=== PATIENT | female | born 1955 | race Caucasian/White ===

== ENCOUNTER 2019-11-13 16:53 | Outpatient (CLI) | payer BC, SELFPAY ==
[2019-11-13 17:24] LABS: Basophils Absolute Auto 0.1 K/mm3 (0.0-0.1); Basophils Percent Auto 0.6 % (0.2-1.2); Eosinophils Absolute Auto 0.4 K/mm3 (0-0.3); Eosinophils Percent Auto 2.2 % (0-4.4); Hematocrit 39.3 % (37.0-47.0); Immature Granulocyte Percent A 1.2 % (0-0.5); Lymphocytes Percent Auto 16.5 % (18.3-44.2); Mean Corpuscular HGB Conc 33.1 g/dl (32-36); Mean Corpuscular Hemoglobin 29.1 pg (26-34); Mean Corpuscular Volume 88.1 fl (80-100); Monocytes Absolute Auto 1.7 K/mm3 (0.1-0.6); Neutrophils Absolute Auto 11.8 K/mm3 (1.3-6.7); Neutrophils Percent Auto 69.5 % (45.5-73.1); Nucleated Red Blood Cells Perc 0.2 % (0.0-0.2); Platelet Count Result 380 k/mm3 (150-375); Red Blood Count 4.46 M/mm3 (4.2-5.4); Red Cell Distribution Width 14.1 % (11.5-14.5)
[2019-11-13 17:37] LABS: Alanine Aminotransferase 13 U/L (4-35); Albumin Level 4.1 g/dL (3.5-5.1); Alkaline Phosphatase 107 U/L (38-126); Anion Gap 10 mmol/L (8-16); Aspartate Amino Transferase 18 U/L (14-36); Bilirubin,Total 0.9 mg/dL (0.2-1.3); Blood Urea Nitrogen 24 mg/dL (7-17); Calcium 8.9 mg/dL (8.4-10.2); Carbon Dioxide 26 mmol/L (22-30); Chloride 93 mmol/L (98-107); Estimated Glomerular Filt Rate > 60; Glucose 308 mg/dL (65-105); Potassium 4.8 mmol/L (3.4-5.0); Sodium 129 mmol/L (137-145)
[2019-11-13 17:44] LABS: Hemoglobin A1C 9.5 % (<5.7)
== END 2019-11-13 16:54 | disposition home or self-care (01) ==
PROVIDERS: PCP Family Medicine; Visit Provider Physician Assistant
DX: E11.9 Type 2 diabetes mellitus without complications (principal); K21.9 Gastro-esophageal reflux disease without esophagitis; I10 Essential (primary) hypertension; W19.XXXA Unspecified fall, initial encounter
CPT/HCPCS: 36415; 80053; 83036; 85025

== ENCOUNTER 2020-09-20 01:35 | Day surgery (SDC) | payer BC, SELFPAY ==
[2020-09-02 13:19] VITALS: BMI 40.7
[2020-09-20 11:31] VITALS: BP 131/68; PULSE 99; RESP 24; TEMP 36.4; O2SAT 100; BMI 39.9
[2020-09-20 11:41] LABS: Glucose Point of Care 251 mg/dl (65-105)
[2020-09-20] MEDS: LACTATED RINGERS 1,000 ML 150 ML IV CONT (11:47)
--- NOTE | 2020-09-20 11:51 | WPDANESEPPF ---
Anes - Initial Pre Proc Eval Procedure: Operation Date: 09/20/20 12:45 Proposed Procedures p Screening Colonoscopy - Haseeb Parrish MD Date/Time: 09/20/20 11:51 Surgeon: Haseeb Parrish MD Pre Op Diagnosis: neoplasm screening Patient Data Age: 64 Gender: F Height: 1.7 m Weight: 115.5 kg Last Vital Signs Temp 36.4 C L 09/20/20 11:31 Pulse 99 09/20/20 11:31 Resp 24 H 09/20/20 11:31 BP 131/68 09/20/20 11:31 Pulse Ox 100 09/20/20 11:31 Allergies Allergy/AdvReac Type Severity Reaction Status Date / Time No Known Allergies Allergy Verified 09/20/20 11:30 Home Medications Medication Instructions Recorded Confirmed Type atorvastatin 40 mg tablet 40 mg PO DAILY 01/29/19 09/02/20 History omeprazole magnesium 20 mg 20 mg PO DAILY PRN 01/29/19 09/02/20 History tablet,delayed release cimetidine 200 mg tablet 200 mg PO DAILY PRN tablet 03/26/19 09/02/20 History pioglitazone 30 mg tablet 30 mg PO DAILY #90 tablet 01/15/20 09/02/20 Rx clonazepam 2 mg tablet 2 mg PO DAILY #30 tablet 04/13/20 09/02/20 Rx fluoxetine 20 mg capsule 20 mg PO DAILY #90 cap 05/07/20 09/02/20 Rx glyburide 2.5 mg-metformin 500 mg 1 tablet PO BID #180 tablet 05/27/20 09/02/20 Rx tablet pen needle, diabetic 29 gauge x #100 ea 07/27/20 08/30/20 Rx 1/2 umeclidinium-vilanterol [Anoro 1 inh INHALATION DAILY PRN 09/02/20 09/02/20 History Ellipta] enalapril maleate 2.5 mg tablet 2.5 mg PO DAILY #90 tablet 09/15/20 Rx Laboratory Tests 09/20/20 11:38 POC Capillary Glucose 251 mg/dl H mg/dl (65-105) Patient hx anesthesia problems: none Family hx anesthesia problems: none PMFSH Past Medical History Medical History Acute depression Anxiety Diabetes Diabetes mellitus type II, uncontrolled Family history of colon cancer Glomerulonephritis Heartburn Hypertension Surgical History Surgical History History of cataract extraction Right eye Family History Family History Mother Family history of multiple sclerosis Sibling Hypertension Family history of ulcerative colitis Father Family history of cardiovascular disease Carcinoma of colon Social History Social History Smoking packs per day: 1 Smoking cigarettes per day: 20.0 Years smoked: 38 Smoking pack-years: 38.00 Smoking status: Current every day smoker Tobacco type: cigarettes Second hand tobacco smoke exposure: No Alcohol intake: current Alcohol use details: RARE Substance use: never Substance use type: does not use Living arrangements: alone Gender identity (if verbalized by the patient): Female Spiritual care concerns: No Anes - Eval Final PreProcedure Day of Procedure 09/20/20 11:51 Patient weight: morbidly obese Heart: regular rate and rhythm Lungs: clear to auscultation Airway: Mallampati scale class II and special considerations poor dentition Neurological: alert and oriented Last oral intake: >/= 8 hours ASA classification: III Emergent: no Anesthetic plan: proceed Anesthesia type and monitoring: general GIVS and standard monitoring Informed Consent: The patient's anesthetic plan and its attendant risks and benefits were discussed with the patient/family/POA. Questions were solicited and answers provided to the satisfaction of the patient/family/POA.
--- NOTE | 2020-09-20 13:07 | PM.HPGS ---
History of Present Illness History of Present Illness Consent: Risks, benefits, and alternatives have been discussed and questions answered. Patient agrees to proceed with procedure. Chief complaint: neoplasm screening Narrative: Janel Marin is a 64 year old female with last colonoscopy 5 years ago, father had colon ca Review of Systems Constitutional: Constitutional: Denies headache(s) and Denies weakness Eyes: Eyes: Denies blurry vision ENT: Reports Normal hearing present, Denies headache(s) and Denies neck pain Cardiovascular: Cardiovascular: Denies chest pain and Denies dyspnea Respiratory: Respiratory: Denies dyspnea Gastrointestinal: Gastrointestinal: Reports no additional gastrointestinal complaints Genitourinary: Genitourinary: Denies dysuria Musculoskeletal: Musculoskeletal: Denies neck pain Integumentary/Breasts: Skin/Breast: Denies dry skin Neurologic: Reports Normal hearing present, Denies headache(s) and Denies weakness Psychiatric: Psychiatric: Denies anxiety Endocrine: Endocrine: Denies change in body appearance Hematologic/Lymphatic: Hematologic/Lymphatic: Denies easy bleeding Allergic/Immunologic: Allergic/Immunologic: Denies urticaria PMFSH Past Medical History Medical History Acute depression Anxiety Diabetes Diabetes mellitus type II, uncontrolled Family history of colon cancer Glomerulonephritis Heartburn Hypertension Surgical History Surgical History History of cataract extraction Right eye Family History Family History Mother Family history of multiple sclerosis Sibling Hypertension Family history of ulcerative colitis Father Family history of cardiovascular disease Carcinoma of colon Social History Social History Smoking packs per day: 1 Smoking cigarettes per day: 20.0 Years smoked: 38 Smoking pack-years: 38.00 Smoking status: Current every day smoker Tobacco type: cigarettes Second hand tobacco smoke exposure: No Alcohol intake: current Alcohol use details: RARE Substance use: never Substance use type: does not use Living arrangements: alone Gender identity (if verbalized by the patient): Female Spiritual care concerns: No Meds Home Medications and Allergies Home Medications Medication Instructions Recorded Confirmed Type atorvastatin 40 mg tablet 40 mg PO DAILY 01/29/19 09/02/20 History omeprazole magnesium 20 mg 20 mg PO DAILY PRN 01/29/19 09/02/20 History tablet,delayed release cimetidine 200 mg tablet 200 mg PO DAILY PRN tablet 03/26/19 09/02/20 History pioglitazone 30 mg tablet 30 mg PO DAILY #90 tablet 01/15/20 09/02/20 Rx clonazepam 2 mg tablet 2 mg PO DAILY #30 tablet 04/13/20 09/02/20 Rx fluoxetine 20 mg capsule 20 mg PO DAILY #90 cap 05/07/20 09/02/20 Rx glyburide 2.5 mg-metformin 500 mg 1 tablet PO BID #180 tablet 05/27/20 09/02/20 Rx tablet pen needle, diabetic 29 gauge x #100 ea 07/27/20 08/30/20 Rx 1/2 umeclidinium-vilanterol [Anoro 1 inh INHALATION DAILY PRN 09/02/20 09/02/20 History Ellipta] enalapril maleate 2.5 mg tablet 2.5 mg PO DAILY #90 tablet 09/15/20 Rx Allergies Allergy/AdvReac Type Severity Reaction Status Date / Time No Known Allergies Allergy Verified 09/20/20 11:30 Vital Signs Vital Signs - 24 hr 09/20/20 11:31 Temperature 97.5 F L Pulse Rate 99 Respiratory Rate 24 H Blood Pressure 131/68 Pulse Oximetry 100 Exam Const: General: comfortable and no acute distress HENMT: General nose exam: Normal nares present Eyes: General: appearance normal, both eyes and all related structures Neck: Neck: no JVD Resp: Auscultation: clear to auscultation bilaterally Cardio: Rate: regular rate Rhythm: regular rhythm GI: Inspection: non
[2020-09-20 13:33] VITALS: BP 128/72; PULSE 99; RESP 23; O2SAT 97
[2020-09-20 13:43] VITALS: BP 128/72; PULSE 99; RESP 25; O2SAT 93
[2020-09-20 13:53] VITALS: BP 101/72; PULSE 93; RESP 25; O2SAT 94
== END 2020-09-20 14:05 | disposition home or self-care (01) ==
PROVIDERS: PCP Family Medicine; Visit Provider Internal Medicine Gastroenterology
PROC: 0DJD8ZZ Inspection of Lower Intestinal Tract, Via Natural or Artificial Opening Endoscopic (ICD-10-PCS; CPT 45378; principal; 2020-09-20 12:45)
DX: Z12.11 Encounter for screening for malignant neoplasm of colon (principal); K63.5 Polyp of colon; Z80.0 Family history of malignant neoplasm of digestive organs; K57.30 Diverticulosis of large intestine without perforation or abscess without bleeding; K64.8 Other hemorrhoids; F41.8 Other specified anxiety disorders; E11.9 Type 2 diabetes mellitus without complications; N05.9 Unspecified nephritic syndrome with unspecified morphologic changes; R12 Heartburn; I10 Essential (primary) hypertension; F17.210 Nicotine dependence, cigarettes, uncomplicated; E66.9 Obesity, unspecified; Z68.39 Body mass index [BMI] 39.0-39.9, adult
CPT/HCPCS: 45385; 82948; 88305; J2704; J7120

== ENCOUNTER 2020-11-24 16:05 | Outpatient (CLI) | payer BC, SELFPAY ==
--- NOTE | ~2020-11-24 | MM_ITS ---
EXAMINATION: MM screening [facility] BI w yana HISTORY: Screening TECHNIQUE: Craniocaudal and mediolateral oblique 3-D tomosynthesis images were obtained and synthetic 2-D images were generated. CAD analysis was submitted and interpreted. COMPARISON: Comparison to multiple prior studies sequentially, with oldest reviewed study dated 04/24. BREAST PARENCHYMAL COMPOSITION: There are scattered areas of fibroglandular density. FINDINGS: Stable benign-appearing right breast mass with associated tissue marker in the subareolar l ocation. There is no evidence of suspicious mass, calcification, or architectural distortion to sugge st malignancy in either breast. There has been no suspicious interval change. IMPRESSION: 1. No mammographic evidence of malignancy. 2. Recommend routine screening mammography in one year. BI-RADS Category 2: Benign finding(s). Reviewed, dictated and finalized at location A.
== END 2020-11-24 16:06 | disposition home or self-care (01) ==
LOC: ANHIMG 16:06
PROVIDERS: PCP Family Medicine; Visit Provider Obstetrics & Gynecology
DX: Z12.31 Encounter for screening mammogram for malignant neoplasm of breast (principal)
CPT/HCPCS: 77063; 77067

== ENCOUNTER 2021-12-21 11:21 | Outpatient (CLI) | payer MEDICARE, OTHER, SELFPAY ==
--- NOTE | ~2021-12-21 | CT_ITS ---
EXAMINATION: CT lung screening DATE: 12/21/2021 11:55 INDICATION: Current smoker TECHNIQUE: Computed tomography (CT) of the chest was performed without intravenous contrast. Addition al 3D reconstructions utilizing coronal maximum intensity projection (MIP) were performed. Automated exposure control and iterative reconstruction technique were employed. The dose-length product was 20 0.56 mGy-cm. COMPARISON: 12/04/2018 FINDINGS: Again seen is subtle mosaic attenuation throughout both lungs with small subsegmental regions of incr eased lucency likely related to air trapping in the setting of small airway disease. Again seen are c alcified nodules in the right upper lobe consistent with old granulomatous disease. A couple unchange d 2 mm noncalcified nodules at the right apex. No other new or enlarging pulmonary nodules, pneumonia , pulmonary edema or pleural effusion. Heart size is normal. Atherosclerotic coronary artery calcific location. Aortic valve and mitral annular calcification. Calcified right hilar and mediastinal lymph nodes consistent with old granulomatous disease. Thoracic aorta is normal in caliber. Wall thickenin g along the mid to distal esophagus suggestive of esophagitis. Several small hepatic and splenic calc ific lesions consistent with old granulomatous disease. Mild S-shaped curvature of the thoracic spine with moderate spondylosis. IMPRESSION: 1. . Lung-RADS category 2: Benign appearance or behavior. Continue annual screening with noncontrast low-dose chest CT in 12 months. 2. Wall thickening along the mid to distal esophagus which could be seen with esophagitis related to either infection or reflux. Reviewed, dictated and finalized at location B. IMPRESSION: 1. . Lung-RADS category 2: Benign appearance or behavior. Continue annual scree olga with noncontrast low-dose chest CT in 12 months. 2. Wall thickening along the mid to distal esophagus which could be seen with e sophagitis related to either infection or reflux.
== END 2021-12-21 11:22 | disposition home or self-care (01) ==
PROVIDERS: PCP Family Medicine; Visit Provider Nurse Practitioner Family
DX: Z12.2 Encounter for screening for malignant neoplasm of respiratory organs (principal); F17.210 Nicotine dependence, cigarettes, uncomplicated
CPT/HCPCS: 71271

== ENCOUNTER 2022-01-09 10:05 | Outpatient (CLI) | payer MEDICARE, OTHER, SELFPAY ==
--- NOTE | ~2022-01-09 | MM_ITS ---
EXAMINATION: MM screening [facility] BI w yana HISTORY: Screening TECHNIQUE: Craniocaudal and mediolateral oblique 3-D tomosynthesis images were obtained and synthetic 2-D images were generated. CAD analysis was submitted and interpreted. COMPARISON: Comparison to multiple prior studies sequentially, with oldest reviewed study dated 04/24. BREAST PARENCHYMAL COMPOSITION: FINDINGS: Stable appearance to benign-appearing mass in the subareolar location of the right breast. There are benign bilateral breast calcifications. There is no evidence of suspicious mass, calcificat ion, or architectural distortion to suggest malignancy in either breast. There has been no suspicious interval change. IMPRESSION: 1. No mammographic evidence of malignancy. 2. Recommend routine screening mammography in one year. BI-RADS Category 2: Benign finding(s). Reviewed, dictated and finalized at location A.
== END 2022-01-09 10:06 | disposition home or self-care (01) ==
LOC: ANHIMG 10:08
PROVIDERS: PCP Family Medicine; Visit Provider Obstetrics & Gynecology
DX: Z12.31 Encounter for screening mammogram for malignant neoplasm of breast (principal)
CPT/HCPCS: 77063; 77067

== ENCOUNTER 2022-11-30 14:42 | Outpatient (CLI) | payer MEDICARE, OTHER, SELFPAY ==
--- NOTE | ~2022-11-30 | DEXA_ITS ---
Bone Density Report Name: ARANZA CHAHAL Age: 67 Sex: Female Ethnicity: White Date of : 1955 Indication: postmenopausal; screening for osteoporosis; prior fracture; Referring Provider: JUAN RAY Study: Bone densitometry was performed. Exam Date: November 30, 2022 Accession number: [id number] Bone Density: Region BMD T-score Z-score Classification AP Spine(L1-L4) 0.932 -1.0 0.8 Normal Femoral Neck (Left) 0.714 -1.2 0.3 Osteopenia Total Hip (Left) 0.863 -0.6 0.6 Normal Femoral Neck (Right) 0.646 -1.8 -0.3 Osteopenia Total Hip (Right) 0.847 -0.8 0.5 Normal Total Hip Mean 0.855 -0.7 0.6 Normal World Health Organization criteria for BMD impression classify patients as: Normal (T-score at or above -1.0), Osteopenia (T-score between -1.0 and -2.5), or Osteoporosis (T-score at or below -2.5). 10-year Fracture Risk(1): Major Osteoporotic Fracture 16% Hip Fracture 3.4% Reported Risk Factors: [place] (), Neck BMD=0.646, BMI=37.4, previous fracture, smoking (1) FRAX(R) Version 3.08. Fracture probability calculated for an untreated patient. Fracture probability may be lower if the patient has received treatment. Clinical Information Provided by Patient: Has had a low trauma fracture Smokes Has used the following medications: Vitamin D Patient maximum height was 67 Menopause Age: 48 No regular weight bearing exercise Drinks caffeinated beverages Onset of menses at age 14 Number of children 0 Impression: The patient has low bone mass, based on the Right Femoral Neck T-score. The patient has an estimated ten-year risk of hip fracture of 3.4% and an estimated ten-year risk of major fracture of 16%, based on the WHO FRAX algorithm. The patient has risk factors, including: smoking, previous fracture. Discussion: BONE DENSITY IS LOW AT ONE OR MORE SKELETAL SITES. THE PATIENT'S BMD AND CLINICAL RISK FACTORS CONTRIBUTE TO THIS PATIENT'S INCREASED RISK OF FRACTURE. This patient's lowest T-score is low at one or more skeletal sites. It meets the World Health Organization's (WHO) criteria for ?low bone mass? (T-score between -1.0 and -2.5). The patient's 10-year risk of hip fracture as calculated by FRAX exceeds the threshold where pharmacological therapy is recommended by the National Osteoporosis Foundation (NOF). However, all treatment decisions require clinical judgment and consideration of individual patient factors, including patient preferences, comorbidities, previous drug use, risk factors not captured in the FRAX model (e.g., frailty, falls, vitamin D deficiency, increased bone turnover, interval significant decline in bone density) and possible under or overestimation of fracture risk by FRAX. The patient should follow a healthful lifestyle (good nutritio
== END 2022-11-30 14:43 | disposition home or self-care (01) ==
PROVIDERS: PCP Family Medicine; Visit Provider Internal Medicine Endocrinology, Diabetes & Metabolism
DX: Z78.0 Asymptomatic menopausal state (principal); M85.852 Other specified disorders of bone density and structure, left thigh; M85.851 Other specified disorders of bone density and structure, right thigh
CPT/HCPCS: 77080

== ENCOUNTER 2022-12-22 13:34 | Outpatient (CLI) | payer MEDICARE, OTHER, SELFPAY ==
--- NOTE | ~2022-12-22 | CT_ITS ---
EXAMINATION: CT lung screening DATE: 12/22/2022 13:57 INDICATION: Lung cancer screening. Nicotine dependence. TECHNIQUE: Computed tomography (CT) of the chest was performed without intravenous contrast. The dose -length product was 191.53 mGy-cm. Automated exposure control and iterative reconstruction technique were employed. COMPARISON: CT dated 12/21/2021 FINDINGS: No thoracic lymphadenopathy. Heart size normal. No significant pleural or pericardial effus ion. There are calcified granulomas of the liver and spleen. There is low density mass in the left ad renal gland measuring 3 cm, likely benign adenoma. There is atherosclerosis. There is mediastinal lym phadenopathy, likely reactive. Persistent diffuse patchy groundglass opacities with mosaic attenuatio n in both lungs. No endobronchial lesions. Calcified granuloma right upper lobe. There are additional calcified granulomas in the lung parenchyma. There are a few scattered pulmonary nodules measuring 2 mm or less in both lungs without significant change from prior examination. No new pulmonary nodules . No pneumothorax. IMPRESSION: 1. Lung-RADS category 2: Benign appearance or behavior. Continue annual screening with noncontrast lo w-dose chest CT in 12 months. Reviewed, dictated and finalized at location A. IMPRESSION: 1. Lung-RADS category 2: Benign appearance or behavior. Continue annual screeni ng with noncontrast low-dose chest CT in 12 months.
== END 2022-12-22 13:35 | disposition home or self-care (01) ==
LOC: ANHIMG 13:40
PROVIDERS: PCP Family Medicine; Visit Provider Physician Assistant
DX: Z12.2 Encounter for screening for malignant neoplasm of respiratory organs (principal); F17.210 Nicotine dependence, cigarettes, uncomplicated
CPT/HCPCS: 71271

== ENCOUNTER 2023-02-22 15:47 | Inpatient (IN) | payer MEDICARE, OTHER, SELFPAY ==
[2023-02-22] VITALS (23 sets, daily range): BP systolic 130–159; BP diastolic 67–97; PULSE 80–104; RESP 15–26; TEMP 35.7–36.2; O2SAT 84–99; BMI 34.7
--- NOTE | ~2023-02-22 | CT_ITS ---
EXAMINATION: CT brain wo con DATE: 02/22/2023 16:38 INDICATION: Head injury. TECHNIQUE: Computed tomography (CT) of the head was performed without intravenous contrast. The mA wa s adjusted according to patient size. Iterative reconstruction technique was employed. The dose-lengt h product was 605.33 mGy-cm. COMPARISON: None FINDINGS: There is no intracranial hemorrhage, acute infarction, or abnormal intracranial mass lesion . The ventricles are normal in size. The orbits are normal. There is mild mucosal thickening in the p aranasal sinuses. The mastoid air cells are normal. There are hematomas in the posterior scalp. IMPRESSION: 1. Normal brain. Reviewed, dictated and finalized at location A. ANALYST IMPRESSION: 1. Normal brain.
--- NOTE | ~2023-02-22 | XR_ITS ---
EXAMINATION: XR chest 1V portable DATE: 02/22/2023 17:14 INDICATION: Syncope. TECHNIQUE: A single frontal view of the chest was obtained. COMPARISON: Chest 2 views 02/25/2014, chest CT 12/22/2022 FINDINGS: There is no pneumonia, pleural effusion, or pneumothorax. The heart size is normal. There i s an old healed fracture of proximal left humerus. IMPRESSION: 1. No acute cardiopulmonary disease. Reviewed, dictated and finalized at location A. TENTER OPERATOR
--- NOTE | ~2023-02-22 | CT_ITS ---
EXAMINATION: CTA chest PE protocol DATE: 02/22/2023 17:48 INDICATION: Shortness of breath and elevated d-dimer TECHNIQUE: Computed tomography (CT) pulmonary angiogram of the chest was performed with 100 mL Omnipa que-350 intravenous contrast. Additional 3D reconstructions utilizing coronal maximum intensity proje ction (MIP) were performed. Automated exposure control and iterative reconstruction technique were em ployed. The dose-length product was 607.32 mGy-cm. COMPARISON: 12/22/2022 FINDINGS: Excellent contrast opacification of the pulmonary arteries. There is mild streak artifact from dense contrast in the superior vena cava and right atrium. Mild scattered respiratory motion artifact which does not significantly limit evaluation. No pulmonary embolism. There is subtle mosaic attenuation t hroughout the lungs with groundglass opacities and small subsegmental regions of more lucent air trap ping without attenuation of the vessels most likely related to air trapping the setting of small airw ay disease. 9 mm groundglass nodule in the right middle lobe which most likely infectious/inflammator y in etiology. Calcified right upper lobe nodules along with calcified right hilar lymph nodes and a few small hepatic and splenic calcific lesions, all consistent with old granulomatous disease. No ple ural effusion. Atherosclerotic coronary artery calcification is. No pericardial effusion. Aortic valv e and mitral annular calcification. Thoracic aorta is normal in caliber with no dissection. No pathol ogically enlarged thoracic lymphadenopathy. 2.4 cm left thyroid nodule at the lower pole which extend s into the superior mediastinum. 1.5 cm left adrenal adenoma with Hounsfield units of 0. There is add itional low-density thickening of the lateral limb of the left adrenal gland likely representing flaca tional small adenoma. Relatively recent-appearing T12 burst fracture with 20% anterior to central diogo tebral body height loss, subtle lucency along the fracture line underlying the superior endplate and couple millimeter retropulsion resulting in mild central canal stenosis. IMPRESSION: 1. No pulmonary embolism. 2. Mosaic attenuation throughout both lungs likely related to subsegmental regions of air trapping re lated to small airway disease. 3. 9 mm groundglass nodule in the right middle lobe which is new since the prior study most likely in fectious/inflammatory in etiology. 4. Relatively recent-appearing T12 burst fracture which is new since 12/22/2022 Reviewed, dictated and finalized at location A. OUS CHLORIDE OPERATOR IMPRESSION: 1. No pulmonary embolism. 2. Mosaic attenuation throughout both lungs likely related to subsegmental shola ons of air trapping related to small airway disease. 3. 9 mm groundglass nodule in the right middle lobe which is new since the prio r study most likely infectious/inflammatory in etiology. 4. Relatively recent-appearing T12 burst fracture which is new since 12/22/2022
--- NOTE | ~2023-02-22 | US_ITS ---
EXAMINATION: US carotid duplex BI DATE: 02/23/2023 09:37 INDICATION: Syncope. TECHNIQUE: Grayscale, color Doppler, and pulsed Doppler images of the cervical carotid arteries were obtained. The degree of vessel stenosis is placed in one of the following categories: normal, <50%, 5 0-69%, >=70% but less than near-occlusion, near-occlusion, or total occlusion. Note that percent sten osis relative to normal distal artery lumen diameter is indirectly measured from velocity measurement s as described by Chuy, et al. Radiology 2003; 229:340-346. COMPARISON: None. FINDINGS: RIGHT: The right common carotid artery (CCA) peak systolic velocity (PSV) is 93 cm/s. The right internal car otid artery (ICA) PSV is 62 cm/s. The right ICA end-diastolic velocity (EDV) is 12 cm/s. The right IC A/CCA PSV ratio is 0.7. Grayscale and color Doppler images yield an estimate of <50% diameter reducti on from plaque in the ICA. There is antegrade flow in the right vertebral artery. LEFT: The left CCA PSV is 82 cm/s. The left ICA PSV is 64 cm/s. The left ICA EDV is 14 cm/s. The left ICA/C CA PSV ratio is 0.8. Grayscale and color Doppler images yield an estimate of <50% diameter reduction from plaque in the ICA. There is antegrade flow in the left vertebral artery. IMPRESSION: 1. <50% stenosis in the right internal carotid artery. 2. <50% stenosis in the left internal carotid artery. Reviewed, dictated and finalized at location A. DUMPER
--- NOTE | 2023-02-22 15:57 | ECG_ITS ---
Measurements Intervals [place] Rate: 92 P: 60 SD: 180 QRS: 103 QRSD: 98 T: 37 QT: 258 QTc: 319 Interpretive Statements SINUS RHYTHM MARKED RIGHT AXIS DEVIATION [QRS AXIS > 100] NONSPECIFIC T-WAVE ABNORMALITY ABNORMAL ECG NO PREVIOUS ECG AVAILABLE FOR COMPARISON Electronically Signed On 02-23-2023 13:49:59 RN PLASTICS by Davonte Forbes M.D.
[2023-02-22 16:26] LABS: Alveolar/Arterial O2 Gradient 63.5 mmHg; Carboxyhemoglobin 9.3 % THb (0-2.0); Fractional Inspired Oxygen 28 %; HCO3 ABG 27.8 mEq/l (22.0-26.0); Methemoglobin ABG 0.3 %THb (0-1.5); Oxygen Content ABG 21.7 %vol (16.0-22.0); Oxygen Saturation ABG 95.7 % (95.0-100.0); PCO2 ABG 47.2 mmHg (35.0-45.0); PO2 ABG 80.4 mmHg (80.0-100.0); PO2 FiO2 Ratio Arterial Blood 2.87 %; Reduced Hemoglobin 3.9 %THb (0-5.0); Total Hemoglobin 17.8 g/dL (12.0-18.0); pH ABG 7.388 (7.350-7.450)
[2023-02-22 16:28] LABS: Device NASAL CANNULA; Modified Allen's Test Pass; Oxyhemoglobin 86.5 % THb (90.0-100.0); Site Drawn RIGHT RADIAL
[2023-02-22 16:32] LABS: Basophils Absolute Auto 0.1 K/mm3 (0.0-0.1); Basophils Percent Auto 0.7 % (0.2-1.2); Eosinophils Absolute Auto 0.2 K/mm3 (0-0.3); Eosinophils Percent Auto 2.4 % (0-4.4); Hematocrit 57.7 % (37.0-47.0); Hemoglobin 17.2 g/dL (12.0-15.0); Immature Granulocyte Absolute 0.03 K/mm3 (0.00-0.031); Immature Granulocyte Percent A 0.3 % (0-0.5); Lymphocytes Absolute Auto 1.58 K/mm3 (0.9-3.2); Lymphocytes Percent Auto 18.2 % (18.3-44.2); Mean Corpuscular HGB Conc 29.8 g/dl (32-36); Mean Corpuscular Volume 90.6 fl (80-100); Monocytes Absolute Auto 0.7 K/mm3 (0.1-0.6); Monocytes Percent Auto 7.7 % (2.6-8.5); Neutrophils Absolute Auto 6.1 K/mm3 (1.3-6.7); Neutrophils Percent Auto 70.7 % (45.5-73.1); Platelet Count Result 273 k/mm3 (150-375); Red Blood Count 6.37 M/mm3 (4.2-5.4); Red Cell Distribution Width 16.9 % (11.5-14.5); White Blood Count 8.7 K/mm3 (4.5-10.0)
[2023-02-22 16:45] LABS: Alanine Aminotransferase 14 U/L (6-35); Albumin Level 4.2 g/dL (3.5-5.1); Alkaline Phosphatase 92 U/L (38-126); Anion Gap 12 mmol/L (8-16); Aspartate Amino Transferase 19 U/L (14-36); Bilirubin,Total 0.9 mg/dL (0.2-1.3); Blood Urea Nitrogen 12 mg/dL (7-17); Calcium 9.7 mg/dL (8.4-10.2); Carbon Dioxide 28 mmol/L (22-30); Chloride 99 mmol/L (98-107); Estimated CRCL calculation 96 ml/min; Estimated Glomerular Filt Rate > 60; Glucose 143 mg/dL (65-110); Potassium 4.4 mmol/L (3.4-5.0); Sodium 139 mmol/L (137-145)
[2023-02-22 16:56] LABS: Hypochromasia 1+ (NORMAL); Platelet Estimate Adequate (Adequate); Schistocytes None Seen (NORMAL)
--- NOTE | 2023-02-22 16:59 | ED.GENADULT ---
HPI - General Adult General Chief complaint: Syncope Stated complaint: sycope head injury Time Seen by Provider: 02/22/23 16:08 History of Present Illness HPI narrative: 67-year-old female presented to the emergency department for evaluation after having 2 syncopal episodes. patient reports that yesterday she had onset of some lightheaded and dizziness, she reports a spinning sensation and then patient thought she had loss of consciousness and struck her head. Patient is unsure how long she was unconscious. Patient reports she had a 2nd episode today when she was standing at the kitchen that was preceded by a short episode of lightheaded and dizziness. Patient reports she did have once again loss of consciousness and did strike her head. Patient does admit to smoking at least a pack and half of cigarettes per day. Patient denies any headache denies any confusion or change in mental status. At time of evaluation patient is alert and appropriate. Related Data Home Medications Medication Instructions Recorded Confirmed ibuprofen 200 mg capsule 200 mg PO Q6H PRN 11/17/20 02/21/23 loratadine 5 mg-pseudoephedrine ER 1 tablet PO Q12H PRN 10/19/21 02/21/23 120 mg tablet,extended release,12hr (Claritin-D 12 Hour) cholecalciferol (vitamin D3) 25 25 mcg PO DAILY 08/14/22 02/21/23 mcg (1,000 unit) capsule mecobalamin (vitamin B12) 500 mcg 500 mcg PO DAILY 08/14/22 02/21/23 chewable tablet duloxetine 60 mg capsule,delayed 60 mg PO DAILY 11/30/22 02/21/23 release Allergies Allergy/AdvReac Type Severity Reaction Status Date / Time No Known Allergies Allergy Verified 02/21/23 13:02 Review of Systems Review of Systems: All systems reviewed & are unremarkable except as noted in HPI and below PMFSH Past Medical History Medical History Acute depression Allergies Anxiety Chronic GERD COPD (chronic obstructive pulmonary disease) Glomerulonephritis Headache, migraine Heartburn HLD (hyperlipidemia) Hypertension Keratosis Tachycardia Surgical History Surgical History History of cataract extraction Right eye History of elbow surgery 2020, broken bone from fall Family History Family History Mother Family history of multiple sclerosis Sibling Hypertension Family history of ulcerative colitis Father Family history of cardiovascular disease Carcinoma of colon Other Alcoholism Alzheimer disease Cerebrovascular accident Depression Diabetes mellitus Emphysema lung Heart disease Lung cancer Multiple sclerosis Rectal cancer Skin cancer Ulcerative (chronic) ileocolitis Vertigo Social History Social History Social History: Single Smoking packs per day: 1.5 Smoking cigarettes per day: 30.0 Years smoked: 38 Smoking pack-years: 57.00 Smoking status: Heavy tobacco smoker Tobacco type: cigarettes Second hand tobacco smoke exposure: No Alcohol intake: current Alcohol use details: rarely Substance use: never Substance use type: does not use Living arrangements: alone Occupation/Education: occupation Gender identity (if verbalized by the patient): Female Sexual Orientation (if Verbalized by the Patient): Straight or Heterosexual Spiritual care concerns: No Exam Narrative: APPEARANCE: Well appearing, no pain, no distress, well-nourished. HEAD: normocephalic, atraumatic. EYES: PERRLA/EOMI, conjunctivae clear. NOSE: Normal no drainage EARS:TMS clear with good light reflex. THROAT: Pharynx clear, no exudate. NECK: Supple. No adenopathy, no masses. RESPIRATORY: Airway patent, respirations nonlabored. Clear to auscultation bilaterally, no rales, rhonchi, wheezing. CARDIOVASCULAR: Regular rate and rhythm without murmurs rubs or gallops. ABD
[2023-02-22] MEDS: SODIUM CHLORIDE 0.9% IV 1,000 ML 999 ML IV CONT (17:13)
[2023-02-22 17:15] LABS: Troponin I < 0.012 ng/mL (0.000-0.034)
[2023-02-22 17:27] LABS: D Dimer 0.64 ug/mL (<0.48)
[2023-02-22] MEDS: methylPREDNISolone SOD SUCC 125 MG VIAL IV PUSH (18:58)
[2023-02-22 19:29] LABS: Influenza A QL RT-PCR Negative (Negative); Influenza B QL RT-PCR Negative (Negative); RSV RNA, RT-PCR Negative (Negative); SARS-CoV-2 RNA PCR Negative (Negative)
--- NOTE | 2023-02-22 19:59 | PM.IMHP ---
H&P: HPI History of Present Illness Date/Time: 02/22/23 19:59 Chief Complaint: Passed out Narrative: 67-year-old female with past medical history of chronic tobacco use, diabetes, hyperlipidemia and anxiety who presented to the ER after 2 syncopal episodes. Patient reports that her 1st syncopal episode was 5 days ago. She stated that she was outside and came back inside to grab a cup of coffee to drink while she smoker cigarette. She was standing at the counter making couple coffee when the room suddenly spine in a violent manner. She passed out in was wedged between a cabinet and an appliance when she woke up. She a had knot on her head. She stated that she felt off for little bit after that episode and took a bit to recover. She did not have loss of bowel or bladder function. She treated it with the ice and anti-inflammatories. She did follow-up with her primary care physician yesterday about the event. Then today she had been up and walking around for a bit in again went to the kitchen to get coffee. While she was standing where she became lightheaded and passed out. This time she feels as if she was not out of it for as long. She also did not feel confused after her 2nd syncopal event. She is noted to be wheezing but does not have any labored respirations in the ER. She reports that she has been heavy smoker since her mid 20s. She denies any increased cough, congestion or shortness of breath. She denies any chest pain or palpitations. On exam she did have a valvular click with a murmur. She denies any known history of murmur. She denies lower extremity swelling, orthopnea or paroxysmal nocturnal dyspnea. She denies any vision changes. She denies any other preceding symptoms prior to the event. She has not had any recent changes in her medications. She was recently diagnosed with candidiasis in her inguinal folds due to her use of Jardiance. She has had increased urinary frequency due to her diabetic medications. Her sugars have been stable. She reports that she took her morning meds but has not had her evening meds today. She reports that her sister complains that she snores when they want trips. She has never been tested for sleep apnea. She does have intermittent constipation that she relates to low dietary fiber. She reports intermittent neuropathy of her fingers but denies any lower extremity peripheral neuropathy. Review of Systems Review of Systems: 12 systems were reviewed with pertinent positives and negatives per HPI. Except as documented in the HPI, all other systems were reviewed and are negative. [facility] Past Medical History Medical History (Updated 02/22/23 @ 21:52 by Anne Kemp DO) Allergic rhinitis Anxiety Chronic GERD COPD (chronic obstructive pulmonary disease) Depression Essential (primary) hypertension Glomerulonephritis Headache, migraine HLD (hyperlipidemia) Keratosis Obesity (BMI 30-39.9) Osteopenia after menopause Post-menopausal Type 2 diabetes mellitus Vitamin B12 deficiency Vitamin D deficiency Surgical History Surgical History (Updated 02/22/23 @ 21:53 by Anne Kemp DO) History of elbow surgery (~2019) ORIF Status post cataract extraction of both eyes with insertion of intraocular lens (~2018) Family History Family History Mother Family history of multiple sclerosis Sibling Hypertension Family history of ulcerative colitis Father Family history of cardiovascular disease Carcinoma of colon Other Alcoholism Alzheimer disease Cerebrovascular accident Depression Diabetes mellitus Emphysema lung Heart disease Lung cancer Multiple sclerosis Rectal cancer Skin cancer Ulcerative (chronic) ileocolitis Vertigo Social History Social History (Updated 02/22/23 @ 21:58 by Anne Kemp DO) Social History: The patient is single and has never been . She does not have any chi
--- NOTE | 2023-02-22 21:17 | ADMGEN ---
This patient, Janel Marin, was admitted to 2 Medical Room 257-01. Patient/family oriented to hospital policies and general routines including ID bracelet, bed and alarms, visiting hours, pain management, procedures, bathroom and other care routines, personal items, smoking policy, room service/diet, and visiting hours. Information on how to activate the Rapid Response Team has been discussed. Patient/Family are encouraged to report perceived risks to care and to ask questions if they do not understand what they are told or what they should do.
[2023-02-22] MEDS: metFORMIN HCL 500 MG TABLET 1000 MG PO (22:40)
[2023-02-22] MEDS: INSULIN ASPART (*BKC) 100 UNITS/ML SUB-Q (22:41)
[2023-02-22] MEDS: SODIUM CHLORIDE 0.9% IV 1,000 ML 100 ML IV CONT (22:41)
[2023-02-22] MEDS: NICOTINE (*PBKC) 14 MG PATCH 1 PATCH TRANSDERM (22:42)
[2023-02-23] VITALS (19 sets, daily range): BP systolic 106–124; BP diastolic 49–61; PULSE 88–103; RESP 18–20; TEMP 35.8–36.5; O2SAT 91–97
--- NOTE | 2023-02-23 | ECHO_ITS ---
Patient Info Name: Janel Marin Age: 67 years : 1955 Gender: Female Ht: 67 in Wt: 221 lbs BSA: 2.22 m2 HR: 93 bpm BP: 124 / 61 mmHg Heart Rhythm: Sinus Rhythm Technical Quality: Fair Exam Date: 02/23/2023 9:04 AM Exam Location: Echo Lab Patient Status: Outpatient Admit Date: 02/22/2023 Staff Ordering Physician: Anne Kemp DO Parent Aide: Marycruz Ceballos RDCS Attending Provider: Mehnaz Hammond MD Referring Physician: Viridiana STALLWORTH; Exam Type: CA echo dop color flow w con Study Info Indications R01.1 - Cardiac murmur, unspecified R55 - Syncope and collapse Complete two-dimensional, color flow and Doppler transthoracic echocardiogram is performed with contrast to opacify the left ventricle and to improve the deliniation of the left ventricle endocardial borders. Contrast/Agitated Saline Contrast/Ag. Saline: Definity Amount: 2.00 ml Administered By: Marycruz Ceballos RDCS Existing IV Access: Yes IV Access Condition: patent with no signs of infiltration Summary 1. Definity contrast injected to improve exam quality. 2. Normal left ventricular size with hyperdynamic systolic contractility. 3. Mildly enlarged left atrium. 4. Thickened mitral valve leaflets with no detectable MR. Left Ventricle Left ventricular chamber dimension is normal. Left ventricular systolic function is hyperdynamic, estimated at >70%. The left ventricular diastolic function is grade I diastolic dysfunction. Right Ventricle Right ventricular chamber dimension is normal. Left Atria Left atrial chamber dimension is mildly enlarged. Right Atria Right atrial chamber dimension is normal. Aortic Valve The aortic valve is normal. Pulmonic Valve The pulmonic valve is not well visualized. Mitral Valve The mitral valve has thickened leaflets. There is no mitral valve regurgitation. The mitral valve annulus is mildly calcified. Tricuspid Valve The tricuspid valve leaflets are normal. Pericardium/Pleural The pericardium appears normal. Aorta The aortic root size at the sinus of Valsalva is normal. Left Ventricular Outflow Tract Name Value Normal LVOT 2D LVOT Diameter 1.98 cm LVOT Doppler LVOT Peak Gradient 4 mmHg LVOT Mean Gradient 3 mmHg LVOT VTI 19.35 cm LVOT VTI/AV VTI Ratio 0.55 LVOT Stroke Volume 59.52 ml LVOT CO 5.82 l/min LVOT CI 2.63 L/min/m2 Pulmonic Valve Name Value Normal RVOT Doppler RVOT Peak Gradient 3 mmHg PV Doppler PV Peak Gradient 8 mmHg Mitral Valve Name
[2023-02-23] MEDS: clonazePAM (*CRX) 0.5 MG TABLET 2 MG PO ×2 (01:10→21:29)
[2023-02-23] MEDS: ATORVASTATIN 20 MG TABLET PO ×2 (01:10→21:30)
[2023-02-23] MEDS: ALBUTEROL SULFATE NEB 2.5 MG/3 ML INH 5 MG INHALATION ×4 (02:25→21:47)
[2023-02-23] MEDS: IPRATROPIUM BR 0.02% INH SOLN 0.5 MG/2.5 ML VIAL INHALATION ×4 (02:25→21:47)
--- NOTE | 2023-02-23 02:29 | PC.NURSE ---
[facility] 0100 to ~0225 on .
[2023-02-23 04:22] LABS: Glucose Point of Care 262 mg/dl (65-105)
[2023-02-23 05:20] LABS: Alveolar/Arterial O2 Gradient 72.5 mmHg; Base Excess ABG -4.6 mEq/l (+/-2.0); Carboxyhemoglobin 2.4 % THb (0-2.0); Fractional Inspired Oxygen 32 %; HCO3 ABG 21.7 mEq/l (22.0-26.0); Methemoglobin ABG 0.4 %THb (0-1.5); Oxygen Saturation ABG 97.3 % (95.0-100.0); Oxyhemoglobin 94.3 % THb (90.0-100.0); PO2 ABG 104.2 mmHg (80.0-100.0); PO2 FiO2 Ratio Arterial Blood 3.26 %; Reduced Hemoglobin 2.9 %THb (0-5.0); Total Hemoglobin 17.3 g/dL (12.0-18.0)
[2023-02-23 05:22] LABS: Device NASAL CANNULA; Modified Allen's Test Pass; Site Drawn RIGHT RADIAL
[2023-02-23 05:42] LABS: Basophils Absolute Auto 0.1 K/mm3 (0.0-0.1); Basophils Percent Auto 0.7 % (0.2-1.2); Eosinophils Percent Auto 0.1 % (0-4.4); Hematocrit 54.1 % (37.0-47.0); Hemoglobin 16.3 g/dL (12.0-15.0); Immature Granulocyte Absolute 0.03 K/mm3 (0.00-0.031); Immature Granulocyte Percent A 0.4 % (0-0.5); Lymphocytes Absolute Auto 0.78 K/mm3 (0.9-3.2); Lymphocytes Percent Auto 11.4 % (18.3-44.2); Mean Corpuscular HGB Conc 30.1 g/dl (32-36); Mean Corpuscular Hemoglobin 27.6 pg (26-34); Mean Corpuscular Volume 91.5 fl (80-100); Mean Platelet Volume 9.1 fl (7.4-10.4); Monocytes Percent Auto 0.6 % (2.6-8.5); Neutrophils Absolute Auto 5.9 K/mm3 (1.3-6.7); Neutrophils Percent Auto 86.8 % (45.5-73.1); Platelet Count Result 255 k/mm3 (150-375); Red Blood Count 5.91 M/mm3 (4.2-5.4); Red Cell Distribution Width 15.9 % (11.5-14.5); White Blood Count 6.8 K/mm3 (4.5-10.0)
[2023-02-23 06:01] LABS: Anion Gap 16 mmol/L (8-16); Blood Urea Nitrogen 15 mg/dL (7-17); Calcium 8.9 mg/dL (8.4-10.2); Carbon Dioxide 18 mmol/L (22-30); Chloride 104 mmol/L (98-107); Estimated CRCL calculation 113 ml/min; Estimated Glomerular Filt Rate > 60; Glucose 178 mg/dL (65-110); Potassium 4.7 mmol/L (3.4-5.0); Sodium 138 mmol/L (137-145)
[2023-02-23 08:25] LABS: Glucose Point of Care 198 mg/dl (65-105)
[2023-02-23] MEDS: SODIUM CHLORIDE 0.9% IV 1,000 ML 100 ML IV CONT (08:48)
[2023-02-23] MEDS: DULoxetine HCL 60 MG CAPSULE.DR PO (08:48)
[2023-02-23] MEDS: EMPAGLIFLOZIN 25 MG TABLET PO (08:49)
[2023-02-23] MEDS: metFORMIN HCL 500 MG TABLET 1000 MG PO ×2 (08:49→16:10)
[2023-02-23] MEDS: ENALAPRIL MALEATE 2.5 MG TABLET PO (08:49)
[2023-02-23] MEDS: CHOLECALCIFEROL 1,000 UNITS TABLET 1000 UNITS PO (08:49)
[2023-02-23] MEDS: PIOGLITAZONE HCL 30 MG TABLET PO (08:50)
[2023-02-23] MEDS: ENOXAPARIN 40 MG/0.4 ML SYRINGE SUB-Q (08:50)
[2023-02-23] MEDS: INSULIN GLARGINE (*BKC) 100 UNITS/ML 46 UNITS SUB-Q (08:52)
[2023-02-23] MEDS: FLUTICASONE/SALMETEROL 115-21 MCG INHALER 1 PUFF 2 PUFF INHALATION (08:55)
[2023-02-23] MEDS: PERFLUTREN LIPID MICROSPHERES 1.5 ML VIAL DILUTED TO 10 ML TOTAL VOLUME IV PUSH (09:53)
--- NOTE | 2023-02-23 11:42 | IVDEFINITY ---
Prior to administration of IV Definity the patient was educated on the risks and benefits of the imaging enhancing agent including potential adverse side effects. The patient verbalized understanding. Allergies were verified. No exclusion criteria were identified and at least one of the following inclusion criteria were met: 1) physician request, 2) patient technically difficult to image (per the [place] [employer] guidelines of two or more segments not discernable within the apical view), or 3) questionable left ventricular function. ?
[2023-02-23 11:57] LABS: Glucose Point of Care 198 mg/dl (65-105)
--- NOTE | 2023-02-23 12:50 | PM.IMPN ---
Progress Note: A&P Assessment and Plan (1) Syncope: Qualifiers: Syncope type: unspecified Qualified Code(s): R55 - Syncope and collapse Code(s): R55 - Syncope and collapse Status: Acute Assessment and Plan: Workup is in progress. Carotid Doppler acute obstruction. CT head negative. Echo pending. (2) Hypoxia: Code(s): R09.02 - Hypoxemia Status: Acute Assessment and Plan: Stable, contracted. 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 Subjective Date/time seen: 02/23/23 12:50 Interval history: Patient was seen during the morning rounds today. Patient is feeling better. No shortness of breath or chest pain. No abdominal pain, nausea, no vomiting. Mood stable. Review of Systems Review of Systems: 12 systems were reviewed with pertinent positives and negatives per HPI. Except as documented in the HPI, all other systems were reviewed and are negative. Exam Narrative: Weight 101.8 kg BMI 35.2 Const: Other: Obese, no acute distress HENMT: Other: Mucous membranes are moist, no oral pharyngeal erythema, crowded posterior oropharynx, poor dentition with multiple missing teeth greater in the upper jaw than the lower jaw Eyes: Other: Pupils are equal and reactive with evidence of prior lens replacement bilaterally no conjunctival pallor, no scleral icterus Neck: Other: No JVD, large neck circumference Resp: Other: End-expiratory wheezing bilateral anterior and posterior barnes, no increased work of breathing Cardio: Other: Regular rate, regular rhythm, 2+ bilateral radial pedal pulses GI: Other: Soft, nontender, obese, positive bowel sounds Skin: Other: No jaundice, no pallor Neuro: Other: Alert oriented, speech is clear, no facial asymmetry, cranial nerves 2-12 appear to be grossly intact Extrem: Other: No clubbing, cyanosis or edema, no foot wounds, 5/5 business management professor strength bilaterally Psych: Other: Appropriate mood and affect, pleasant and cooperative, judgment and insight intact Objective Data Vital Signs Vital Signs: Vital Signs - 24 hr 02/22/23 15:52 02/22/23 16:41 02/22/23 16:35 Temperature 36.2 C L Pulse Rate 91 92 Respiratory Rate 18 Blood Pressure 147/67 H 136/83 Pulse Oximetry 93 96 Oxygen Delivery Room Air Nasal Cannula Oxygen Flow Rate 2 Fraction of Inspired Oxygen 02/22/23 16:52 02/22/23 16:41 02/22/23 18:21 Temperature Pulse Rate 93 Respiratory Rate Blood Pressure 156/93 H Pulse Oximetry 99 94 Oxygen Delivery Non-Rebreather Mask Nasal Cannula Oxygen Flow Rate 15 3 Fraction of Inspired Oxygen 02/22/23 16:04 02/22/23 16:15 02/22/23 16:16 Temperature Pulse Rate 96 91 94 Respiratory Rate 15 15 24 H Blood Pressure 136/97 H Pulse Oximetry 84 L 89 L Oxygen Delivery Oxygen Flow Rate Fraction of Inspired Oxygen 02/22/23 16:40 02/22/23 16:42 02/22/23 16:43 Temperature Pulse Rate 94 88 104 H Respiratory Rate 22 H 21 H 18 Blood Pressure 136/83 156/93 H Pulse Ox
[2023-02-23 17:14] LABS: Glucose Point of Care 203 mg/dl (65-105)
[2023-02-23] MEDS: INSULIN ASPART (*BKC) 100 UNITS/ML SUB-Q (17:16)
[2023-02-23 22:48] LABS: Glucose Point of Care 139 mg/dl (65-105)
[2023-02-24] VITALS (13 sets, daily range): BP systolic 121–126; BP diastolic 60–62; PULSE 81–104; RESP 16–20; TEMP 35.8–36.2; O2SAT 84–97
[2023-02-24] MEDS: ALBUTEROL SULFATE NEB 2.5 MG/3 ML INH 5 MG INHALATION ×3 (03:48→13:25)
[2023-02-24] MEDS: IPRATROPIUM BR 0.02% INH SOLN 0.5 MG/2.5 ML VIAL INHALATION ×3 (03:49→13:24)
[2023-02-24 08:37] LABS: Glucose Point of Care 146 mg/dl (65-105)
[2023-02-24] MEDS: metFORMIN HCL 500 MG TABLET 1000 MG PO (08:43)
[2023-02-24] MEDS: EMPAGLIFLOZIN 25 MG TABLET PO (08:43)
[2023-02-24] MEDS: ENOXAPARIN 40 MG/0.4 ML SYRINGE SUB-Q (08:43)
[2023-02-24] MEDS: ENALAPRIL MALEATE 2.5 MG TABLET PO (08:43)
[2023-02-24] MEDS: DULoxetine HCL 60 MG CAPSULE.DR PO (08:43)
[2023-02-24] MEDS: CHOLECALCIFEROL 1,000 UNITS TABLET 1000 UNITS PO (08:43)
[2023-02-24] MEDS: PIOGLITAZONE HCL 30 MG TABLET PO (08:43)
[2023-02-24] MEDS: NICOTINE (*PBKC) 14 MG PATCH 1 PATCH TRANSDERM (08:44)
[2023-02-24] MEDS: INSULIN GLARGINE (*BKC) 100 UNITS/ML 46 UNITS SUB-Q (08:44)
--- NOTE | 2023-02-24 09:19 | PM.IMPN ---
Progress Note: A&P Assessment and Plan (1) Syncope: Qualifiers: Syncope type: unspecified Qualified Code(s): R55 - Syncope and collapse Code(s): R55 - Syncope and collapse Status: Acute Assessment and Plan: Workup is in progress. Carotid Doppler acute obstruction. CT head negative. Echo pending. (2) Hypoxia: Code(s): R09.02 - Hypoxemia Status: Acute Assessment and Plan: Stable, contracted. (3) Polycythemia secondary to hypoxia: Code(s): D75.1 - Secondary polycythemia Status: Acute Assessment and Plan: Stable, continue NG (4) Continuous tobacco abuse: Code(s): Z72.0 - Tobacco use Status: Acute Assessment and Plan: Counseling given, continue current (5) Type 2 diabetes mellitus: Qualifiers: Diabetes mellitus detention insulin use: with terminal gauger supervisor use Diabetes mellitus complication status: with neurologic complications Diabetes mellitus complication detail: with polyneuropathy Qualified Code(s): E11.42 - Type 2 diabetes mellitus with diabetic polyneuropathy; Z79.4 - intermediate accountant (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 Subjective Date/time seen: 02/24/23 09:19 Interval history: This is a 67 year old female who presented to the hosptial on 02/22/23 with complaint of On examination today patientLabs today reveal Review of Systems Review of Systems: All systems reviewed & are unremarkable except as noted in HPI and below Exam Narrative: General: In no acute distress, well nourished Head: atraumatic, no encephalopathy Eyes: EOMI, PERRLA, slcera clear ENT: moist mucous membranes, nasal passages clear Neck: supple, no JVD, no adenopathy, trachea midline Cardiac: Normal S1 and S2. No murmur, gallops or friction rubs, peripheral pulses intact. Respiratory: Lungs clear to auscultation, no adventitious lung sounds Gastrointestinal: soft, non-distended, non-tender, normoactive bowel sounds. : voiding without difficulty. Extremities: moves all extremities well, no edema, good ROM, strength 5/5 Skin: clean, dry, intact. No wounds or lesions. Neuro: Alert and oriented x4, cranial nerves intact, no neuro deficits. Psych: normal mood, normal affect, interactive Objective Data Vital Signs Vital Signs: Vital Signs - 24 hr 02/23/23 12:00 02/23/23 13:58 02/23/23 13:58 Temperature Pulse Rate 99 101 H Respiratory Rate 20 Blood Pressure Pulse Oximetry 94 Oxygen Delivery Nasal Cannula Oxygen Flow Rate 1 02/23/23 14:00 02/23/23 14:12 02/23/23 16:00 Temperature 97.7 F Pulse Rate 102 H 98 103 H Respiratory Rate 18 20 Blood Pressure 119/52 L Pulse Oximetry 94 Oxygen Delivery Oxygen Flow Rate 02/23/23 20:40 02/23/23 21:48 02/23/23 21:57 Temperature 97.3 F L Pulse Rate 93 92 95 Respiratory Rate 20 20 20 Blood Pressure 106/49 L Pulse Oximetry 93 Oxygen Delivery Oxygen Flow Rate 02/23/23 21:03 02/24/23 02:32 02/24/23 02:40 Temperature Pulse Rate Respiratory Rate Blood Pressure 126/61 Pulse Oximetry 93 84 L 97 Oxygen Delivery Room Air Oxygen Flow Rate 02/24/23 02:40 02/23/23 20:00 02/24/23 00:00 Temperature Pulse Rate 94 99 Respiratory Rate Blood Pressure Pulse Oximetry 97 Oxygen Delivery Nasal Cannula Oxygen Flow Rate 3 02/24/23 04:00 02/24/23 04:53 Temperature 96.5 F L Pulse Rate 87 87 Respiratory Rate 20 Blood Pressure 121/62 Pulse Oximetry 96 Oxygen Delivery Oxygen Flow Rate Intake/Output Intake/Output: Intake & Output 02/21/23 02/22/23 02/23/23 02/24/23 23:59 23:59 23:59 23:59 Intake Total 1000 3182 420 Output Total 200 1900 Balance 800 1282 420 Meds/Results Medicat
[2023-02-24] MEDS: FLUTICASONE/SALMETEROL 115-21 MCG INHALER 1 PUFF 2 PUFF INHALATION (09:41)
[2023-02-24 12:08] LABS: Glucose Point of Care 146 mg/dl (65-105)
--- NOTE | 2023-02-24 14:53 | PM.DS ---
DS: Admitting Diagnosis Discharge Date 02/24/23 Admitting Diagnosis syncope syncope and collapse hypoxia polycythemia secondary to hypoxia continuous tobacco use obesity snoring type 2 DM DS: Discharge Diagnosis Discharge Diagnosis (1) Syncope: Qualifiers: Syncope type: unspecified Qualified Code(s): R55 - Syncope and collapse Code(s): R55 - Syncope and collapse Status: Acute (2) Hypoxia: Code(s): R09.02 - Hypoxemia Status: Acute (3) Polycythemia secondary to hypoxia: Code(s): D75.1 - Secondary polycythemia Status: Acute (4) Continuous tobacco abuse: Code(s): Z72.0 - Tobacco use Status: Acute (5) Type 2 diabetes mellitus: Qualifiers: Diabetes mellitus complication detail: with polyneuropathy Diabetes mellitus complication status: with neurologic complications Diabetes mellitus alf insulin use: with buttermaker helper use Qualified Code(s): E11.42 - Type 2 diabetes mellitus with diabetic polyneuropathy; Z79.4 - bed bug exterminator (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 Work up in the hospital included head CT which did not reveal any intracranial abnormality, chest x-ray did show any cardiopulmonary disease, chest CTA was negative for PE there was mosaic attenuation throughout both likely related to subsegmental regions of air trapping related to small airway disease, there was also a 9 mm ground-glass nodule in the right middle lobe which was new since previous study, carotid Dopplers shown less than 50% stenosis in both the right and the left carotid artery. Labs were essentially unremarkable other than her blood sugars which were ranging 139-203. Patient was weaned off oxygen today. On examination today patient is alert oriented x3, lying in the bed. Lungs were clear to auscultation, no wheezing noted. She denies any lightheadedness, dizziness, nausea, vomiting, diarrhea, abdominal pain, shortness a breath, chest pain. Patient requesting to go home today. She denies any pain or discomfort. Patient is stable discharge. I did talk to her about following up with her primary care physician in 1 week as she will need a repeat CT of her chest to assess that nodule in about 6 months, smoking cessation, and to get an outpatient sleep study. I also suggested that she get a reading assistant for management of her COPD and staging. Final diagnosis: acute respiratory failure with hypoxia, COPD exacerbation, continuous tobacco abuse Status at Discharge Cognitive/behavioral status at discharge: Alert and oriented x3 Functional status at discharge: independent ambulation Overall status at discharge: patient is progressing back to baseline Time Spent with Patient Time attestation: Total time spent providing and/or coordinating discharge services: Time spent: Greater than 30 minutes Exam Narrative: General: In no acute distress, well nourished Head: atraumatic, no encephalopathy Eyes: EOMI, PERRLA, sclera clear ENT: moist mucous membranes, nasal passages clear Neck: supple, no JVD, no adenopathy, trachea midline Cardiac: Normal S1 and S2. No murmur, gallops or friction rubs, peripheral pulses intact. Respiratory: Lungs clear to auscultation, no adventitious lung sounds, she is currently on room air, no acute distress Gastrointestinal: soft, non-distended, non-tender, normoactive bowel sounds. : voiding without difficulty. Extremities: moves all extremities well, no edema, good ROM, strength 5/5 Skin: clean, dry, intact. No wounds or lesions. Neuro: Alert and oriented x4, cranial nerves intact, no neuro
--- NOTE | 2023-02-24 15:41 | PC.NURSE ---
pts pharmacy outpt called due to medication that provider sent over is not covered by insurance. this nurse notified provider at [phone] of situation. provider stated that is alright, she was doing it at a courtesy, she doesnt think she needs it and it is just prn. Provider stated pt can follow up with her primary and get a peace officer and they can prescribe something to help with pts COPD.
--- NOTE | 2023-02-24 16:59 | PCRCNOTE ---
Patient discharged prior to completion of home oxygen evaluation. RT unaware of order before patient left.
== END 2023-02-24 15:47 | disposition home or self-care (01) | DRG 189 ==
LOC: ANHED 18:56 → ANH2MED 20:15
PROVIDERS: Internal Medicine; Student in an Organized Health Care Education/Training Program; Admitting Provider Hospitalist; Emergency Provider Emergency Medicine; PCP Family Medicine; Visit Provider Nurse Practitioner Acute Care
DX: J96.01 Acute respiratory failure with hypoxia (principal); J44.1 Chronic obstructive pulmonary disease with (acute) exacerbation; R55 Syncope and collapse; D75.1 Secondary polycythemia; E66.9 Obesity, unspecified; E78.5 Hyperlipidemia, unspecified; E11.42 Type 2 diabetes mellitus with diabetic polyneuropathy; F41.9 Anxiety disorder, unspecified; F17.210 Nicotine dependence, cigarettes, uncomplicated; I10 Essential (primary) hypertension; K21.9 Gastro-esophageal reflux disease without esophagitis; Z98.41 Cataract extraction status, right eye; Z68.34 Body mass index [BMI] 34.0-34.9, adult; Z79.4 Long term (current) use of insulin; Z79.85 Long-term (current) use of injectable non-insulin antidiabetic drugs; Z79.84 Long term (current) use of oral hypoglycemic drugs
CPT/HCPCS: 36415; 36600; 70450; 71045; 71275; 80048; 80053; 82375; 82805; 82948; 83050; 84484; 85025; 85380; 87637; 93005; 93880; 94640; 96361; 96372; 96374; 96375; 99285; A9270; C8929; G0378; J1650; J1815; J2930; J7030; Q9957; Q9967

== ENCOUNTER 2023-02-27 18:37 | Inpatient (IN) | payer MEDICARE, OTHER, SELFPAY ==
--- NOTE | ~2023-02-27 | XR_ITS ---
EXAMINATION: XR chest 2V DATE: 02/27/2023 21:18 INDICATION: Fall. TECHNIQUE: Frontal and lateral views of the chest were obtained. COMPARISON: Chest single view 02/22/2023 FINDINGS: There is a diffuse interstitial pattern, consistent with mild pulmonary edema. No pleural e ffusion or pneumothorax. Cardiomegaly is noted. There is an old healed fracture of proximal left allyn anna marie. IMPRESSION: 1. Mild pulmonary edema. 2. Cardiomegaly. Reviewed, dictated and finalized at location E. PATIONAL HYGIENIST
--- NOTE | ~2023-02-27 | CT_ITS ---
EXAMINATION: CT lumbar spine wo con DATE: 02/27/2023 21:02 INDICATION: Low back pain. Fall. TECHNIQUE: Computed tomography (CT) of the lumbar spine was performed without intravenous contrast. A utomated exposure control and iterative reconstruction technique were employed. The dose-length produ ct was 1357.67 mGy-cm. COMPARISON: Chest CT 12/21/2021, 02/22/2023 FINDINGS: There is a chronic 18 mm mass in left adrenal gland measuring low-attenuation, consistent w ith an adenoma. There is 13 degrees dextroscoliosis of lumbar spine. There is a burst fracture of T12 with 1/5 loss of height and retropulsion of bone 2 mm into central spinal canal. There is mildly dec reased disc height at L1-L2, severely decreased disc height at L3-L4, and mildly decreased disc heigh t at L4-L5 and L5-S1. The following disc levels are specifically discussed: L1-L2: The disc is bulging. There is mild bilateral facet joint osteoarthritis. There is mild right n eural foraminal stenosis. There is mild central canal stenosis. L2-L3: The disc is bulging. There is mild bilateral facet joint osteoarthritis. There is mild bilater al neural foraminal stenosis. There is mild central canal stenosis. L3-L4: The disc is bulging. There is mild bilateral facet joint osteoarthritis. There is mild bilater al neural foraminal stenosis. There is mild central canal stenosis. L4-L5: The disc is bulging. There is mild bilateral facet joint osteoarthritis. There is mild bilater al neural foraminal stenosis. There is mild central canal stenosis. L5-S1: The disc is bulging. There is moderate bilateral facet joint osteoarthritis. There is mild sylvia ateral neural foraminal stenosis. There is mild central canal stenosis. IMPRESSION: 1. Subacute T12 burst fracture, stable from 02/22/2023. 2. Severe lumbar spondylosis. 3. Lumbar dextroscoliosis. Reviewed, dictated and finalized at location E. RER/KEY MAN
--- NOTE | ~2023-02-27 | CT_ITS ---
EXAMINATION: CT brain wo con DATE: 02/27/2023 20:57 INDICATION: Head injury. TECHNIQUE: Computed tomography (CT) of the head was performed without intravenous contrast. The mA wa s adjusted according to patient size. Iterative reconstruction technique was employed. The dose-lengt h product was 605.33 mGy-cm. COMPARISON: Head CT 02/22/2023 FINDINGS: There is no intracranial hemorrhage, acute infarction, or abnormal intracranial mass lesion . The ventricles are normal in size. There are likely changes of ocular lens replacement surgeries. T here are posterior scalp hematomas. There is mild mucosal thickening in the ethmoid sinuses. The mast oid air cells are normal. IMPRESSION: 1. Normal brain. Reviewed, dictated and finalized at location E. DE POLISHER IMPRESSION: 1. Normal brain.
--- NOTE | ~2023-02-27 | CT_ITS ---
EXAMINATION: CT cervical spine wo con DATE: 02/27/2023 20:59 INDICATION: Head injury. TECHNIQUE: Computed tomography (CT) of the cervical spine was performed without intravenous contrast. Automated exposure control and iterative reconstruction technique were employed. The dose-length pro duct was 511.61 mGy-cm. COMPARISON: Chest CT 02/22/2023 FINDINGS: Bone alignment is normal. There is mild chronic height loss of T1 vertebral body. There is moderately decreased disc height at C5-C6 and mildly decreased disc height at C6-C7. The following di sc levels are specifically discussed: C2-C3: There is mild bilateral uncovertebral joint osteoarthritis. There is mild bilateral facet join t osteoarthritis. There is no neural foraminal stenosis. There is no central canal stenosis. C3-C4: There is mild bilateral uncovertebral joint osteoarthritis. There is mild bilateral facet join t osteoarthritis. There is no neural foraminal stenosis. There is no central canal stenosis. C4-C5: There is mild bilateral uncovertebral joint osteoarthritis. There is no facet joint osteoarthr itis. There is no neural foraminal stenosis. There is no central canal stenosis. C5-C6: There is severe bilateral uncovertebral joint osteoarthritis. There is mild bilateral facet danny int osteoarthritis. There is mild bilateral neural foraminal stenosis. There is mild central canal st enosis. C6-C7: There is mild bilateral uncovertebral joint osteoarthritis. There is mild bilateral facet join t osteoarthritis. There is no neural foraminal stenosis. There is no central canal stenosis. C7-T1: There is no uncovertebral joint osteoarthritis. There is severe bilateral facet joint osteoart hritis. There is mild bilateral neural foraminal stenosis. There is no central canal stenosis. IMPRESSION: 1. No acute fracture. 2. Moderate cervical spondylosis. Reviewed, dictated and finalized at location E. RHANGER AND PAINTER
[2023-02-27 18:41] VITALS: BP 148/66; PULSE 78; RESP 20; TEMP 36.3; O2SAT 95
[2023-02-27 20:55] LABS: Basophils Absolute Auto 0.1 K/mm3 (0.0-0.1); Basophils Percent Auto 0.7 % (0.2-1.2); Eosinophils Absolute Auto 0.3 K/mm3 (0-0.3); Eosinophils Percent Auto 2.7 % (0-4.4); Hematocrit 57.5 % (37.0-47.0); Hemoglobin 17.5 g/dL (12.0-15.0); Immature Granulocyte Absolute 0.05 K/mm3 (0.00-0.031); Immature Granulocyte Percent A 0.5 % (0-0.5); Lymphocytes Absolute Auto 2.14 K/mm3 (0.9-3.2); Lymphocytes Percent Auto 21.3 % (18.3-44.2); Mean Corpuscular HGB Conc 30.4 g/dl (32-36); Mean Corpuscular Hemoglobin 27.4 pg (26-34); Mean Corpuscular Volume 90.1 fl (80-100); Mean Platelet Volume 8.9 fl (7.4-10.4); Monocytes Absolute Auto 0.7 K/mm3 (0.1-0.6); Monocytes Percent Auto 6.7 % (2.6-8.5); Neutrophils Absolute Auto 6.9 K/mm3 (1.3-6.7); Neutrophils Percent Auto 68.1 % (45.5-73.1); Platelet Count Result 261 k/mm3 (150-375); Red Blood Count 6.38 M/mm3 (4.2-5.4); White Blood Count 10.1 K/mm3 (4.5-10.0)
--- NOTE | 2023-02-27 21:01 | ED.FALL ---
HPI - Fall General Chief Complaint: Fall Stated Complaint: falls Time Seen by Provider: 02/27/23 20:55 History of Present Illness HPI Narrative: Patient presents the emergency department from home. She notes was admitted to the hospital for COPD and discharged home 3 days ago. She has had another falls today she has been home. A week ago she started having episodes of syncope. The 1st 1 she felt slightly dizzy and fell injuring her back. Couple days later she had another episode to schedule an appointment see her primary care doctor. She has had persistent back pain since then. She was admitted to the hospital and workup for COPD. An echo was also done that showed normal ejection fraction. Carotid ultrasound showed 50% blockage bilaterally. However she was not officially consulted by a stave cutter. Since being discharged home today she had another episode when she was reaching across the counter to get a papertowel when she felt a lightheadedness coming and try to get to the chair she keeps with her now. She did not make it to the chair when she hit her forehead on the counter. She has bruising on her forehead. She did not have full loss of consciousness but she hit the ground Related Data Home Medications Medication Instructions Recorded Confirmed ibuprofen 200 mg capsule 200 mg PO Q6H PRN Pain 11/17/20 02/22/23 loratadine 5 mg-pseudoephedrine ER 1 tablet PO Q12H PRN allergies 10/19/21 02/22/23 120 mg tablet,extended release,12hr (Claritin-D 12 Hour) cholecalciferol (vitamin D3) 25 25 mcg PO DAILY 08/14/22 02/22/23 mcg (1,000 unit) capsule mecobalamin (vitamin B12) 500 mcg 500 mcg PO DAILY 08/14/22 02/22/23 chewable tablet duloxetine 60 mg capsule,delayed 60 mg PO DAILY 11/30/22 02/22/23 release atorvastatin 20 mg tablet 20 mg PO DAILY 02/22/23 02/22/23 insulin degludec 200 unit/mL (3 46 unit subcut DAILY 02/22/23 02/22/23 mL) subcutaneous pen (Tresiba FlexTouch U-200 insulin) Allergies Allergy/AdvReac Type Severity Reaction Status Date / Time No Known Allergies Allergy Verified 02/27/23 21:21 Review of Systems Review of Systems: Negative except for what is documented in the HPI PMFSH Past Medical History Medical History (Updated 02/27/23 @ 22:07 by Ruth Lawrence MD) Allergic rhinitis Anxiety Chronic GERD COPD (chronic obstructive pulmonary disease) Depression Essential (primary) hypertension Glomerulonephritis Headache, migraine HLD (hyperlipidemia) Keratosis Obesity (BMI 30-39.9) Osteopenia after menopause Post-menopausal Type 2 diabetes mellitus Vitamin B12 deficiency Vitamin D deficiency Surgical History Surgical History (Updated 02/22/23 @ 21:53 by Anne Kemp DO) History of elbow surgery (~2019) ORIF Status post cataract extraction of both eyes with insertion of intraocular lens (~2018) Family History Family History Mother Family history of multiple sclerosis Sibling Hypertension Family history of ulcerative colitis Father Family history of cardiovascular disease Carcinoma of colon Other Alcoholism Alzheimer disease Cerebrovascular accident Depression Diabetes mellitus Emphysema lung Heart disease Lung cancer Multiple sclerosis Rectal cancer Skin cancer Ulcerative (chronic) ileocolitis Vertigo Social History Social History (Updated 02/22/23 @ 21:58 by Anne Kemp DO) Social History: The patient is single and has never been . She does not have any children. 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 She has smoked 1.5 packs per day since her mid 20s. She denies any significant alcohol or drug use. She does not have any pets but takes care of a feral cat colony. Code status: DNR/DNI Healthcare power of e business consultant: Asher (friend) Smoking packs per day: 1.5 Smoking cigarettes per day: 30.0 Years smoked: 40 Smoking pack-years:
[2023-02-27 21:06] LABS: Alanine Aminotransferase 17 U/L (6-35); Albumin Level 4.3 g/dL (3.5-5.1); Alkaline Phosphatase 83 U/L (38-126); Anion Gap 10 mmol/L (8-16); Aspartate Amino Transferase 31 U/L (14-36); Blood Urea Nitrogen 13 mg/dL (7-17); Calcium 9.5 mg/dL (8.4-10.2); Carbon Dioxide 27 mmol/L (22-30); Chloride 100 mmol/L (98-107); Estimated CRCL calculation 113 ml/min; Estimated Glomerular Filt Rate > 60; Glucose 121 mg/dL (65-110); Potassium 4.4 mmol/L (3.4-5.0); Sodium 137 mmol/L (137-145)
[2023-02-27] MEDS: MECLIZINE HCL 25 MG TABLET PO (21:16)
[2023-02-27 21:18] LABS: Troponin I < 0.012 ng/mL (0.000-0.034)
[2023-02-27 21:53] LABS: Appearance Urine Clear (Clear); Bacteria Urine None Seen /hpf; Bilirubin Urine Negative (Negative); Blood Urine Negative (Negative); Color Urine Yellow (Yellow); Glucose Urine UA 3+ mg/dL (Negative); Ketones Urine 1+ mg/dL (Negative); Leukocyte Esterase Ur Trace LEU/UL (Negative); Nitrate Urine Negative (Negative); Non Pathogenic Casts 0-2; Protein Urine Trace mg/dL (Negative); RBC Urine 0-2 /hpf (0-2); Squamous Epithelial Cell Urine None seen /hpf (Few); Urobilinogen Urine 0.2 mg/dL (<2.0); WBC Urine 0-5 /hpf
[2023-02-27 22:07] LABS: Add Urine Microscopic? YES
[2023-02-27] MEDS: MORPHINE SULFATE (*CRX) 2 MG/ML INJ IV PUSH (22:07)
[2023-02-28] VITALS (13 sets, daily range): BP systolic 132–161; BP diastolic 70–92; PULSE 79–92; RESP 16–18; TEMP 35.7–36.6; O2SAT 88–100; BMI 34.7
--- NOTE | 2023-02-28 00:39 | ADMGEN ---
This patient, Janel Marin, was admitted to [facility] Surg Room 317-02. Patient/family oriented to hospital policies and general routines including ID bracelet, bed and alarms, visiting hours, pain management, procedures, bathroom and other care routines, personal items, smoking policy, room service/diet, and visiting hours. Information on how to activate the Rapid Response Team has been discussed. Patient/Family are encouraged to report perceived risks to care and to ask questions if they do not understand what they are told or what they should do.
--- NOTE | 2023-02-28 02:30 | PM.IMHP ---
H&P: HPI History of Present Illness Date/Time: 02/28/23 02:30 Chief Complaint: Near-syncope Narrative: This is a 67-year-old female with past medical history significant for type diabetes mellitus, depression. Patient presents to the emergency room due to lightheadedness, multiple syncopal episodes, multiple falls, trauma to face and head, multiple bruises. Patient with extensive workup just recently for this reason and sent home. Patient was recently started on duloxetine she had been on Lexapro but was not working, has noted this problem started after the initiation of duloxetine. Preliminary workup here in emergency room has been essentially nonrevealing. Review of Systems Review of Systems: Lightheadedness, recurrent falls, syncopal episodes, near-syncope PMFSH Past Medical History Medical History (Updated 02/28/23 @ 14:11 by Adalgisa Amado APRN) Allergic rhinitis Anxiety Chronic GERD COPD (chronic obstructive pulmonary disease) Depression Essential (primary) hypertension Glomerulonephritis Headache, migraine HLD (hyperlipidemia) Keratosis Obesity (BMI 30-39.9) Osteopenia after menopause Post-menopausal Type 2 diabetes mellitus Vitamin B12 deficiency Vitamin D deficiency Surgical History Surgical History (Updated 02/22/23 @ 21:53 by Anne Kemp DO) History of elbow surgery (~2019) ORIF Status post cataract extraction of both eyes with insertion of intraocular lens (~2018) Family History Family History Mother Family history of multiple sclerosis Sibling Hypertension Family history of ulcerative colitis Father Family history of cardiovascular disease Carcinoma of colon Other Alcoholism Alzheimer disease Cerebrovascular accident Depression Diabetes mellitus Emphysema lung Heart disease Lung cancer Multiple sclerosis Rectal cancer Skin cancer Ulcerative (chronic) ileocolitis Vertigo Social History Social History (Updated 02/22/23 @ 21:58 by Anne Kemp DO) Social History: The patient is single and has never been . She does not have any children. 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 She has smoked 1.5 packs per day since her mid 20s. She denies any significant alcohol or drug use. She does not have any pets but takes care of a feral cat colony. Code status: DNR/DNI Healthcare power of deputy commonwealth's attorney: Asher (friend) Smoking packs per day: 1.5 Smoking cigarettes per day: 30.0 Years smoked: 40 Smoking pack-years: 60.00 Smoking status: Current every day smoker Second hand tobacco smoke exposure: No Alcohol intake: never Alcohol use details: rarely Substance use: never Substance use type: does not use Do You Feel Safe in your Home?: Yes Lack of Transportation: No Lack of Food: Never True Current Housing: I Have Housing Concerned About Future Housing: No Difficulty Paying Gas/Electric Bills: No Difficulty Paying for Meds: No Currently Unemployed: No Education: Bachelor's Degree Difficulty w/ Childcare or Family Care: No Living arrangements: alone Occupation/Education: retired Gender identity (if verbalized by the patient): Female Sexual Orientation (if Verbalized by the Patient): Straight or Heterosexual Spiritual care concerns: No Meds Home Medications and Allergies Home Medications Medication Instructions Recorded Confirmed Type ibuprofen 200 mg capsule 200 mg PO Q6H PRN Pain 11/17/20 02/28/23 History flash glucose scanning reader #1 ea 05/31/21 02/28/23 Rx (FreeStyle Sigrid 2 [place]) flash glucose sensor (FreeStyle #2 ea 10/19/21 02/28/23 Rx Sigrid 2 Sensor kit) loratadine 5 mg-pseudoephedrine ER 1 tablet PO Q12H PRN allergies 10/19/21 02/28/23 History 120 mg tablet,extended release,12hr (Claritin-D 12 Hour) empagliflozin 25 mg tablet 25 mg PO DAILY 90 days #90 tabs 06/01/22 02/28/23 Rx (Jardiance) p
[2023-02-28] MEDS: ACETAMINOPHEN 500 MG TABLET 1000 MG PO ×3 (03:13→17:58)
[2023-02-28 07:43] LABS: Basophils Percent Auto 0.5 % (0.2-1.2); Eosinophils Absolute Auto 0.3 K/mm3 (0-0.3); Eosinophils Percent Auto 3.4 % (0-4.4); Hematocrit 55.8 % (37.0-47.0); Hemoglobin 16.6 g/dL (12.0-15.0); Immature Granulocyte Absolute 0.03 K/mm3 (0.00-0.031); Immature Granulocyte Percent A 0.4 % (0-0.5); Lymphocytes Absolute Auto 2.07 K/mm3 (0.9-3.2); Lymphocytes Percent Auto 25.2 % (18.3-44.2); Mean Corpuscular HGB Conc 29.7 g/dl (32-36); Mean Corpuscular Hemoglobin 27.2 pg (26-34); Mean Corpuscular Volume 91.3 fl (80-100); Mean Platelet Volume 8.8 fl (7.4-10.4); Monocytes Absolute Auto 0.7 K/mm3 (0.1-0.6); Monocytes Percent Auto 8.9 % (2.6-8.5); Neutrophils Absolute Auto 5.1 K/mm3 (1.3-6.7); Neutrophils Percent Auto 61.6 % (45.5-73.1); Platelet Count Result 235 k/mm3 (150-375); Red Blood Count 6.11 M/mm3 (4.2-5.4); Red Cell Distribution Width 16.3 % (11.5-14.5); White Blood Count 8.2 K/mm3 (4.5-10.0)
[2023-02-28 07:52] LABS: Anion Gap 9 mmol/L (8-16); Blood Urea Nitrogen 11 mg/dL (7-17); Calcium 8.6 mg/dL (8.4-10.2); Carbon Dioxide 25 mmol/L (22-30); Chloride 103 mmol/L (98-107); Estimated CRCL calculation 112 ml/min; Estimated Glomerular Filt Rate > 60; Glucose 134 mg/dL (65-110); Potassium 3.9 mmol/L (3.4-5.0); Sodium 137 mmol/L (137-145)
[2023-02-28 08:03] LABS: Glucose Point of Care 130 mg/dl (65-105)
[2023-02-28] MEDS: MECLIZINE HCL 25 MG TABLET PO ×2 (08:43→21:47)
[2023-02-28] MEDS: CHOLECALCIFEROL 1,000 UNITS TABLET 1000 UNITS PO (08:43)
[2023-02-28] MEDS: CYANOCOBALAMIN 500 MCG TABLET PO (08:43)
[2023-02-28] MEDS: ATORVASTATIN 20 MG TABLET PO (08:43)
[2023-02-28] MEDS: clonazePAM (*CRX) 0.5 MG TABLET 2 MG PO (08:43)
[2023-02-28] MEDS: INSULIN GLARGINE (*BKC) 100 UNITS/ML 46 UNITS SUB-Q (08:44)
[2023-02-28] MEDS: ENALAPRIL MALEATE 2.5 MG TABLET PO (08:44)
[2023-02-28 11:55] LABS: Glucose Point of Care 148 mg/dl (65-105)
[2023-02-28 13:28] LABS: Free T4 Free Thyroxine Reflex 1.41 ng/dL (0.78-2.19)
--- NOTE | 2023-02-28 14:06 | P.PNIM_ITS ---
Progress Note: A&P Assessment and Plan (1) Syncope: Qualifiers: Syncope type: unspecified Qualified Code(s): R55 - Syncope and collapse Code(s): R55 - Syncope and collapse Status: Acute Assessment and Plan: * Extensive workup recently unremarkable * possibly related to 5 different medications for type diabetes mellitus which include metformin, insulin, empagliflozin, pioglitazone, semaglutide * also noted patient taking clonazepam and recent addition of duloxetine * currently holding duloxetine * PT/OT eval ordered * orthostatics ordered (2) Burst fracture of thoracic vertebra: Qualifiers: Encounter type: subsequent encounter Fracture healing: with routine healing Fracture type: closed Qualified Code(s): S22.001D - Stable burst fracture of unspecified thoracic vertebra, subsequent encounter for fracture with routine healing Code(s): S22.001A - Stable burst fracture of unspecified thoracic vertebra, initial encounter for closed fracture Status: Acute Assessment and Plan: * XR lumbar showed stable burst fracture of unspecified thoracic vertebra * Pain control (3) Head injury due to trauma: Qualifiers: Encounter type: initial encounter Qualified Code(s): S09.90XA - Unspecified injury of head, initial encounter Code(s): S09.90XA - Unspecified injury of head, initial encounter Status: Acute Assessment and Plan: * CT head negative for acute process or injury * PT/OT eval ordered (4) Obesity (BMI 30-39.9): Code(s): E66.9 - Obesity, unspecified Status: Chronic Assessment and Plan: * Lifestyle and diet modifications (5) Type 2 diabetes mellitus: Qualifiers: Diabetes mellitus care home insulin use: with assistant terminal manager use Diabetes mellitus complication status: with neurologic complications Diabetes mellitus complication detail: with polyneuropathy Qualified Code(s): E11.42 - Type 2 diabetes mellitus with diabetic polyneuropathy; Z79.4 - penitentiary (current) use of insulin Code(s): E11.9 - Type 2 diabetes mellitus without complications Status: Chronic Assessment and Plan: * Patient noted to be on 5 different drugs * continue insulin, AccuCheck, hypoglycemia protocol (6) Continuous tobacco abuse: Code(s): Z72.0 - Tobacco use Status: Chronic Assessment and Plan: * Patient is down to 2 cigarettes from a pack and half daily * Encouraged cessation Plan * TSH elevated, T4 normal * will have her f/u for repeat labs with her PCP in 4-6 weeks Subjective Date/time seen: 02/28/23 14:06 Interval history: Patient is in no acute stress this morning. She reports she started her duloxetine 3 months ago, but the falls started happening within the last 10 days. She was just discharged from our care on 02/24 for falls x2 with an unremarkable work up. Considering medications, may need to streamline her diabetic management outpatient. Considering vertigo. Orthostatic BP ordered. Will continue to monitor. Review of Systems Review of Systems: All systems reviewed & are unremarkable except as noted in HPI and below Exam Narrative: GENERAL: Well-appearing, well-nourished, and in no acute distress. HEAD: Normocephalic, forehead bruising. EYES: PERRLA and EOMI. ENT: Nares clear, no rhinorrhea or epistaxis. Mucous membranes moist. NECK: Supple. CHEST: Clear to auscultation. No respiratory distress. HEART: RRR. ABDOMEN: Soft, nontender, nondistended. BS present and active.
--- NOTE | 2023-02-28 14:06 | PM.IMPN ---
Progress Note: A&P Assessment and Plan (1) Syncope: Qualifiers: Syncope type: unspecified Qualified Code(s): R55 - Syncope and collapse Code(s): R55 - Syncope and collapse Status: Acute Assessment and Plan: Extensive workup recently unremarkable possibly related to 5 different medications for type diabetes mellitus which include metformin, insulin, empagliflozin, pioglitazone, semaglutide also noted patient taking clonazepam and recent addition of duloxetine currently holding duloxetine PT/OT eval ordered orthostatics ordered (2) Burst fracture of thoracic vertebra: Qualifiers: Encounter type: subsequent encounter Fracture healing: with routine healing Fracture type: closed Qualified Code(s): S22.001D - Stable burst fracture of unspecified thoracic vertebra, subsequent encounter for fracture with routine healing Code(s): S22.001A - Stable burst fracture of unspecified thoracic vertebra, initial encounter for closed fracture Status: Acute Assessment and Plan: XR lumbar showed stable burst fracture of unspecified thoracic vertebra Pain control (3) Head injury due to trauma: Qualifiers: Encounter type: initial encounter Qualified Code(s): S09.90XA - Unspecified injury of head, initial encounter Code(s): S09.90XA - Unspecified injury of head, initial encounter Status: Acute Assessment and Plan: CT head negative for acute process or injury PT/OT eval ordered (4) Obesity (BMI 30-39.9): Code(s): E66.9 - Obesity, unspecified Status: Chronic Assessment and Plan: Lifestyle and diet modifications (5) Type 2 diabetes mellitus: Qualifiers: Diabetes mellitus usp insulin use: with terminal worker use Diabetes mellitus complication status: with neurologic complications Diabetes mellitus complication detail: with polyneuropathy Qualified Code(s): E11.42 - Type 2 diabetes mellitus with diabetic polyneuropathy; Z79.4 - skilled nursing (current) use of insulin Code(s): E11.9 - Type 2 diabetes mellitus without complications Status: Chronic Assessment and Plan: Patient noted to be on 5 different drugs continue insulin, AccuCheck, hypoglycemia protocol (6) Continuous tobacco abuse: Code(s): Z72.0 - Tobacco use Status: Chronic Assessment and Plan: Patient is down to 2 cigarettes from a pack and half daily Encouraged cessation Plan TSH elevated, T4 normal will have her f/u for repeat labs with her PCP in 4-6 weeks Subjective Date/time seen: 02/28/23 14:06 Interval history: Patient is in no acute stress this morning. She reports she started her duloxetine 3 months ago, but the falls started happening within the last 10 days. She was just discharged from our care on 02/24 for falls x2 with an unremarkable work up. Considering medications, may need to streamline her diabetic management outpatient. Considering vertigo. Orthostatic BP ordered. Will continue to monitor. Review of Systems Review of Systems: All systems reviewed & are unremarkable except as noted in HPI and below Exam Narrative: GENERAL: Well-appearing, well-nourished, and in no acute distress. HEAD: Normocephalic, forehead bruising. EYES: PERRLA and EOMI. ENT: Nares clear, no rhinorrhea or epistaxis. Mucous membranes moist. NECK: Supple. CHEST: Clear to auscultation. No respiratory distress. HEART: RRR. ABDOMEN: Soft, nontender, nondistended. BS present and active. EXTREMITIES: Normal range of motion. No edema. SKIN: Warm, dry, no rash. NEURO: No focal deficits. Alert and oriented x3. PSYCH: Normal mood and affect. Objective Data Vital Signs Vital Signs: Vital Signs - 24 hr 02/27/23 18:41 02/28/23 00:05 02/28/23 00:15 Temperature 97.4 F L 97.2 F L Pulse Rate 78 90 Respiratory Rate 20 17 Blood Pressure 148/66 H 147/71 H Pulse Oximetry 95 88 L 95 Oxygen Delivery
[2023-02-28 14:19] LABS: Total Triiodothyronine (T3) 1.06 NG/ML (0.97-1.69)
[2023-02-28 16:47] LABS: Glucose Point of Care 177 mg/dl (65-105)
[2023-02-28 20:35] LABS: Glucose Point of Care 225 mg/dl (65-105)
[2023-02-28] MEDS: NICOTINE (*PBKC) 21 MG PATCH 1 PATCH TRANSDERM (21:48)
[2023-03-01] VITALS (12 sets, daily range): BP systolic 119–150; BP diastolic 65–88; PULSE 75–113; RESP 16–20; TEMP 36.3–36.5; O2SAT 93–96
[2023-03-01 06:00] LABS: Hematocrit 54.8 % (37.0-47.0); Hemoglobin 16.6 g/dL (12.0-15.0); Mean Corpuscular HGB Conc 30.3 g/dl (32-36); Mean Corpuscular Hemoglobin 27.5 pg (26-34); Mean Corpuscular Volume 90.9 fl (80-100); Platelet Count Result 226 k/mm3 (150-375); Red Blood Count 6.03 M/mm3 (4.2-5.4); Red Cell Distribution Width 16.2 % (11.5-14.5); White Blood Count 7.4 K/mm3 (4.5-10.0)
[2023-03-01 06:11] LABS: Anion Gap 7 mmol/L (8-16); Blood Urea Nitrogen 12 mg/dL (7-17); Calcium 8.7 mg/dL (8.4-10.2); Carbon Dioxide 27 mmol/L (22-30); Chloride 104 mmol/L (98-107); Estimated CRCL calculation 112 ml/min; Estimated Glomerular Filt Rate > 60; Glucose 151 mg/dL (65-110); Potassium 3.8 mmol/L (3.4-5.0); Sodium 138 mmol/L (137-145)
[2023-03-01 07:41] LABS: Glucose Point of Care 161 mg/dl (65-105)
[2023-03-01] MEDS: CHOLECALCIFEROL 1,000 UNITS TABLET 1000 UNITS PO (08:33)
[2023-03-01] MEDS: ENALAPRIL MALEATE 2.5 MG TABLET PO (08:33)
[2023-03-01] MEDS: CYANOCOBALAMIN 500 MCG TABLET PO (08:33)
[2023-03-01] MEDS: ATORVASTATIN 20 MG TABLET PO (08:33)
[2023-03-01] MEDS: MECLIZINE HCL 25 MG TABLET PO ×2 (08:33→21:20)
[2023-03-01] MEDS: NICOTINE (*PBKC) 21 MG PATCH 1 PATCH TRANSDERM (08:34)
[2023-03-01] MEDS: INSULIN GLARGINE (*BKC) 100 UNITS/ML 46 UNITS SUB-Q (08:40)
[2023-03-01 11:31] LABS: Glucose Point of Care 209 mg/dl (65-105)
--- NOTE | 2023-03-01 14:44 | P.PNIM_ITS ---
Progress Note: A&P Assessment and Plan (1) Syncope: Qualifiers: Syncope type: unspecified Qualified Code(s): R55 - Syncope and collapse Code(s): R55 - Syncope and collapse Status: Acute Assessment and Plan: * Extensive workup recently unremarkable * possibly related to 5 different medications for type diabetes mellitus which include metformin, insulin, empagliflozin, pioglitazone, semaglutide * also noted patient taking clonazepam and recent addition of duloxetine * currently holding duloxetine although given episode in hospital, likely not the cause and can restart * PT/OT eval ordered * orthostatics negative (2) Burst fracture of thoracic vertebra: Qualifiers: Encounter type: subsequent encounter Fracture healing: with routine healing Fracture type: closed Qualified Code(s): S22.001D - Stable burst fracture of unspecified thoracic vertebra, subsequent encounter for fracture with routine healing Code(s): S22.001A - Stable burst fracture of unspecified thoracic vertebra, initial encounter for closed fracture Status: Acute Assessment and Plan: * XR lumbar showed stable burst fracture of unspecified thoracic vertebra * Pain control (3) Head injury due to trauma: Qualifiers: Encounter type: initial encounter Qualified Code(s): S09.90XA - Unspec ified injury of head, initial encounter Code(s): S09.90XA - Unspecified injury of head, initial encounter Status: Acute Assessment and Plan: * CT head negative for acute process or injury * PT/OT evaluating (4) Obesity (BMI 30-39.9): Code(s): E66.9 - Obesity, unspecified Status: Chronic Assessment and Plan: * lifestyle and diet modifications (5) Type 2 diabetes mellitus: Qualifiers: Diabetes mellitus prison insulin use: with predatory animal exterminator use Diabetes mellitus complication status: with neurologic complications Diabetes mellitus complication detail: with polyneuropathy Qualified Code(s): E11.42 - Type 2 diabetes mellitus with diabetic polyneuropathy; Z79.4 - assisted (current) use of insulin Code(s): E11.9 - Type 2 diabetes mellitus without complications Status: Chronic Assessment and Plan: * Patient noted to be on 5 different drugs * continue insulin, AccuCheck, hypoglycemia protocol (6) Continuous tobacco abuse: Code(s): Z72.0 - Tobacco use Status: Chronic Assessment and Plan: * Patient is down to 2 cigarettes from a pack and half daily * Encouraged cessation (7) Chronic GERD: Code(s): K21.9 - Gastro-esophageal reflux disease without esophagitis Status: Chronic Assessment and Plan: * PPI Plan TSH elevated, T4 normal will have her f/u for repeat labs with her PCP in 4-6 weeks Subjective Date/time seen: 03/01/23 14:44 Interval history: Patient is in no acute stress this morning. She did have a syncopal episode whil.e walking to the bathroom with PT today. They were able to lower her down via the guard belt with no trauma. She did not lose consciousness. She was A&O x3 immediately after. She denies any prodromal symptoms. VS remained stable. She was just discharged from our care on 02/24 for falls x2 with an unremarkable work up. Considering medications, may need to streamline her diabetic management outpatient. Considering vertigo. Orthostatic BP negative for orthostatic hypotension. Noted otitis media with effusion, but she is already on Mucinex and meclizine. May need Holter monitor at d/c if no other work up is revealing. Review of Systems
--- NOTE | 2023-03-01 14:44 | PM.IMPN ---
Progress Note: A&P Assessment and Plan (1) Syncope: Qualifiers: Syncope type: unspecified Qualified Code(s): R55 - Syncope and collapse Code(s): R55 - Syncope and collapse Status: Acute Assessment and Plan: Extensive workup recently unremarkable possibly related to 5 different medications for type diabetes mellitus which include metformin, insulin, empagliflozin, pioglitazone, semaglutide also noted patient taking clonazepam and recent addition of duloxetine currently holding duloxetine although given episode in hospital, likely not the cause and can restart PT/OT eval ordered orthostatics negative (2) Burst fracture of thoracic vertebra: Qualifiers: Encounter type: subsequent encounter Fracture healing: with routine healing Fracture type: closed Qualified Code(s): S22.001D - Stable burst fracture of unspecified thoracic vertebra, subsequent encounter for fracture with routine healing Code(s): S22.001A - Stable burst fracture of unspecified thoracic vertebra, initial encounter for closed fracture Status: Acute Assessment and Plan: XR lumbar showed stable burst fracture of unspecified thoracic vertebra Pain control (3) Head injury due to trauma: Qualifiers: Encounter type: initial encounter Qualified Code(s): S09.90XA - Unspecified injury of head, initial encounter Code(s): S09.90XA - Unspecified injury of head, initial encounter Status: Acute Assessment and Plan: CT head negative for acute process or injury PT/OT evaluating (4) Obesity (BMI 30-39.9): Code(s): E66.9 - Obesity, unspecified Status: Chronic Assessment and Plan: lifestyle and diet modifications (5) Type 2 diabetes mellitus: Qualifiers: Diabetes mellitus oysterman insulin use: with usp use Diabetes mellitus complication status: with neurologic complications Diabetes mellitus complication detail: with polyneuropathy Qualified Code(s): E11.42 - Type 2 diabetes mellitus with diabetic polyneuropathy; Z79.4 - long term care social worker (current) use of insulin Code(s): E11.9 - Type 2 diabetes mellitus without complications Status: Chronic Assessment and Plan: Patient noted to be on 5 different drugs continue insulin, AccuCheck, hypoglycemia protocol (6) Continuous tobacco abuse: Code(s): Z72.0 - Tobacco use Status: Chronic Assessment and Plan: Patient is down to 2 cigarettes from a pack and half daily Encouraged cessation (7) Chronic GERD: Code(s): K21.9 - Gastro-esophageal reflux disease without esophagitis Status: Chronic Assessment and Plan: PPI Plan TSH elevated, T4 normal will have her f/u for repeat labs with her PCP in 4-6 weeks Subjective Date/time seen: 03/01/23 14:44 Interval history: Patient is in no acute stress this morning. She did have a syncopal episode whil.e walking to the bathroom with PT today. They were able to lower her down via the guard belt with no trauma. She did not lose consciousness. She was A&O x3 immediately after. She denies any prodromal symptoms. VS remained stable. She was just discharged from our care on 02/24 for falls x2 with an unremarkable work up. Considering medications, may need to streamline her diabetic management outpatient. Considering vertigo. Orthostatic BP negative for orthostatic hypotension. Noted otitis media with effusion, but she is already on Mucinex and meclizine. May need Holter monitor at d/c if no other work up is revealing. Review of Systems Review of Systems: All systems reviewed & are unremarkable except as noted in HPI and below Exam Narrative: GENERAL: Well-appearing, well-nourished, and in no acute distress. HEAD: Normocephalic, forehead bruising. EYES: PERRLA and EOMI. ENT: Nares clear, no rhinorrhea or epistaxis. Mucous membranes moist. Mild effusion in right ear. NECK: Supple. CHEST: Clear
[2023-03-01] MEDS: ACETAMINOPHEN 500 MG TABLET 1000 MG PO ×2 (16:15→21:23)
[2023-03-01 16:36] LABS: Glucose Point of Care 175 mg/dl (65-105)
[2023-03-01] MEDS: clonazePAM (*CRX) 0.5 MG TABLET 2 MG PO (21:20)
[2023-03-02] VITALS (11 sets, daily range): BP systolic 103–131; BP diastolic 53–72; PULSE 74–95; RESP 16–20; TEMP 36.4–37; O2SAT 91–96
[2023-03-02 00:11] LABS: Glucose Point of Care 223 mg/dl (65-105)
[2023-03-02 07:19] LABS: Hematocrit 56.5 % (37.0-47.0); Hemoglobin 16.8 g/dL (12.0-15.0); Mean Corpuscular HGB Conc 29.7 g/dl (32-36); Mean Corpuscular Hemoglobin 27.2 pg (26-34); Mean Corpuscular Volume 91.6 fl (80-100); Mean Platelet Volume 9.2 fl (7.4-10.4); Platelet Count Result 230 k/mm3 (150-375); Red Blood Count 6.17 M/mm3 (4.2-5.4); Red Cell Distribution Width 17.2 % (11.5-14.5); White Blood Count 6.7 K/mm3 (4.5-10.0)
[2023-03-02 07:34] LABS: Anion Gap 8 mmol/L (8-16); Blood Urea Nitrogen 16 mg/dL (7-17); Calcium 8.8 mg/dL (8.4-10.2); Carbon Dioxide 27 mmol/L (22-30); Chloride 104 mmol/L (98-107); Estimated CRCL calculation 112 ml/min; Estimated Glomerular Filt Rate > 60; Glucose 145 mg/dL (65-110); Potassium 3.7 mmol/L (3.4-5.0); Sodium 139 mmol/L (137-145)
[2023-03-02 07:38] LABS: Glucose Point of Care 161 mg/dl (65-105)
[2023-03-02] MEDS: ACETAMINOPHEN 500 MG TABLET 1000 MG PO (09:08)
[2023-03-02] MEDS: LORATADINE/PSEUDOEPHEDRINE (*CRX) 10/240 MG TABLET ER 24 HR 1 TAB PO (09:08)
[2023-03-02] MEDS: CYANOCOBALAMIN 500 MCG TABLET PO (09:09)
[2023-03-02] MEDS: MECLIZINE HCL 25 MG TABLET PO ×2 (09:09→21:52)
[2023-03-02] MEDS: CHOLECALCIFEROL 1,000 UNITS TABLET 1000 UNITS PO (09:09)
[2023-03-02] MEDS: ENALAPRIL MALEATE 2.5 MG TABLET PO (09:09)
[2023-03-02] MEDS: ATORVASTATIN 20 MG TABLET PO (09:09)
[2023-03-02] MEDS: INSULIN GLARGINE (*BKC) 100 UNITS/ML 46 UNITS SUB-Q (09:13)
[2023-03-02] MEDS: NICOTINE (*PBKC) 21 MG PATCH 1 PATCH TRANSDERM (09:16)
[2023-03-02 12:11] LABS: Glucose Point of Care 207 mg/dl (65-105)
--- NOTE | 2023-03-02 14:10 | PC.NURSE ---
The pt pivoted to [facility] [place] and on her way back to the chair the pt had a near syncopal episode. This RN witnessed the episode and got her to the chair safely. This RN assessed the pt and notified DISPENSING LEAD.
--- NOTE | 2023-03-02 14:19 | P.PNIM_ITS ---
Progress Note: A&P Assessment and Plan (1) Syncope: Qualifiers: Syncope type: unspecified Qualified Code(s): R55 - Syncope and collapse Code(s): R55 - Syncope and collapse Status: Acute Assessment and Plan: * Extensive workup recently unremarkable * possibly related to 5 different medications for type diabetes mellitus which include metformin, insulin, empagliflozin, pioglitazone, semaglutide * also noted patient taking clonazepam and recent addition of duloxetine * currently holding duloxetine although given episode in hospital, likely not the cause and can restart * PT/OT eval ordered for frantz walsh, positive on left * will have home health arranged for PT at d/c * orthostatics negative * EEG ordered after today's syncopal episode (2) Burst fracture of thoracic vertebra: Qualifiers: Encounter type: subsequent encounter Fracture healing: with routine healing Fracture type: closed Qualified Code(s): S22.001D - Stable burst fracture of unspecified thoracic vertebra, subsequent encounter for fracture with routine healing Code(s): S22.001A - Stable burst fracture of unspecified thoracic vertebra, initial encounter for closed fracture Status: Acute Assessment and Plan: * XR lumbar showed stable burst fracture of unspecified thoracic vertebra * Pain control (3) Head injury due to trauma: Qualifiers: Encounter type: initial encounter Qualified Code(s): S09.90XA - Unspecified injury of head, initial encounter Code(s): S09.90XA - Unspecified injury of head, initial encounter Status: Acute Assessment and Plan: * CT head negative for acute process or injury * PT/OT evaluating (4) Obesity (BMI 30-39.9): Code(s): E66.9 - Obesity, unspecified Status: Chronic Assessment and Plan: * lifestyle and diet modifications (5) Type 2 diabetes mellitus: Qualifiers: Diabetes mellitus mcc insulin use: with mcc use Diabetes mellitus complication status: with neurologic complications Diabetes mellitus complication detail: with polyneuropathy Qualified Code(s): E11.42 - Type 2 diabetes mellitus with diabetic polyneuropathy; Z79.4 - snf (current) use of insulin Code(s): E11.9 - Type 2 diabetes mellitus without complications Status: Chronic Assessment and Plan: * Patient noted to be on 5 different drugs * continue insulin, AccuCheck, hypoglycemia protocol (6) Continuous tobacco abuse: Code(s): Z72.0 - Tobacco use Status: Chronic Assessment and Plan: * Patient is down to 2 cigarettes from a pack and half daily * Encouraged cessation (7) Chronic GERD: Code(s): K21.9 - Gastro-esophageal reflux disease without esophagitis Status: Chronic Assessment and Plan: * PPI Plan TSH elevated, T4 normal will have her f/u for repeat labs with her PCP in 4-6 weeks Subjective Date/time seen: 03/02/23 14:19 Interval history: Patient is in no acute stress this morning. She did have a syncopal episode this afternoon while the nurse was present and walking with her in her room. Nurse reports she was A&O x3 immediately after. She denies any prodromal symptoms. VS remained stable. but requiring oxygen since this am. Working to wean off or will need O2 eval. Considering vertigo and she had positive frantz hallpike with PT this morning and will have home health PT at d/c. Will order EEG to rule out seizure like activity. Plan for d/c tomorrow if stable and work up remains unrevealing aside from BPV. Review of Sy
--- NOTE | 2023-03-02 14:19 | PM.IMPN ---
Progress Note: A&P Assessment and Plan (1) Syncope: Qualifiers: Syncope type: unspecified Qualified Code(s): R55 - Syncope and collapse Code(s): R55 - Syncope and collapse Status: Acute Assessment and Plan: Extensive workup recently unremarkable possibly related to 5 different medications for type diabetes mellitus which include metformin, insulin, empagliflozin, pioglitazone, semaglutide also noted patient taking clonazepam and recent addition of duloxetine currently holding duloxetine although given episode in hospital, likely not the cause and can restart PT/OT eval ordered for frantz walsh, positive on left will have home health arranged for PT at d/c orthostatics negative EEG ordered after today's syncopal episode (2) Burst fracture of thoracic vertebra: Qualifiers: Encounter type: subsequent encounter Fracture healing: with routine healing Fracture type: closed Qualified Code(s): S22.001D - Stable burst fracture of unspecified thoracic vertebra, subsequent encounter for fracture with routine healing Code(s): S22.001A - Stable burst fracture of unspecified thoracic vertebra, initial encounter for closed fracture Status: Acute Assessment and Plan: XR lumbar showed stable burst fracture of unspecified thoracic vertebra Pain control (3) Head injury due to trauma: Qualifiers: Encounter type: initial encounter Qualified Code(s): S09.90XA - Unspecified injury of head, initial encounter Code(s): S09.90XA - Unspecified injury of head, initial encounter Status: Acute Assessment and Plan: CT head negative for acute process or injury PT/OT evaluating (4) Obesity (BMI 30-39.9): Code(s): E66.9 - Obesity, unspecified Status: Chronic Assessment and Plan: lifestyle and diet modifications (5) Type 2 diabetes mellitus: Qualifiers: Diabetes mellitus terminal makeup operator insulin use: with half-way use Diabetes mellitus complication status: with neurologic complications Diabetes mellitus complication detail: with polyneuropathy Qualified Code(s): E11.42 - Type 2 diabetes mellitus with diabetic polyneuropathy; Z79.4 - remote computer terminal operator (current) use of insulin Code(s): E11.9 - Type 2 diabetes mellitus without complications Status: Chronic Assessment and Plan: Patient noted to be on 5 different drugs continue insulin, AccuCheck, hypoglycemia protocol (6) Continuous tobacco abuse: Code(s): Z72.0 - Tobacco use Status: Chronic Assessment and Plan: Patient is down to 2 cigarettes from a pack and half daily Encouraged cessation (7) Chronic GERD: Code(s): K21.9 - Gastro-esophageal reflux disease without esophagitis Status: Chronic Assessment and Plan: PPI Plan TSH elevated, T4 normal will have her f/u for repeat labs with her PCP in 4-6 weeks Subjective Date/time seen: 03/02/23 14:19 Interval history: Patient is in no acute stress this morning. She did have a syncopal episode this afternoon while the nurse was present and walking with her in her room. Nurse reports she was A&O x3 immediately after. She denies any prodromal symptoms. VS remained stable. but requiring oxygen since this am. Working to wean off or will need O2 eval. Considering vertigo and she had positive frantz hallpike with PT this morning and will have home health PT at d/c. Will order EEG to rule out seizure like activity. Plan for d/c tomorrow if stable and work up remains unrevealing aside from BPV. Review of Systems Review of Systems: All systems reviewed & are unremarkable except as noted in HPI and below Exam Narrative: GENERAL: Well-appearing, well-nourished, and in no acute distress. HEAD: Normocephalic, forehead bruising. EYES: PERRLA and EOMI. ENT: Nares clear, no rhinorrhea or epistaxis. Mucous membranes moist. Mild effusion in right ear. NECK: Supple. CHEST: Pawan
[2023-03-02 17:39] LABS: Glucose Point of Care 206 mg/dl (65-105)
[2023-03-02 20:29] LABS: Glucose Point of Care 283 mg/dl (65-105)
[2023-03-02] MEDS: clonazePAM (*CRX) 0.5 MG TABLET 2 MG PO (21:52)
[2023-03-03] VITALS (9 sets, daily range): BP systolic 98–124; BP diastolic 61–87; PULSE 74–94; RESP 16–20; TEMP 36.7–36.8; O2SAT 95–100
[2023-03-03 06:32] LABS: Hematocrit 55.4 % (37.0-47.0); Mean Corpuscular HGB Conc 30.7 g/dl (32-36); Mean Corpuscular Hemoglobin 27.5 pg (26-34); Mean Corpuscular Volume 89.5 fl (80-100); Mean Platelet Volume 9.2 fl (7.4-10.4); Platelet Count Result 233 k/mm3 (150-375); Red Blood Count 6.19 M/mm3 (4.2-5.4); Red Cell Distribution Width 16.5 % (11.5-14.5); White Blood Count 7.2 K/mm3 (4.5-10.0)
[2023-03-03 06:47] LABS: Anion Gap 9 mmol/L (8-16); Blood Urea Nitrogen 18 mg/dL (7-17); Calcium 8.9 mg/dL (8.4-10.2); Carbon Dioxide 26 mmol/L (22-30); Chloride 104 mmol/L (98-107); Estimated CRCL calculation 112 ml/min; Estimated Glomerular Filt Rate > 60; Glucose 123 mg/dL (65-110); Sodium 139 mmol/L (137-145)
[2023-03-03 07:42] LABS: Glucose Point of Care 156 mg/dl (65-105)
[2023-03-03] MEDS: ACETAMINOPHEN 500 MG TABLET 1000 MG PO ×2 (08:57→16:55)
[2023-03-03] MEDS: ATORVASTATIN 20 MG TABLET PO (08:57)
[2023-03-03] MEDS: NICOTINE (*PBKC) 21 MG PATCH 1 PATCH TRANSDERM (08:57)
[2023-03-03] MEDS: CYANOCOBALAMIN 500 MCG TABLET PO (08:57)
[2023-03-03] MEDS: CHOLECALCIFEROL 1,000 UNITS TABLET 1000 UNITS PO (08:57)
[2023-03-03] MEDS: LORATADINE/PSEUDOEPHEDRINE (*CRX) 10/240 MG TABLET ER 24 HR 1 TAB PO (08:57)
[2023-03-03] MEDS: INSULIN GLARGINE (*BKC) 100 UNITS/ML 46 UNITS SUB-Q (08:58)
[2023-03-03] MEDS: ENALAPRIL MALEATE 2.5 MG TABLET PO (08:58)
[2023-03-03] MEDS: MECLIZINE HCL 25 MG TABLET PO ×2 (08:58→21:50)
--- NOTE | 2023-03-03 09:11 | PCPTNOTE ---
followed up with pt after vertigo evaluation yesterday, pt reported she had mild light headedness but no vertigo, checked pt's dizziness briefly and will check in again tomorrow for a possible repeat Eply
[2023-03-03 11:43] LABS: Glucose Point of Care 204 mg/dl (65-105)
[2023-03-03] MEDS: FLUCONAZOLE 150 MG TABLET PO (12:48)
--- NOTE | 2023-03-03 14:36 | P.PNIM_ITS ---
Progress Note: A&P Assessment and Plan (1) Syncope: Qualifiers: Syncope type: unspecified Qualified Code(s): R55 - Syncope and collapse Code(s): R55 - Syncope and collapse Status: Acute Assessment and Plan: * Extensive workup recently unremarkable * possibly related to 5 different medications for type diabetes mellitus which include metformin, insulin, empagliflozin, pioglitazone, semaglutide * also noted patient taking clonazepam and recent addition of duloxetine * currently holding duloxetine although given episode in hospital, likely not the cause and can restart * PT/OT eval ordered for frantz walsh, positive on left * will have home health arranged for PT at d/c * orthostatics negative * EEG ordered after yesterday's syncopal episode, however there is now no neuro. Will have to be done outpatient if further eval needed. (2) Burst fracture of thoracic vertebra: Qualifiers: Encounter type: subsequent encounter Fracture healing: with routine healing Fracture type: closed Qualified Code(s): S22.001D - Stable burst fracture of unspecified thoracic vertebra, subsequent encounter for fracture with routine healing Code(s): S22.001A - Stable burst fracture of unspecified thoracic vertebra, initial encounter for closed fracture Status: Acute Assessment and Plan: * XR lumbar showed stable burst fracture of unspecified thoracic vertebra * Pain control * PT (3) Head injury due to trauma: Qualifiers: Encounter type: initial encounter Qualified Code(s): S09.90XA - Unspecified injury of head, initial encounter Code(s): S09.90XA - Unspecified injury of head, initial encounter Status: Acute Assessment and Plan: * CT head negative for acute process or injury * PT/OT evaluating (4) Obesity (BMI 30-39.9): Code(s): E66.9 - Obesity, unspecified Status: Chronic Assessment and Plan: * lifestyle and diet modifications (5) Type 2 diabetes mellitus: Qualifiers: Diabetes mellitus prison insulin use: with roasterman use Diabetes mellitus complication status: with neurologic complications Diabetes mellitus complication detail: with polyneuropathy Qualified Code(s): E11.42 - Type 2 diabetes mellitus with diabetic polyneuropathy; Z79.4 - local intermodal truck driver (current) use of insulin Code(s): E11.9 - Type 2 diabetes mellitus without complications Status: Chronic Assessment and Plan: * Patient noted to be on 5 different drugs * continue insulin, AccuCheck, hypoglycemia protocol (6) Continuous tobacco abuse: Code(s): Z72.0 - Tobacco use Status: Chronic Assessment and Plan: * Patient is down to 2 cigarettes from a pack and half daily * Encouraged cessation, nicotine patch in interim. (7) Chronic GERD: Code(s): K21.9 - Gastro-esophageal reflux disease without esophagitis Status: Chronic Assessment and Plan: * PPI Plan TSH elevated, T4 normal will have her f/u for repeat labs with her PCP in 4-6 weeks Subjective Date/time seen: 03/03/23 14:36 Interval history: Patient is in no acute stress this morning. Still requiring oxygen this morning as her oxygenation drops at night. Working to wean off or will need O2 eval. EEG will not be done while inpatient due to no neuro coverage. Will order apnea link study for tonight to evaluate for KYLAH and plan for dc tomorrow if stable. PT arranged with home health at d/c for BPV. Review of Systems Review of Systems: All systems reviewed & are unremarkable excep
--- NOTE | 2023-03-03 14:36 | PM.IMPN ---
Progress Note: A&P Assessment and Plan (1) Syncope: Qualifiers: Syncope type: unspecified Qualified Code(s): R55 - Syncope and collapse Code(s): R55 - Syncope and collapse Status: Acute Assessment and Plan: Extensive workup recently unremarkable possibly related to 5 different medications for type diabetes mellitus which include metformin, insulin, empagliflozin, pioglitazone, semaglutide also noted patient taking clonazepam and recent addition of duloxetine currently holding duloxetine although given episode in hospital, likely not the cause and can restart PT/OT eval ordered for frantz walsh, positive on left will have home health arranged for PT at d/c orthostatics negative EEG ordered after yesterday's syncopal episode, however there is now no neuro. Will have to be done outpatient if further eval needed. (2) Burst fracture of thoracic vertebra: Qualifiers: Encounter type: subsequent encounter Fracture healing: with routine healing Fracture type: closed Qualified Code(s): S22.001D - Stable burst fracture of unspecified thoracic vertebra, subsequent encounter for fracture with routine healing Code(s): S22.001A - Stable burst fracture of unspecified thoracic vertebra, initial encounter for closed fracture Status: Acute Assessment and Plan: XR lumbar showed stable burst fracture of unspecified thoracic vertebra Pain control PT (3) Head injury due to trauma: Qualifiers: Encounter type: initial encounter Qualified Code(s): S09.90XA - Unspecified injury of head, initial encounter Code(s): S09.90XA - Unspecified injury of head, initial encounter Status: Acute Assessment and Plan: CT head negative for acute process or injury PT/OT evaluating (4) Obesity (BMI 30-39.9): Code(s): E66.9 - Obesity, unspecified Status: Chronic Assessment and Plan: lifestyle and diet modifications (5) Type 2 diabetes mellitus: Qualifiers: Diabetes mellitus watermaster insulin use: with fci use Diabetes mellitus complication status: with neurologic complications Diabetes mellitus complication detail: with polyneuropathy Qualified Code(s): E11.42 - Type 2 diabetes mellitus with diabetic polyneuropathy; Z79.4 - long-term (current) use of insulin Code(s): E11.9 - Type 2 diabetes mellitus without complications Status: Chronic Assessment and Plan: Patient noted to be on 5 different drugs continue insulin, AccuCheck, hypoglycemia protocol (6) Continuous tobacco abuse: Code(s): Z72.0 - Tobacco use Status: Chronic Assessment and Plan: Patient is down to 2 cigarettes from a pack and half daily Encouraged cessation, nicotine patch in interim. (7) Chronic GERD: Code(s): K21.9 - Gastro-esophageal reflux disease without esophagitis Status: Chronic Assessment and Plan: PPI Plan TSH elevated, T4 normal will have her f/u for repeat labs with her PCP in 4-6 weeks Subjective Date/time seen: 03/03/23 14:36 Interval history: Patient is in no acute stress this morning. Still requiring oxygen this morning as her oxygenation drops at night. Working to wean off or will need O2 eval. EEG will not be done while inpatient due to no neuro coverage. Will order apnea link study for tonight to evaluate for KYLAH and plan for dc tomorrow if stable. PT arranged with home health at d/c for BPV. Review of Systems Review of Systems: All systems reviewed & are unremarkable except as noted in HPI and below Exam Narrative: GENERAL: Well-appearing, well-nourished, and in no acute distress. HEAD: Normocephalic, forehead bruising. EYES: PERRLA and EOMI. ENT: Nares clear, no rhinorrhea or epistaxis. Mucous membranes moist. Mild effusion in right ear. NECK: Supple. CHEST: Clear to auscultation. No respiratory distress. HEART: RRR. ABDOMEN: Soft, nontender, nond
[2023-03-03 17:00] LABS: Glucose Point of Care 189 mg/dl (65-105)
[2023-03-03 21:43] LABS: Glucose Point of Care 237 mg/dl (65-105)
[2023-03-03] MEDS: clonazePAM (*CRX) 0.5 MG TABLET 2 MG PO (21:50)
[2023-03-04] VITALS: PULSE 82
[2023-03-04 04:00] VITALS: PULSE 78
[2023-03-04 05:18] VITALS: O2SAT 90
[2023-03-04 05:57] VITALS: BP 111/84; PULSE 84; RESP 18; TEMP 37.1; O2SAT 93
[2023-03-04 06:45] LABS: Hemoglobin 16.6 g/dL (12.0-15.0); Mean Corpuscular HGB Conc 29.1 g/dl (32-36); Mean Corpuscular Hemoglobin 26.9 pg (26-34); Mean Corpuscular Volume 92.4 fl (80-100); Mean Platelet Volume 9.4 fl (7.4-10.4); Platelet Count Result 228 k/mm3 (150-375); Red Blood Count 6.17 M/mm3 (4.2-5.4); Red Cell Distribution Width 16.7 % (11.5-14.5); White Blood Count 6.1 K/mm3 (4.5-10.0)
[2023-03-04 06:58] LABS: Anion Gap 7 mmol/L (8-16); Blood Urea Nitrogen 19 mg/dL (7-17); Calcium 9.1 mg/dL (8.4-10.2); Carbon Dioxide 33 mmol/L (22-30); Chloride 100 mmol/L (98-107); Estimated CRCL calculation 83 ml/min; Estimated Glomerular Filt Rate > 60; Glucose 129 mg/dL (65-110); Potassium 4.8 mmol/L (3.4-5.0); Sodium 140 mmol/L (137-145)
[2023-03-04 08:00] VITALS: PULSE 84
[2023-03-04 08:21] LABS: Glucose Point of Care 135 mg/dl (65-105)
[2023-03-04] MEDS: NICOTINE (*PBKC) 21 MG PATCH 1 PATCH TRANSDERM (09:07)
[2023-03-04] MEDS: ENALAPRIL MALEATE 2.5 MG TABLET PO (09:08)
[2023-03-04] MEDS: LORATADINE/PSEUDOEPHEDRINE (*CRX) 10/240 MG TABLET ER 24 HR 1 TAB PO (09:08)
[2023-03-04] MEDS: ACETAMINOPHEN 500 MG TABLET 1000 MG PO (09:08)
[2023-03-04] MEDS: MECLIZINE HCL 25 MG TABLET PO (09:08)
[2023-03-04] MEDS: CHOLECALCIFEROL 1,000 UNITS TABLET 1000 UNITS PO (09:08)
[2023-03-04] MEDS: ATORVASTATIN 20 MG TABLET PO (09:08)
[2023-03-04] MEDS: CYANOCOBALAMIN 500 MCG TABLET PO (09:08)
[2023-03-04] MEDS: INSULIN GLARGINE (*BKC) 100 UNITS/ML 46 UNITS SUB-Q (09:09)
--- NOTE | 2023-03-04 11:17 | P.DS_ITS ---
DS: Admitting Diagnosis Discharge Date 03/04/23 Admitting Diagnosis syncopal episodes, falls DS: Discharge Diagnosis Discharge Diagnosis (1) Syncope: Qualifiers: Syncope type: unspecified Qualified Code(s): R55 - Syncope and collapse Code(s): R55 - Syncope and collapse Status: Acute Assessment and Plan: * Extensive workup recently unremarkable * possibly related to 5 different medications for type diabetes mellitus which include metformin, insulin, empagliflozin, pioglitazone, semaglutide * also noted patient taking clonazepam and recent addition of duloxetine * currently holding duloxetine although given episode in hospital, likely not the cause and can restart * PT/OT eval ordered for frantz walsh, positive on left * will have home health arranged for PT at d/c * orthostatics negative * EEG ordered after yesterday's syncopal episode, however there is now no neuro. Will have to be done outpatient if further eval needed. (2) Burst fracture of thoracic vertebra: Qualifiers: Encounter type: subsequent encounter Fracture healing: with routine healing Fracture type: closed Qualified Code(s): S22.001D - Stable burst fracture of unspecified thoracic vertebra, subsequent encounter for fracture with routine healing Code(s): S22.001A - Stable burst fracture of unspecified thoracic vertebra, initial encounter for closed fracture Status: Acute Assessment and Plan: * XR lumbar showed stable burst fracture of unspecified thoracic vertebra * Pain control * PT (3) Head injury due to trauma: Qualifiers: Encounter type: initial encounter Qualified Code(s): S09.90XA - Unspecified injury of head, initial encounter Code(s): S09.90XA - Unspecified injury of head, initial encounter Status: Acute Assessment and Plan: * CT head negative for acute process or injury (4) Obesity (BMI 30-39.9): Code(s): E66.9 - Obesity, unspecified Status: Chronic Assessment and Plan: * lifestyle and diet modifications (5) Type 2 diabetes mellitus: Qualifiers: Diabetes mellitus complication detail: with polyneuropathy Diabetes mellitus complication status: with neurologic complications Diabetes mellitus extermination supervisor insulin use: with extermination supervisor use Qualified Code(s): E11.42 - Type 2 diabetes mellitus with diabetic polyneuropathy; Z79.4 - buttermaker (current) use of insulin Code(s): E11.9 - Type 2 diabetes mellitus without complications Status: Chronic Assessment and Plan: * Patient noted to be on 5 different drugs * continue insulin, AccuCheck, hypoglycemia protocol (6) Continuous tobacco abuse: Code(s): Z72.0 - Tobacco use Status: Chronic Assessment and Plan: * Patient is down to 2 cigarettes from a pack and half daily * Encouraged cessation, nicotine patch in interim. (7) Chronic GERD: Code(s): K21.9 - Gastro-esophageal reflux disease without esophagitis Status: Chronic Assessment and Plan: * PPI Plan TSH elevated, T4 normal will have her f/u for repeat labs with her PCP in 4-6 weeks Apnea link not conclusion due to time constraint, but did show oxygen desaturations. Would benefit from outpatient sleep study. DS: Summary Hospital Course Hospital Course: Patient is a 67 YO female with PMH of type diabetes mellitus and depression. Patient admitted due to lightheadedness, with multiple syncopal episodes, multiple falls, trauma to face and head, multiple bruises. Patient with extensive non-revealing workup re
--- NOTE | 2023-03-04 11:17 | PM.DS ---
DS: Admitting Diagnosis Discharge Date 03/04/23 Admitting Diagnosis syncopal episodes, falls DS: Discharge Diagnosis Discharge Diagnosis (1) Syncope: Qualifiers: Syncope type: unspecified Qualified Code(s): R55 - Syncope and collapse Code(s): R55 - Syncope and collapse Status: Acute Assessment and Plan: Extensive workup recently unremarkable possibly related to 5 different medications for type diabetes mellitus which include metformin, insulin, empagliflozin, pioglitazone, semaglutide also noted patient taking clonazepam and recent addition of duloxetine currently holding duloxetine although given episode in hospital, likely not the cause and can restart PT/OT eval ordered for frantz walsh, positive on left will have home health arranged for PT at d/c orthostatics negative EEG ordered after yesterday's syncopal episode, however there is now no neuro. Will have to be done outpatient if further eval needed. (2) Burst fracture of thoracic vertebra: Qualifiers: Encounter type: subsequent encounter Fracture healing: with routine healing Fracture type: closed Qualified Code(s): S22.001D - Stable burst fracture of unspecified thoracic vertebra, subsequent encounter for fracture with routine healing Code(s): S22.001A - Stable burst fracture of unspecified thoracic vertebra, initial encounter for closed fracture Status: Acute Assessment and Plan: XR lumbar showed stable burst fracture of unspecified thoracic vertebra Pain control PT (3) Head injury due to trauma: Qualifiers: Encounter type: initial encounter Qualified Code(s): S09.90XA - Unspecified injury of head, initial encounter Code(s): S09.90XA - Unspecified injury of head, initial encounter Status: Acute Assessment and Plan: CT head negative for acute process or injury (4) Obesity (BMI 30-39.9): Code(s): E66.9 - Obesity, unspecified Status: Chronic Assessment and Plan: lifestyle and diet modifications (5) Type 2 diabetes mellitus: Qualifiers: Diabetes mellitus complication detail: with polyneuropathy Diabetes mellitus complication status: with neurologic complications Diabetes mellitus longterm insulin use: with longterm use Qualified Code(s): E11.42 - Type 2 diabetes mellitus with diabetic polyneuropathy; Z79.4 - intermission coordinator (current) use of insulin Code(s): E11.9 - Type 2 diabetes mellitus without complications Status: Chronic Assessment and Plan: Patient noted to be on 5 different drugs continue insulin, AccuCheck, hypoglycemia protocol (6) Continuous tobacco abuse: Code(s): Z72.0 - Tobacco use Status: Chronic Assessment and Plan: Patient is down to 2 cigarettes from a pack and half daily Encouraged cessation, nicotine patch in interim. (7) Chronic GERD: Code(s): K21.9 - Gastro-esophageal reflux disease without esophagitis Status: Chronic Assessment and Plan: PPI Plan TSH elevated, T4 normal will have her f/u for repeat labs with her PCP in 4-6 weeks Apnea link not conclusion due to time constraint, but did show oxygen desaturations. Would benefit from outpatient sleep study. DS: Summary Hospital Course Hospital Course: Patient is a 67 YO female with PMH of type diabetes mellitus and depression. Patient admitted due to lightheadedness, with multiple syncopal episodes, multiple falls, trauma to face and head, multiple bruises. Patient with extensive non-revealing workup recently for this reason and sent home. Preliminary workup essentially nonrevealing. Orthostatics negative for hypotension. Head CT negative for acute process, no head injury. Patient did have two syncopal episodes while in patient, but did not sustain any injury. PT working with patient and frantz walsh positive on the left, likely BPV and home health PT has been arranged for d/c as she yolande
[2023-03-04 11:59] LABS: Glucose Point of Care 175 mg/dl (65-105)
== END 2023-03-04 14:00 | disposition home health service (06) | DRG 312 ==
LOC: ANHED 22:07 → ANH3MEDSUR 22:16
PROVIDERS: Admitting Provider Internal Medicine; Emergency Provider Emergency Medicine; PCP Family Medicine; Visit Provider Nurse Practitioner
DX: R55 Syncope and collapse (principal); S22.001A Stable burst fracture of unspecified thoracic vertebra, initial encounter for closed fracture; T38.3X5A Adverse effect of insulin and oral hypoglycemic [antidiabetic] drugs, initial encounter; H81.10 Benign paroxysmal vertigo, unspecified ear; S00.83XA Contusion of other part of head, initial encounter; E66.9 Obesity, unspecified; Z68.34 Body mass index [BMI] 34.0-34.9, adult; W18.39XA Other fall on same level, initial encounter; E11.42 Type 2 diabetes mellitus with diabetic polyneuropathy; K21.9 Gastro-esophageal reflux disease without esophagitis; F41.9 Anxiety disorder, unspecified; J44.9 Chronic obstructive pulmonary disease, unspecified; I10 Essential (primary) hypertension; M85.88 Other specified disorders of bone density and structure, other site; F32.A Depression, unspecified; F17.210 Nicotine dependence, cigarettes, uncomplicated; Z66 Do not resuscitate; Z79.4 Long term (current) use of insulin; Z98.42 Cataract extraction status, left eye; Z98.41 Cataract extraction status, right eye; Z96.1 Presence of intraocular lens
CPT/HCPCS: 36415; 70450; 71046; 72125; 72131; 80048; 80053; 81001; 82948; 84439; 84443; 84480; 84484; 85025; 85027; 94762; 96374; 97112; 97161; 97165; 97535; 99285; A9270; G0378; J1815; J2270

== ENCOUNTER 2023-03-06 09:34 | Inpatient (IN) | payer MEDICARE, OTHER, SELFPAY ==
[2023-03-06] VITALS (42 sets, daily range): BP systolic 109–161; BP diastolic 60–107; PULSE 81–95; RESP 11–33; TEMP 35.5–36.6; O2SAT 90–99; BMI 35.0
--- NOTE | ~2023-03-06 | MR_ITS ---
EXAMINATION: MRA neck wo/w con DATE: 03/07/2023 11:59 INDICATION: Syncope. Vertigo. TECHNIQUE: Magnetic resonance angiography (MRA) of the neck was performed without and with 20 mL Mult iHance intravenous contrast. COMPARISON: Ultrasound 02/23/2023 FINDINGS: There is no significant stenosis of the vertebral arteries. There is plaque in the proximal internal carotid arteries. There is 0% stenosis of the proximal right internal carotid artery relative to norm al distal artery lumen diameter (NASCET criteria). There is 0% stenosis of the proximal left interna l carotid artery relative to normal distal artery lumen diameter. IMPRESSION: 1. 0% stenosis of the proximal internal carotid arteries relative to normal distal artery lumen diame ters (NASCET criteria). Reviewed, dictated and finalized at location E. TIC MIXER IMPRESSION: 1. 0% stenosis of the proximal internal carotid arteries relative to normal dis mariya artery lumen diameters (NASCET criteria).
--- NOTE | ~2023-03-06 | MR_ITS ---
EXAMINATION: MRA brain wo con DATE: 03/07/2023 11:58 INDICATION: Vertigo. Syncope. TECHNIQUE: Magnetic resonance angiography (MRA) of the brain was performed without intravenous contra st with T1-weighted SPGR by the 3D [id number] technique. Maximum intensity projection 3D-reconstr uctions were obtained. COMPARISON: None. FINDINGS: The vertebral arteries are codominant. There is no significant stenosis of basilar artery or the post erior cerebral arteries. The posterior communicating arteries are normal. There is no significant reza nosis of the intracranial internal carotid arteries or anterior or middle cerebral arteries. Anterior communicating artery is normal. There is no aneurysm. IMPRESSION: 1. No aneurysm or significant intracranial arterial stenosis. Reviewed, dictated and finalized at location E. ALLER HELPER
--- NOTE | ~2023-03-06 | XR_ITS ---
EXAMINATION: XR chest 1V portable 03/06/2023 11:57 INDICATION: Dizziness PROCEDURE: AP portable chest COMPARISON: No prior studies for comparison. FINDINGS: The lungs are clear. The cardiomediastinal silhouette is within normal limits. There are no pleural effusions. There is no pneumothorax suspected. IMPRESSION: 1: NO ACUTE CARDIOPULMONARY DISEASE. Reviewed, dictated and finalized at location L. IC WORKER FITTER
--- NOTE | ~2023-03-06 | MR_ITS ---
EXAMINATION: MR brain/brain stem wo con DATE: 03/07/2023 11:57 INDICATION: Vertigo. Syncope. TECHNIQUE: Magnetic resonance imaging (MRI) of the brain and brainstem was performed without intraven ous contrast. COMPARISON: Head CT 03/06/2023 FINDINGS: There are scattered areas of nonspecific increased T2-weighted signal intensity in the cere bral white matter and jen. There is no intracranial hemorrhage, acute infarction, or abnormal intrac ranial mass lesion. The ventricles are normal in size. There is a left posterior scalp hematoma. Ther e is mucosal thickening in sphenoid sinus. There are likely changes of ocular lens replacement surger ies. The mastoid air cells are normal. IMPRESSION: 1. Mild nonspecific cerebral white matter disease and pontine disease, which likely represents chroni c small vessel ischemic disease. Reviewed, dictated and finalized at location E. ICIAN OFFICE CLIN ASST IMPRESSION: 1. Mild nonspecific cerebral white matter disease and pontine disease, which joya mckeon represents chronic small vessel ischemic disease.
--- NOTE | ~2023-03-06 | CT_ITS ---
EXAMINATION: CT lumbar spine wo con DATE: 03/06/2023 11:47 INDICATION: Low back pain. Fall. TECHNIQUE: Computed tomography (CT) of the lumbar spine was performed without intravenous contrast. A utomated exposure control and iterative reconstruction technique were employed. The dose-length produ ct was 1414.21 mGy-cm. COMPARISON: CT lumbar spine 02/27/2023 FINDINGS: There is a chronic 18 mm mass in left adrenal gland measuring low-attenuation, consistent w ith an adenoma. There is 13 degrees dextroscoliosis of lumbar spine. There is a burst fracture of T12 with 1/5 loss of height and retropulsion of bone 2 mm into central spinal canal. There is mildly dec reased disc height at L1-L2, severely decreased disc height at L3-L4, and mildly decreased disc heigh t at L4-L5 and L5-S1. The following disc levels are specifically discussed: L1-L2: The disc is bulging. There is mild bilateral facet joint osteoarthritis. There is mild right n eural foraminal stenosis. There is mild central canal stenosis. L2-L3: The disc is bulging. There is mild bilateral facet joint osteoarthritis. There is mild bilater al neural foraminal stenosis. There is mild central canal stenosis. L3-L4: The disc is bulging. There is mild bilateral facet joint osteoarthritis. There is mild bilater al neural foraminal stenosis. There is mild central canal stenosis. L4-L5: The disc is bulging. There is mild bilateral facet joint osteoarthritis. There is mild bilater al neural foraminal stenosis. There is mild central canal stenosis. L5-S1: The disc is bulging. There is moderate bilateral facet joint osteoarthritis. There is mild sylvia ateral neural foraminal stenosis. There is mild central canal stenosis. IMPRESSION: 1. Subacute T12 burst fracture, stable from 02/27/2023. 2. Severe lumbar spondylosis. 3. Lumbar dextroscoliosis. Reviewed, dictated and finalized at location E. CIPAL SYSTEMS ARCHITECT
--- NOTE | ~2023-03-06 | CT_ITS ---
EXAMINATION: CT brain wo con DATE: 03/06/2023 10:03 INDICATION: Multiple falls. Head injury. TECHNIQUE: Computed tomography (CT) of the head was performed without intravenous contrast. The dose- length product was 605.33 mGy-cm. Automated exposure control and iterative reconstruction technique w ere employed. COMPARISON: CT dated 02/27/2023 FINDINGS: There is a left posterior parietal scalp hematoma. Generalized atrophy. No acute intracrani al hemorrhage, infarction, mass or mass effect. No ventriculomegaly or midline shift. Basilar cistern s are patent. Minimal mucosal thickening of the sphenoid sinuses. Mastoids are pneumatized. No depres sed skull fractures. IMPRESSION: 1. No acute intracranial abnormality. Reviewed, dictated and finalized at location L. CTURAL STEEL ENGINEER
--- NOTE | ~2023-03-06 | CT_ITS ---
EXAMINATION: CT cervical spine wo con DATE: 03/06/2023 11:47 INDICATION: Head injury. Fall. TECHNIQUE: Computed tomography (CT) of the cervical spine was performed without intravenous contrast. Automated exposure control and iterative reconstruction technique were employed. The dose-length pro duct was 566.01 mGy-cm. COMPARISON: CT cervical spine 02/27/2023 FINDINGS: There is 4 degrees levocurvature of cervical spine. There is mild chronic height loss of T1 vertebral body. There is moderately decreased disc height at C5-C6 and mildly decreased disc height at C6-C7. The following disc levels are specifically discussed: C2-C3: There is mild bilateral uncovertebral joint osteoarthritis. There is mild bilateral facet join t osteoarthritis. There is no neural foraminal stenosis. There is no central canal stenosis. C3-C4: There is mild bilateral uncovertebral joint osteoarthritis. There is mild bilateral facet join t osteoarthritis. There is no neural foraminal stenosis. There is no central canal stenosis. C4-C5: There is mild bilateral uncovertebral joint osteoarthritis. There is no facet joint osteoarthr itis. There is no neural foraminal stenosis. There is no central canal stenosis. C5-C6: There is severe bilateral uncovertebral joint osteoarthritis. There is mild bilateral facet danny int osteoarthritis. There is mild bilateral neural foraminal stenosis. There is mild central canal st enosis. C6-C7: There is mild bilateral uncovertebral joint osteoarthritis. There is mild bilateral facet join t osteoarthritis. There is no neural foraminal stenosis. There is no central canal stenosis. C7-T1: There is no uncovertebral joint osteoarthritis. There is severe bilateral facet joint osteoart hritis. There is mild bilateral neural foraminal stenosis. There is no central canal stenosis. IMPRESSION: 1. No acute fracture. 2. Moderate cervical spondylosis. Reviewed, dictated and finalized at location E. ICATION SECURITY SPECIALIST
--- NOTE | 2023-03-06 09:41 | ECG_ITS ---
Measurements Intervals [place] Rate: 80 P: 74 RI: 200 QRS: 106 QRSD: 86 T: 41 QT: 397 QTc: 458 Interpretive Statements SINUS RHYTHM POSSIBLE LEFT ATRIAL ENLARGEMENT [-0.1mV P WAVE IN V1/V2] MARKED RIGHT AXIS DEVIATION [QRS AXIS > 100] COMPARED TO ECG 02/22/2023 16:17:19 NO SIGNIFICANT CHANGES Electronically Signed On 03-06-2023 16:01:37 SALES AUDIT CLERK by Tommy Samano M.D.
[2023-03-06 10:40] LABS: Basophils Absolute Auto 0.1 K/mm3 (0.0-0.1); Basophils Percent Auto 0.5 % (0.2-1.2); Eosinophils Absolute Auto 0.2 K/mm3 (0-0.3); Eosinophils Percent Auto 1.8 % (0-4.4); Hematocrit 56.9 % (37.0-47.0); Hemoglobin 16.7 g/dL (12.0-15.0); Immature Granulocyte Absolute 0.02 K/mm3 (0.00-0.031); Immature Granulocyte Percent A 0.2 % (0-0.5); Lymphocytes Absolute Auto 1.49 K/mm3 (0.9-3.2); Lymphocytes Percent Auto 14.8 % (18.3-44.2); Mean Corpuscular HGB Conc 29.3 g/dl (32-36); Mean Corpuscular Hemoglobin 27.3 pg (26-34); Mean Platelet Volume 9.1 fl (7.4-10.4); Monocytes Absolute Auto 0.7 K/mm3 (0.1-0.6); Monocytes Percent Auto 7.3 % (2.6-8.5); Neutrophils Absolute Auto 7.6 K/mm3 (1.3-6.7); Neutrophils Percent Auto 75.4 % (45.5-73.1); Platelet Count Result 233 k/mm3 (150-375); Red Blood Count 6.12 M/mm3 (4.2-5.4); Red Cell Distribution Width 17.2 % (11.5-14.5); White Blood Count 10.1 K/mm3 (4.5-10.0)
[2023-03-06 10:50] LABS: Alanine Aminotransferase 33 U/L (6-35); Albumin Level 3.8 g/dL (3.5-5.1); Alkaline Phosphatase 106 U/L (38-126); Anion Gap 9 mmol/L (8-16); Aspartate Amino Transferase 32 U/L (14-36); Bilirubin,Total 0.8 mg/dL (0.2-1.3); Blood Urea Nitrogen 20 mg/dL (7-17); Calcium 9.2 mg/dL (8.4-10.2); Carbon Dioxide 27 mmol/L (22-30); Chloride 105 mmol/L (98-107); Estimated CRCL calculation 113 ml/min; Estimated Glomerular Filt Rate > 60; Glucose 141 mg/dL (65-110); Potassium 4.3 mmol/L (3.4-5.0); Sodium 141 mmol/L (137-145)
--- NOTE | 2023-03-06 11:11 | ED.SYNCOPE ---
HPI - Syncope General Chief Complaint: Dizziness Stated Complaint: vertigo Time Seen by Provider: 03/06/23 10:00 Source: patient and EMS Mode of arrival: EMS Limitations: no limitations History of Present Illness HPI narrative: 67 YEARS OLD WHITE FEMALE CAME FROM HOME BY AMBULANCE COMPLAINING OF DIZZINESS AND MULTIPLE FALLS. WAS DISCHARGED FROM OUR FACILITY ON THE OF THIS MONTH WITH VERTIGO. PATIENT LIVES ALONE. LOST HER BALANCE YESTERDAY CAUSING FALL, RIGHT HEAD OCCIPITAL HEMATOMA, LOST HER BALANCE TODAY WITH POSSIBLE LOSS OF CONSCIOUSNESS WITH BRUISES LEFT UPPER EYELID. CURRENTLY HER MAIN COMPLAINT IS LOWER BACK PAIN, HISTORY OF CHRONIC LOWER BACK PAIN WITH FLARE UP EVERY TIME AFTER A FALL. SHE DENIES ANY FEVER, CHILLS, NAUSEA, VOMITING. PATIENT REPORTS THAT HER EQUILIBRIUM IS NOT RIGHT AND SHE KEEPS FALLING. Related Data Home Medications Medication Instructions Recorded Confirmed ibuprofen 200 mg capsule 200 mg PO Q6H PRN Pain 11/17/20 03/06/23 loratadine 5 mg-pseudoephedrine ER 1 tablet PO Q12H PRN allergies 10/19/21 03/06/23 120 mg tablet,extended release,12hr (Claritin-D 12 Hour) cholecalciferol (vitamin D3) 25 25 mcg PO DAILY 08/14/22 03/06/23 mcg (1,000 unit) capsule mecobalamin (vitamin B12) 500 mcg 500 mcg PO DAILY 08/14/22 03/06/23 chewable tablet duloxetine 60 mg capsule,delayed 60 mg PO DAILY 11/30/22 03/06/23 release atorvastatin 20 mg tablet 20 mg PO DAILY 02/22/23 03/06/23 insulin degludec 200 unit/mL (3 46 unit subcut DAILY 02/22/23 03/06/23 mL) subcutaneous pen (Tresiba FlexTouch U-200 insulin) Allergies Allergy/AdvReac Type Severity Reaction Status Date / Time No Known Allergies Allergy Verified 03/06/23 09:42 Review of Systems Review of Systems: All systems reviewed & are unremarkable except as noted in HPI and below PMFSH Past Medical History Medical History Allergic rhinitis Anxiety Chronic GERD COPD (chronic obstructive pulmonary disease) Depression Essential (primary) hypertension Glomerulonephritis Headache, migraine HLD (hyperlipidemia) Keratosis Obesity (BMI 30-39.9) Osteopenia after menopause Post-menopausal Type 2 diabetes mellitus Vitamin B12 deficiency Vitamin D deficiency Surgical History Surgical History History of elbow surgery (~2019) ORIF Status post cataract extraction of both eyes with insertion of intraocular lens (~2018) Family History Family History Mother Family history of multiple sclerosis Sibling Hypertension Family history of ulcerative colitis Father Family history of cardiovascular disease Carcinoma of colon Other Alcoholism Alzheimer disease Cerebrovascular accident Depression Diabetes mellitus Emphysema lung Heart disease Lung cancer Multiple sclerosis Rectal cancer Skin cancer Ulcerative (chronic) ileocolitis Vertigo Social History Social History Social History: The patient is single and has never been . She does not have any children. 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 She has smoked 1.5 packs per day since her mid 20s. She denies any significant alcohol or drug use. She does not have any pets but takes care of a feral cat colony. Code status: DNR/DNI Healthcare power of family law attorney: Asher (friend) Smoking packs per day: 1.5 Smoking cigarettes per day: 30.0 Years smoked: 40 Smoking pack-years: 60.00 Smoking status: Current every day smoker Second hand tobacco smoke exposure: No Alcohol intake: never Alcohol use details: rarely Substance use: never Substance use type: does not use Do You Feel Safe in your Home?: Yes Lack of Transportation: No Lack of Food: Never True Current Housing: I Have Housing Concerned About Future Housing: No
[2023-03-06] MEDS: SODIUM CHLORIDE 0.9% IV 1,000 ML 999 ML IV CONT (11:27)
[2023-03-06 12:22] LABS: Appearance Urine Clear (Clear); Bilirubin Urine Negative (Negative); Blood Urine Negative (Negative); Color Urine Yellow (Yellow); Glucose Urine UA 3+ mg/dL (Negative); Ketones Urine Trace mg/dL (Negative); Leukocyte Esterase Ur Negative LEU/UL (Negative); Nitrate Urine Negative (Negative); Protein Urine 1+ mg/dL (Negative); Specific Grav Ur 1.022 (1.001-1.035); Urobilinogen Urine 0.2 mg/dL (<2.0)
[2023-03-06 13:02] LABS: Bacteria Urine None Seen /hpf; Non Pathogenic Casts 0-2; RBC Urine 0-2 /hpf (0-2); Squamous Epithelial Cell Urine None seen /hpf (Few); WBC Urine 0-5 /hpf
[2023-03-06 13:03] LABS: Add Urine Microscopic? YES
--- NOTE | 2023-03-06 14:30 | PC.NURSE ---
c/o dizziness with head movement. Family at bedside. Awaiting dispo.
[2023-03-06 15:23] LABS: Creatine Kinase 25 U/L (30-135)
[2023-03-06 15:36] LABS: Troponin I < 0.012 ng/mL (0.000-0.034)
[2023-03-06 15:56] LABS: Amphetamine Screen Urine Negative (Negative); Barbiturate Screen Urine Negative (Negative); Benzodiazepines Screen Urine Negative (Negative); Cannabinoid Screen Urine Negative (Negative); Cocaine Screen Urine Negative (Negative); Methadone Screen Urine Negative (Negative); Opiate Screen Urine Negative (Negative); Phencyclidine Screen Urine Negative (Negative)
[2023-03-06 16:08] LABS: INR 0.9; Prothrombin Time 12.9 Seconds (11.1-14.7)
[2023-03-06 16:09] LABS: Partial Thromboplastin Time 29.9 SECONDS (22.3-36.8)
--- NOTE | 2023-03-06 18:28 | ADMGEN ---
This patient, Janel Marin, was admitted to [facility] Surg Room 323-01. Patient/family oriented to hospital policies and general routines including ID bracelet, bed and alarms, visiting hours, pain management, procedures, bathroom and other care routines, personal items, smoking policy, room service/diet, and visiting hours. Information on how to activate the Rapid Response Team has been discussed. Patient/Family are encouraged to report perceived risks to care and to ask questions if they do not understand what they are told or what they should do.
--- NOTE | 2023-03-06 20:18 | PM.IMHP ---
H&P: HPI History of Present Illness Date/Time: 03/06/23 16:00 Chief Complaint: Dizziness and falls. Narrative: This is a 67-year-old female smoker with insulin-dependent diabetes, hypertension, hyperlipidemia, chronic obstructive pulmonary disease, and gastroesophageal reflux disease who presented to the emergency department via EMS from home for evaluation of dizziness and falls. The patient provides the following history. Over the last 3 weeks she has been experiencing frequent episodes of dizziness, vertigo, and falls. She was seen at her primary care physician's office for evaluation on 02/21/2023. EKG at that time did not show any acute findings and she was scheduled for an outpatient stress test. She was seen in the ED the following evening after she had 2 episodes with suspected brief loss of consciousness. Echocardiogram showed normal LV chamber size with hyperdynamic systolic function with EF estimated greater than 70% and grade 1 diastolic dysfunction. Carotid Doppler ultrasound showed less than 50% stenosis in the bilateral internal carotid arteries. Orthostatic vital signs were normal and there were no reported episodes of hypoglycemia. Labs at that time showed an elevated hemoglobin and hematocrit and it was felt that she likely had chronic hypoxia due to ongoing tobacco abuse, obesity, and possible obstructive sleep apnea. Apnea link was unable to be read as the period of time that she was asleep was too short. She was discharged home on the but was readmitted through the ED on the after she once again presented to the ED for evaluation of lightheadedness, vertigo, multiple falls, and suspected syncope. According to the discharge summary and extensive workup was conducted but was unrevealing. Orthostatic vital signs were normal. Head CT showed no acute processes. She did have 2 syncopal episodes while she was in inpatient with no reports of cardiac dysrhythmia or ectopy. She worked with physical therapy and vestibular therapy. EEG was considered though there was no reports of seizure-like activity during the brief periods of unresponsiveness. She was discharged home with home health and physical therapy. It should be noted that her carboxyhemoglobin was 9.3 on 02/22/2023 which is quite high even for smoker. She reportedly chain smoked several cigarettes prior to coming to the emergency department and was felt to be elevated due to that. She does not have a carbon monoxide detector at home and lives alone. Unfortunately she continues to have these episodes. They seem to be worse with position changes. She describes feelings of lightheadedness but also describes vertigo and reports sensation as though she is ?moving around in myself.? She has had 2 falls since discharge and she has sustained multiple bumps and bruises to the head and upper extremities but luckily she has not had any severe injuries. Last fall yesterday was without prodrome which is new. She denies fever, chills, sweats, visual changes, focal weakness, paresthesias, chest pain pleuritic pain, shortness a breath, abdominal pain, nausea, vomiting, diarrhea, and dysuria. In the ED: She was afebrile on arrival. Her blood pressures have been stable though I do not see designate orthostatic vital signs. Labs were significant for a WBC count of 10.1, hemoglobin 16.7, hematocrit 56.9%, BUN 20, creatinine 0.50, troponin less than 0.012. CT of the brain and cervical spine did not show any acute findings. Lumbar spine CT showed a subacute T12 burst fracture, stable from 02/27/2023. Chest x-ray showed no acute cardiopulmonary disease. EKG showed no acute ST segment changes. Review of Systems Review of Systems: Twelve systems were reviewed and are negative except for as per HPI. [facility] Past Medical History Medical History (Updated 03/06/23 @ 20:45 by Rosemarie Garg PA-C) Allergic rhinitis Anxiety Chronic GERD Chronic obstructive pulmonary disease Depression Essential (primary) h
[2023-03-06 20:41] LABS: Glucose Point of Care 227 mg/dl (65-105)
[2023-03-06] MEDS: clonazePAM (*CRX) 0.5 MG TABLET 2 MG PO (21:51)
[2023-03-06] MEDS: ACETAMINOPHEN 325 MG TABLET 650 MG PO (21:51)
[2023-03-06] MEDS: MECLIZINE HCL 25 MG TABLET PO (21:51)
[2023-03-06] MEDS: INSULIN ASPART (*BKC) 100 UNITS/ML SUB-Q (21:52)
[2023-03-06 21:56] LABS: Alveolar/Arterial O2 Gradient 29.6 mmHg; Base Excess ABG 3.3 mEq/l (+/-2.0); Carboxyhemoglobin 1.4 % THb (0-2.0); Fractional Inspired Oxygen 21 %; Methemoglobin ABG 0.3 %THb (0-1.5); Oxygen Content ABG 22.4 %vol (16.0-22.0); Oxygen Saturation ABG 94.4 % (95.0-100.0); Oxyhemoglobin 92.1 % THb (90.0-100.0); PCO2 ABG 42.4 mmHg (35.0-45.0); PO2 ABG 69.4 mmHg (80.0-100.0); Reduced Hemoglobin 6.2 %THb (0-5.0); Total Hemoglobin 17.3 g/dL (12.0-18.0); pH ABG 7.437 (7.350-7.450)
[2023-03-06 21:58] LABS: Modified Allen's Test Pass; Site Drawn RIGHT RADIAL
[2023-03-07 05:45] VITALS: BP 133/66; PULSE 82; RESP 18; TEMP 35.8; O2SAT 91
[2023-03-07 06:34] LABS: Hematocrit 53.5 % (37.0-47.0); Hemoglobin 15.6 g/dL (12.0-15.0); Mean Corpuscular HGB Conc 29.2 g/dl (32-36); Mean Corpuscular Hemoglobin 26.9 pg (26-34); Mean Corpuscular Volume 92.4 fl (80-100); Mean Platelet Volume 9.3 fl (7.4-10.4); Platelet Count Result 236 k/mm3 (150-375); Red Blood Count 5.79 M/mm3 (4.2-5.4); Red Cell Distribution Width 16.4 % (11.5-14.5); White Blood Count 6.5 K/mm3 (4.5-10.0)
[2023-03-07 06:49] LABS: Anion Gap 6 mmol/L (8-16); Blood Urea Nitrogen 15 mg/dL (7-17); Calcium 8.9 mg/dL (8.4-10.2); Carbon Dioxide 29 mmol/L (22-30); Chloride 105 mmol/L (98-107); Estimated CRCL calculation 96 ml/min; Estimated Glomerular Filt Rate > 60; Glucose 153 mg/dL (65-110); Magnesium 1.7 mg/dL (1.6-2.3); Sodium 140 mmol/L (137-145)
[2023-03-07 07:50] LABS: Glucose Point of Care 153 mg/dl (65-105)
[2023-03-07 08:00] VITALS: BP 109/58; PULSE 84
[2023-03-07] MEDS: ENOXAPARIN 40 MG/0.4 ML SYRINGE SUB-Q (09:42)
[2023-03-07] MEDS: ENALAPRIL MALEATE 2.5 MG TABLET PO (09:43)
[2023-03-07] MEDS: CHOLECALCIFEROL 1,000 UNITS TABLET 1000 UNITS PO (09:43)
[2023-03-07] MEDS: MECLIZINE HCL 25 MG TABLET PO ×2 (09:43→20:25)
[2023-03-07] MEDS: CYANOCOBALAMIN 500 MCG TABLET PO (09:43)
[2023-03-07] MEDS: ATORVASTATIN 20 MG TABLET PO (09:43)
[2023-03-07] MEDS: INSULIN GLARGINE (*BKC) 100 UNITS/ML 46 UNITS SUB-Q (09:45)
--- NOTE | 2023-03-07 11:00 | PCPTNOTE ---
Spoke with hospitalist Mita Escamilla APRN, regarding bedrest orders. Hospitalist OK with removal of bedrest orders so pt can participate in skilled therapy. RN aware. Pt currently off the unit for a test. Will follow.
--- NOTE | 2023-03-07 11:20 | PCOTNOTE ---
Bedrest orders removed, however, patient is with MRI and MRA and is unable to be seen. Will check back later.
[2023-03-07 11:43] LABS: Glucose Point of Care 223 mg/dl (65-105)
[2023-03-07] MEDS: INSULIN ASPART (*BKC) 100 UNITS/ML SUB-Q ×3 (11:51→20:31)
[2023-03-07 14:00] VITALS: BP 146/75; PULSE 87; RESP 18; TEMP 36.5; O2SAT 90
[2023-03-07] MEDS: ACETAMINOPHEN 325 MG TABLET 650 MG PO (14:48)
[2023-03-07 15:47] VITALS: BP 158/74; PULSE 90
[2023-03-07 15:48] VITALS: BP 154/77; PULSE 87
[2023-03-07 16:10] LABS: Glucose Point of Care 208 mg/dl (65-105)
--- NOTE | 2023-03-07 16:21 | PM.IMPN ---
Progress Note: A&P Assessment and Plan (1) Syncope: Qualifiers: Syncope type: unspecified Qualified Code(s): R55 - Syncope and collapse Code(s): R55 - Syncope and collapse Status: Acute Assessment and Plan: The patient presented to the emergency department via EMS from home for evaluation of dizziness, frequent falls, and syncope as detailed in HPI. Labs, imaging, EKG, and all reports were personally reviewed. This will be her 3rd admission to the hospital in the last several weeks for the same. Workup thus far has been documented as unrevealing. Echocardiogram showed hyperdynamic systolic function with grade 1 diastolic dysfunction. Carotid Doppler ultrasounds did not show any significant stenosis in either internal carotid artery. Orthostatic vital signs have been unremarkable. No reports of cardiac dysrhythmias were noted on telemetry. She reportedly had a positive Swapna-Hallpike maneuver on the left and was working with physical therapy on vestibular therapy. This does not seem to explain her syncopal episodes however.? monitor telemetry fall precautions PT evaluation and treatment for frequent falls and possible vertigo plan to discharge with a 30 day event monitor (2) Polycythemia: Code(s): D75.1 - Secondary polycythemia Status: Acute Assessment and Plan: She has polycythemia which was thought to be due to possible chronic hypoxia due to ongoing tobacco abuse and obesity as well as possible underlying sleep apnea. Apnea link was not completed during her last visit due to to short of the time thus will repeat that during this stay. She could have polycythemia vera though would consider secondary polycythemia from smoking however carbon monoxide exposure in other forms are also considered. ABG earlier this month showed a carboxyhemoglobin greater than 9 and her home should be checked for carbon monoxide. Repeat ABG has been ordered for evaluation. hematology referral on discharge monitor lab work (3) Frequent falls: Code(s): R29.6 - Repeated falls Status: Acute Assessment and Plan: Brain MRI, and MRA of the brain and neck ordered due to continued, severe dizziness, vertigo, and recurrent syncopal episodes. MRA neck-0% stenosis of the proximal internal carotid arteries relative to normal distal artery lumen diameters (NASCET criteria). MRA brain-No aneurysm or significant intracranial arterial stenosis. MRI brain-Mild nonspecific cerebral white matter disease and pontine disease, which likely represents chronic small vessel ischemic disease. orthostatic vs q shift fall precautions pt/ot (4) Dizziness: Code(s): R42 - Dizziness and giddiness Status: Acute Assessment and Plan: PRN meclazine PT eval and treat (5) Type 2 diabetes mellitus: Qualifiers: Diabetes mellitus local intermodal truck driver insulin use: with local intermodal truck driver use Diabetes mellitus complication status: with neurologic complications Diabetes mellitus complication detail: with polyneuropathy Qualified Code(s): E11.42 - Type 2 diabetes mellitus with diabetic polyneuropathy; Z79.4 - emt intermediate (current) use of insulin Code(s): E11.9 - Type 2 diabetes mellitus without complications Status: Chronic Assessment and Plan: No documented hypoglycemic events. Continue basal insulin, empagliflozin, . Initiate sliding scale insulin, Accu-Cheks, and hypoglycemic protocol. (6) Chronic obstructive pulmonary disease: Code(s): J44.9 - Chronic obstructive pulmonary disease, unspecified Status: Acute Assessment and Plan: Stable, not in exacerbation. Continue albuterol inhaler PRN (7) Tobacco dependence: Code(s): F17.200 - Nicotine dependence, unspecified, uncomplicated Status: Acute Assessment and Plan: encouraged smoking cessation Time Spent With Patient Time with patient: 15 - 25 minutes Subjective Date/time seen: 03/07/23 1300 Interval
[2023-03-07] MEDS: clonazePAM (*CRX) 0.5 MG TABLET 2 MG PO (20:25)
[2023-03-07 20:30] VITALS: BP 134/68; BP 141/66; BP 144/67; PULSE 71; PULSE 76; PULSE 78; RESP 16; RESP 20; TEMP 36.2; O2SAT 91; O2SAT 92; O2SAT 95
[2023-03-07 21:28] LABS: Glucose Point of Care 203 mg/dl (65-105)
[2023-03-08] VITALS (7 sets, daily range): BP systolic 109–148; BP diastolic 62–87; PULSE 72–86; RESP 13–20; TEMP 35.7–36.1; O2SAT 91–96
[2023-03-08 07:37] LABS: Glucose Point of Care 201 mg/dl (65-105)
[2023-03-08] MEDS: MECLIZINE HCL 25 MG TABLET PO ×3 (08:48→18:14)
[2023-03-08] MEDS: CHOLECALCIFEROL 1,000 UNITS TABLET 1000 UNITS PO (08:48)
[2023-03-08] MEDS: CYANOCOBALAMIN 500 MCG TABLET PO (08:49)
[2023-03-08] MEDS: INSULIN GLARGINE (*BKC) 100 UNITS/ML 46 UNITS SUB-Q (08:49)
[2023-03-08] MEDS: ENOXAPARIN 40 MG/0.4 ML SYRINGE SUB-Q (08:49)
[2023-03-08] MEDS: ATORVASTATIN 20 MG TABLET PO (08:49)
[2023-03-08] MEDS: INSULIN ASPART (*BKC) 100 UNITS/ML SUB-Q ×3 (08:49→21:09)
[2023-03-08] MEDS: ENALAPRIL MALEATE 2.5 MG TABLET PO (08:49)
--- NOTE | 2023-03-08 08:53 | PM.IMPN ---
Progress Note: A&P Assessment and Plan (1) Syncope: Qualifiers: Syncope type: unspecified Qualified Code(s): R55 - Syncope and collapse Code(s): R55 - Syncope and collapse Status: Acute Assessment and Plan: The patient presented to the emergency department via EMS from home for evaluation of dizziness, frequent falls, and syncope as detailed in HPI. Labs, imaging, EKG, and all reports were personally reviewed. This will be her 3rd admission to the hospital in the last several weeks for the same. Workup thus far has been documented as unrevealing. Echocardiogram showed hyperdynamic systolic function with grade 1 diastolic dysfunction. Carotid Doppler ultrasounds did not show any significant stenosis in either internal carotid artery. Orthostatic vital signs have been unremarkable. No reports of cardiac dysrhythmias were noted on telemetry. She reportedly had a positive Swapna-Hallpike maneuver on the left and was working with physical therapy on vestibular therapy. This does not seem to explain her syncopal episodes however.? monitor telemetry fall precautions PT evaluation and treatment for frequent falls and possible vertigo plan to discharge with a 30 day event monitor Consult cardiiology (2) Polycythemia: Code(s): D75.1 - Secondary polycythemia Status: Acute Assessment and Plan: She has polycythemia which was thought to be due to possible chronic hypoxia due to ongoing tobacco abuse and obesity as well as possible underlying sleep apnea. Apnea link was not completed during her last visit due to to short of the time thus will repeat that during this stay. She could have polycythemia vera though would consider secondary polycythemia from smoking however carbon monoxide exposure in other forms are also considered. ABG earlier this month showed a carboxyhemoglobin greater than 9 and her home should be checked for carbon monoxide. Repeat ABG has been ordered for evaluation. hematology referral on discharge monitor lab work (3) Frequent falls: Code(s): R29.6 - Repeated falls Status: Acute Assessment and Plan: Brain MRI, and MRA of the brain and neck ordered due to continued, severe dizziness, vertigo, and recurrent syncopal episodes. MRA neck-0% stenosis of the proximal internal carotid arteries relative to normal distal artery lumen diameters (NASCET criteria). MRA brain-No aneurysm or significant intracranial arterial stenosis. MRI brain-Mild nonspecific cerebral white matter disease and pontine disease, which likely represents chronic small vessel ischemic disease. orthostatic vs q shift fall precautions pt/ot (4) Dizziness: Code(s): R42 - Dizziness and giddiness Status: Acute Assessment and Plan: Meclazine 25 mg q 6 hrs PT eval and treat (5) Type 2 diabetes mellitus: Qualifiers: Diabetes mellitus [facility] insulin use: with [facility] use Diabetes mellitus complication status: with neurologic complications Diabetes mellitus complication detail: with polyneuropathy Qualified Code(s): E11.42 - Type 2 diabetes mellitus with diabetic polyneuropathy; Z79.4 - care home (current) use of insulin Code(s): E11.9 - Type 2 diabetes mellitus without complications Status: Chronic Assessment and Plan: No documented hypoglycemic events. Continue basal insulin, empagliflozin, . Initiate sliding scale insulin, Accu-Cheks, and hypoglycemic protocol. (6) Chronic obstructive pulmonary disease: Code(s): J44.9 - Chronic obstructive pulmonary disease, unspecified Status: Acute Assessment and Plan: Stable, not in exacerbation. Continue albuterol inhaler PRN (7) Tobacco dependence: Code(s): F17.200 - Nicotine dependence, unspecified, uncomplicated Status: Acute Assessment and Plan: encouraged smoking cessation Nicoderm patch Time Spent With Patient Time with patient: 15 - 25 minutes Subjective
[2023-03-08 11:29] LABS: Glucose Point of Care 267 mg/dl (65-105)
[2023-03-08] MEDS: NICOTINE (*PBKC) 21 MG PATCH 1 PATCH TRANSDERM (13:02)
[2023-03-08 16:22] LABS: Glucose Point of Care 113 mg/dl (65-105)
[2023-03-08] MEDS: clonazePAM (*CRX) 0.5 MG TABLET 2 MG PO (21:03)
[2023-03-08 21:07] LABS: Glucose Point of Care 227 mg/dl (65-105)
[2023-03-09] MEDS: MECLIZINE HCL 25 MG TABLET PO ×4 (00:24→17:51)
[2023-03-09 05:58] VITALS: BP 108/60; PULSE 70; RESP 14; TEMP 36.1; O2SAT 90
[2023-03-09 07:33] LABS: Glucose Point of Care 163 mg/dl (65-105)
[2023-03-09 08:00] VITALS: BP 121/69; PULSE 83; RESP 18; TEMP 35.8; O2SAT 91
[2023-03-09] MEDS: ATORVASTATIN 20 MG TABLET PO (08:47)
[2023-03-09] MEDS: CHOLECALCIFEROL 1,000 UNITS TABLET 1000 UNITS PO (08:47)
[2023-03-09] MEDS: CYANOCOBALAMIN 500 MCG TABLET PO (08:47)
[2023-03-09] MEDS: ENALAPRIL MALEATE 2.5 MG TABLET PO (08:47)
[2023-03-09] MEDS: ENOXAPARIN 40 MG/0.4 ML SYRINGE SUB-Q (08:48)
[2023-03-09] MEDS: NICOTINE (*PBKC) 21 MG PATCH 1 PATCH TRANSDERM (08:49)
[2023-03-09] MEDS: INSULIN GLARGINE (*BKC) 100 UNITS/ML 46 UNITS SUB-Q (08:50)
[2023-03-09 09:14] VITALS: BP 124/65; BP 138/60
[2023-03-09 11:29] LABS: Glucose Point of Care 194 mg/dl (65-105)
[2023-03-09 13:58] VITALS: BP 114/68; PULSE 84; RESP 20; TEMP 35.6; O2SAT 94
--- NOTE | 2023-03-09 14:31 | PM.CNCAR ---
Assessment and Plan Assessment and plan (1) Syncope: Qualifiers: Syncope type: unspecified Qualified Code(s): R55 - Syncope and collapse Code(s): R55 - Syncope and collapse Status: Acute Plan Echocardiogram unremarkable. Agree with 30 day event monitor, order placed for event monitor. No additional cardiac workup at this time. Can follow up with us after the outpatient event monitor is completed. Cardiology will sign off at this time. Please call us back if needed. History of Present Illness History of Present Illness Consult date/time: 03/09/23 14:31 Requesting physician: Li Escamilla APRN Consult reason: Other (Syncope) Reason For Visit: Dizziness with Multiple Falls Narrative: We are consulted for syncope. This is a 67 year old female with insulin-dependent diabetes, hypertension, hyperlipidemia, COPD, GERD who presented on 02/24 for evaluation of dizziness, syncope. She does report having positional vertigo, however, she had two episodes of syncope where she did lose consciousness. Denies chest pain, palpitations prior to syncope. Thinks she may have lost consciousness for at least a few minutes. Workup thus far shows EKG without ischemic changes. No carotid artery stenosis. Brain MRA with no aneurysm or significant intracranial arterial stenosis. Brain MRI with chronic small vessel ischemic disease, but no acute findings. Orthostatic vital signs are negative. Echocardiogram 02/23 with LVEF >70%, no valvular disease. She is not currently on tele. A 30 day event monitor has been requested. Review of Systems Review of Systems: All systems reviewed & are unremarkable except as noted in HPI and below (HPI) [facility] Past Medical History Medical History (Updated 03/06/23 @ 20:45 by Rosemarie Garg PA-C) Allergic rhinitis Anxiety Chronic GERD Chronic obstructive pulmonary disease Depression Essential (primary) hypertension Glomerulonephritis Headache, migraine Hyperlipidemia Keratosis Obesity (BMI 30-39.9) Osteopenia after menopause Post-menopausal Type 2 diabetes mellitus Vitamin B12 deficiency Vitamin D deficiency Surgical History Surgical History History of elbow surgery (~2019) ORIF Status post cataract extraction of both eyes with insertion of intraocular lens (~2018) Family History Family History Mother Family history of multiple sclerosis Sibling Hypertension Family history of ulcerative colitis Father Family history of cardiovascular disease Carcinoma of colon Other Alcoholism Alzheimer disease Cerebrovascular accident Depression Diabetes mellitus Emphysema lung Heart disease Lung cancer Multiple sclerosis Rectal cancer Skin cancer Ulcerative (chronic) ileocolitis Vertigo Social History Social History Social History: The patient is single and has never been . She does not have any children. 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 She has smoked 1.5 packs per day since her mid 20s. She denies any significant alcohol or drug use. She does not have any pets but takes care of a feral cat colony. Code status: DNR/DNI Healthcare power of senior trial attorney: Asher (friend) Smoking packs per day: 1.5 Smoking cigarettes per day: 30.0 Years smoked: 40 Smoking pack-years: 60.00 Smoking status: Current every day smoker Second hand tobacco smoke exposure: No Alcohol intake: never Alcohol use details: rarely Substance use: never Substance use type: does not use Do You Feel Safe in your Home?: Yes Lack of Transportation: No Lack of Food: Never True Current Housing: I Have Housing Concerned About Future Housing: No Difficulty Paying Gas/Electric Bills: No Difficulty Paying for Meds: No Currently Unemployed: No Education: Bachelor's Deg
--- NOTE | 2023-03-09 14:47 | PM.IMPN ---
Progress Note: A&P Assessment and Plan (1) Syncope: Qualifiers: Syncope type: unspecified Qualified Code(s): R55 - Syncope and collapse Code(s): R55 - Syncope and collapse Status: Acute Assessment and Plan: The patient presented to the emergency department via EMS from home for evaluation of dizziness, frequent falls, and syncope as detailed in HPI. - Labs, imaging, EKG, and all reports reviewed -MRA of the head and neck did not show any significant stenosis -echocardiogram showed hyperdynamic systolic function but no significant abnormalities which would cause her symptoms -she has an mercy on her phone that measures her glucose and she has not had any hypoglycemia -no abnormal movements, seizures less likely -it was initially thought that her duloxetine may have been causing some issues since this was a new medication but that has been stopped and the symptoms continue -telemetry has not revealed any arrhythmias but patient has not had any symptoms since admission -patient states she is unable to go home at this time because her house is not ready and it is unsafe. She has a friend that is helping get this ready and it should be done by tomorrow. She understands not discharging today means that she is unable to get her program project analyst until Sunday and she is agreeable for such -patient will also need outpatient PT to help with vertigo as this could be the cause. She saw ENT which states her ears are clear and she should continue therapy -she is going to follow up with her primary care provider for official sleep apnea workup, although that is not likely the cause of this either -no infection suspected (2) Polycythemia: Code(s): D75.1 - Secondary polycythemia Status: Acute Assessment and Plan: She has polycythemia which was thought to be due to possible chronic hypoxia due to ongoing tobacco abuse and obesity as well as possible underlying sleep apnea. Apnea link was not completed during her last visit due to to short of the time thus will repeat that during this stay. She could have polycythemia vera though would consider secondary polycythemia from smoking however carbon monoxide exposure in other forms are also considered. ABG earlier this month showed a carboxyhemoglobin greater than 9 and her home should be checked for carbon monoxide. -obtain outpatient sleep apnea testing as apnea link is positive (3) Frequent falls: Code(s): R29.6 - Repeated falls Status: Acute Assessment and Plan: As above -continue PT and OT -patient does not want to go to inpatient rehab (4) Dizziness: Code(s): R42 - Dizziness and giddiness Status: Acute Assessment and Plan: As above (5) Type 2 diabetes mellitus: Qualifiers: Diabetes mellitus retirement insulin use: with oysterman use Diabetes mellitus complication status: with neurologic complications Diabetes mellitus complication detail: with polyneuropathy Qualified Code(s): E11.42 - Type 2 diabetes mellitus with diabetic polyneuropathy; Z79.4 - [facility] (current) use of insulin Code(s): E11.9 - Type 2 diabetes mellitus without complications Status: Chronic Assessment and Plan: No documented hypoglycemic events -continue current treatment plan (6) Chronic obstructive pulmonary disease: Code(s): J44.9 - Chronic obstructive pulmonary disease, unspecified Status: Acute Assessment and Plan: Stable, not in exacerbation. Continue albuterol inhaler PRN (7) Tobacco dependence: Code(s): F17.200 - Nicotine dependence, unspecified, uncomplicated Status: Acute Assessment and Plan: encouraged smoking cessation (8) Discharge planning issues: Code(s): Z02.9 - Encounter for administrative examinations, unspecified Status: Acute Assessment and Plan: Unable to discharge today due to unsafe environment a
[2023-03-09 16:27] LABS: Glucose Point of Care 132 mg/dl (65-105)
--- NOTE | 2023-03-09 16:52 | WPDCN ---
Assessment and Plan Assessment and plan (1) BPPV (benign paroxysmal positional vertigo): Code(s): H81.10 - Benign paroxysmal vertigo, unspecified ear Status: Acute Assessment and Plan: patient has history of BPPV as well as the report by patient of recent positive examination by Physical therapy. Would continue aggressive physical therapy vestibular rehabilitation. Rule arc rule out cardiac etiologies. The patient continues to have falls imbalance would recommend neurology referral. We also discussed Meniere's disease. This does not really sound like Meniere's disease or Meniere's variant. HPI Data of Consult Date/Time: 03/09/23 16:52 Requesting Physician: Sary Chaudhari PA-C Primary Care Provider: Tremaine Snyder MD Consult Narrative Narrative: Janel Marin is a 67 year old female with recent falls and vertigo. Review of Systems Review of Systems: All systems reviewed & are unremarkable except as noted in HPI and below PMFSH Past Medical History Medical History (Updated 03/09/23 @ 16:52 by Fred Espinoza MD) Allergic rhinitis Anxiety Chronic GERD Chronic obstructive pulmonary disease Depression Essential (primary) hypertension Glomerulonephritis Headache, migraine Hyperlipidemia Keratosis Obesity (BMI 30-39.9) Osteopenia after menopause Post-menopausal Type 2 diabetes mellitus Vitamin B12 deficiency Vitamin D deficiency Surgical History Surgical History History of elbow surgery (~2019) ORIF Status post cataract extraction of both eyes with insertion of intraocular lens (~2018) Family History Family History Mother Family history of multiple sclerosis Sibling Hypertension Family history of ulcerative colitis Father Family history of cardiovascular disease Carcinoma of colon Other Alcoholism Alzheimer disease Cerebrovascular accident Depression Diabetes mellitus Emphysema lung Heart disease Lung cancer Multiple sclerosis Rectal cancer Skin cancer Ulcerative (chronic) ileocolitis Vertigo Social History Social History Social History: The patient is single and has never been . She does not have any children. 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 She has smoked 1.5 packs per day since her mid 20s. She denies any significant alcohol or drug use. She does not have any pets but takes care of a feral cat colony. Code status: DNR/DNI Healthcare power of attorney lawyer: Asher (friend) Smoking packs per day: 1.5 Smoking cigarettes per day: 30.0 Years smoked: 40 Smoking pack-years: 60.00 Smoking status: Current every day smoker Second hand tobacco smoke exposure: No Alcohol intake: never Alcohol use details: rarely Substance use: never Substance use type: does not use Do You Feel Safe in your Home?: Yes Lack of Transportation: No Lack of Food: Never True Current Housing: I Have Housing Concerned About Future Housing: No Difficulty Paying Gas/Electric Bills: No Difficulty Paying for Meds: No Currently Unemployed: No Education: Bachelor's Degree Difficulty w/ Childcare or Family Care: No Living arrangements: alone Occupation/Education: retired Gender identity (if verbalized by the patient): Female Sexual Orientation (if Verbalized by the Patient): Straight or Heterosexual Spiritual care concerns: No Meds Home Medications and Allergies Home Medications Medication Instructions Recorded Confirmed Type ibuprofen 200 mg capsule 200 mg PO Q6H PRN Pain 11/17/20 03/06/23 History flash glucose scanning reader #1 ea 05/31/21 03/06/23 Rx (FreeStyle Sigrid 2 [place]) flash glucose sensor (FreeStyle #2 ea 10/19/21 03/06/23 Rx Sigrid 2 Sensor kit) loratadine 5 mg-pseudoephedrine ER 1 tablet PO Q12H PRN all
[2023-03-09 20:00] VITALS: BP 114/80; BP 124/64; BP 130/69
[2023-03-09] MEDS: clonazePAM (*CRX) 0.5 MG TABLET 2 MG PO (20:29)
[2023-03-09 20:33] LABS: Glucose Point of Care 172 mg/dl (65-105)
[2023-03-09 21:25] VITALS: BP 114/80; PULSE 84; RESP 18; TEMP 37; O2SAT 95
[2023-03-10] MEDS: MECLIZINE HCL 25 MG TABLET PO ×2 (05:06→11:54)
[2023-03-10 06:00] VITALS: BP 113/67; PULSE 73; RESP 18; TEMP 36.6; O2SAT 90
[2023-03-10 08:00] VITALS: BP 108/65
[2023-03-10 08:22] LABS: Glucose Point of Care 161 mg/dl (65-105)
[2023-03-10 08:24] VITALS: BP 109/63; BP 118/64
[2023-03-10] MEDS: INSULIN GLARGINE (*BKC) 100 UNITS/ML 46 UNITS SUB-Q (08:40)
[2023-03-10] MEDS: CYANOCOBALAMIN 500 MCG TABLET PO (08:41)
[2023-03-10] MEDS: CHOLECALCIFEROL 1,000 UNITS TABLET 1000 UNITS PO (08:41)
[2023-03-10] MEDS: ENOXAPARIN 40 MG/0.4 ML SYRINGE SUB-Q (08:41)
[2023-03-10] MEDS: ATORVASTATIN 20 MG TABLET PO (08:41)
[2023-03-10] MEDS: NICOTINE (*PBKC) 21 MG PATCH 1 PATCH TRANSDERM (08:42)
[2023-03-10] MEDS: ENALAPRIL MALEATE 2.5 MG TABLET PO (08:42)
--- NOTE | 2023-03-10 09:14 | PM.DS ---
DS: Admitting Diagnosis Discharge Date 03/10/23 Admitting Diagnosis Syncope BPPV Polycythemia Frequent Falls Dizziness T2DM COPD Tobacco dependence DS: Discharge Diagnosis Discharge Diagnosis (1) BPPV (benign paroxysmal positional vertigo): Code(s): H81.10 - Benign paroxysmal vertigo, unspecified ear Status: Acute Assessment and Plan: - Improved after PT intervention but still with symptoms. - Proceed with HH and PT for vestibular rehab. (2) Chronic obstructive pulmonary disease: Code(s): J44.9 - Chronic obstructive pulmonary disease, unspecified Status: Acute Assessment and Plan: - Stable, cont. home regimen. (3) Dizziness: Code(s): R42 - Dizziness and giddiness Status: Acute Assessment and Plan: - Has had stable labs, imaging, and EKG. MRA neck without stenosis. Echo not revealing of etiology. Telemetry no acute findings. - Has seen ENT and cardiology. A 30 day event monitor is ordered and will have o/p f/u. (4) Frequent falls: Code(s): R29.6 - Repeated falls Status: Acute Assessment and Plan: - Discussed safety precautions and these are listed in discharge paperwork. Patient verbalized understanding. (5) Polycythemia: Code(s): D75.1 - Secondary polycythemia Status: Acute Assessment and Plan: - Likely 2/2 to tobacco use. Can be f/u outpatient if desired. (6) Tobacco dependence: Code(s): F17.200 - Nicotine dependence, unspecified, uncomplicated Status: Acute Assessment and Plan: - Cessation was discussed during the hospitalization. (7) Fall: Code(s): W19.XXXA - Unspecified fall, initial encounter Status: Acute (8) Syncope: Qualifiers: Syncope type: unspecified Qualified Code(s): R55 - Syncope and collapse Code(s): R55 - Syncope and collapse Status: Acute Assessment and Plan: As per above, further o/p workup with event monitor is ordered. No acute findings on workup for neurological or cardiovascular origin. (9) Type 2 diabetes mellitus: Qualifiers: Diabetes mellitus complication detail: with polyneuropathy Diabetes mellitus complication status: with neurologic complications Diabetes mellitus jail insulin use: with jail use Qualified Code(s): E11.42 - Type 2 diabetes mellitus with diabetic polyneuropathy; Z79.4 - buttermaker continuous churn (current) use of insulin Code(s): E11.9 - Type 2 diabetes mellitus without complications Status: Chronic Assessment and Plan: - Stable, cont. home regimen. (10) Type 2 diabetes mellitus with hyperglycemia, with long-term current use of insulin: Code(s): E11.65 - Type 2 diabetes mellitus with hyperglycemia; Z79.4 - [facility] (current) use of insulin Status: Acute Plan Discharge to home with close f/u as an outpatient. I have discussed the plans at length with the patient at bedside, as well as with POA by phone. DS: Summary Hospital Course Reason for hospitalization: Syncope/Fall Hospital Course: Janel Marin is a 67 year old female with frequent falls recently and complaint of dizziness and possibly syncope. She presented after a fall and while inpatient had a positive test for BPPV. Workup was essentially normal other than the positive BPPV. She has had ENT and cardiology consultation and further outpatient plans are in place. She will need close o/p f/u and strict adherence to fall precautions for safety. Status at Discharge Cognitive/behavioral status at discharge: Normal mentation, ao4. Time Spent with Patient Time attestation: Total time spent providing and/or coordinating discharge services: >40 minutes. Exam Narrative: GENERAL APPEARANCE: Appears to be in no acute distress. HEAD: normocephalic atraumatic EYES: PERRL, EOMI. Vision grossly intact. ENT: Hearing grossly intact, no nasal discharge NECK: Neck supple, trachea midline. CA
[2023-03-10 11:38] LABS: Glucose Point of Care 265 mg/dl (65-105)
[2023-03-10] MEDS: INSULIN ASPART (*BKC) 100 UNITS/ML SUB-Q (11:54)
== END 2023-03-10 14:10 | disposition home health service (06) | DRG 149 ==
LOC: ANHED 10:08 → ANH3MEDSUR 16:58
PROVIDERS: Physician Assistant; Admitting Provider Family Medicine; Emergency Provider Emergency Medicine; PCP Family Medicine; Visit Provider Nurse Practitioner Family
DX: H81.10 Benign paroxysmal vertigo, unspecified ear (principal); R55 Syncope and collapse; D75.1 Secondary polycythemia; E78.5 Hyperlipidemia, unspecified; E66.9 Obesity, unspecified; E11.42 Type 2 diabetes mellitus with diabetic polyneuropathy; E53.8 Deficiency of other specified B group vitamins; E55.9 Vitamin D deficiency, unspecified; F17.210 Nicotine dependence, cigarettes, uncomplicated; I10 Essential (primary) hypertension; J44.9 Chronic obstructive pulmonary disease, unspecified; K21.9 Gastro-esophageal reflux disease without esophagitis; M85.80 Other specified disorders of bone density and structure, unspecified site; R09.02 Hypoxemia; R29.6 Repeated falls; W19.XXXA Unspecified fall, initial encounter; Z66 Do not resuscitate; Z68.34 Body mass index [BMI] 34.0-34.9, adult; Z79.85 Long-term (current) use of injectable non-insulin antidiabetic drugs; Z79.84 Long term (current) use of oral hypoglycemic drugs; Z79.4 Long term (current) use of insulin; Z98.41 Cataract extraction status, right eye; Z98.42 Cataract extraction status, left eye; Z96.1 Presence of intraocular lens
CPT/HCPCS: 36415; 36600; 70450; 70544; 70549; 70551; 71045; 72125; 72131; 80048; 80053; 80307; 81001; 82375; 82550; 82805; 82948; 83050; 83735; 84484; 85025; 85027; 85610; 85730; 93005; 96360; 96361; 96372; 97161; 97530; 99285; A9270; A9577; G0378; J1650; J1815; J7030

== ENCOUNTER 2023-03-16 14:08 | Inpatient (IN) | payer MEDICARE, OTHER, SELFPAY ==
[2023-03-16] VITALS (10 sets, daily range): BP systolic 118–129; BP diastolic 59–79; PULSE 79–86; RESP 15–22; TEMP 36.1–36.6; O2SAT 94–96; BMI 33.0
--- NOTE | ~2023-03-16 | XR_ITS ---
XR chest 1V portable DATE: 03/16/2023 15:22 INDICATION: Lightheadedness TECHNIQUE: Portable upright AP chest on 03/16/2023 at 1519 hours COMPARISON: 03/06/2023 portable AP chest FINDINGS: Battery pack overlies the left mid to lower chest. Heart size is likely within normal range but not optimally evaluated because of magnification. Aortic arch calcification. There is mild pulmonary vascular congestion and redistribution suggesting pulmonary venous hypertensi on. No pulmonary consolidation or pleural effusion or pneumothorax is detected. Diffuse osteopenia. There is old healed fracture deformity of the left humeral head and neck. IMPRESSION: Mild pulmonary vascular congestion Reviewed, dictated and finalized at location B. ECT MANAGEMENT IT SPECIALIST
--- NOTE | 2023-03-16 14:31 | ECG_ITS ---
Measurements Intervals [place] Rate: 80 P: 68 [place]: 207 QRS: 101 QRSD: 81 T: 46 QT: 393 QTc: 454 Interpretive Statements SINUS RHYTHM RIGHT AXIS DEVIATION BORDERLINE ECG COMPARED TO ECG 03/06/2023 09:45:50 NO SIGNIFICANT CHANGES Electronically Signed On 03-16-2023 15:22:36 [employer] INSURANCE SALES AGENT by Howie Carter D.O.
[2023-03-16 14:56] LABS: Basophils Absolute Auto 0.1 K/mm3 (0.0-0.1); Basophils Percent Auto 0.7 % (0.2-1.2); Eosinophils Absolute Auto 0.3 K/mm3 (0-0.3); Eosinophils Percent Auto 3.2 % (0-4.4); Hematocrit 56.9 % (37.0-47.0); Hemoglobin 17.2 g/dL (12.0-15.0); Immature Granulocyte Absolute 0.02 K/mm3 (0.00-0.031); Immature Granulocyte Percent A 0.2 % (0-0.5); Lymphocytes Absolute Auto 1.67 K/mm3 (0.9-3.2); Lymphocytes Percent Auto 20.6 % (18.3-44.2); Mean Corpuscular HGB Conc 30.2 g/dl (32-36); Mean Corpuscular Hemoglobin 27.2 pg (26-34); Mean Platelet Volume 9.8 fl (7.4-10.4); Monocytes Absolute Auto 0.6 K/mm3 (0.1-0.6); Monocytes Percent Auto 7.8 % (2.6-8.5); Neutrophils Absolute Auto 5.5 K/mm3 (1.3-6.7); Neutrophils Percent Auto 67.5 % (45.5-73.1); Platelet Count Result 231 k/mm3 (150-375); Red Blood Count 6.32 M/mm3 (4.2-5.4); Red Cell Distribution Width 16.3 % (11.5-14.5); White Blood Count 8.1 K/mm3 (4.5-10.0)
--- NOTE | 2023-03-16 15:00 | ED.DIZZY ---
HPI - Dizziness General Chief Complaint: Syncope Stated Complaint: syncopal episode Time Seen by Provider: 03/16/23 14:12 History of Present Illness HPI Narrative: 67-year-old female history of COPD, hyperlipidemia, BPPV, diabetes presenting with lightheadedness. Patient states that she was hospitalized here last week for lightheadedness. She was sent home with a heart monitor and states that she was informed today that she had had 2 events. States that they did not specify further than this. States that 1 of these events coincided with an episode of lightheadedness. She was advised to come to the hospital. No chest pain or shortness of breath. No leg swelling. No fevers, cough, nausea or vomiting. No further complaints. Related Data Home Medications Medication Instructions Recorded Confirmed ibuprofen 200 mg capsule 200 mg PO Q6H PRN Pain 11/17/20 03/06/23 loratadine 5 mg-pseudoephedrine ER 1 tablet PO Q12H PRN allergies 10/19/21 03/06/23 120 mg tablet,extended release,12hr (Claritin-D 12 Hour) cholecalciferol (vitamin D3) 25 25 mcg PO DAILY 08/14/22 03/06/23 mcg (1,000 unit) capsule mecobalamin (vitamin B12) 500 mcg 500 mcg PO DAILY 08/14/22 03/06/23 chewable tablet duloxetine 60 mg capsule,delayed 60 mg PO DAILY 11/30/22 03/06/23 release atorvastatin 20 mg tablet 20 mg PO DAILY 02/22/23 03/06/23 insulin degludec 200 unit/mL (3 46 unit subcut DAILY 02/22/23 03/06/23 mL) subcutaneous pen (Tresiba FlexTouch U-200 insulin) Allergies Allergy/AdvReac Type Severity Reaction Status Date / Time No Known Allergies Allergy Verified 03/16/23 14:27 Review of Systems Review of Systems: All systems reviewed & are unremarkable except as noted in HPI and below PMFSH Past Medical History Medical History Allergic rhinitis Anxiety Chronic GERD Chronic obstructive pulmonary disease Depression Essential (primary) hypertension Glomerulonephritis Headache, migraine Hyperlipidemia Keratosis Obesity (BMI 30-39.9) Osteopenia after menopause Post-menopausal Type 2 diabetes mellitus Vitamin B12 deficiency Vitamin D deficiency Surgical History Surgical History History of elbow surgery (~2019) ORIF Status post cataract extraction of both eyes with insertion of intraocular lens (~2018) Family History Family History Mother Family history of multiple sclerosis Sibling Hypertension Family history of ulcerative colitis Father Family history of cardiovascular disease Carcinoma of colon Other Alcoholism Alzheimer disease Cerebrovascular accident Depression Diabetes mellitus Emphysema lung Heart disease Lung cancer Multiple sclerosis Rectal cancer Skin cancer Ulcerative (chronic) ileocolitis Vertigo Social History Social History Social History: The patient is single and has never been . She does not have any children. 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 She has smoked 1.5 packs per day since her mid 20s. She denies any significant alcohol or drug use. She does not have any pets but takes care of a feral cat colony. Code status: DNR/DNI Healthcare power of employment attorney: Asher (friend) Smoking packs per day: 1.5 Smoking cigarettes per day: 30.0 Years smoked: 40 Smoking pack-years: 60.00 Smoking status: Current every day smoker Second hand tobacco smoke exposure: No Alcohol intake: never Alcohol use details: rarely Substance use: never Substance use type: does not use Do You Feel Safe in your Home?: Yes Lack of Transportation: No Lack of Food: Never True Current Housing: I Have Housing Concerned About Future Housing: No Difficulty Paying Gas/Electric Bills: No Difficulty Paying for Meds: No C
[2023-03-16 15:07] LABS: Alanine Aminotransferase 27 U/L (6-35); Albumin Level 4.3 g/dL (3.5-5.1); Alkaline Phosphatase 115 U/L (38-126); Anion Gap 10 mmol/L (8-16); Aspartate Amino Transferase 25 U/L (14-36); Bilirubin,Total 0.8 mg/dL (0.2-1.3); Blood Urea Nitrogen 13 mg/dL (7-17); Carbon Dioxide 29 mmol/L (22-30); Chloride 98 mmol/L (98-107); Estimated CRCL calculation 89 ml/min; Estimated Glomerular Filt Rate > 60; Glucose 198 mg/dL (65-110); Potassium 4.4 mmol/L (3.4-5.0); Sodium 137 mmol/L (137-145)
[2023-03-16] MEDS: SODIUM CHLORIDE 0.9% IV 1,000 ML 999 ML IV CONT (15:45)
[2023-03-16 15:56] LABS: Magnesium 1.6 mg/dL (1.6-2.3)
[2023-03-16 16:04] LABS: INR 0.9; Prothrombin Time 12.8 Seconds (11.1-14.7)
[2023-03-16 16:09] LABS: NT Pro B Type Natriuretic Pept 60 pg/mL (19.9-100); Troponin I < 0.012 ng/mL (0.000-0.034)
--- NOTE | 2023-03-16 17:43 | ECG_ITS ---
Measurements Intervals [place] Rate: 76 P: 68 AK: 211 QRS: 81 QRSD: 86 T: 5 QT: 401 QTc: 451 Interpretive Statements SINUS RHYTHM WITH FIRST DEGREE AV BLOCK LOW QRS VOLTAGE IN PRECORDIAL LEADS BASELINE ARTIFACT- I, II, III, AVR, AVL, AVF, V1-V6 BORDERLINE ECG COMPARED TO ECG 03/16/2023 14:38:10 FIRST DEGREE AV BLOCK NOW PRESENT Electronically Signed On 03-16-2023 19:25:25 [employer]LE [employer] DEVELOPER by Howie Carter D.O.
[2023-03-16 18:38] LABS: Troponin I < 0.012 ng/mL (0.000-0.034)
--- NOTE | 2023-03-16 19:38 | ADMGEN ---
This patient, Janel Marin, was admitted to IMU Room 212-01. Patient/family oriented to hospital policies and general routines including ID bracelet, bed and alarms, visiting hours, pain management, procedures, bathroom and other care routines, personal items, smoking policy, room service/diet, and visiting hours. Information on how to activate the Rapid Response Team has been discussed. Patient/Family are encouraged to report perceived risks to care and to ask questions if they do not understand what they are told or what they should do.
[2023-03-16 20:41] LABS: Glucose Point of Care 238 mg/dl (65-105)
[2023-03-16 21:44] LABS: Troponin I < 0.012 ng/mL (0.000-0.034)
--- NOTE | 2023-03-16 22:22 | PM.IMHP ---
H&P: HPI History of Present Illness Date/Time: 03/16/23 21:00 Chief Complaint: Sinus pause on loop recorder Narrative: 67-year-old female well known to me from recent hospitalization with past medical history of insulin-dependent diabetes mellitus, hypertension, hyperlipidemia, COPD and GERD who presented to the ER for her 4th admission since mid February with near syncopal episodes, syncope and vertigo. After her most recent hospitalization on March 06 patient was discharged with the loop recorder. She received a call earlier today that she had a long pause on her loop recorder. This pause correlated with a sensation of pressure in her ears and feeling lightheaded. She was advised to come to the hospital floor evaluation. On arrival to the hospital patient's EKG was consistent with sinus rhythm with first-degree AV block with a rate of 76. Patient has had no recurrent episodes since admission to the hospital. She reports that she has been having symptoms so frequently since her 1st hospitalization that she is now using a wheelchair at home to help avoid standing up in prevent falls. She denies any headache or vision changes. She has not had any palpitations are orthopnea. She is still smoking. Review of Systems Review of Systems: 12 systems were reviewed with pertinent positives and negatives per HPI. Except as documented in the HPI, all other systems were reviewed and are negative. [facility] Past Medical History Medical History (Updated 03/16/23 @ 22:25 by Anne Kemp DO) Allergic rhinitis Anxiety Burst fracture of thoracic vertebra Chronic GERD Chronic obstructive pulmonary disease Depression Essential (primary) hypertension Glomerulonephritis Headache, migraine Hyperlipidemia Keratosis Obesity (BMI 30-39.9) Osteopenia after menopause Post-menopausal Type 2 diabetes mellitus Vitamin B12 deficiency Vitamin D deficiency Surgical History Surgical History History of elbow surgery (~2019) ORIF Status post cataract extraction of both eyes with insertion of intraocular lens (~2018) Family History Family History Mother Family history of multiple sclerosis Depression Multiple sclerosis Sibling Family history of ulcerative colitis Hypertension Ulcerative (chronic) ileocolitis Father Family history of cardiovascular disease Carcinoma of colon Grandparent Emphysema lung Grandparent Cerebrovascular accident Social History Social History Social History: The patient is single and has never been . She does not have any children. 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 She has smoked 1.5 packs per day since her mid 20s. She denies any significant alcohol or drug use. She does not have any pets but takes care of a feral cat colony. Code status: DNR/DNI Healthcare power of attorney at law: Jamespaola (friend) Smoking packs per day: 1 Smoking cigarettes per day: 20.0 Years smoked: 43 Smoking pack-years: 43.00 Smoking status: Current every day smoker Tobacco type: cigarettes Second hand tobacco smoke exposure: No Alcohol intake: never Alcohol use details: rarely Substance use: never Substance use type: does not use Do You Feel Safe in your Home?: Yes Lack of Transportation: No Lack of Food: Never True Current Housing: I Have Housing Concerned About Future Housing: No Difficulty Paying Gas/Electric Bills: No Difficulty Paying for Meds: No Currently Unemployed: No Education: High School Diploma/GED Difficulty w/ Childcare or Family Care: No Living arrangements: alone Occupation/Education: retired Gender identity (if verbalized by the patient): Female Sexual Orientation (if Verbalized by the Patient): Straight or Heterosexual Spiritual care concerns: No Meds Home Medicatio
[2023-03-17] VITALS (15 sets, daily range): BP systolic 127–150; BP diastolic 56–77; PULSE 74–86; RESP 18–32; TEMP 36.1–36.9; O2SAT 90–95
[2023-03-17] MEDS: INSULIN GLARGINE (LANTUS) 1,000 UNITS/10 ML VIAL 46 UNITS SUB-Q ×2 (00:15→20:14)
[2023-03-17 06:07] LABS: Glucose Point of Care 218 mg/dl (65-105)
--- NOTE | 2023-03-17 07:43 | PM.IMPN ---
Progress Note: A&P Assessment and Plan (1) Light-headedness: Code(s): R42 - Dizziness and giddiness Status: Acute (2) Sinus pause: Code(s): I45.5 - Other specified heart block Status: Acute (3) BPPV (benign paroxysmal positional vertigo): Code(s): H81.10 - Benign paroxysmal vertigo, unspecified ear Status: Acute (4) Tobacco dependence: Code(s): F17.200 - Nicotine dependence, unspecified, uncomplicated Status: Acute (5) Polycythemia: Code(s): D75.1 - Secondary polycythemia Status: Acute Plan 67F w/ PMH IDDM, HTN, HLD, COPD, GERD, BPPV tobacco abuse, chronic polycythemia, presents with lightheadedness. Admitted on 03/17/23 for further workup. # sinus pause - pt has recent admission after syncope, was sent home on event monitor. at home she had multiple episodes of lightheadedness, no vertigo like spinning. event monitor captured pauses per reports which coincided with her symptomatology. - EKG w/ 1st degree AV block, tele since admission no pauses captured. 2D echo 02/23/23 unremarkable. - cardiology consulted for possible pacemaker insertion. NPO. - cont tele monitor # HTN - controlled. CTM on home meds # COPD - no active issues. monitor # tobacco abuse - counseled. polycythemia likely related #FEN: saline lock IV, NPO GI prophylaxis: not indicated DVT prophylaxis: SCDs Lines: pIV Code Status: Full Code Dispo: stable. Subjective Date/time seen: 03/17/23 07:43 Interval history: NAOE. the pt has not head symptoms since being admitted. upon entering room she was getting up from bedside commode, and denies symptoms. Review of Systems Review of Systems: All systems reviewed & are unremarkable except as noted in HPI and below (subjective) Exam Const: General: comfortable and no acute distress Eyes: Pupils: Equal, round and reactive pupils present EOM: EOMs intact bilaterally Other: no nystagmus noted Resp: Effort & Inspection: normal respiratory effort Auscultation: clear to auscultation bilaterally, no crackles, no rales and no rhonchi Cardio: Rate: regular rate Rhythm: regular rhythm Heart sounds: no gallops, no murmurs and no rubs GI: GI Palp: Yes Soft to palpation and No Tenderness to palpation present (GI) Extrem: General: no edema Objective Data Vital Signs Vital Signs: Vital Signs - 24 hr 03/16/23 14:25 03/16/23 14:27 03/16/23 14:30 Temperature 97.8 F Pulse Rate 82 82 Respiratory Rate 15 17 Blood Pressure 123/79 121/68 Pulse Oximetry 96 94 95 Oxygen Delivery Room Air Room Air 03/16/23 14:44 03/16/23 15:46 03/16/23 17:09 Temperature Pulse Rate 80 86 79 Respiratory Rate 19 20 19 Blood Pressure 121/68 129/60 125/67 Pulse Oximetry 96 95 95 Oxygen Delivery 03/16/23 18:18 03/16/23 19:57 03/16/23 20:00 Temperature 97.0 F L Pulse Rate 82 84 82 Respiratory Rate 22 H 22 H Blood Pressure 122/68 118/59 L Pulse Oximetry 94 95 Oxygen Delivery 03/16/23 20:00 03/16/23 22:00 03/17/23 00:00 Temperature 97.0 F L Pulse Rate 81 84 Respiratory Rate 22 H Blood Pressure 150/68 H Pulse Oximetry 95 93 Oxygen Delivery Room Air 03/17/23 00:00 03/17/23 00:00 03/17/23 02:00 Temperature Pulse Rate 84 85 Respiratory Rate Blood Pressure Pulse Oximetry 93 Oxygen Delivery Room Air 03/17/23 04:50 03/17/23 04:00 03/17/23 04:00 Temperature 97.0 F L Pulse Rate 80 84 Respiratory Rate 22 H Blood Pressure 127/56 L Pulse Oximetry 95 95 Oxygen Delivery Room Air 03/17/23 06:00 Temperature Pulse Rate 85 Respiratory Rate Blood Pressure Pulse Oximetry Oxygen Delivery Intake/Output Intake/Output: Intake & Output 03/14/23 03/15/23 03/16/23 03/17/23 23:59 23:59 23:59 23:59 Intake Total 1000 780 Output Total 100 300 Balance 900 480 Meds/Results Medications: Active Medications Generic Name Dose Route Start Last Admin Trade Na
[2023-03-17 08:26] LABS: Glucose Point of Care 201 mg/dl (65-105)
[2023-03-17] MEDS: ENOXAPARIN 40 MG/0.4 ML SYRINGE SUB-Q (09:45)
[2023-03-17] MEDS: CHOLECALCIFEROL 1,000 UNITS TABLET 1000 UNITS PO (09:46)
[2023-03-17] MEDS: CYANOCOBALAMIN 500 MCG TABLET PO (09:46)
[2023-03-17] MEDS: ENALAPRIL MALEATE 2.5 MG TABLET PO (09:46)
[2023-03-17] MEDS: NICOTINE (*PBKC) 21 MG PATCH 1 PATCH TRANSDERM (09:46)
[2023-03-17] MEDS: ATORVASTATIN 20 MG TABLET PO (09:46)
--- NOTE | 2023-03-17 10:07 | PM.CNCAR ---
Assessment and Plan Assessment and plan (1) Sinus pause: Code(s): I45.5 - Other specified heart block Status: Acute Assessment and Plan: 67-year-old female with hypertension, type 2 diabetes mellitus, COPD, dyslipidemia, tobacco abuse. Patient with symptomatic bradyarrhythmia with recurrent episodes of dizziness and about 4 episodes of syncope in last 1 month. Recent outpatient ambulatory clinical research monitor reportedly showed about 7 second pause. On telemetry, she has been in sinus rhythm without any significant episodes of bradyarrhythmia thus far. Recent echocardiogram showed normal LV systolic function, no significant valvular abnormality. Patient is currently not on any AV foreign blocking agents. -patient will need permanent pacemaker placement for symptomatic sinus pauses. She was originally scheduled to see electrophysiology as an outpatient on 03/20/2023, however, due to patient's recurrent episodes of dizziness and syncope and recent about 7 sec pause, she will need inpatient pacemaker placement. Since currently implanting physician is not available at [facility], patient will be transfer to [facility]. Plan discussed with the cardiology team at [facility] and hospitalist team at [facility]. -continue to monitor on telemetry. Avoid AV foreign blocking agents. (2) Hypertension associated with type 2 diabetes mellitus: Code(s): E11.59 - Type 2 diabetes mellitus with other circulatory complications; I15.2 - Hypertension secondary to endocrine disorders Status: Acute Assessment and Plan: Currently on enalapril for hypertension. Avoid any AV foreign blocking agents. Diabetes mellitus management as per primary team. (3) Chronic obstructive pulmonary disease: Qualifiers: COPD type: unspecified COPD Qualified Code(s): J44.9 - Chronic obstructive pulmonary disease, unspecified Code(s): J44.9 - Chronic obstructive pulmonary disease, unspecified Status: Acute Assessment and Plan: Patient advised to stop smoking. Management as per primary team. (4) Tobacco abuse: Code(s): Z72.0 - Tobacco use Status: Acute Assessment and Plan: Smoking cessation counseling done. History of Present Illness History of Present Illness Consult date/time: 03/17/23 10:07 Requesting physician: Lashanda Bocanegra MD Reason For Visit: symptomatic sinus pauses Narrative: Chief complaint: Recurrent dizziness HPI: 67-year-old female with hypertension, type 2 diabetes mellitus, COPD, dyslipidemia, tobacco abuse. Patient was recently admitted to [facility] on 03/07/2023, and seen by Cardiology on 03/09/2023 with complaints of syncope. Her echocardiogram was grossly unremarkable. Patient had ambulatory clinical research monitor placed, which reportedly showed about 7 second pause. Our office called the patient and made an appointment for her to see the ultimate hoops trainer, which was reportedly scheduled for 03/20/2023. She was advised to seek immediate medical attention if recurrent symptoms. Patient states that she has been experiencing recurrent symptoms of dizziness and has had about 4 episodes of syncope in last 1 month. Prior to that, she denies any known cardiac history including clinical AK, heart failure. Her home medications apparently do not include any AV foreign blocking agents. EKG on admission on my personal interpretation showed sinus rhythm, right axis deviation, no ST-T abnormality. Repeat EKG showed slight prolongation of CT interval. Serial troponins negative. Chest x-ray showed Mild pulmonary vascular congestion Echo from 02/23/2023 reportedly showed LV EF more than 70%; grade 1 diastolic dysfunction, no significant valvular abnormality. On telemetry since hospitalization, Review of Systems Review of Systems: General: Negative for fever, chills, fatigue Psychological: Negative for anxiety, depression Ophthalmic: n
[2023-03-17 11:53] LABS: Glucose Point of Care 188 mg/dl (65-105)
[2023-03-17 16:21] LABS: Glucose Point of Care 171 mg/dl (65-105)
[2023-03-17] MEDS: metFORMIN HCL 500 MG TABLET 1000 MG PO (17:05)
[2023-03-17] MEDS: MECLIZINE HCL 25 MG TABLET PO (20:11)
[2023-03-17] MEDS: clonazePAM (*CRX) 0.5 MG TABLET 2 MG PO (20:12)
[2023-03-17 20:27] LABS: Glucose Point of Care 141 mg/dl (65-105)
[2023-03-18] VITALS (14 sets, daily range): BP systolic 115–132; BP diastolic 57–72; PULSE 74–87; RESP 12–20; TEMP 35.7–36.7; O2SAT 90–96
[2023-03-18 05:05] LABS: Hematocrit 53.7 % (37.0-47.0); Hemoglobin 16.2 g/dL (12.0-15.0); Mean Corpuscular HGB Conc 30.2 g/dl (32-36); Mean Corpuscular Hemoglobin 27.3 pg (26-34); Mean Corpuscular Volume 90.4 fl (80-100); Mean Platelet Volume 9.6 fl (7.4-10.4); Platelet Count Result 207 k/mm3 (150-375); Red Blood Count 5.94 M/mm3 (4.2-5.4); Red Cell Distribution Width 15.6 % (11.5-14.5); White Blood Count 7.3 K/mm3 (4.5-10.0)
[2023-03-18 05:14] LABS: Anion Gap 10 mmol/L (8-16); Blood Urea Nitrogen 14 mg/dL (7-17); Calcium 9.4 mg/dL (8.4-10.2); Carbon Dioxide 28 mmol/L (22-30); Chloride 103 mmol/L (98-107); Estimated CRCL calculation 94 ml/min; Estimated Glomerular Filt Rate > 60; Glucose 124 mg/dL (65-110); Magnesium 1.5 mg/dL (1.6-2.3); Potassium 4.1 mmol/L (3.4-5.0); Sodium 141 mmol/L (137-145)
[2023-03-18 08:07] LABS: Glucose Point of Care 147 mg/dl (65-105)
[2023-03-18] MEDS: CHOLECALCIFEROL 1,000 UNITS TABLET 1000 UNITS PO (09:55)
[2023-03-18] MEDS: ATORVASTATIN 20 MG TABLET PO (09:55)
[2023-03-18] MEDS: CYANOCOBALAMIN 500 MCG TABLET PO (09:55)
[2023-03-18] MEDS: ENOXAPARIN 40 MG/0.4 ML SYRINGE SUB-Q (09:56)
[2023-03-18] MEDS: metFORMIN HCL 500 MG TABLET 1000 MG PO ×2 (09:56→17:17)
[2023-03-18] MEDS: NICOTINE (*PBKC) 21 MG PATCH 1 PATCH TRANSDERM (09:56)
[2023-03-18] MEDS: ENALAPRIL MALEATE 2.5 MG TABLET PO (09:56)
[2023-03-18] MEDS: MECLIZINE HCL 25 MG TABLET PO ×2 (10:09→17:17)
--- NOTE | 2023-03-18 10:36 | PM.PNCARD ---
Progress Note: A&P Assessment and Plan (1) Sinus pause: Code(s): I45.5 - Other specified heart block Status: Acute Assessment and Plan: 67-year-old female with hypertension, type 2 diabetes mellitus, COPD, dyslipidemia, tobacco abuse. Patient with symptomatic bradyarrhythmia with recurrent episodes of dizziness and about 4 episodes of syncope in last 1 month. Recent outpatient ambulatory cardiac sonographer reportedly showed about 7 second pause based on information provided by Dr. Sharma. On telemetry, during hospitalization, she has been in sinus rhythm without any significant episodes of bradyarrhythmia thus far. Recent echocardiogram showed normal LV systolic function, no significant valvular abnormality. Patient is currently not on any AV foreign blocking agents. -patient will need permanent pacemaker placement for symptomatic sinus pauses. Patient is in the process of getting transferred to [facility]. Avoid AV foreign blocking agents. Continue to monitor on telemetry. (2) Hypertension associated with type 2 diabetes mellitus: Code(s): E11.59 - Type 2 diabetes mellitus with other circulatory complications; I15.2 - Hypertension secondary to endocrine disorders Status: Acute Assessment and Plan: Currently on enalapril for hypertension. Avoid any AV foreign blocking agents. Diabetes mellitus management as per primary team. (3) Chronic obstructive pulmonary disease: Qualifiers: COPD type: unspecified COPD Qualified Code(s): J44.9 - Chronic obstructive pulmonary disease, unspecified Code(s): J44.9 - Chronic obstructive pulmonary disease, unspecified Status: Acute Assessment and Plan: Patient advised to stop smoking. Management as per primary team. (4) Tobacco abuse: Code(s): Z72.0 - Tobacco use Status: Acute Assessment and Plan: Smoking cessation counseling done. Subjective Date/time seen: 03/18/23 10:36 Interval history: Date of service: 03/18/2023 Interval history: Patient reports occasional episodes of dizziness, no syncope. No chest pain or shortness of breath. On telemetry, she has been predominantly in sinus rhythm. No significant bradyarrhythmias. Exam Narrative: PHYSICAL EXAMINATION: GENERAL: Alert, oriented, no acute distress MENTAL STATUS: affect appropriate to mood EYES: Extraocular movements intact, no pallor EARS: External ears appear normal, hearing grossly normal NOSE: Normal and patent, no discharge MOUTH: Mucous membranes moist, tongue normal NECK: Supple, no JVD CHEST: Diffuse rhonchi HEART: Normal rate, regular rhythm, normal S1 and S2, no audible murmurs ABDOMEN: Soft, nontender NEUROLOGICAL: Alert, oriented, normal speech, no gross motor deficits MUSCULOSKELETAL: No major deformity, no amputation EXTREMITIES: No pedal edema, no clubbing, no cyanosis SKIN: no rash on the exposed area, no cyanosis PSYCHIATRIC: Normal mood, appropriate affect Objective Data Vital Signs Vital Signs: Vital Signs - 24 hr 03/17/23 11:40 03/17/23 12:00 03/17/23 12:00 Temperature 36.9 C Pulse Rate 86 81 86 Respiratory Rate 32 H 32 H Blood Pressure 131/77 Pulse Oximetry 90 90 Oxygen Delivery Room Air 03/17/23 14:00 03/17/23 16:00 03/17/23 16:00 Temperature 36.2 C L Pulse Rate 78 80 78 Respiratory Rate 20 Blood Pressure 128/60 Pulse Oximetry 93 Oxygen Delivery 03/17/23 16:00 03/17/23 18:00 03/17/23 20:00 Temperature 36.1 C L Pulse Rate 78 78 80 Respiratory Rate 20 20 Blood Pressure 140/67 Pulse Oximetry 93 92 Oxygen Delivery Room Air 03/17/23 23:38 03/17/23 20:00 03/17/23 20:00 Temperature 36.4 C Pulse Rate 74 79 Respiratory Rate 18 Blood Pressure 133/63 Pulse Oximetry 93 92 Oxygen Delivery Room Air 03/17/23 22:00 03/18/23 00:00 03/18/23 00:00 Temperature Pulse Rate 80 79 Respiratory Rate Blood Pressure P
[2023-03-18 11:48] LABS: Glucose Point of Care 153 mg/dl (65-105)
[2023-03-18 16:01] LABS: Glucose Point of Care 182 mg/dl (65-105)
--- NOTE | 2023-03-18 16:27 | PM.IMPN ---
Progress Note: A&P Assessment and Plan (1) Tobacco abuse: Code(s): Z72.0 - Tobacco use Status: Acute (2) Hypertension associated with type 2 diabetes mellitus: Code(s): E11.59 - Type 2 diabetes mellitus with other circulatory complications; I15.2 - Hypertension secondary to endocrine disorders Status: Acute (3) Light-headedness: Code(s): R42 - Dizziness and giddiness Status: Acute (4) Sinus pause: Code(s): I45.5 - Other specified heart block Status: Acute (5) BPPV (benign paroxysmal positional vertigo): Code(s): H81.10 - Benign paroxysmal vertigo, unspecified ear Status: Acute Plan 67F w/ PMH IDDM, HTN, HLD, COPD, GERD, BPPV tobacco abuse, chronic polycythemia, presents with lightheadedness. Admitted on 03/17/23 for further workup. # sinus pause - pt has recent admission after syncope, was sent home on event monitor. at home she had multiple episodes of lightheadedness, no vertigo like spinning. event monitor captured pauses per reports which coincided with her symptomatology. - EKG w/ 1st degree AV block, tele since admission no pauses captured. 2D echo 02/23/23 unremarkable. - cont tele monitor, hold AV foreign blocking agents -cardiology consulted. The patient requires permanent pacemaker insertion for this bradyarrhythmia. Unfortunately we do not have procedural clinical trial data manager to perform this. Dr. Sharma has accepted the patient at [facility]. The hospitalist team have accepted and we are awaiting bed availability. The patient will be made NPO at midnight again. Also hold her Lovenox at night and do not give insulin corrective dosing. I explained in great detail that she will not be able to eat after midnight if she wants to follow through with the possible procedure. I also explained that it is not guaranteed she would be transferred today as I have no power to force a transfer to another hospital. She understood. # HTN - controlled. CTM on home meds # COPD - no active issues. monitor # tobacco abuse - counseled. polycythemia likely related #FEN: saline lock IV, NPO at midnight GI prophylaxis: not indicated DVT prophylaxis: SCDs, hold Lovenox for procedure. Lines: pIV Code Status: Full Code Dispo: stable. More than 35 minutes spent on chart review, patient interaction and assessment and plan. Subjective Date/time seen: 03/18/23 16:27 Interval history: No acute overnight events. She denies lightheadedness or syncope or chest pain or shortness of breath. The patient, however, livid that she did not eat lunch. I explained to her that in order to achieve pacemaker placement holding off on eating temporarily is necessary. She did understand ultimately. Review of Systems Review of Systems: All systems reviewed & are unremarkable except as noted in HPI and below (Subjective) Exam Const: General: comfortable and no acute distress Other: A&O x3 Eyes: Pupils: Equal, round and reactive pupils present Neck: Neck: supple Resp: Effort & Inspection: normal respiratory effort Auscultation: clear to auscultation bilaterally Cardio: Rate: regular rate Rhythm: regular rhythm GI: GI Palp: Yes Soft to palpation Extrem: General: no edema Objective Data Vital Signs Vital Signs: Vital Signs - 24 hr 03/17/23 18:00 03/17/23 20:00 03/17/23 23:38 Temperature 96.9 F L 97.6 F Pulse Rate 78 80 74 Respiratory Rate 20 18 Blood Pressure 140/67 133/63 Pulse Oximetry 92 93 Oxygen Delivery 03/17/23 20:00 03/17/23 20:00 03/17/23 22:00 Temperature Pulse Rate 79 80 Respiratory Rate Blood Pressure Pulse Oximetry 92 Oxygen Delivery Room Air 03/18/23 00:00 03/18/23 00:00 03/18/23 02:00 Temperature Pulse Rate 79 74 Respiratory Rate Blood Pressure Pulse Oximetry 93 Oxygen Delivery Room Air 03/18/23 04:00 03/18/23 04:00 03/18/23 04:00 Temperature 96.3 F L Pulse Rate 78 80 Respirator
[2023-03-18] MEDS: MAGNESIUM SULF 1 GM/D5W 100 ML 1 GM/100 ML BAG IVPB (17:18)
[2023-03-18 21:08] LABS: Glucose Point of Care 146 mg/dl (65-105)
[2023-03-18] MEDS: INSULIN GLARGINE (LANTUS) 1,000 UNITS/10 ML VIAL 46 UNITS SUB-Q (21:18)
[2023-03-18] MEDS: clonazePAM (*CRX) 0.5 MG TABLET 2 MG PO (21:18)
--- NOTE | 2023-03-18 22:12 | PC.NURSE ---
Report given to Jena LLANOS at [facility]. Patient is transferring to room 922-1. Dr. Jauregui is the accepting physician. [facility] is here for transfer.
--- NOTE | 2023-03-19 08:35 | PM.TDS ---
Transfer Discharge Sum: Prov Provider Date of admission: 03/16/23 18:03 Primary care physician: Tremaine Snyder MD Admitting clinician: Mehnaz Hammond MD Attending physician on admission: Mehnaz Hammond Consults: 03/16/23 18:04 Consult to Physician Routine Comment: Consulting Provider: Amber Sharma Reason for consultation: symptomatic sinus pauses Has provider been notified: Yes Attending physician on discharge: Jennifer Redmond Discharging clinician: Jennifer Redmond Anticipated date of transfer: 03/18/23 DS: Admitting Diagnosis Discharge Date 03/18/23 Admitting Diagnosis sinus pause DS: Discharge Diagnosis Discharge Diagnosis (1) Tobacco abuse: Code(s): Z72.0 - Tobacco use Status: Acute (2) Light-headedness: Code(s): R42 - Dizziness and giddiness Status: Acute (3) Syncope: Qualifiers: Syncope type: unspecified Qualified Code(s): R55 - Syncope and collapse Code(s): R55 - Syncope and collapse Status: Acute (4) Sinus pause: Code(s): I45.5 - Other specified heart block Status: Acute Plan 67F developed syncope and lightheadedness over the span of weeks. She was admitted as she had about a 7 second sinus pause on event monitor. During her admission she was symptomatic and without events on telemetry monitoring. On 03/18 she was transferred to [facility] in stable condition to the hospitalist team and cardiology Dr. Sharma for pacemaker implantation. Transfer Discharge Sum: Med Medications Active and Home Medications: Home Medications ibuprofen 200 mg capsule 200 mg PO Q6H PRN Pain 11/17/20 [History Confirmed 03/16/23] loratadine 5 mg-pseudoephedrine ER 120 mg tablet,extended release,12hr (Claritin-D 12 Hour) 1 tablet PO Q12H PRN allergies 10/19/21 [History Confirmed 03/16/23] pioglitazone 30 mg tablet 30 mg PO DAILY #90 tabs 07/11/22 [Rx Confirmed 03/16/23] cholecalciferol (vitamin D3) 25 mcg (1,000 unit) capsule 25 mcg PO DAILY 08/14/22 [History Confirmed 03/16/23] mecobalamin (vitamin B12) 500 mcg chewable tablet 500 mcg PO DAILY 08/14/22 [History Confirmed 03/16/23] metformin 1,000 mg tablet 1,000 mg PO BID 90 days #180 tabs 08/14/22 [Rx Confirmed 03/16/23] enalapril maleate 2.5 mg tablet 2.5 mg PO DAILY #90 tabs 10/16/22 [Rx Confirmed 03/16/23] atorvastatin 20 mg tablet 20 mg PO DAILY 02/22/23 [History Confirmed 03/16/23] insulin degludec 200 unit/mL (3 mL) subcutaneous pen (Tresiba FlexTouch U-200 insulin) 46 unit subcut HS 02/22/23 [History Confirmed 03/16/23] meclizine 25 mg tablet 25 mg PO Q12HR #60 tabs 03/04/23 [Rx Confirmed 03/16/23] clonazepam 2 mg tablet 2 mg PO DAILY #30 tabs 03/16/23 [Rx Confirmed 03/16/23] semaglutide 1 mg/dose (4 mg/3 mL) subcutaneous pen injector (Ozempic) 1 mg subcut WEEKLY 03/16/23 [History Confirmed 03/16/23] Transfer Discharge Sum: Hosp Hospital Course Hospital course: Janel Marin is a 67 year old female Time Spent with Patient Time attestation: Total time spent providing and/or coordinating transfer services: Exam Const: General: cooperative and no acute distress Resp: Effort & Inspection: normal respiratory effort Auscultation: clear to auscultation bilaterally Cardio: Rate: regular rate Rhythm: regular rhythm Heart sounds: S1 normal heart sound present and S2 normal heart sound present GI: GI Palp: No abdominal tenderness Auscultation: normal bowel sounds DS: Data Data Completed and Pending Labs on day of discharge: Labs from last 24 hours 03/18/23 03/18/23 03/18/23 20:45 15:44 11:35 POC Capillary Glucose 146 H 182 H 153 H
== END 2023-03-18 22:26 | disposition short-term general hospital (02) | DRG 310 ==
LOC: ANHED 15:15 → ANHIMU 18:50
PROVIDERS: Admitting Provider Hospitalist; Emergency Provider Emergency Medicine; PCP Family Medicine; Visit Provider General Practice
DX: I49.5 Sick sinus syndrome (principal); J44.9 Chronic obstructive pulmonary disease, unspecified; E11.59 Type 2 diabetes mellitus with other circulatory complications; H81.10 Benign paroxysmal vertigo, unspecified ear; I44.0 Atrioventricular block, first degree; I15.2 Hypertension secondary to endocrine disorders; E55.9 Vitamin D deficiency, unspecified; F32.A Depression, unspecified; F41.9 Anxiety disorder, unspecified; E53.8 Deficiency of other specified B group vitamins; F17.210 Nicotine dependence, cigarettes, uncomplicated; D75.1 Secondary polycythemia; Z79.85 Long-term (current) use of injectable non-insulin antidiabetic drugs; Z79.84 Long term (current) use of oral hypoglycemic drugs
CPT/HCPCS: 36415; 71045; 80048; 80053; 82948; 83735; 83880; 84484; 85025; 85027; 85610; 85730; 93005; 96360; 96361; 99285; A9270; J1650; J1815; J3475; J7030

== ENCOUNTER 2023-07-31 13:41 | Outpatient (CLI) | payer MEDICARE, OTHER, SELFPAY ==
--- NOTE | ~2023-07-31 | CT_ITS ---
EXAMINATION:CT diagnostic chest wo con DATE: 07/31/2023 14:00 INDICATION: Solitary pulmonary nodule. TECHNIQUE: Computed tomography (CT) of the chest was performed without intravenous contrast. Automate d exposure control and iterative reconstruction technique were employed. The dose-length product (DLP ) was 127.76 mGy-cm. COMPARISON: Chest CT 02/22/2023 FINDINGS: The lungs demonstrate mosaic attenuation, likely small airways disease. A calcified right l cristina nodule and calcified right hilar and mediastinal lymph nodes are consistent with old granulomatou s disease. No pleural effusion. The heart size is normal. There are coronary artery calcifications. N o pericardial effusion. There is an implant in right ventricle. There is moderate thoracic spondylosi s. Again seen is mild chronic height loss of multiple vertebral bodies. There is a compression fractu re of T10 with less than 1/5 loss of height. There is a worsened burst fracture of T12 with 3/5 loss of height and retropulsion of bone 3 mm into central spinal canal. IMPRESSION: 1. Interval resolution of the groundglass nodule in right middle lobe described on the CT from 2022. 2. Chronic mosaic attenuation in the lungs, likely small airways disease. 3. Compression fracture of T10, new from 02/22/2023, likely subacute. 4. T12 burst fracture, worsened from 02/22/2023. Reviewed, dictated and finalized at location A. IMPRESSION: 1. Interval resolution of the groundglass nodule in right middle lobe described on the CT from 02/22/2023. 2. Chronic mosaic attenuation in the lungs, likely small airways disease. 3. Compression fracture of T10, new from 02/22/2023, likely subacute. 4. T12 burst fracture, worsened from 02/22/2023.
== END 2023-07-31 13:42 | disposition home or self-care (01) ==
PROVIDERS: PCP Family Medicine; Visit Provider Physician Assistant
DX: R91.1 Solitary pulmonary nodule (principal); R91.8 Other nonspecific abnormal finding of lung field; M48.54XA Collapsed vertebra, not elsewhere classified, thoracic region, initial encounter for fracture
CPT/HCPCS: 71250

== ENCOUNTER 2023-08-15 13:28 | Outpatient (CLI) | payer MEDICARE, OTHER, SELFPAY ==
--- NOTE | ~2023-08-15 | MM_ITS ---
EXAMINATION: MM screening nadine BI w yana HISTORY: Screening TECHNIQUE: Craniocaudal and mediolateral oblique 3-D tomosynthesis images were obtained and synthetic 2-D images were generated. CAD analysis was submitted and interpreted. COMPARISON: Comparison to multiple prior studies sequentially, with oldest reviewed study dated 09/25. BREAST PARENCHYMAL COMPOSITION: Not dense: There are scattered areas of fibroglandular density. FINDINGS: There is no evidence of suspicious mass, calcification, or architectural distortion to sugg est malignancy in either breast. There has been no suspicious interval change. IMPRESSION: 1. No mammographic evidence of malignancy. 2. Recommend routine screening mammography in one year. BI-RADS Category 1: Negative Reviewed, dictated and finalized at location B.
== END 2023-08-15 13:29 | disposition home or self-care (01) ==
LOC: ANHIMG 13:31
PROVIDERS: PCP Family Medicine; Visit Provider Obstetrics & Gynecology
DX: Z12.31 Encounter for screening mammogram for malignant neoplasm of breast (principal)
CPT/HCPCS: 77063; 77067

== ENCOUNTER 2024-01-18 13:12 | Outpatient (CLI) | payer MEDICARE, OTHER, SELFPAY | END 2024-01-18 13:13 | disposition home or self-care (01) | PROVIDERS: PCP Family Medicine; Visit Provider Internal Medicine Pulmonary Disease | DX: J98.4 Other disorders of lung (principal); J44.9 Chronic obstructive pulmonary disease, unspecified | CPT/HCPCS: 94060; 94618; 94726; 94729 ==

== ENCOUNTER 2024-02-15 07:21 | Outpatient (CLI) | payer MEDICARE, OTHER, SELFPAY ==
--- NOTE | ~2024-02-15 | CT_ITS ---
CT of the Abdomen and Pelvis: Indication: Gastroenteritis/colitis Technique: 2.5 mm axial scans were obtained through the abdomen and pelvis following intravenous adm inistration of 100 cc of Omnipaque 350. Dose reduction technique was used on this scan by utilizing a utomated exposure control and iterative reconstruction technique. The dose-length product (DLP) was 3 20.04 mGy-cm. Findings: Scans through the lung bases are unremarkable. The liver, spleen, pancreas, gallbladder, right adrenal gland and right kidney are within normal limi ts. Main pancreatic duct upper limits of normal in size. Somewhat ill-defined 1.8 cm left adrenal nod ule present. There is area of hypodensity at the left lower renal pole, which could reflect cortical scarring versus possibly focal pyelonephritis. There are atherosclerotic calcifications of the aorta. No lymphadenopathy. Large amount of stool present at the rectum, compatible with fecal impaction with additional stool co mpatible with constipation. Images through the pelvis were performed. Urinary bladder unremarkable. No pelvic mass seen. No ascit es. Moderate T12 compression deformity present, likely chronic. Impression: Fecal impaction and constipation. Left lower pole renal cortical scarring versus possibly focal pyelonephritis. Correlate with urinalys is. 1.8 cm left adrenal nodule, indeterminate, though statistically most likely adenoma, stable since 07/11. Reviewed, dictated and finalized at location . Y [employer]EVEL [employer]ER Impression: Fecal impaction and constipation. Left lower pole renal cortical scarring versus possibly focal pyelonephritis. C orrelate with urinalysis. 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
== END 2024-02-15 07:22 | disposition home or self-care (01) ==
PROVIDERS: PCP Family Medicine; Visit Provider Physician Assistant Medical
DX: K56.41 Fecal impaction (principal); D35.02 Benign neoplasm of left adrenal gland; R63.4 Abnormal weight loss
CPT/HCPCS: 74177; Q9967

== ENCOUNTER 2024-04-08 16:09 | Inpatient (IN) | payer MEDICARE, OTHER, SELFPAY ==
[2024-04-08] VITALS (9 sets, daily range): BP systolic 95–123; BP diastolic 38–90; PULSE 80–130; RESP 13–25; TEMP 35.6–38.2; O2SAT 97–100; BMI 21.3
--- NOTE | ~2024-04-08 | CT_ITS ---
EXAMINATION: CT chest abdomen pelvis w con DATE: 04/08/2024 19:32 INDICATION: Found down. TECHNIQUE: Computed tomography (CT) of the chest, abdomen, and pelvis was performed with 100 mL Omnip aque 350 intravenous contrast. Automated exposure control and iterative reconstruction technique were employed. The dose-length product was 543.09 mGy-cm. COMPARISON: CT abdomen and pelvis 02/15/24, chest CT 12/04/2018, 07/31/23 FINDINGS: CHEST CT: A calcified right lung nodule and calcified right hilar lymph nodes are consistent with old granuloma tous disease. There is mild atelectasis bilaterally. No pleural effusion. The heart size is normal. T here are coronary artery calcifications. There is an implant in right ventricle. No pericardial effus ion. There are nodules in the thyroid measuring up to 13 mm, likely not clinically significant. There is mild right hilar and mediastinal lymphadenopathy. There is an old healed fracture of proximal lef t humerus. There is a fracture deformity of right third rib, likely old. There is a chronic burst fra cture of T12. There are chronic compression fractures of T1, T6, T7, and T10. ABDOMEN/PELVIS CT: A calcification in the liver is consistent with old granulomatous disease. The gallbladder is distend ed, likely secondary to fasting. The spleen is normal. There is incomplete pancreas divisum. Right ad renal gland is normal. There is a chronic 1.5 cm mass in left adrenal gland, likely an adenoma. Right kidney is normal. There is focal cortical thinning of left kidney. The bladder is decompressed by a Baugh catheter. There is a large volume of stool in the colon. There is distention of the rectum, lik marisa adynamic ileus. The appendix is normal. There are no pathologically enlarged lymph nodes. There i s no free intraperitoneal fluid. There is severe lumbar spondylosis. IMPRESSION: 1. Large volume of stool in the colon with distention of the rectum, likely adynamic ileus. 2. Mild right hilar and mediastinal lymphadenopathy, likely reactive. Reviewed, dictated and finalized at location A. IMEDIA SPECIALIST IMPRESSION: 1. Large volume of stool in the colon with distention of the rectum, likely adelfo namic ileus. 2. Mild right hilar and mediastinal lymphadenopathy, likely reactive.
--- NOTE | ~2024-04-08 | CT_ITS ---
EXAMINATION: CT cervical spine wo con DATE: 04/08/2024 19:32 INDICATION: Neck injury. TECHNIQUE: Computed tomography (CT) of the cervical spine was performed without intravenous contrast. Automated exposure control and iterative reconstruction technique were employed. The dose-length pro duct was 156.54 mGy-cm. COMPARISON: CT cervical spine 03/06/2023 FINDINGS: There are nodules in the thyroid measuring up to 12 mm, likely not clinically significant. Alignment is normal. There is mild chronic anterior wedging of T1 vertebral body. There is moderately decreased disc height at C5-C6 and mildly decreased disc height at C6-C7. The following disc levels are specifically discussed: C2-C3: There is mild bilateral uncovertebral joint osteoarthritis. There is mild right and moderate l eft facet joint osteoarthritis. There is no neural foraminal stenosis. There is no central canal sten osis. C3-C4: There is mild bilateral uncovertebral joint osteoarthritis. There is mild bilateral facet join t osteoarthritis. There is no neural foraminal stenosis. There is no central canal stenosis. C4-C5: There is mild bilateral uncovertebral joint osteoarthritis. There is mild bilateral facet join t osteoarthritis. There is no neural foraminal stenosis. There is no central canal stenosis. C5-C6: There is severe bilateral uncovertebral joint osteoarthritis. There is mild bilateral facet danny int osteoarthritis. There is mild bilateral neural foraminal stenosis. There is mild central canal st enosis. C6-C7: There is mild bilateral uncovertebral joint osteoarthritis. There is mild bilateral facet join t osteoarthritis. There is no neural foraminal stenosis. There is no central canal stenosis. C7-T1: There is no uncovertebral joint osteoarthritis. There is severe bilateral facet joint osteoart hritis. There is mild left neural foraminal stenosis. There is no central canal stenosis. IMPRESSION: 1. No acute fracture. 2. Moderate cervical spondylosis. Reviewed, dictated and finalized at location A. LINE DRAGLINE OPERATOR
--- NOTE | ~2024-04-08 | CT_ITS ---
EXAMINATION: CT brain wo con DATE: 04/08/2024 19:32 INDICATION: Head injury. TECHNIQUE: Computed tomography (CT) of the head was performed without intravenous contrast. The mA wa s adjusted according to patient size. Iterative reconstruction technique was employed. The dose-lengt h product was 681.00 mGy-cm. COMPARISON: Head CT 03/06/2023 FINDINGS: There is no intracranial hemorrhage, acute infarction, or abnormal intracranial mass lesion . The ventricles are normal in size. There are likely changes of ocular lens replacement surgeries. T here are bilateral optic nerve drusen. There is left periorbital soft tissue swelling. There is mild mucosal thickening in the paranasal sinuses. The mastoid air cells are normal. IMPRESSION: 1. Normal brain. Reviewed, dictated and finalized at location A. CLERK IMPRESSION: 1. Normal brain.
--- NOTE | 2024-04-08 16:42 | ECG_ITS ---
Test Date: 2024-04-08 17:36:53 Measurements Intervals [place] Rate: 77 P: 0 IN: 0 QRS: -69 QRSD: 141 T: 108 QT: 485 QTc: 550 Interpretive Statements ELECTRONIC VENTRICULAR PACEMAKER ABNORMAL RHYTHM ECG No previous ECG available for comparison Electronically Signed On 04-09-2024 15:51:24 OILER BANDER by Tommy Samano M.D.
--- OUTSIDE RECORDS SUMMARY | 2024-04-08 16:59 | XMS_ITS ---
Author Organization [facility] Address [address] [facility] [address] [address] Care Team Providers Care Director Oncology Name Role Phone Tremaine Snyder MD Primary Care Provider Salvatore Josue Unavailable [phone] REASON FOR VISIT FYI only Social History Sex Assigned At : Social History Observation Description Sex Assigned At Female Encounters Encounter Location Date Provider Diagnosis [facility] [address] [address] 03/27/2024 Salvatore Johnson Plan Of Treatment Next Appt Details Provider Name:Praveena Zhong, 04/09/2024 10:00:00 AM, [facility] [place] [address], [address], [address], Provider Name:Salvatore day, 04/09/2024 11:30:00 AM, [address] [place] [address], [address], [address], Provider Name:Praveena Zhong, 04/23/2024 10:00:00 AM, [address] [place] [address], [address], [address], Provider Name:Praveena Zhong, 05/07/2024 01:00:00 PM, [address] [place] [address], [address], [phone], Provider Name:Praveena Zhong, 05/21/2024 01:00:00 PM, [address] [place] [address], [address], [address], Progress Notes * ARANZA CHAHALDOB:1955 (68 yo F)Acc No.[id number]:03/27/2024 Patient:?ARANZA CHAHAL :1955???Age:68 Y???Sex:Female Address:[address] [place] [address] * true * Date:? Generated for Beatrice maldonado/Quinton/eTransmitting on:?04/08/2024 04:59 PM SCORE CALLER
--- OUTSIDE RECORDS SUMMARY | 2024-04-08 16:59 | XMS_ITS | Encounter Summary ---
Author Organization [facility] Address [address] [place] [address] Care Team Providers Care Applications Development Analyst Name Role Phone Tremaine Snyder MD Primary Care Provider Philip Mena [facility] NURSE STAFF Unavailable [phone] Encounter Details Date Type Department Care Team (Late st Contact Info) Description 11/14/2019 Telephone [facility] [address] [place] [address] David Wagner, RT Social History Tobacco Use Types Packs/Day Years Used Date Smoking Tobacco: Every Day Cigarettes Smokeless Tobacco: Current Alcohol Use Standard Drinks/Week Comments Yes 0 (1 standard drink = 0.6 oz pur e alcohol) occasional Comments Unknown Sex and Gender Information Value Date Recorded Sex Assigned at Not on file Legal Sex Female 3:36 AM 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
--- OUTSIDE RECORDS SUMMARY | 2024-04-08 16:59 | XMS_ITS ---
Author Organization [facility] Address [address] [place] [address] Care Team Providers Care Stone Planer Name Role Phone Tremaine Snyder MD Primary Care Provider Salvatore Josue Unavailable [phone] Praveena Parnell Unavailable [phone] REASON FOR VISIT Depressed mood, Significant weight loss, Depression screening positive, MIPS Tobacco screening Medications Medication SIG (Take, Route, Frequency, Duration) Notes Start Date End Date Status BD MELVA 2ND GEN PEN NEEDLE 32 GAUGE X 5/32 *Reorder from [facility] for eRx and Interaction Alerts* 07/24/2023 Active DULoxetine HCl 60 MG 1 capsule Oral Once a day for 90 days 07/24/2023 Active Tresiba FlexTouch 200 UNIT/ML Subcutaneous 07/24/2023 Active Nystatin 070210 UNIT/GM External 07/24/2023 Active Calcium Citrate 200 mg (950 mg) Oral *Pick strength-form from [facility] for eRX* 07/24/2023 Active Vitamin B12 *Pick strength-form from [facility] for eRX* 07/24/2023 Active Glimepiride 2 MG Oral 07/24/2023 Ac tive metFORMIN HCl 1000 MG Oral 07/24/2023 Active Vitamin D3 Super Strength 50 MCG (2000 UT) Oral 07/24/2023 Active Atorvastatin Calcium 20 MG Oral 07/24/2023 Active Enalapril Maleate 2.5 MG Oral 07/24/2023 Active Fiasp FlexTouch 100 unit/mL (3 mL) Subcutaneous *Pick strength-form from [employer] for eRX* 07/24/2023 Active clonazePAM 2 MG Oral 07/24/2023 Act stu FREESTYLE ELIDA 2 SENSOR KIT *[facility] and Interaction Alert[facility]* 07/24/2023 Active Ozempic (2 MG/DOSE) 8 MG/3ML Subcutaneous *Reorder from [facility] for eRx and Interaction Alerts* 07/24/2023 Active Social History Sex Assigned At : Social History Observation Description Sex Assigned At Female Encounters Encounter Location Date Provider Diagnosis [place] [address] [address] 03/26/2024 Praveena Parnell Major depressive disorder, recurrent, mild F33.0 and Generalized anxiety disorder F41.1 Assessments Encounter Date Diagnosis (ICD Code) Assessment Notes Treatment Notes Treatment Clinical Notes Section Notes 03/26/2024 Major depressive disorder, recurrent, mild (ICD-10 - F33.0) 03/26/2024 Generalized anxiety disorder (ICD-10 - F41.1) Plan Of Treatment Next Appt Details Follow Up: 2 Weeks, Reason: Provider Name:Praveena Parnell, 04/09/2024 10:00:00 AM, [facility] [address], [address], Provider Name:Salvatore day, 04/09/2024 11:30:00 AM, [facility] [address], [address], [address], Provider Name:Praveena Parnell, 04/23/2024 10:00:00 AM, [facility] [address], [address], [address], Provider Name:Praveena Parnell, 05/07/2024 01:00:00 PM, [facility] [address], [address], [address], Provider Name:Praveena Parnell, 05/21/2024 01:00:00 PM, [facility] [address], [address], Progress Notes * BEBETO CHAHAL:1955 (68 yo F)Acc No.[id number]:03/26/2024 Patient:ARANZA ESPINOZA Provider:?PRAVEENA PARNELL LCSW :1955???Age:68 Y???Sex:Female D ate:03/26/2024 Address:[address] [place] [address] Pcp:Tremaine Snyder MD Data: * Time Tracker: * Date Start Time End Time Duration User Type Captured By Mode Notes 03/26/2024 10:14 AM 11:11 AM 00:57:08 Therapist Praveena Parnell Angel er * Chief Complaints: * ???1. Depressed mood. 2. Sig nificant weight loss. 3. Depression screening positive. 4. MIPS Tobacco screening. * HPI: ???Functional Status:? Date:? 26 March 2024 Current symptoms:? Concerns about memory; amotivation; hygiene concerns;? Severity:? severe Context: Cl. was accompanied to therapy appointment by close friend, Christophe.? Cl's friend stated that Cl's PCP- Physician's assistant professor of nursing has been trying to contact the office to discuss Cl.'s decline.? Cl's chart contained documentation that Salvatore has already tried to contact the PA but had to leave a message and is awaiting a return call.? ? ?Discussed the series of events that may have led to Cl. health decline.? PCP office believes that the decline is caused by symptoms of depression.? Cl. has not endorsed significant depression symptoms in PHQ, but it is possible that she had mimimized symptoms.? ? This clinician had believed health issues to be causing apparent decline when discussed at previous appointments.? ? In the past year, CL. had experienced multiple cardiac events which resulted in at least two falls in which Cl. had sustained head injury- head injuries believed to be mild at the time.? Following at least 2 ER visits, Cl. underwent surgery to implant pace maker.? Following the surgery,? Cl. appeared to recover well.? ? In approximately December, Cl. had teeth extracted in order to have dentures fitted. She had been concerned about the dental work, as it would affect ability to eat.? Cl. is diabetic so this is a valid concern.? Cl. had tooth extraction and following the extraction she did experience difficulties with eating due to discomfort caused by dentures.? She was limited to soft foods for a few weeks and began to lose weight.? The weight loss possibly affected medications for diabetes- she had been on Ozempic but that was d/c'd as she has lost significant weight.? ? Following the dental procedure, Cl. reported that she had been experiencing gastrointestinal issues- frequent diarrhea- which had been preceded by constipation.? The GI issues have continued to this time and Cl. has become isolated due to anxiety about leaving the house due to frequent fecal incontinence.? It seems that some symptoms of depression may be currently related to this isolation and embarrassment.? ?Cl. has lost a concerning amount of weight and mental status is impaired.? Cl. experiencing apathy, confusion and decision making is questionable at times, per Cl's friend.? ?Cl. has locked herself out of her house a couple times.? Hygiene was poor at the time of this visit and CL. appeared to be wearing soiled clothing.? Her friend had encouraged her to shower but Cl. dressed in same clothes she was wearing.? Cl. no longer has clothing that fits, due to extreme weight loss, which may be a factor.? Cl. had been encouraged to shop for new clothing, but does not seem to have the mental or physical energy to actually go out to purchase new clothing.? ? Will be having labwork to determine B12 Intervention:? During this session, clinician prompted Cl. to process thoughts and feelings associated with? depressed mood and medical situations? for the purpose of gaining insight. Clinician provided support and validation where appropriate.? Response:? Cl. participated actively in discussion and displayed fair insight.?? Plan:. ???Depression screening:?PHQ-9?Little interest or pleasure in doing things?Several days,?Feeling down, depressed, or hopeless?Several days,?Trouble falling or staying asleep, or sleeping too much?Several days,?Feeling tired or having little energy?Several days,?Poor appetite or overeating?Not at all,?Feeling bad about yourself or that you are a failure, or have let yourself or your family down?Several days,?Trouble concentrating on things, such as reading the newspaper or watching television?Several days,?Moving or speaking so slowly that other people could have noticed; or the opposite, being so fidgety or restless that you have been moving around a lot more than usual?Several days,?Thoughts that you would be better off or of hurting yourself in some way?Not at all,?Total Score?7,?Interpretation?Mild Depression.?Intervention?Depression Screening Findings?Positve,?Follow-Up for Depression?Mental health treatment assessment, Patient follow-up to return when and if necessary,?Suicide Risk Assessment Performed?03/26/2024 ,?Additional Evaluation for Depression?Psychiatric interview and evaluation,?Name of the standardized tool used for adult depression screening:?Patient Health Questionnaire (PHQ-9).?Depression Screening:?SALMA-7 (2018 Edition)?Feeling nervous, anxious, or on edge?Several days,?Not being able to stop or control worrying?Several days,?Worrying too much about different things?Several days,?Trouble relaxing?Several days,?Being so restless that it is hard to sit still?Several days,?Becoming easily annoyed or irritable?Several days,?Feeling afraid as if something awful might happen?Not at all,?Total SALMA-7 Score?6,?Interpretation of Total?(5 to 9) Mild.? * Medications:?Taking DULoxeti ne HCl 60 MG Capsule Delayed Release Particles 1 capsule Oral Once a day , Taking Ozempic (2 MG/DOSE) 8 MG/3ML Solution Pen-injector Subcutaneous , Notes to Pharmacist: *Reorder from [facility] for eRx and Interaction Alerts*, Taking FREESTYLE ELIDA 2 SENSOR KIT , Notes to Pharmacist: *Reorder from [facility] for eRx and Interaction Alerts*, Taking Fiasp FlexTouch 100 unit/mL (3 mL) Solution Pen-injector Subcutaneous , Notes to Pharmacist: *Pick strength-form from [facility] for eRX*, Taking Enalapril Maleate 2.5 MG Tablet Oral , Taking clonazePAM 2 MG Tablet Oral , Taking Vitamin B12 , Notes to Pharmacist: *Pick strength-form from [facility] for eRX*, Taking Vitamin D3 Super Strength 50 MCG (2000 UT) Capsule Oral , Taking metFORMIN HCl 1000 MG Tablet Oral , Taking Atorvastatin Calcium 20 MG Tablet Oral , Taking Glimepiride 2 MG Tablet Oral , Taking Tresiba FlexTouch 200 UNIT/ML Solution Pen-injector Subcutaneous , Taking Calcium Citrate 200 mg (950 mg) Tablet Oral , Notes to Pharmacist: *Pick strength-form from [facility] for eRX*, Taking Nystatin 266610 UNIT/GM Powder External , Taking BD MELVA 2ND GEN PEN NEEDLE 32 GAUGE X , Notes to Pharmacist: *Reorder from [facility] for eRx and Interaction Alerts*, Medication List reviewed and reconciled with the patient * Examination: ???Psychiatry: ?Appearance:?appears older, disheveled, poorly nourished.?Affect / mood:?appropriate.?Attention:?fair.?Attitude:?cooperative.?Homicidal ideation:?none.?Suicidal ideation:?none.?Insight:?fair.?Judgement:?fair.?Orientation:?awake, alert and oriented x 3.?Speech / language:?appropriate pitch/modulation, clear and coherent, normal rate, volume, and articulation (RVR), proper grammar used.?Thought content:?appropriate.?Thought process:?intact.? Assessment: * Assessment: 1.?Major depressive disorder , recurrent, mild - F33.0 (Primary)???2.?Generalized anxiety disorder - F41.1??? Plan: * Treatment: * Procedure Codes:?89699 PSYCH OTHERAPY W/PATIENT 60 MINUTES, G9902 Pt scrn tbco and id as user, G8431 CLIN DEPRESSION SCREEN DOC * Preventive Medicine:? ??Counseling:?Communication to patient:?Counseled the Patient on tobacco use; cessation provided?03/26/2024 .?Smoking Cessation counseling done Discuss the importance of quitting smoking,. * Follow Up:?2 Weeks * Billing Information: * Visit Code:? * Procedure Codes:? 60314 PSYCHOTHERAPY W/PATIENT 60 MINUTES. G9902 Pt scrn tbco and id as user. G8431 CLIN DEPRESSION SCREEN DOC. * INSERTER REGULATOR Sign off status: Completed Signatures: No Ad Hoc Signature Added true * Provider:?PRAVEENA PARNELL LCSW Date:?03/26 Generated for Beatrice maldonado/Quinton/eTransmdeysi on:?04/08/2024 04:58 PM PIN INSERTER REGULATOR History and Physical Notes * HPI (History of Present Illness) Category Sub-Category Detail Notes Category Not es Depression screening PHQ-9 Little inte rest or pleasure in doing things: Several days Feeling down, depressed, or hopeless: Se veral days Trouble falling or staying asleep, or sl eeping too much: Several days Feeling tired or having little energy: S everal days Poor appetite or overeating: Not at all Feeling bad about yourself o r that you are a failure, or have let yourself or your family down: Several days Trouble concentrating on thi ngs, such as reading the newspaper or watching television: Several days Moving or speaking so slowly that other people could have noticed; or the opposite, being so fidgety or restless that you have been moving around a lot more than usual: Several days Thoughts that you would be b linda off or of hurting yourself in some way: Not at all Total Score: 7 Interpretation: Mild Depression Intervention Depression Screening Findings: P ositve Follow-Up for Depression: [facility] treatment assessment, Patient follow-up to return when and if necessary Suicide Risk Assessment Performed: 03/26 Additional Evaluation for De pression: Psychiatric interview and evaluation Name of the standardized too l used for adult depression screening:: Patient Health Questionnaire (PHQ-9) Functional Status Date: 26 March 2024 Current symptoms: Concerns about memory; amotivation; hygiene concerns; Severity: severe Context: Cl. was accompanied to therapy appointment by close friend, Christophe. Cl's friend stated that Cl's PCP- Physician's assistant professor of nursing has been trying to contact the office to discuss Cl.'s decline. Cl's chart contained documentation that Salvatore has already tried to contact the PA but had to leave a message and is awaiting a return call. Discussed the series of events that may have led to health decline. PCP office believes that the decline is caused by symptoms of depression. Paula. has not endorsed significant depression symptoms in PHQ, but it is possible that she had mimimized symptoms. This clinician had believed health issues to be causing apparent decline when discussed at previous appointments. In the past year, had experienced multiple cardiac events which resulted in at least two falls in which had sustained head injury- head injuries believed to be mild at the time. Following at least 2 ER visits, underwent surgery to implant pace maker. Following the surgery, appeared to recover well. In approximately December, had teeth extracted in order to have dentures fitted. She had been concerned about the dental work, as it would affect ability to eat. is diabetic so this is a valid concern. had tooth extraction and following the extraction she did experience difficulties with eating due to discomfort caused by dentures. She was limited to soft foods for a few weeks and began to lose weight. The weight loss possibly affected medications for diabetes- she had been on Ozempic but that was d/c'd as she has lost significant weight. Following the dental procedure, Paula. reported that she had been experiencing gastrointestinal issues- frequent diarrhea- which had been preceded by constipation. The GI issues have continued to this time and Paula. has become isolated due to anxiety about leaving the house due to frequent fecal incontinence. It seems that some symptoms of depression may be currently related to this isolation and embarrassment. Paula. has lost a concerning amount of weight and mental status is impaired. Paula. experiencing apathy, confusion and decision making is questionable at times, per Cl's friend. has locked herself out of her house a couple times. Hygiene was poor at the time of this visit and PAULA. appeared to be wearing soiled clothing. Her friend had encouraged her to shower but Cl. dressed in same clothes she was wearing. Paula. no longer has clothing that fits, due to extreme weight loss, which may be a factor. Paula. had been encouraged to shop for new clothing, but does not seem to have the mental or physical energy to actually go out to purchase new clothing. Will be having labwork to determine B12 Intervention: During this session, clinician prompted Cl. to process thoughts and feelings associated with depressed mood and medical situations for the purpose of gaining insight. Clinician provided support and validation where appropriate. Response: Cl. participated actively in discussion and displayed fair insight. Plan: Depression Screening SALMA-7 (2018 Edition) Feeling nervous, anxious, or on edge: Several days Not being able to stop or control worryi ng: Several days Worrying too much about different things : Several days Trouble relaxing: Several days Being so restless that it is hard to sit still: Several days Becoming easily annoyed or irritable: Se veral days Feeling afraid as if something awful julisa ht happen: Not at all Total SALMA-7 Score: 6 Interpretation of Total: (5 to 9) Mild Examination Category Sub-Category Detail Notes Category Not es Psychiatry Appearance: appears older, disheveled, p oorly nourished Attitude: cooperative Attention: fair Orientation: awake, alert and jean carlos ented x 3 Affect / mood: appropriate Speech / language: appropriate pitch/mo dulation, clear and coherent, normal rate, volume, and articulation (RVR), proper grammar used Insight: fair Judgement: fair Thought process: intact Thought content: appropriate Suicidal ideation: none Homicidal ideation: none
--- OUTSIDE RECORDS SUMMARY | 2024-04-08 16:59 | XMS_ITS | Referral Summary ---
Author Organization [facility] Medical [facility] 2 Address [address] [facility] [place] [address] Care Team Providers Care Journalism Internship Name Role Phone Tremaine Snyder MD Primary Care Provider Philip Mena NP Unavailable [phone] Allergies Active Allergy Reactions Criticality Noted Date Comments No Known Allergies Other (See comments) Low Reaction: Medications omeprazole OTC (PriLOSEC OTC) 20 mg EC tablet Active enalapril (VASOTEC) 2.5 mg tablet TAKE 1 T BY MOUTH EVERY MORNING 3 8 Active loratadine (CLARITIN LIQUI-GEL) 10 mg capsule Active atorvastatin (LIPITOR) 40 mg tablet 0.5 tablets (20 mg total) Active CONTOUR NEXT TEST STRIPS strip TEST TWICE A DAY DIRECTED 4 8 Active cholecalciferol (VITAMIN D-3) 2000 unit capsule Take 1 capsule (2,000 Units total) by mouth daily 30 capsule 0 Active metFORMIN (FORTAMET) 1,000 mg 24 hr tablet Take 1 tablet (1,000 mg total) by mouth daily with breakfast Active clonazePAM (KlonoPIN) 2 mg disintegrating tablet Take 1 tablet (2 mg total) by mouth daily Active DULoxetine DR (CYMBALTA) 60 mg capsule Take by mouth daily 4 Active FIASP 100 unit/mL (3 mL) pen for injection 4 Active TRESIBA 200 unit/mL (3 mL) pen for injection ADMINISTER 50 UNITS UNDER THE SKIN DAILY 4 Active mecobalamin, vitamin B12, (B12 Active) 1,000 mcg tablet,chewable 3 Active BD Lucretia 2nd Gen Pen Needle 32 gauge x 5/32 needle USE TO INJECT INSULIN FOUR TIMES DAILY 4 Active Ozempic 2 mg/dose (8 mg/3 mL) pen injector injection INJECT 2 MG UNDER THE SKIN EVERY WEEK 4 Active Active Problems Problem Noted Date Diagnosed Date Cardiac pacemaker in situ 03/20/2023 Overview (03/20/2023): Medtronic Micra AV Leadless Pacemaker. Dx; CHB. DOI 03/19/2023-Christina. Carelink remote monitoring. 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 No 03/20/2023 Social Connection and Isolat ion Panel [NHANES] Answer Date Recorded In a typical week, how many times do you talk on the phone with family, friends, or neighbors? More than three times a week 03/20/2023 How often do you get togethe r with friends or relatives? More than three times a week 03/20/2023 How often do you attend chur ch or holiness services? Never 03/20/2023 Do you belong to any clubs o r organizations such as yarsani groups, unions, fraternal or athletic groups, or school groups? No 03/20/2023 How often do you attend meet ings of the clubs or organizations you belong to? Never 03/20/2023 Are you , , di vorced, , never , or living with a partner? Never 03/20/2023 AUDIT-C Answer Date Recorded Q1: How often do you have a drink containing alcohol? Never 03/18/2023 Q2: How many drinks containi ng alcohol do you have on a typical day when you are drinking? Patient does not drink Q3: How often do you have si x or more drinks on one occasion? Never 03/18/2023 Overall Financial Resource Strain (CARDIA) Answe r Date Recorded How hard is it for you to pa y for the very basics like food, housing, medical care, and heating? Not hard at all 03/20/2023 Hunger Vital Sign Answer Date Recorded Within the past 12 months, y ou worried that your food would run out before you got the money to buy more. Never true 03/20/19 24 Within the past 12 months, t he food you bought just didn't last and you didn't have money to get more. Never true 03/20/2023 PRAPARE - Transportation Answer Date Re corded In the past 12 months, has l ack of transportation kept you from medical appointments or from getting medications? No 11/2023 In the past 12 months, has l ack of transportation kept you from meetings, work, or from getting things needed for daily living? No 03/20/2023 Housing Stability Vital Sign Answer Juve e Recorded In the last 12 months, was t here a time when you were not able to pay the mortgage or rent on time? No 03/20/2023 In the last 12 months, how many places have you lived? 1 03/20/2023 In the last 12 months, was t here a time when you did not have a steady place to sleep or slept in a assisted (including now)? No 03/20/2023 Personal Safety Answer Date Recorded Have you ever been in or are you currently in a harmful physical or emotional relationship or is someone making you feel afraid or unsafe? Denies 03/18/2023 Comments Unknown Sex and Gender Information Value Date Recorded Sex Assigned at Not on file Legal Sex Female 3:36 AM OPERATIONS EXPERT Gender Identity Not on file Sexual Orientation Straight 06/15/2023 11 :06 AM CDT Last Filed Vital Signs Vital Sign Reading Time Taken Comments Blood Pressure 118/62 06/26/2023 9:58 AM CDT Pulse 75 06/26/2023 9:58 AM CDT Temperature 36.7 ??C (98.1 ??F) 03/20/2023 8:08 AM CS T Respiratory Rate 16 06/26/2023 9:58 AM CDT Oxygen Saturation 91% 06/26/2023 9:58 AM CDT Inhaled Oxygen Concentration - - Weight 91.6 kg (202 lb) 06/26/2023 9:58 AM CDT Height 170.2 cm (5' 7 ) 06/26/2023 9:58 AM CDT Body Mass Index 31.64 06/26/2023 9:58 AM CDT Plan of Treatment Not on file Medical Devices Implanted Type Area Front End Technician Device Identifier Shelf Expiration Date Model / Serial / Lot Synthes .102 Lcp Combi 73mm 2 Hole Variable Angle Taper Tip Round Profile - [id number] Implanted:Qty: 1 on 11/27/2019 by Hollis Warren MD at [facility] Left: Olecranon Synthes I Synthes 2.7mm 16mm Self Tap Lock Variable Angle Stardrive T8 Screw Bone - [id number] Implanted:Qty: 1 on 11/27/2019 by Hollis Warren MD at [facility] Left: Olecranon Synthes I / Synthes 2.7mm 18mm Self Tap Lock Variable Angle Stardrive T8 Screw Bone - [id number] Implanted:Qty: 2 on 11/27/2019 by Hollis Warren MD at [facility] Left: Olecranon Synthes I 8 / / Depuy Synthes Locking Screw Implanted:Qty: 1 on 11/27/2019 by Hollis Warren MD at [facility] Left: Olecranon Synthes I [id number] / / Description:[facility] ITEM# [id number] ; FLAGGED ON 11/28/19 CHARGE CODE ASSIGNED [id number] Synthes 204.826 3.5mm 6mm 26mm 2.5mm Self Tap Small Hexagonal Socket Low Profile - [id number] Implanted:Qty: 1 on 11/27/2019 by Hollis Warren MD at [facility] Left: Olecranon Synthes I 204.826 / / Synthes 212.107 3.5mm 2.9mm 22mm Self Tap Lock Stardrive Conical Head T15 Full - [id number] Implanted:Qty: 1 on 11/27/2019 by Hollis Warren MD at [facility] Left: Olecranon Synthes I 212.107 / / [employer] Device Clsr Perclose Prostyle Sut-Mediatd Closure-Repair Sys 85500-81 - [id number] Implanted:Qty: 1 on 03/19/2023 by Dev Vasquez MD at [facility] [employer] 12/09/2024 [id number] / / [id number] [employer] Device Clsr Perclose Prostyle Sut-Mediatd Closure-Repair Sys 22852-65 - [id number] Implanted:Qty: 1 on 03/19/2023 by Dev Vasquez MD at [facility] [employer] 12/09/2024 [id number] / / [id number] Medtronic Inc Katie Av_Vr Leaderless Pacer - [id number] Implanted:Qty: 1 on 03/19/2023 by Dev Vasquez MD at [facility] Med[employer]onic Inc [id number] / / Procedures Procedure Name Priority Date/Time Associated Diagnosis Comments EGFR Routine 03/19/2023 5:16 AM OPERATIONS EXPERT HEMOGLOBIN A1C Routine 03/19/2023 5:16 AM OPERATIONS EXPERT DIAGNOSTIC MAMMOGRAM BILATERAL W DEV Routine 09/25/2013 11:58 AM CDT from Last 3 Months or Most Recently Relevant to Health Maintenance Results * eGFR (03/19/2023 5:16 AM OPERATIONS EXPERT) eGFR 104 mL/min/1. 73 m2 [facility] Comment: Interpretive Data Reference Interval Normal ?>/= 90 mL/min/1.73m2 Mildly decreased* ? 60 - 89 mL/min/1.73m2 Mildly to moderately decreased ?45 - 59 mL/min/1.73m2 Moderately to severely decreased ??30 - 44 mL/min/1.73m2 Severely decreased ?15 - 29 mL/min/1.73m2 Kidney Failure ?< 15 ??mL/min/1.73m2 *Relative to young adult level Estimated glomerular filtration rate is determined by the 2020 CKD-EPI equation recommended by the National Kidney Foundation (A Unifying Approach to GFR Estimation: Recommendations of the NKF-ASK Task Force on Reassessing the Inclusion of Race in Diagnosing Kidney Disease, JASN 202). The CKD-EPI equation should not be used for patients with unstable renal function and has not been validated in children and those over 70. Current interpretive data was last reviewed 2021. Blood 03/19/2023 5:16 AM OPERATIONS EXPERT 03/19/2023 5:22 AM OPERATIONS EXPERT us Lisa Oates NP LAB BLOOD ORDERABLES Chacha bhandari Result [facility] [address] [place] [address] * (ABNORMAL) Hemoglobin A1c (03/19/2023 5:16 AM OPERATIONS EXPERT) Hgb A1C 8.9(H) 4.0 - 5.6 % YEIMI CALIX Estimated Average Glucose 209 mg/dL YE[facility] CALIX Comment: The ADA recommends reporting an estimated Average Glucose (eAG) with all Hemoglobin A1c results using the equation derived from a study of 507 normal and diabetic adults. ??Minority populations were underrepresented and children were not included. ?? (Diabetes Care 31:6530-0229, 2008). ??The eAG is not equivalent to a fasting glucose. Blood 03/19/2023 5:16 AM OPERATIONS EXPERT 03/19/2023 5:22 AM OPERATIONS EXPERT us Lisa Oates NP LAB BLOOD ORDERABLES Chacha l Result [facility]IX [address] [place] [address] * DIAGNOSTIC MAMMOGRAM BILATERAL W DEV (09/25/2013 11:58 AM CDT) Anatomical Region Laterality Modality Breast Bilateral Mammography 09/25/2013 11:5 8 AM CDT Narrative 09/25/2013 4:54 PM CDT Acc#: ??[id number] [facility] 0034 - Screening Mamm W Dev Bi DATE OF EXAM: ??Sep 25 2013 11:58AM DIAGNOSIS: ??SCREEN MAMMOGRAPHY NEC CLINICAL HISTORY: ??SCREENING RESULT: ?\ EXAM: ??BILATERAL DIGITAL SCREENING MAMMOGRAM WITH DIGITAL TOMOSYNTHESIS DATE: ??09/25/2013 CLINICAL HISTORY: ??Screening in an asymptomatic patient with a history of negative right breast biopsy and no personal or family history of breast cancer ?? TECHNIQUE: ??Bilateral full field digital mammography and digital tomosynthesis were performed in the CC and MLO projections. ??Comparison was made to prior mammograms from 04/24/2012 and 10/27/2010. ??CAD was utilized. ?? FINDINGS: ??The breast parenchyma is fatty. ??The parenchymal pattern is unchanged when compared to the prior exams. ??Small bilateral breast nodules are stable. A biopsy clip is seen one of the periareolar right breast nodules. ??Scattered bilateral calcifications are benign in appearance and mostly represent calcifying oil cysts. ??Bilateral breast moles are marked. Bilateral axillary lymph nodes are benign in appearance. ??There is no new nodule, mass, area of architectural distortion or suspicious microcalcification. ? IMPRESSION: ?\ BIRADS CATEGORY 2, BENIGN. ?? RECOMMEND YEARLY BILATERAL SCREENING MAMMOGRAM. ?? TECHNOLOGIST: ?? BHAVIN SCHMITT, TECHNOLOGIST MEDICAL IMAGING PRN BOTTLE WASHING MACHINE OPERATOR: ??DM2 TRANSCRIBE DATE/TIME: ??Sep 25 2013 ??4:02P RADIOLOGIST: ??KIM HART M.D. ??READ ON: ??Sep 25 2013 ??3:50P ORDERING DR: AMIE FELIZ M.D. THIS DOCUMENT HAS BEEN ELECTRONICALLY SIGNED BY: ??KIM HART M.D. ??ON: ??Sep 25 2013 ??4:54P ? BOTTLE WASHING MACHINE OPERATOR: ??DM2 TRANSCRIBE DATE/TIME: ??Sep 25 2013 ??4:02P RADIOLOGIST: ??KIM HART M.D. ??READ ON: ??Sep 25 2013 ??3:50P ORDERING DR: AMIE FELIZ M.D. THIS DOCUMENT HAS BEEN ELECTRONICALLY SIGNED BY: ??KIM HART M.D. ??ON: ??Sep 25 2013 ??4:54P Requesting Fax: ??[phone] Procedure Note Provider, MD Patricia - 07/03/2016 Acc#: [id number] [facility] 0034 - Screening Mamm W Dev Bi DATE OF EXAM: Sep 25 2013 11:58AM DIAGNOSIS: SCREEN MAMMOGRAPHY NEC CLINICAL HISTORY: SCREENING RESULT: \ EXAM: BILATERAL DIGITAL SCREENING MAMMOGRAM WITH DIGITAL TOMOSYNTHESIS DATE: 09/25/2013 CLINICAL HISTORY: Screening in an asymptomatic patient with a history of negative right breast biopsy and no personal or family history of breast cancer TECHNIQUE: Bilateral full field digital mammography and digital tomosynthesis were performed in the CC and MLO projections. Comparison was made to prior mammograms from 04/24/2012 and 10/27/2010. CAD was utilized. FINDINGS: The breast parenchyma is fatty. The parenchymal pattern is unchanged when compared to the prior exams. Small bilateral breast nodules are stable. A biopsy clip is seen one of the periareolar right breast nodules. Scattered bilateral calcifications are benign in appearance and mostly represent calcifying oil cysts. Bilateral breast moles are marked. Bilateral axillary lymph nodes are benign in appearance. There is no new nodule, mass, area of architectural distortion or suspicious microcalcification. IMPRESSION: \ BIRADS CATEGORY 2, BENIGN. RECOMMEND YEARLY BILATERAL SCREENING MAMMOGRAM. TECHNOLOGIST: BHAVIN SCHMITT, TECHNOLOGIST MEDICAL IMAGING PRN BOTTLE WASHING MACHINE OPERATOR: NAUN TRANSCRIBE DATE/TIME: Sep 25 2013 4:02P RADIOLOGIST: KIM HART M.D. READ ON: Sep 25 2013 3:50P ORDERING DR: AMIE FELIZ M.D. THIS DOCUMENT HAS BEEN ELECTRONICALLY SIGNED BY: KIM HART M.D. ON: Sep 25 2013 4:54P BOTTLE WASHING MACHINE OPERATOR: NAUN TRANSCRIBE DATE/TIME: Sep 25 2013 4:02P RADIOLOGIST: KIM HART M.D. READ ON: Sep 25 2013 3:50P ORDERING DR: AMIE FELIZ M.D. THIS DOCUMENT HAS BEEN ELECTRONICALLY SIGNED BY: KIM HART M.D. ON: Sep 25 2013 4:54P Requesting Historical Provider MD HOOPER MAMMO PROCEDURES Chacha l Result from Last 3 Months or Most Recently Relevant to Health Maintenance Insurance MED[employer]ARE [place] [employer] [address] Advance Directives For more information, please contact: [phone] * Full Code (Latest Code Status on File) Date Activated Date Inactivated Comments 03/19/2023 1:43 AM 03/20/2023 7:08 PM Care Teams Journalism Internship Relationship Specialty Start Date End Date Tremaine Snyder MD [address] [place] [address] [address] [place] [address] PCP - General Family Medicine 11/11/19 Philip Mena NP [address] [place] [address] [address], [place] [address] Nurse Practitioner Nurse Practitioner 11/27/19
--- OUTSIDE RECORDS SUMMARY | 2024-04-08 16:59 | XMS_ITS | Clinical Summary ---
Author Organization [facility] Address [address] [place] [address] Phone Care Team Providers Care Weed Burner Name Role Phone Tremaine Snyder MD Primary Care Provider [phone] Allergies No known active allergies Medications glyBURIDE-metFOR MIN (GLUCOVANCE) 2.5-500 mg tablet Take 1 Tablet by mouth daily with breakfast. Active pioglitazone (ACTOS) 30 mg tablet Take 30 mg by mouth daily with breakfast. Active enalapril (VASOTEC) 2.5 mg tablet Take 2.5 mg by mouth daily. Active atorvastatin (LIPITOR) 40 mg tablet Take 40 mg by mouth daily with supper. Active FLUoxetine (PROzac) 20 mg capsule Take 20 mg by mouth daily. Active escitalopram oxalate (LEXAPRO) 20 mg tablet Take 20 mg by mouth daily. Active METHOTREXATE SODIUM INJECTION by Injection route. Active HYDROcodone-acet aminophen (NORCO) 5-325 mg tabletIndication s:Closed fracture of proximal end of left humerus, unspecified fracture morphology, initial encounter,Closed fracture of olecranon process of left ulna, initial encounter Take 1 Tablet by mouth every 4 hours as needed for Pain, Moderate. Max Daily Amount: 6 Tablets 30 Tablet 0 Active Immunizations Immunization Administration Dates Next Due (ADACEL/BOOSTRIX)(10 YR UP) TDAP VACCINE, 0.5ML, IM 11/07/2019 Social History Tobacco Use Types Packs/Day Years Used Date Smoking Tobacco: Every Day Comments Unknown Sex and Gender Information Value Date Recorded Sex Assigned at Not on file Legal Sex Female 5:42 PM CDT Gender Identity Not on file Sexual Orientation Not on file Last Filed Vital Signs Vital Sign Reading Time Taken Comments Blood Pressure 143/79 11/07/2019 10:54 PM CDT Pulse 84 11/07/2019 10:54 PM CDT Temperature 36.9 ??C (98.4 ??F) 11/07/2019 10:54 PM C DT Respiratory Rate 17 11/07/2019 10:54 PM CDT Oxygen Saturation 96% 11/07/2019 10:54 PM CDT Inhaled Oxygen Concentration - - Weight 113.4 kg (250 lb) 11/07/2019 5:48 PM CDT Height 167.6 cm (5' 6 ) 11/07/2019 5:48 PM CDT Body Mass Index 40.35 11/07/2019 5:48 PM CDT Plan of Treatment Health Maintenance Due Date Last Done Comments PNEUMOCOCCAL VACCINE 65+ YEARS (1 of 2 - PCV) 11/05/18 76 BREAST CANCER SCREENING 1996 COLORECTAL SCREENING 2001 Colorectal Cancer Screening 2001 FIT-DNA Q 3 years 2001 FIT/FOBT Q 1 year 2001 Flex Sig/CT Colonography Q 5 years 2001 ZOSTER VACCINE (1 of 2) 2006 OSTEOPOROSIS SCREENING 2021 INFLUENZA VACCINE (#1) 2023 DTAP/TDAP/TD VACCINES (2 - Td or Tdap) 11/06/2029 RSV VACCINE (60+ or ) (1 - 1-dose 75+ series) 11/06/2031 Insurance Care Teams Weed Burner Relationship Specialty Start Date End Date Tremaine Snyder MD [address] [facility] [address] [facility] [address] [place] [address] PCP - General Family Practice 11/07/19
--- OUTSIDE RECORDS SUMMARY | 2024-04-08 16:59 | XMS_ITS ---
Author Organization [facility] [email or web address] [facility] Address [facility] [address] [address] Care Team Providers Care Indigo Mixer Name Role Phone Tremaine Snyder MD Primary Care Provider Salvatore Josue Unavailable [phone] REASON FOR VISIT Waiting for call back Social History Sex Assigned At : Social History Observation Description Sex Assigned At Female Encounters Encounter Location Date Provider Diagnosis [facility] [address] [address] 04/08/2024 Salvatore Johnson Plan Of Treatment Next Appt Details Provider Name:Praveena Zhong, 04/09/2024 10:00:00 AM, [facility] [place] [address], [address], [address], Provider Name:Salvatore day, 04/09/2024 11:30:00 AM, [address] [place] [address], [address], [address], Provider Name:Praveena Zhong, 04/23/2024 10:00:00 AM, [address] [place] [address], [address], [address], Provider Name:Praveena Zhong, 05/07/2024 01:00:00 PM, [facility] [place] [address], [address], [address], Provider Name:Praveena Zhong, 05/21/2024 01:00:00 PM, [address] [place] [address], [address], [address], Progress Notes * ARANZA CHAHALDOB:1955 (68 yo F)Acc No.[id number]:04/08/2024 Patient:?ARANZA CHAHAL :1955???Age:68 Y???Sex:Female Address:[address] [place] [address] * * Date:?
--- OUTSIDE RECORDS SUMMARY | 2024-04-08 16:59 | XMS_ITS | Continuity of Care Document ---
Author Organization [facility] Address [address] [place] [address] Phone Care Team Providers Care Cull Grader Name Role Phone John Almeida Unavailable Unavailable Procedures Procedure Date Office/outpatient Visit, Est Office/outpatient Visit, Est Office/outpatient Visit, Est Visual Field Examination(s) Office/outpatient Visit, Est Office/outpatient Visit, Est Visual Field Examination(s) Office/outpatient Visit, Est Eye Exam Established Pt Office/outpatient Visit, Est Office/outpatient Visit, Est Office/outpatient Visit, Est Office/outpatient Visit, Est Fundus Photography W/ Report Progressive Lens, Polycarb Oct- Frames Deluxe Tax - Medical Dec- Eye Exam & Treatment Dec- Refraction Visual Field Examination(s) Office/outpatient Visit, Est Optic Nerve Head Eval Eye Exam & Treatment Dec- Refraction Dec- Office/outpatient Visit, Est Visual Field Examination(s) Advance Directives Directive Yes / No Effective Date File Name No Information Encounters Encounter Description Practice Location Reason(s) For Visit Diagnoses Date Provider Providers Copied on Encounter [facility]pat [facility], [facility] [id number] [place] [address] [address], [place], [place], [id number], [place] tel:[phone] [facility] [place] No Information Jan-2 9-201 0 Elle Lopez. [address] [place] [address] , [address], [place], [place], [facility], . tel:[phone] Office/outpat ient Visit, [facility], [address] [place] [address] [address], [place], [place], [id number], [place] tel:[phone] [facility] [place] No Information 1 5-201 0 Elle Ednataliya. [address] [place] [address] Center , [address], [place], [facility], . tel:[phone] Office/outpat ient Visit, [facility], [address] [place] [address] [address], [place], [place], [id number], [place] tel:[phone] [facility] [place] No Information Dec-2 5-201 0 Elle Ednataliya. [address] [place] [address] Center , [address], [place], [facility], . tel:[phone] [facility], [address] [place] [address] [address], [place], [place], [address], [place] tel:[phone] [facility] [place] No Information Dec-0 7-201 0 Elle Lopez. [address] [place] [address] Center , [address], [place], [facility], [place]. tel:[phone] Referring Provider: John Palma, [address] [place], [place] [address]ate Center [address], [place], [facility]. tel:[phone] Office/outpat ient Visit, [facility], [address] [place] [address] [address], [place], [place], [address], [place] tel:[phone] [facility] [place] No Information Santhosh-0 4-201 0 Elle Lopez. [address] [place] [address] , [address], [place], [facility], [place]. tel:[phone] Office[facility]outpat ient [facility], [facility], [address] [place] [address] [address], [place], [place], [address], [place] tel:[phone] SEC [facility] No Information 0 8-201 0 Elle Lopez. [address] [place] [address] , [address], [place], [facility], [place]. tel:[phone] [facility], [address] [place] [address] [address], [place], [place], [address], [place] tel:[phone] [facility] No Information 0 6-200 9 Elle Lopez. [address] [place] [address] , [address], [place], [facility], [place]. tel:[phone] Referring Provider: John Palma, [address] [place] [address] [address], [place], [facility]. tel:[phone] Office/outpat ient Visit, [facility], [address] [place] [address] [address], [place], [place], [address], [place] tel:[phone] [facility] No Information -200 9 Krishnasamy Carlos. [address] [place] [address] [address], [place], [facility], [place]. tel:[phone] [facility], [address] [place] [address] [address], [place], [place], [address], [place] tel:[phone] [facility] No Information 0 1-200 9 Krishnasamy Carlos. [facility] [address], [place], [facility], [place]. tel:[phone] Office/outpat ient Visit, [facility], [address] [place] [address] [address], [place], [place], [address], [place] tel:[phone] [facility] No Information Santhosh-1 0-200 9 Elle Lopez. [facility] , [address], [place], [facility], [place]. tel:[phone] Office/outpat ient Visit, [facility], [address], [place], [place], [address], [place] tel:[phone] [facility] No Information Santhosh-0 2-200 9 Violet Carlos. [facility] [address], [place], [facility], [place]. tel:[phone] Office/outpat ient Visit, [facility], [address], [place], [place], [address], [place] tel:[phone] [facility] [place] No Information 2 9-200 9 Elle Lopez. [address] [place] [address] Center , [address], [place], [facility], [place]. tel:[phone] Office/outpat ient Visit, [facility], [address], [place], [place], [address], [place] tel:[phone] [facility] [place] No Information May-1 1-200 9 Elle Lopez. [address] [place] [address] , [address], [place], [facility], [place]. tel:[phone] Referring Provider: John Palma, [address] [place], [place] [address]ate [address], [place], [facility]. tel:[phone] [facility], [address], [place], [place], [address], [place] tel:[phone] [facility] [place] No Information Oct-0 9-200 8 [employer]. [address] [facility], [address], [place], [place], [address], [place]. tel:[phone] Referring Provider: John Palma, [address] [place], [place] [address]ate [address], [place], [facility]. tel:[phone] sulting Provider: Freddy Rouse, [facility], [place], [address]. tel:[phone] [facility], [address] [place] [address] [address], [place], [place], [address], [place] tel:[phone] [facility] [place] No Information Dec-0 8-200 8 Elle Lopez. [address] [place], [place] [address]ate [place] , [address], [place], [facility], [place]. tel:[phone] [facility], [address] [place] [address] [address], [place], [place], [address], [place] tel:[phone] [facility] [place] No Information 9200 8 Elle Lopez. [address] [place], [place] [address], [place], [facility], [place]. tel:[phone] Referring Provider: John Palma, [address] [place], [place] [address]ate [address], [place], [facility]. tel:[phone] Office/outpat ient Visit, [facility], [address] [place] [address] [address], [place], [place], [address], [place] tel:[phone] [facility] [place] No Information 8-200 8 Elle Lopez. [address] [place], [place] [address]ate Center , [address], [place], [facility], [place]. tel:[phone] [facility], [address] [place] [address] [address], [place], [place], [address], [place] tel:[phone] [facility] No Information Dec-1 5-200 7 Elle Lopez. [address] [place], [place] [address]ate Center , [address], [place], [facility], [place]. tel:[phone] Office/outpat ient Visit, Est [facility], [address], [place], [place], [address], [place] tel:[phone] [facility] No Information 200 7 Elle Lopez. [address] [place] [address] , [address], [place], [facility], . tel:[phone] [facility], [address], [place], [place], [address], [place] tel:[phone] [facility] No Information 7 Elle Lopez. [address] [place] [address] , [address], [place], [facility], . tel:[phone] Referring Provider: John Palma [address] [place], [place] [address] [address], [place], [facility]. tel:[phone] Family History Family Member Type Diagnosis Age At Onset No Information Payers Payer name Insurance type Covered democrat ID Authoriza nanisneha(s) [facility] Out Of State 09 [id number] Social History Type Description Quantity Date Captured Comments Sex Female Smoking Status No Information Chief Complaint And Reason For Visit No Information Reason For Referral Reason For Referral No Information History Of Present Illness Encounter Date Complaint History Of Prese nt Illness No Information Functional Status Date Functional Assessmen t No Information Instructions Date Instruction Additional Infor mation No Information Assessments Type Assessment Date No Information Patient Care Teams Name Effective Dates (start - stop) Status Members No Information
--- OUTSIDE RECORDS SUMMARY | 2024-04-08 16:59 | XMS_ITS | Patient Health Record ---
Author Organization [facility] As [email or web address] Address [address] [place] [address] Care Team Providers Care Utility Mechanic Supervisor Name Role Phone Tremaine Snyder MD Primary Care Provider UnavailSalvatore Issa Unavailable [phone] Praveena Zhong Unavailable [phone] Migration, Provider Unavailable Unavailable Reason For Referral No Information Medications Medication SIG (Take, Route, Frequency, Duration) Notes Start Date End Date Status metFORMIN HCl 1000 MG Oral 07/24/2023 Active Vitamin D3 Super Strength 50 MCG (1999 UT) Oral 07/24/2023 Active Atorvastatin Calcium 20 MG Oral 07/24/2023 Active Enalapril Maleate 2.5 MG Oral 07/24/2023 Active Fiasp FlexTouch 100 unit/mL (3 mL) Subcutaneous *Pick strength-form from [employer] for eRX* 07/24/2023 Active BD MELVA 2ND GEN PEN NEEDLE 32 GAUGE X 5/32 *Reorder from [employer] for eRx and Interaction Alerts* 07/24/2023 Active Vitamin B12 *Pick strength-form from Nubankan for eRX* 07/24/2023 Active clonazePAM 2 MG Oral 07/24/2023 Act stu DULoxetine HCl 60 MG 1 capsule Oral Once a day for 90 days 07/24/2023 Active Tresiba FlexTouch 200 UNIT/ML Subcutaneous 07/24/2023 Active Glimepiride 2 MG Oral 07/24/2023 Ac tive FREESTYLE ELIDA 2 SENSOR KIT *Reorder from [employer] for eRx and Interaction Alerts* 07/24/2023 Active Nystatin 041578 UNIT/GM External 07/24/2023 Active Ozempic (2 MG/DOSE) 8 MG/3ML Subcutaneous *Reorder from [facility] for eRx and Interaction Alerts* 07/24/2023 Active Calcium Citrate 200 mg (950 mg) Oral *Pick strength-form from [employer] for eRX* 07/24/2023 Active Immunizations Vaccine Route Administration Date Status Comme nts Td (adult) Unknown 11/07/2019 Administered Social History Tobacco Use: Social History Observation Description Date Details (start date - stop date) Current Smoker NA - NA Sex Assigned At : Social History Observation Description Sex Assigned At Female Tobacco Control (Standard) Question Answer Notes Tobacco use: Current smoker Problems Problem Type SNOMED Code ICD Code Onset Dates Problem Status W/U Status Risk Notes Problem Mild recurrent major depression (51500506) Major depressive disorder, recurrent, mild (F33.0) Active confirmed Problem Generalized anxiety disorder (84337593) Generalized anxiety disorder (F41.1) Active confirmed Vital Signs Heart Rate 93 /min 07/24/2023 Height-cm 170.18 cm 11/20/2023 Blood pressure diastolic 83 mm Hg 07/24/2023 Weight-kg 91.17 kg 07/24/2023 Height 67.00 in 11/20/2023 Blood pressure systolic 134 mm Hg 07/24/2023 Weight 201.00 lbs 07/24/2023 BMI 31.5 kg/m2 07/24/2023 Encounters Encounter Location Date Provider Diagnosis [facility] [address] [address] 01/17/2024 Praveena Hemann Major depressive disorder, recurrent, mild F33.0 and Generalized anxiety disorder F41.1 [facility] [address] [address] 04/20/2023 Provider Migration Major depressive disorder, recurrent, moderate F33.1 [facility] [address] [facility] [address] [place] [address] 06/06/2023 Praveena Hemann Major depressive disorder, recurrent, moderate F33.1 and Generalized anxiety disorder F41.1 [facility] [address] [address] 07/03/2023 Praveena Hemann Major depressive disorder, recurrent, moderate F33.1 and Generalized anxiety disorder F41.1 [facility], [facility] [address] [place] [address] 07/24/2023 Praveena Hemann Major depressive disorder, recurrent, moderate F33.1 ; Major depressive disorder, recurrent, mild F33.0 ; Insomnia due to other mental disorder F51.05 and Generalized anxiety disorder F41.1 [facility], [facility] [address] [place] [address] 07/24/2023 Salvatore Copelandoza [facility], [facility] [address] [place] [address] 08/15/2023 Praveena Hemann Generalized anxiety disorder F41.1 and Major depressive disorder, recurrent, mild F33.0 [facility], [facility] [address] [place] [address] 08/29/2023 Praveena Hemann Generalized anxiety disorder F41.1 and Major depressive disorder, recurrent, mild F33.0 [facility], [facility] [address] [address] 09/12/2023 Praveena Hemann Major depressive disorder, recurrent, mild F33.0 and Generalized anxiety disorder F41.1 [facility], [facility] [address] [facility] [address] [place] [address] 09/24/2023 Praveena Hemann Major depressive disorder, recurrent, mild F33.0 and Generalized anxiety disorder F41.1 [facility], [facility] [address] [place] [address] 11/20/2023 Salvatore Johnson Generalized anxiety disorder F41.1 ; Major depressive disorder, recurrent, mild F33.0 and Insomnia due to other mental disorder F51.05 [facility], [facility] [address] [place] [address] 11/20/2023 Praveena Hemann Major depressive disorder, recurrent, mild F33.0 and Generalized anxiety disorder F41.1 [facility], [facility] [address] [place] [address] 12/05/2023 Praveena Hemann Major depressive disorder, recurrent, mild F33.0 and Generalized anxiety disorder F41.1 [facility], [facility] [address] [place] [address] 01/03/2024 Praveena Hemann Major depressive disorder, recurrent, mild F33.0 and Generalized anxiety disorder F41.1 [facility], [facility] [address] [place] [address] 01/31/2024 Praveena Hemann Major depressive disorder, recurrent, mild F33.0 and Generalized anxiety disorder F41.1 [facility], [facility] [address] [place] [address] 02/14/2024 Praveena Hemann Major depressive disorder, recurrent, mild F33.0 and Generalized anxiety disorder F41.1 [facility], [facility] [address] [place] [address] 03/26/2024 Praveena Hemann Major depressive disorder, recurrent, mild F33.0 and Generalized anxiety disorder F41.1 [facility], [facility] [address] [facility] [address] [place] [address] 04/08/2024 Salvatore Johnson [facility], [facility] [address] [address] 04/17/2023 Provider Migration [facility], [facility] [address] [address] 04/19/2023 Provider Migration [facility], [facility] [address] [facility] [address] [place] [address] 05/03/2023 Provider Migration [facility], [facility] [address] [address] 05/04/2023 Provider Migration [facility], [facility] [address] [address] 07/28/2023 Provider Migration [facility], [facility] [address] [address] 07/29/2023 Provider Migration [facility], [facility] [address] [facility] [address] [place] [address] 03/07/2024 Salvatore Johnson [facility], [facility] [address] [address] 03/27/2024 Salvatore Johnson Assessments Encounter Date Diagnosis (ICD Code) Assessment Notes Treatment Notes Treatment Clinical Notes Section Notes 04/20/2023 Major depressive disorder, recurrent, moderate (ICD-10 - F33.1) 06/06/2023 Major depressive disorder, recurrent, moderate (ICD-10 - F33.1) 06/06/2023 Generalized anxiety disorder (ICD-10 - F41.1) 07/03/2023 Major depressive disorder, recurrent, moderate (ICD-10 - F33.1) 07/03/2023 Generalized anxiety disorder (ICD-10 - F41.1) 07/24/2023 Major depressive disorder, recurrent, mild (ICD-10 - F33.0) 07/24/2023 Major depressive disorder, recurrent, moderate (ICD-10 - F33.1) 07/24/2023 Generalized anxiety disorder (ICD-10 - F41.1) 07/24/2023 Insomnia due to other mental disorder (ICD-10 - F51.05) 08/15/2023 Major depressive disorder, recurrent, mild (ICD-10 - F33.0) 08/15/2023 Generalized anxiety disorder (ICD-10 - F41.1) 08/29/2023 Major depressive disorder, recurrent, mild (ICD-10 - F33.0) 08/29/2023 Generalized anxiety disorder (ICD-10 - F41.1) 09/12/2023 Major depressive disorder, recurrent, mild (ICD-10 - F33.0) 09/12/2023 Generalized anxiety disorder (ICD-10 - F41.1) 09/24/2023 Major depressive disorder, recurrent, mild (ICD-10 - F33.0) 01/03/2024 Major depressive disorder, recurrent, mild (ICD-10 - F33.0) 01/03/2024 Generalized anxiety disorder (ICD-10 - F41.1) 01/17/2024 Major depressive disorder, recurrent, mild (ICD-10 - F33.0) 01/17/2024 Generalized anxiety disorder (ICD-10 - F41.1) 01/31/2024 Major depressive disorder, recurrent, mild (ICD-10 - F33.0) 01/31/2024 Generalized anxiety disorder (ICD-10 - F41.1) 02/14/2024 Major depressive disorder, recurrent, mild (ICD-10 - F33.0) 02/14/2024 Generalized anxiety disorder (ICD-10 - F41.1) 03/26/2024 Major depressive disorder, recurrent, mild (ICD-10 - F33.0) 03/26/2024 Generalized anxiety disorder (ICD-10 - F41.1) 11/20/2023 Major depressive disorder, recurrent, mild (ICD-10 - F33.0) 11/20/2023 Major depressive disorder, recurrent, mild (ICD-10 - F33.0) cont Duloxetine 60mg daily 1. Anxiety: - Patient reports increased anxiety due to running low on clonazepam. Plan: - Continue duloxetine 60 mg daily for anxiety management. - Monitor patient's anxiety levels and adjust treatment as needed. 2. Insomnia: - Patient is taking clonazepam 2 mg at bedtime for insomnia, prescribed by primary care provider. Plan: - Continue clonazepam 2 mg at bedtime for insomnia. - Monitor sleep quality and adjust treatment as needed. Overall Plan: - Encourage the patient to maintain regular follow-ups with their primary care provider and specialists as needed. - Monitor and address any new concerns or changes in the patient's condition. 11/20/2023 Generalized anxiety disorder (ICD-10 - F41.1) stable 1. Anxiety: - Patient reports increased anxiety due to running low on clonazepam. Plan: - Continue duloxetine 60 mg daily for anxiety management. - Monitor patient's anxiety levels and adjust treatment as needed. 2. Insomnia: - Patient is taking clonazepam 2 mg at bedtime for insomnia, prescribed by primary care provider. Plan: - Continue clonazepam 2 mg at bedtime for insomnia. - Monitor sleep quality and adjust treatment as needed. Overall Plan: - Encourage the patient to maintain regular follow-ups with their primary care provider and specialists as needed. - Monitor and address any new concerns or changes in the patient's condition. 12/05/2023 Major depressive disorder, recurrent, mild (ICD-10 - F33.0) 12/05/2023 Generalized anxiety disorder (ICD-10 - F41.1) 11/20/2023 Insomnia due to other mental disorder (ICD-10 - F51.05) cont clonazepam 2mg daily at bedtime by pcp 1. Anxiety: - Patient reports increased anxiety due to running low on clonazepam. Plan: - Continue duloxetine 60 mg daily for anxiety management. - Monitor patient's anxiety levels and adjust treatment as needed. 2. Insomnia: - Patient is taking clonazepam 2 mg at bedtime for insomnia, prescribed by primary care provider. Plan: - Continue clonazepam 2 mg at bedtime for insomnia. - Monitor sleep quality and adjust treatment as needed. Overall Plan: - Encourage the patient to maintain regular follow-ups with their primary care provider and specialists as needed. - Monitor and address any new concerns or changes in the patient's condition. 11/20/2023 Generalized anxiety disorder (ICD-10 - F41.1) 09/24/2023 Generalized anxiety disorder (ICD-10 - F41.1) Plan Of Treatment Next Appt Details Provider Name:Praveena Zhong, 04/09/2024 10:00:00 AM, [address], [place] [address], [place], [address], Provider Name:Salvatore day, 04/09/2024 11:30:00 AM, [address], [address], [place], [address], Provider Name:Praveena Pradoalphonse, 04/23/2024 10:00:00 AM, [address], [address], [place], [address], Provider Name:Praveena Pradoalphonse, 05/07/2024 01:00:00 PM, [address], [address], [place], [address], Provider Name:Praveena Pradoalphonse, 05/21/2024 01:00:00 PM, [address], [address], [place], [address], Insurance Providers Payer Name Payer Address Payer Phone Subscriber Number Group Number Insured Name Patient Relationship to Insured Coverage Start Date Coverage End Date Medicare-I l Medicare [address] [place] [address] [id number] ARANZA CHAHAL Self - patient is the insured [facility] [place] [address] [facility] [place] [address] [id number] ARANZA CHAHAL Self - patient is the insured Medical (General) History Surgical History Surgery Date(Month/Year) Cataract surgery (98203) 03/12/2012 Cardiac pacemaker procedure ([id number]) 03/19/2023 Any surgical history 10/11/2019
--- OUTSIDE RECORDS SUMMARY | 2024-04-08 16:59 | XMS_ITS | Clinical Summary ---
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 Surgical History Surgery Date Site/Laterality Comments EYE SURGERY Eye Surgery - Laser Surgery-drains in left & right eye (2001) and Laser Surgery - tickle right eye for fluid drainage 02/2010 (Added by TW Conv) Medical History Medical History Date Comments History of recurrent pneumonia P neumonia - (Added by TW Conv) Tobacco abuse counseling Encount er for smoking cessation counseling - (Added by TW Conv) Hypertension High cholesterol Diabetes (HCC) Depression Scleritis GERD (gastroesophageal reflux disease) 03/19/2023 COPD (chronic obstructive pu lmonary disease) (HCC) Type 2 diabetes mellitus (HCC) 03/19/2023 Family History Medical History Relation Name Comments Cancer Father Cancer - (Added by TW Conv) Diabetes Father's Brother Diabetes Me llitus - Dx: @ age of 70+ : great aunts (Added by TW Conv) Colon cancer Father's Sister Malignant Ne oplasm, Colon - 1966, also first cousin (Added by TW Conv) Diabetes Other 1 Diabetes Mellit us - (Added by TW Conv) Osteoporosis Other 2 Family history of osteoporosis - (Added by TW Conv) Relation Name Status Comments Father Father's Brother Father's Sister Other 1 Other 2 Social History Tobacco Use Types Packs/Day Years Used Date Smoking Tobacco: Every Day Cigarettes Smokeless Tobacco: Current Tobacco Cessation:Ready to Q uit: Not Asked; Counseling Given: Not Answered Alcohol Use Standard Drinks/Week Comments Yes 0 (1 standard drink = 0.6 oz pur e alcohol) occasional C Utilities Answer Date Recorded In the past 12 months has th e electric, gas, oil, or water Optimitive threatened to shut off services in your [...] often do you attend chur ch or scientology services? Never 03/20/2023 Do you belong to any clubs o r organizations such as anabaptism groups, unions, fraternal or athletic groups, or [...] place to sleep or slept in a fdc (including now)? No 03/20/2023 Personal Safety Answer Date Recorded Have you ever been in or are you currently in a harmful physical or emotional relationship or is someone making you feel afraid or unsafe? Denies 03/18/2023 Comments Unknown Sex and Gender Information Value Date Recorded Sex Assigned at Not on file Legal Sex Female 3:36 AM AVIATION PROJECT MANAGER Gender Identity Not on file Sexual Orientation Straight 06/15/2023 11 :06 AM CDT Obstetrics History Last Filed Vital Signs Vital Sign Reading [...] 06/26/2023 9:58 AM CDT Plan of Treatment Health Maintenance Due Date Last Done Comments Albumin Creatinine Ratio, Urine 1956 Colon Cancer Screening-Colonoscopy 1956 Depression Screening 1956 Hepatitis C Screening 1956 Osteoporosis Screening-Bone Density Scan 1956 Dilated Eye Exam 1956 Foot Exam 1956 Lipid Panel 1956 Pneumococcal vaccine 65+ (1 of 2 - PCV) 1962 Hepatitis B Screening 1974 Zoster Vaccine (1 of 2) 2006 Breast Cancer Screening-Mammogram 09/25/2014 014, 04/24/2012 Well Visit 65+ 2021 Hemoglobin A1C 09/17/2023 03/19/2023, 11/24/2019 Influenza Vaccine (#1) 2023 eGFR 03/19/2024 03/19/2023, 11/18/2019 Fall Risk Assessment 03/20/2024 03/20/2023 DTaP/Tdap/Td Vaccine (2 - Td or Tdap) 11/06/2029 Medical Devices Implanted Type Area Merchandise Shopper Device Identifier Shelf Expiration Date Model / Serial / Lot Synthes 107.102 Lcp Combi 73mm 2 Hole Variable Angle Taper Tip Round Profile - [id number] Implanted:Qty: 1 on 11/27/2019 by Hollis Warren MD at [facility] Left: Olecranon Synthes I / / Synthes 2.7mm 16mm Self Tap Lock Variable Angle Stardrive T8 Screw Bone - [id number] Implanted:Qty: 1 on 11/27/2019 by Hollis Warren MD at [facility] Left: Olecranon Synthes I / / Synthes 2.7mm 18mm Self Tap Lock Variable Angle Stardrive T8 Screw Bone - [id number] Implanted:Qty: 2 on 11/27/2019 by Hollis Warren MD at [facility] Left: Olecranon Synthes I 8 / / Depuy Synthes Locking Screw Implanted:Qty: 1 on 11/27/2019 by Hollis Warren MD at [facility] Left: Olecranon Synthes I [id number] / / Description:[facility] ITEM# [id number] ; FLAGGED ON 11/28/19 CHARGE CODE ASSIGNED [id number] Synthes 204.826 3.5mm 6mm 26mm 2.5mm Self Tap Small Hexagonal Socket Low Profile - [id number] Implanted:Qty: 1 on 11/27/2019 by Hollis Warren MD at [facility] Left: Olecranon Synthes I 204.826 / / Synthes 212.107 3.5mm 2.9mm 22mm Self Tap Lock Stardrive Conical Head T15 Full - [id number] Implanted:Qty: 1 on 11/27/2019 by Hollis Warren MD at [facility] Left: Olecranon Synthes I 212.107 / / [employer] Device Clsr Perclose Prostyle Sut-Mediatd Closure-Repair Sys 82407-54 - [id number] Implanted:Qty: 1 on 03/19/2023 by Dev Vasquez MD at [facility] Vascular 12/09/2024 [id number] / / [id number] [employer] Device Clsr Perclose Prostyle Sut-Mediatd Closure-Repair Sys 44546-93 - [id number] Implanted:Qty: 1 on 03/19/2023 by Dev Vasquez MD at [facility] 12/09/2024 96542-88 / / [id number] Med[employer] Katie Av_Vr Leaderless Pacer - [id number] Implanted:Qty: 1 on 03/19/2023 by Dev Vasquez MD at [facility] Med[employer] Inc [id number] / / Procedures Procedure Name Priority Date/Time Associated Diagnosis Comments EGFR Routine 03/19/2023 5:16 AM AVIATION PROJECT MANAGER HEMOGLOBIN A1C Routine 03/19/2023 5:16 AM AVIATION PROJECT MANAGER DIAGNOSTIC MAMMOGRAM BILATERAL W DEV Routine 09/25/2013 11:58 AM CDT from Last 3 Months or Most Recently Relevant to Health Maintenance Results * eGFR (03/19/2023 5:16 AM AVIATION PROJECT MANAGER) eGFR 104 mL/min/1. 73 m2 YEIMI CALIX [...] last reviewed 2021. Blood 03/19/2023 5:16 AM AVIATION PROJECT MANAGER 03/19/2023 5:22 AM AVIATION PROJECT MANAGER us Lisa Oates NP LAB BLOOD ORDERABLES Chacha l Result YEIMI CALIX [address] [place] [address] * (ABNORMAL) Hemoglobin A1c (03/19/2023 5:16 AM AVIATION PROJECT MANAGER) Pathologist [facility] Hgb A1C 8.9(H) 4.0 - 5.6 % YEIMI CALIX Estimated Average Glucose 209 mg/dL YEIMI CALIX Comment: The ADA recommends reporting an estimated Average Glucose (eAG) with all Hemoglobin A1c results using the equation derived from a study of 507 normal and diabetic adults. ??Minority populations were underrepresented and children were not included. ?? (Diabetes Care 31:0263-9799, 2008). ??The eAG is not equivalent to a fasting glucose. Blood 03/19/2023 5:16 AM AVIATION PROJECT MANAGER 03/19/2023 5:22 AM AVIATION PROJECT MANAGER us Lisa Oates NP LAB BLOOD ORDERABLES Chacha bhandari Result YEIMI CALIX [address] [facility] [place] [address] * DIAGNOSTIC MAMMOGRAM BILATERAL W DEV (09/25/2013 11:58 AM CDT) Anatomical Region Laterality Modality Breast Bilateral Mammography 09/25/2013 11:5 8 AM CDT Narrative 09/25/2013 4:54 PM CDT Acc#: ??[id number] [facility] 0034 - Screening Mamm W Dev [...] ?? BHAVIN SCHMITT, TECHNOLOGIST MEDICAL IMAGING PRN PATCHER WOOD WELDER: ??DM2 TRANSCRIBE DATE/TIME: ??Sep 25 2013 ??4:02P RADIOLOGIST: ??KIM HART M.D. ??READ ON: ??Sep 25 2013 ??3:50P ORDERING DR: AMIE FELIZ M.D. THIS DOCUMENT HAS BEEN ELECTRONICALLY SIGNED BY: ??KIM HART M.D. ??ON: ??Sep 25 2013 ??4:54P ? PATCHER WOOD WELDER: ??DM2 TRANSCRIBE DATE/TIME: ??Sep 25 2013 ??4:02P RADIOLOGIST: ??KIM HART M.D. ??READ ON: ??Sep 25 2013 ??3:50P ORDERING DR: AMIE FELIZ M.D. THIS DOCUMENT HAS BEEN ELECTRONICALLY SIGNED BY: ??KIM HART M.D. ??ON: ??Sep 25 2013 ??4:54P Requesting Fax: ??[phone] Procedure Note Provider, MD Patricia - 07/03/2016 Acc#: [id number] [facility] 0034 - Screening Mamm W Dev [...] TECHNOLOGIST: BHAVIN SCHMITT, TECHNOLOGIST MEDICAL IMAGING PRN PATCHER WOOD WELDER: NAUN TRANSCRIBE DATE/TIME: Sep 25 2013 4:02P RADIOLOGIST: KIM HART M.D. READ ON: Sep 25 2013 3:50P ORDERING DR: AMIE FELIZ M.D. THIS DOCUMENT HAS BEEN ELECTRONICALLY SIGNED BY: KIM HART M.D. ON: Sep 25 2013 4:54P PATCHER WOOD WELDER: NAUN TRANSCRIBE DATE/TIME: Sep 25 2013 4:02P RADIOLOGIST: KIM HART M.D. READ ON: Sep 25 2013 3:50P ORDERING DR: AMIE FELIZ M.D. THIS DOCUMENT HAS BEEN ELECTRONICALLY SIGNED BY: KIM HART M.D. ON: Sep 25 2013 4:54P Requesting Historical Provider IMMelba MAMMO PROCEDURES Chacha l Result from Last 3 Months or Most Recently Relevant to Health Maintenance Insurance [place] [address] Advance Directives For more information, please contact: [phone] * Full Code (Latest Code Status on File) Date Activated Date Inactivated Comments 03/19/2023 1:43 AM 03/20/2023 7:08 PM Care Teams Workforce Management Manager Relationship Specialty Start Date End Date Tremaine Snyder MD [address] [place] [address] [address] [place] [address] PCP - General Family Medicine 11/11/19 Philip Mena NP [address] [place] [address] [address] [place] [address] Nurse Practitioner Nurse Practitioner 11/27/19
--- NOTE | 2024-04-08 17:01 | PCRCNOTE ---
ARRIVED TO DRAW THE ABG AND HAD TO WAIT FOR THE R.N. TO GET AN IV AND DRAW SOME BLOOD.
[2024-04-08] MEDS: SODIUM CHLORIDE 0.9% IV 2,000 ML 999 ML IV CONT (17:05)
[2024-04-08 17:32] LABS: Alveolar/Arterial O2 Gradient 39.3 mmHg; Base Excess ABG -1.6 mEq/l (+/-2.0); Fractional Inspired Oxygen 21 %; HCO3 ABG 22.5 mEq/l (22.0-26.0); Oxygen Content ABG 21.7 %vol (16.0-22.0); Oxygen Saturation ABG 93.5 % (95.0-100.0); Oxyhemoglobin 91.3 % THb (90.0-100.0); PCO2 ABG 36.4 mmHg (35.0-45.0); PO2 ABG 66.8 mmHg (80.0-100.0); PO2 FiO2 Ratio Arterial Blood 3.18 %; Total Hemoglobin 16.9 g/dL (12.0-18.0); pH ABG 7.408 (7.350-7.450)
[2024-04-08 17:33] LABS: Device ROOM AIR; Site Drawn RIGHT BRACHIAL
[2024-04-08 17:44] LABS: Basophils Percent Auto 0.3 % (0.2-1.2); Eosinophils Percent Auto 0.1 % (0-4.4); Hematocrit 50.4 % (37.0-47.0); Hemoglobin 16.6 g/dL (12.0-15.0); Immature Granulocyte Absolute 0.04 K/mm3 (0.00-0.031); Immature Granulocyte Percent A 0.3 % (0-0.5); Immature Platelet Fraction Pct 2.5 % (0.9-11.2); Lymphocytes Absolute Auto 0.93 K/mm3 (0.9-3.2); Lymphocytes Percent Auto 5.9 % (18.3-44.2); Mean Corpuscular HGB Conc 32.9 g/dl (32-36); Mean Corpuscular Hemoglobin 30.8 pg (26-34); Mean Corpuscular Volume 93.5 fl (80-100); Mean Platelet Volume 10.1 fl (7.4-10.4); Monocytes Absolute Auto 1.3 K/mm3 (0.1-0.6); Monocytes Percent Auto 8.5 % (2.6-8.5); Neutrophils Absolute Auto 13.3 K/mm3 (1.3-6.7); Neutrophils Percent Auto 84.9 % (45.5-73.1); Platelet Count Result 321 k/mm3 (150-375); Red Blood Count 5.39 M/mm3 (4.2-5.4); Red Cell Distribution Width 13.3 % (11.5-14.5); White Blood Count 15.7 K/mm3 (4.5-10.0)
[2024-04-08 17:49] LABS: Add Urine Microscopic? NO; Appearance Urine Clear (Clear); Bilirubin Urine Negative (Negative); Blood Urine Negative (Negative); Color Urine Yellow (Yellow); Glucose Urine UA 3+ mg/dL (Negative); Ketones Urine 1+ mg/dL (Negative); Leukocyte Esterase Ur Negative LEU/UL (Negative); Nitrate Urine Negative (Negative); Protein Urine Negative (Negative); Specific Grav Ur 1.033 (1.001-1.035); Urobilinogen Urine 0.2 mg/dL (<2.0)
[2024-04-08 17:53] LABS: Acetaminophen < 10 ug/mL (10-30); Ethanol < 10 mg/dL (<10); Lactic Acid Reflex 1.2 mmol/L (0.7-2.0); Salicylate < 1.0 mg/dL (2-20)
[2024-04-08 18:02] LABS: Alanine Aminotransferase 82 U/L (6-35); Albumin Level 3.6 g/dL (3.5-5.1); Alkaline Phosphatase 157 U/L (38-126); Anion Gap 14 mmol/L (4-12); Aspartate Amino Transferase 57 U/L (14-36); Bilirubin,Total 0.8 mg/dL (0.2-1.3); Blood Urea Nitrogen 38 mg/dL (7-17); Calcium 9.3 mg/dL (8.4-10.2); Carbon Dioxide 26 mmol/L (22-30); Chloride 98 mmol/L (98-107); Creatine Kinase 944 U/L (30-135); Estimated CRCL calculation 69 ml/min; Estimated Glomerular Filt Rate > 60; Glucose 412 mg/dL (65-110); Lipase 16 U/L (23-300); Phosphorus 5.7 mg/dL (2.5-4.5); Potassium 5.1 mmol/L (3.4-5.0); Sodium 138 mmol/L (137-145)
[2024-04-08 18:10] LABS: NT Pro B Type Natriuretic Pept 14600 pg/mL (19.9-100); Prothrombin Time 13.3 Seconds (11.1-14.7); Troponin I 0.182 ng/mL (0.000-0.034)
[2024-04-08 18:21] LABS: Amphetamine Screen Urine Negative (Negative); Barbiturate Screen Urine Negative (Negative); Benzodiazepines Screen Urine Negative (Negative); Cannabinoid Screen Urine Negative (Negative); Cocaine Screen Urine Negative (Negative); Methadone Screen Urine Negative (Negative); Opiate Screen Urine Negative (Negative); Phencyclidine Screen Urine Negative (Negative)
[2024-04-08 18:42] LABS: Partial Thromboplastin Time < 20.0 Seconds (22.3-36.8)
[2024-04-08 19:07] LABS: Influenza A QL RT-PCR Negative (Negative); Influenza B QL RT-PCR Negative (Negative); RSV RNA, RT-PCR Negative (Negative); SARS-CoV-2 RNA PCR Negative (Negative)
--- NOTE | 2024-04-08 19:51 | ED.GENADULT ---
HPI - General Adult General Chief complaint: Fall Stated complaint: weakness Time Seen by Provider: 04/08/24 16:42 History of Present Illness HPI narrative: This is a 68-year-old female presenting after being found down at her apartment. No and seen her for 12 hours and a friend checked on her. She was found laying on her floor covered in feces. She is confused. She does not remember what happened. She is denying any physical complaints at this time. Patient says she does not remember what happened. The patient herself is denying any complaints at this time. Per her good friend and neighbor she has not been doing well over the last several weeks. She has been continuing to lose weight and has been working the primary care physician with this. Her friend did not say she had been complaining of any symptoms such as shortness of breath cough URI symptoms chest pain difficulty breathing abdominal pain over last several days. Related Data Home Medications ?Medication ?Instructions ?Recorded ?Confirmed ?Last Taken ?Type ibuprofen 200 mg capsule 200 mg PO Q6H PRN Pain 11/17/20 03/22/24 02/20/23 History loratadine 5 mg-pseudoephedrine ER 1 tablet PO Q12H PRN allergies 10/19/21 03/22/24 02/27/23 History 120 mg tablet,extended release,12hr (Claritin-D 12 Hour) cholecalciferol (vitamin D3) 25 25 mcg PO DAILY 08/14/22 03/22/24 03/15/23 09:00 History mcg (1,000 unit) capsule mecobalamin (vitamin B12) 500 mcg 500 mcg PO DAILY 08/14/22 03/22/24 03/15/23 09:00 History chewable tablet Gas x BYMOUTH 04/16/23 03/22/24 Unknown History duloxetine 60 mg capsule,delayed 60 mg PO DAILY 07/05/23 03/22/24 Unknown History release Allergies Allergy/AdvReac Type Severity Reaction Status Date / Time No Known Allergies Allergy Verified 03/20/24 13:09 [facility] Past Medical History Medical History Pacemaker Hyperlipidemia Chronic obstructive pulmonary disease Burst fracture of thoracic vertebra Obesity (BMI 30-39.9) Depression Osteopenia after menopause Type 2 diabetes mellitus Allergic rhinitis Post-menopausal Vitamin B12 deficiency Vitamin D deficiency Headache, migraine Chronic GERD Essential (primary) hypertension Keratosis Glomerulonephritis Anxiety Surgical History Surgical History S/P placement of cardiac pacemaker Status cardiac pacemaker Status post cataract extraction of both eyes with insertion of intraocular lens (~2018) History of elbow surgery (~2019) ORIF Family History Family History Mother Family history of multiple sclerosis Depression Multiple sclerosis Sibling Family history of ulcerative colitis Hypertension Ulcerative (chronic) ileocolitis Father Family history of cardiovascular disease Carcinoma of colon Grandparent Emphysema lung Grandparent Cerebrovascular accident Social History Social History (Updated 03/20/24 @ 13:15 by Nini Paula MA) Social History: The patient is single and has never been . She does not have any children. 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 She has smoked 1.5 packs per day since her mid 20s. She denies any significant alcohol or drug use. She does not have any pets but takes care of a feral cat colony. Code status: DNR/DNI Healthcare power of ip technology transactions attorney: Asher (friend) Smoking packs per day: 2 Smoking cigarettes per day: 40.0 Years smoked: 43 Smoking pack-years: 86.00 Smoking status: Current every day smoker Tobacco type: cigarettes Second hand tobacco smoke exposure: No Alcohol intake: never Alcohol use details: rarely Substance use: never Substance use type: does not use Do You Feel Safe in your Home?: Yes Lack of Transportation: No Lack of Food: Never True Current Housing: I Have Housing Concerned About Future Housing: No Difficulty Paying Gas/Electric Bills: No Difficulty Paying for Meds: No Currently Unemployed: No Education: High School Diploma/GED Difficulty w/ Childcare or Family Care: No Living arrangements: alone Occupation/Education: retired Gender identity (if verbalized by the patient): Female Sexual Orientation (if Verbalized by the Patient): Straight or Heterosexual Spiritual care concerns: No Exam Narrative: APPEARANCE: Patient is disheveled, covered in feces and foul-smelling Head: atraumatic. EYES: EOMI, swelling over the left eye NOSE: Atraumatic NECK: Trachea midline RESPIRATORY: No increased rate of breathing CTAB CARDIOVASCULAR: RRR, no peripheral edema ABDOMINAL: Non-distended soft nontender MUSCULOSKELETAl: No obvious deformities NEURO: Alert. Moving 4/4 extremities SKIN:: Diffuse skin breakdown with multiple scratches and rashes around pubic area PSYCHIATRIC: Normal affect Course Vital Signs Vital signs: Vital Signs Temperature 96.0 F L 04/08/24 16:09 Pulse Rate 80 04/08/24 16:09 Respiratory Rate 17 04/08/24 16:09 Blood Pressure 103/62 04/08/24 16:09 Pulse Oximetry 99 04/08/24 16:09 Oxygen Delivery Room Air 04/08/24 16:09 Temperature 100.7 F H 04/08/24 18:31 Pulse Rate 82 04/08/24 20:12 Respiratory Rate 20 04/08/24 20:12 Blood Pressure 110/53 L 04/08/24 20:12 Pulse Oximetry 99 04/08/24 20:12 Oxygen Delivery Room Air 04/08/24 16:09 Medical Decision Making MDM Narrative Medical decision making narrative: -Course: 68-year-old female found down in her apartment. Broad workup obtained. Significant for white count of 14.7 and she was febrile 100.7. Patient given 30 cc/kilogram bolus and started on broad-spectrum antibiotics while there workup was being completed. Workup significant for white count of 15.7. No clear source of infection. CT chest abdomen pelvis showed large amount of stool in due to a dynamic illness. No clear pneumonia on her lung windows. Viral swabs were negative. Urinalysis was not indicative infection. Patient's skin is not have any cellulitis although she does have significant skin breakdown from feces. Troponin elevated [place] 0.[address] [place] [address]. Review old Echo 02/21 shows normal EF and mild diastolic dysfunction. Patient is not overtly fluid overloaded and has no respiratory complaints at this time. Patient will be admitted to the hospital for sepsis of unknown etiology and failure to thrive. Her friend does not feel that she is safe to live at home at this time. -DDX includes but is not limited to: Sepsis, UTI, dehydration, pneumonia, viral syndrome, bacteremia -Co-morbidities complicating care: Failure to thrive, COPD Vital Signs Vital Signs: Vital Signs Temperature 96.0 F L 04/08/24 16:09 Pulse Rate 80 04/08/24 16:09 Respiratory Rate 17 04/08/24 16:09 Blood Pressure 103/62 04/08/24 16:09 Pulse Oximetry 99 04/08/24 16:09 Oxygen Delivery Room Air 04/08/24 16:09 Temperature 100.7 F H 04/08/24 18:31 Pulse Rate 82 04/08/24 20:12 Respiratory Rate 20 04/08/24 20:12 Blood Pressure 110/53 L 04/08/24 20:12 Pulse Oximetry 99 04/08/24 20:12 Oxygen Delivery Room Air 04/08/24 16:09 Lab Data 04/08/24 17:36 04/08/24 17:36 Labs: Lab Results 04/08/24 Range/Units 17:36 WBC 15.7 H (4.5-10.0) K/mm3 RBC 5.39 (4.2-5.4) M/mm3 Hgb 16.6 H (12.0-15.0) g/dL Hct 50.4 H (37.0-47.0) % MCV 93.5 (80-100) fl MCH 30.8 (26-34) pg MCHC 32.9 (32-36) g/dl RDW 13.3 (11.5-14.5) % Plt Count 321 D (150-375) k/mm3 MPV 10.1 (7.4-10.4) fl Immature Gran % (Auto) 0.3 (0-0.5) % Neut % (Auto) 84.9 H (45.5-73.1) % Lymph % (Auto) 5.9 L (18.3-44.2) % Eagle % (Auto) 8.5 (2.6-8.5) % Eos % (Auto) 0.1 (0-4.4) % Baso % (Auto) 0.3 (0.2-1.2) % Lymph # (Auto) 0.93 (0.9-3.2) K/mm3 Eagle # (Auto) 1.3 H (0.1-0.6) K/mm3 Eos # (Auto) 0.0 (0-0.3) K/mm3 Baso # (Auto) 0.0 (0.0-0.1) K/mm3 Abs Immat Gran (auto) 0.04 H (0.00-0.031) K/mm3 Absolute Neuts (auto) 13.3 H (1.3-6.7) K/mm3 Absolute Nucleated RBC 0.000 (0.0-0.012) K/mm3 Nucleated RBC % 0.0 (0.0-0.2) % % Immature Plt Fraction 2.5 (0.9-11.2) % PT 13.3 (11.1-14.7) Seconds INR 1.0 APTT < 20.0 L (22.3-36.8) Seconds Sodium 138 (137-145) mmol/L Potassium 5.1 H (3.4-5.0) mmol/L Chloride 98 (98-107) mmol/L Carbon Dioxide 26 (22-30) mmol/L Anion Gap 14 H (4-12) mmol/L BUN 38 H D (7-17) mg/dL Creatinine 0.66 L (0.7-1.0) mg/dL Estim Creat Clear Calc 69 ml/min Estimated GFR > 60 (59 - ) Glucose 412 H (65-110) mg/dL Lactic Acid 1.2 (0.7-2.0) mmol/L Calcium 9.3 (8.4-10.2) mg/dL Phosphorus 5.7 H (2.5-4.5) mg/dL Magnesium 2.0 (1.6-2.3) mg/dL Total Bilirubin 0.8 (0.2-1.3) mg/dL AST 57 H (14-36) U/L ALT 82 H (6-35) U/L Alkaline Phosphatase 157 H (38-126) U/L Total Creatine Kinase 944 H (30-135) U/L Troponin I 0.182 H* (0.000-0.034) ng/mL NT-Pro-B Natriuret Pep 23639 H (19.9-100) pg/mL Total Protein 7.0 (6.3-8.2) g/dL Albumin 3.6 (3.5-5.1) g/dL Lipase 16 L (23-300) U/L TSH (Reflex) 0.847 (0.465-4.68) uIU/mL Urine Color Yellow (Yellow) Urine Appearance Clear (Clear) Urine pH 5.0 (5.0-9.0) Ur Specific [place] 1.033 (1.001-1.035) Urine Protein Negative (Negative) mg/dL Urine Glucose (UA) 3+ H (Negative) mg/dL Urine Ketones 1+ H (Negative) mg/dL Ur Blood (Man) Negative (Negative) Urine Nitrate Negative (Negative) Urine Bilirubin Negative (Negative) Urine Urobilinogen 0.2 (<2.0) mg/dL Leukocyte Esterase Rfl Negative (Negative) MIGUEL/UL Salicylates < 1.0 L (2-20) mg/dL Urine Opiates Screen Negative (Negative) Urine Methadone Screen Negative (Negative) Acetaminophen < 10 L (10-30) ug/mL Ur Barbiturates Screen Negative (Negative) Ur Phencyclidine Scrn Negative (Negative) Ur Amphetamine Screen Negative (Negative) U Benzodiazepines Scrn Negative (Negative) Urine Cocaine Screen Negative (Negative) U Cannabinoids Screen Negative (Negative) Ethyl Alcohol < 10 (<10) mg/dL Influenza A (RT-PCR) Negative (Negative) Influenza B (RT-PCR) Negative (Negative) RSV (RT-PCR) Negative (Negative) SARS-CoV-2 RNA (RT-PCR) Negative (Negative) Blood Type O Positive Antibody Screen Negative ABG Data ABG results: 04/08/24 17:29 Puncture Site Right brachial ABG pH 7.408 ABG pCO2 36.4 ABG pO2 66.8 L ABG PO2/FiO2 Ratio 3.18 ABG HCO3 22.5 ABG O2 Saturation 93.5 L ABG O2 Content 21.7 ABG Base Excess -1.6 A-a Gradient 39.3 Oxyhemoglobin 91.3 Total Hemoglobin 16.9 O2 Delivery Device Room air O2 Liters/Min 0.0 FiO2 21 Critical Care Time Critical Care Time Critical Care Time: Yes Total Critical Care Time: 35 Discharge Plan Discharge Clinical Impression: Sepsis, Adult failure to thrive Patient Disposition: Still a Patient Condition: Guarded Prognosis Patient Language: [place] Prescriptions: No Action ibuprofen 200 mg capsule 200 mg PO Q6H PRN (Reason: Pain) Claritin-D 12 Hour 5-120 mg tablet extended release 12 hr 1 tablet PO Q12H PRN (Reason: allergies) duloxetine 60 mg capsule,delayed release(DR/EC) 60 mg PO DAILY nicotine 21-14-7 mg/24 hr patch, TD daily, sequential See Rx Instructions transdermal .COMPLEX Qty: 56 0RF Rx Instructions: apply 1-21 mg NICOTINE PATCH daily for 28 days; follow with 1-14 mg PATCH daily for 14 days, then 1-7mg PATCH daily for 14 days transdermal cholecalciferol (vitamin D3) 25 mcg (1,000 unit) capsule 25 mcg PO DAILY mecobalamin (vitamin B12) 500 mcg tablet,chewable 500 mcg PO DAILY Gas x BYMOUTH Fiasp FlexTouch U-100 Insulin 100 unit/mL (3 mL) insulin pen See Rx Instructions subcut TIDWMEAL MDD 4 Qty: 36 2RF Rx Instructions: 9 units before breakfast, 7 units before lunch and 5 units before dinner add for high sugar before meals 150-200: 1 unit 201-250: 2 units 251-300: 3 units 301-350: 4 units 351-400: 5 units >401: 6 units insulin degludec [Tresiba FlexTouch U-200] 200 unit/mL (3 mL) insulin pen 45 unit subcut DAILY 90 Days Qty: 21 2RF glycopyrrolate-formoterol 9-4.8 mcg HFA aerosol inhaler 2 puff inhalation BID Qty: 10.7 3RF metformin 1,000 mg tablet See Rx Instructions .ROUTE .COMPLEX Qty: 180 3RF Dose Instruction: TAKE 1 TABLET BY MOUTH TWICE DAILY Rx Instructions: TAKE 1 TABLET BY MOUTH TWICE DAILY (DME) pen needle, diabetic [BD Ultra-Fine Lucretia Pen Needle] 32 gauge x 5/32 needle See Rx Instructions .Route Qty: 400 1RF Rx Instructions: 4 times daily with insulin albuterol sulfate 90 mcg/actuation aerosol powdr breath activated 2 inh inhalation Q4H PRN (Reason: shortness of breath or wheezing) Qty: 1 6RF clonazepam 2 mg tablet 2 mg PO DAILY Qty: 30 0RF enalapril maleate 2.5 mg tablet 2.5 mg PO DAILY Qty: 90 2RF atorvastatin 40 mg tablet 40 mg PO DAILY Qty: 90 2RF Follow-up/Referrals: Tremaine Snyder MD [Primary Care Provider] -
[2024-04-08 19:56] LABS: Thyroid Stimulating Hormone Reflex 0.847 uIU/mL (0.465-4.68)
--- NOTE | 2024-04-08 20:40 | PC.NURSE ---
This RN and Rocio, handicapper harness racing, both unsuccessfully tried to obtain blood cultures twice. ED Charge Leydi notified. Phlebotomy called at this time.
--- NOTE | 2024-04-08 21:07 | P.HP_ITS ---
H&P: HPI History of Present Illness Date/Time: 04/08/24 21:07 Chief Complaint: Fall Narrative: This is a 68-year-old female with past medical history significant for COPD/emphysema, tobacco dependence, type diabetes mellitus, hypertension, recurrent falls, depression, obesity, pacemaker placement. Patient was brought to the emergency room for evaluation after she was found down at her house. Patient unable to give a detail history in a meaningful way. Feels very weak. Has had recurrent falls. States that quit smoking 2 days ago. Patient unable to care for herself. Preliminary workup was significant for CK of over 900, elevated troponin, brain atretic peptide above 14,000, patient tested negative for influenza type A influenza type B COVID and RSV EXAMINATION: CT chest abdomen pelvis w con DATE: 04/08/2024 19:32 INDICATION: Found down. TECHNIQUE: Computed tomography (CT) of the chest, abdomen, and pelvis was performed with 100 mL Omnipaque 350 intravenous contrast. Automated exposure con trol and iterative reconstruction technique were employed. The dose-length product was 543.09 mGy-cm. COMPARISON: CT abdomen and pelvis 02/15/24, chest CT 12/04/2018, 07/31/23 FINDINGS: CHEST CT: A calcified right lung nodule and calcified right hilar lymph nodes are consistent with old granulomatous disease. There is mild atelectasis bilaterally. No pleural effusion. The heart size is normal. There are coronary artery calcifications. There is an implant in right ventricle. No pericardial effusion. There are nodules in the thyroid measuring up to 13 mm, likely not clinically significant. There is mild right hilar and mediastinal lymphadenopathy. There is an old healed fracture of proximal left humerus. There is a fracture deformity of right third rib, likely old. There is a chronic burst fracture of T12. There are chronic compression fractures of T1, T6, T7, and T10. ABDOMEN/PELVIS CT: A calcification in the liver is consistent with old granulomatous disease. The gallbladder is distended, likely secondary to fasting. The spleen is normal. There is incomplete pancreas divisum. Right adrenal gland is normal. There is a chronic 1.5 cm mass in left adrenal gland, likely an adenoma. Right kidney is normal. There is focal cortical thinning of left kidney. The bladder is decompressed by a Baugh catheter. There is a large volume of stool in the colon. There is distention of the rectum, likely adynamic ileus. The appendix is normal. There are no pathologically enlarged lymph nodes. There is no free intraperitoneal fluid. There is severe lumbar spondylosis. IMPRESSION: 1. Large volume of stool in the colon with distention of the rectum, likely adynamic ileus. 2. Mild right hilar and mediastinal lymphadenopathy, likely reactive. EXAMINATION: CT brain wo con DATE: 04/08/2024 19:32 INDICATION: Head injury. TECHNIQUE: Computed tomography (CT) of the head was performed without intravenous contrast. The mA was adjusted according to patient size. Iterative reconstruction technique was employed. The dose-length product was 681.00 mGy- cm. COMPARISON: Head CT 03/06/2023 FINDINGS: There is no intracranial hemorrhage, acute infarction, or abnormal intracranial mass lesion. The ventricles are normal in size. There are likely changes of ocular lens replacement surgeries. 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 There is left periorbital soft tissue swelling. There is mild mucosal thickening in the paranasal sinuses. The mastoid air cells are normal. IMPRESSION: 1. Normal brain. Review of Systems Review of Systems: fall, syncope PMFSH Past Medical History Medical History Pacemaker Hyperlipidemia Chronic obstructive pulmonary disease Burst fracture of thoracic vertebra Obesity (BMI 30-39.9) Depression Osteopenia after menopause Type 2 diabetes mellitus Allergic rhinitis Post-menopausal Vitamin B12 deficiency Vitamin D deficiency Headache, migraine Chronic GERD Essential (primary) hypertension Keratosis Glomerulonephritis Anxiety Surgical History Surgical History S/P placement of cardiac pacemaker Status cardiac pacemaker Status post cataract extraction of both eyes with insertion of intraocular lens (~2018) History of elbow surgery (~2019) ORIF Family History Family History Mother Family history of multiple sclerosis Depression Multiple sclerosis Sibling Family history of ulcerative colitis Hypertension Ulcerative (chronic) ileocolitis Father Family history of cardiovascular disease Carcinoma of colon Grandparent Emphysema lung Grandparent Cerebrovascular accident Social History Social History (Updated 03/20/24 @ 13:15 by Nini Paula MA) Social History: The patient is single and has never been . She does not have any children. 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 She has smoked 1.5 packs per day since her mid 20s. She denies any significant alcohol or drug use. She does not have any pets but takes care of a feral cat colony. Code status: DNR/DNI Healthcare power of commonwealth attorney: Asher (friend) Smoking packs per day: 2 Smoking cigarettes per day: 40.0 Years smoked: 40 Smoking pack-years: 80.00 Smoking status: Current every day smoker Tobacco type: cigarettes Second hand tobacco smoke exposure: No Alcohol intake: never Alcohol use details: rarely Substance use: never Substance use type: does not use Do You Feel Safe in your Home?: Yes Lack of Transportation: No Lack of Food: Never True Current Housing: I Have Housing Concerned About Future Housing: No Difficulty Paying Gas/Electric Bills: No Difficulty Paying for Meds: No Currently Unemployed: No Education: High School Diploma/GED Difficulty w/ Childcare or Family Care: No Living arrangements: alone Occupation/Education: retired Gender identity (if verbalized by the patient): Female Sexual Orientation (if Verbalized by the Patient): Straight or Heterosexual Spiritual care concerns: No Meds Home Medications and Allergies Home Medications ?Medication ?Instructions ?Recorded ?Confirmed ?Type ibuprofen 200 mg capsule 200 mg PO Q6H PRN Pain 11/17/20 04/08/24 History loratadine 5 mg-pseudoephedrine ER 1 tablet PO Q12H PRN allergies 10/19/21 04/08/24 History 120 mg tablet,extended release,12hr (Claritin-D 12 Hour) cholecalciferol (vitamin D3) 25 25 mcg PO DAILY 08/14/22 04/08/24 History mcg (1,000 unit) capsule mecobalamin (vitamin B12) 500 mcg 500 mcg PO DAILY 08/14/22 04/08/24 History chewable tablet duloxetine 60 mg capsule,delayed 60 mg PO DAILY 07/05/23 04/08/24 History release metformin 1,000 mg tablet See Rx Instructions .Route 10/15/23 04/08/24 Rx .COMPLEX #180 tabs pen needle, diabetic 32 gauge x #400 ea 11/22/23 04/08/24 Rx 5/32 (BD Ultra-Fine Lucretia Pen Needle) glycopyrrolate 9 mcg-formoterol 2 puff inhalation BID #10.7 grams 01/01/24 04/08/24 Rx 4.8 mcg HFA aerosol inhaler insulin aspart See Rx Instructions subcut 02/12/24 04/08/24 Rx (niacinamide)(U-100) 100 unit/mL(3 TIDWMEAL #36 mL mL) subcutaneous pen (Fiasp FlexTouch U-100 Insulin) insulin degludec 200 unit/mL (3 45 unit (0.225 mL) subcut DAILY 3 02/12/24 04/08/24 Rx mL) subcutaneous pen (Tresiba months #21 mL FlexTouch U-200 insulin) albuterol sulfate 90 mcg/actuation 2 inh inhalation Q4H PRN shortness 03/21/24 04/08/24 Rx breath activated powder inhaler of breath or wheezing #1 ea enalapril maleate 2.5 mg tablet 2.5 mg PO DAILY #90 tabs 04/01/24 04/08/24 Rx atorvastatin 40 mg tablet 40 mg PO DAILY #90 tabs 04/03/24 04/08/24 Rx clonazepam 2 mg tablet 2 mg PO QHS 04/08/24 04/08/24 History mirtazapine 15 mg tablet 15 mg PO QHS 04/08/24 04/08/24 History Allergies Allergy/AdvReac Type Severity Reaction Status Date / Time No Known Allergies Allergy Verified 03/20/24 13:09 Vital Signs Vital Signs - 24 hr 04/08/24 16:09 04/08/24 17:00 04/08/24 17:30 Temperature 96.0 F L 99.4 F 100.3 F H Pulse Rate 80 121 H 122 H Respiratory Rate 17 24 H 13 Blood Pressure 103/62 123/66 Pulse Oximetry 99 97 Oxygen Delivery Room Air 04/08/24 18:00 04/08/24 18:31 04/08/24 20:12 Temperature 100.6 F H 100.7 F H Pulse Rate 92 130 H 82 Respiratory Rate 25 H 15 20 Blood Pressure 112/90 111/56 L 110/53 L Pulse Oximetry 98 100 99 Oxygen Delivery Exam Narrative: Patient is laying in a stretcher Const: General: comfortable, no acute distress, well developed, alert, awake, ill appearing chronically and average body habitus Nutritional Appearance: average body habitus Orientation/consciousness: patient oriented x3 Other: Unkempt HENMT: Head: normal to inspection, normocephalic and atraumatic Ears: hearing grossly normal bilaterally Face/Nose/Sinus: normal facial exam Face and sinus: normal facial exam Eyes: General: appearance normal, both eyes and all related structures Pupils: Equal, round and reactive pupils present EOM: EOMs intact bilaterally Neck: Neck: full ROM, no lymphadenopathy and no JVD Thyroid: thyroid normal Lymphatic: no lymphadenopathy noted Resp: Effort & Inspection: normal respiratory effort and able to speak in complete sentences Auscultation: clear to auscultation bilaterally Cardio: Jugular venous distension: no JVD Rate: regular rate Rhythm: regular rhythm Heart sounds: S1 normal heart sound present and S2 normal heart sound present GI: GI Palp: Yes Soft to palpation and Yes No hepatosplenomegaly present : General: Yes deferred Skin: Rashes: no rashes Wounds: no wounds Neuro: General: patient oriented x3 and CN's II-XI intact bilaterally Cranial nerves: Yes CN's II-XII intact bilaterally and Yes Equal, round and reactive pupils present Cognition (Neuro): normal cognition Speech: normal speech Gait exam (Neuro): Unable to assess gait Motor exam (neuro): 5/5 motor strength present throughout Extrem: General: edema bilateral (1+) Other: Multiple excoriation localized to upper extremities and lower extremities H&P: Results Labs Labs: Short CBC 04/08/24 Range/Units 17:36 WBC 15.7 H (4.5-10.0) K/mm3 Hgb 16.6 H (12.0-15.0) g/dL Hct 50.4 H (37.0-47.0) % Plt Count 321 D (150-375) k/mm3 BMP 04/08/24 17:36 Sodium 138 Potassium 5.1 H Chloride 98 Carbon Dioxide 26 BUN 38 H D Creatinine 0.66 L Glucose 412 H Calcium 9.3 Cardiac Enzymes 04/08/24 Range/Units 17:36 Total Creatine Kinase 944 H (30-135) U/L Troponin I 0.182 H* (0.000-0.034) ng/mL Liver Function 04/08/24 Range/Units 17:36 Total Bilirubin 0.8 (0.2-1.3) mg/dL AST 57 H (14-36) U/L ALT 82 H (6-35) U/L Alkaline Phosphatase 157 H (38-126) U/L Albumin 3.6 (3.5-5.1) g/dL Urine 04/08/24 Range/Units 17:36 Urine Color Yellow (Yellow) Urine Appearance Clear (Clear) Urine pH 5.0 (5.0-9.0) Ur Specific Salol 1.033 (1.001-1.035) Urine Protein Negative (Negative) mg/dL Urine Glucose (UA) 3+ H (Negative) mg/dL Assessment and Plan Assessment and plan (1) Elevated troponin: Code(s): R79.89 - Other specified abnormal findings of blood chemistry Status: Acute Assessment and Plan: Admit to IMU Chest pain-free Continue to trend (2) Adult failure to thrive: Code(s): R62.7 - Adult failure to thrive Status: Acute Assessment and Plan: Patient will likely need placement (3) Fall: Code(s): W19.XXXA - Unspecified fall, initial encounter Status: Acute Assessment and Plan: Likely secondary to generalized weakness (4) Chronic obstructive pulmonary disease: Qualifiers: COPD type: unspecified COPD Qualified Code(s): J44.9 - Chronic obstructive pulmonary disease, unspecified Code(s): J44.9 - Chronic obstructive pulmonary disease, unspecified Status: Acute Assessment and Plan: Not actively wheezing (5) Frequent falls: Code(s): R29.6 - Repeated falls Status: Acute Assessment and Plan: Fall precautions PT OT consult (6) Tobacco dependence: Code(s): F17.200 - Nicotine dependence, unspecified, uncomplicated Status: Acute Assessment and Plan: Patient states that she quit 2 days ago Nicotine patch as needed (7) Type 2 diabetes mellitus with hyperglycemia, with long-term current use of insulin: Code(s): E11.65 - Type 2 diabetes mellitus with hyperglycemia; 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 Hospitalist [facility] Advance Care Plan I have confirmed that the patient's Advanced Care Plan is present, code status is documented, or surrogate decision maker is listed in patient medical record.: Yes Medication Reconciliation I have utilized all available resources to obtain, update and review the patients current medications (includes all prescriptions, OTC, herbals, cannabis, and nutritional supplements).: Yes
[2024-04-08] MEDS: IPRATROPIUM 0.5 MG/ALBUTEROL SULFATE 2.5 MG AMPUL.NEB 3 ML 6 ML INHALATION (21:13)
[2024-04-08] MEDS: ACETAMINOPHEN 500 MG TABLET 1000 MG PO (21:40)
[2024-04-08] MEDS: CEFEPIME 2 GM/NS 50 ML 2 GM/50 ML BAG IVPB (21:43)
[2024-04-08 22:17] LABS: Troponin I 0.155 ng/mL (0.000-0.034)
--- NOTE | 2024-04-08 22:19 | PC.NURSE ---
Attempted to call report to IMU. VIET Fisher stated nurse could not be found and would have to call back.
[2024-04-08] MEDS: metroNIDAZOLE 500 MG/ISO 100ML 500 MG/100 ML BAG 100 MG IVPB (22:35)
--- NOTE | 2024-04-08 23:21 | ADMGEN ---
This patient, Janel Marin, was admitted to IMU Room 209-01. Patient/family oriented to hospital policies and general routines including ID bracelet, bed and alarms, visiting hours, pain management, procedures, bathroom and other care routines, personal items, smoking policy, room service/diet, and visiting hours. Information on how to activate the Rapid Response Team has been discussed. Patient/Family are encouraged to report perceived risks to care and to ask questions if they do not understand what they are told or what they should do.
[2024-04-08] MEDS: VANCOMYCIN 1,750 MG/NS 500 ML 1,750 MG/500 ML BAG 250 MG IVPB (23:57)
[2024-04-09] VITALS (17 sets, daily range): BP systolic 109–132; BP diastolic 40–54; PULSE 45–89; RESP 16–20; TEMP 36.6–37.7; O2SAT 95–98; BMI 21.3
[2024-04-09] MEDS: MIRTAZAPINE 15 MG TABLET 30 MG PO ×2 (01:34→21:23)
[2024-04-09] MEDS: clonazePAM (*CRX) 0.5 MG TABLET 2 MG PO ×2 (01:34→21:23)
[2024-04-09] MEDS: LACTATED RINGERS 1,000 ML 75 ML IV CONT (03:16)
[2024-04-09 05:30] LABS: Estimated CRCL calculation 60 ml/min; Estimated Glomerular Filt Rate > 60
[2024-04-09] MEDS: UMECLIDINIUM/VILANTEROL 62.5-25 MCG ELLIPTA 1 PUFF INHALATION (08:11)
[2024-04-09] MEDS: INSULIN GLARGINE (*BKC) 100 UNITS/ML 45 UNITS SUB-Q (08:46)
[2024-04-09] MEDS: DULoxetine HCL 60 MG CAPSULE.DR PO (08:46)
--- NOTE | 2024-04-09 09:06 | PM.IMPN ---
Progress Note: A&P Assessment and Plan (1) Elevated troponin: Code(s): R79.89 - Other specified abnormal findings of blood chemistry Status: Acute Assessment and Plan: Admit to IMU Chest pain-free Continue to trend (2) Adult failure to thrive: Code(s): R62.7 - Adult failure to thrive Status: Acute Assessment and Plan: Patient will likely need placement (3) Fall: Code(s): W19.XXXA - Unspecified fall, initial encounter Status: Acute Assessment and Plan: Likely secondary to generalized weakness (4) Chronic obstructive pulmonary disease: Qualifiers: COPD type: unspecified COPD Qualified Code(s): J44.9 - Chronic obstructive pulmonary disease, unspecified Code(s): J44.9 - Chronic obstructive pulmonary disease, unspecified Status: Acute Assessment and Plan: Not actively wheezing (5) Frequent falls: Code(s): R29.6 - Repeated falls Status: Acute Assessment and Plan: Fall precautions PT OT consult (6) Tobacco dependence: Code(s): F17.200 - Nicotine dependence, unspecified, uncomplicated Status: Acute Assessment and Plan: Patient states that she quit 2 days ago Nicotine patch as needed (7) Type 2 diabetes mellitus with hyperglycemia, with long-term current use of insulin: Code(s): E11.65 - Type 2 diabetes mellitus with hyperglycemia; Z79.4 - shelter (current) use of insulin Status: Acute Assessment and Plan: Continue insulin (8) Status cardiac pacemaker: Code(s): Z95.0 - Presence of cardiac pacemaker Status: Acute Assessment and Plan: Continue to monitor (9) Rhabdomyolysis: Code(s): M62.82 - Rhabdomyolysis Status: Acute Assessment and Plan: Likely secondary to fall Gentle hydration Continue to monitor BUN and creatinine Continue to trend CPK (10) Congestive heart failure: Code(s): I50.9 - Heart failure, unspecified Status: Acute Assessment and Plan: Patient with an elevated BNP Will obtain echocardiogram in a.m. Plan This is a 68-year-old female with past medical history significant for COPD/emphysema, tobacco dependence, type diabetes mellitus, hypertension, recurrent falls, depression, obesity, pacemaker placement. Patient was brought to the emergency room for evaluation after she was found down at her house. Feels very weak. Has had recurrent falls. States that quit smoking 2 days ago. Patient unable to care for herself. Preliminary workup was significant for CK of over 900, elevated troponin, brain atretic peptide above 14,000, patient tested negative for influenza type A influenza type B COVID and RSV Fall, general weakness Resulting from physical deconditioning, adult failure to thrive, and chronic comorbidities CT reveals there is an old healed fracture of proximal left humerus. There is a fracture deformity of right third rib, likely old. There is a chronic burst fracture of T12. There are chronic compression fractures of T1, T6, T7, and T10. Neuro check Four precaution Consult PT OT respiratory care specialist for evaluation treatment COPD Stable Advised patient stop smoking, provide nicotine patch, O2 therapy p.r.n., Nebulizer p.r.n. Pacing rhythm EKG showed paced rhythm 77 Insulin-dependent diabetes Continue insulin glargine 40 units q.h.s., insulin sliding scale a.c. q.h.s. Follow-up fingerstick glucose a.c. q.h.s. Address accordingly Rhabdomyolysis CPK 900 On gentle IV fluid Follow-up CPK Congestive heart failure Elevated BNP Pending echocardiogram Constipation Large volume of stool in the colon with distention of the rectum, likely adynamic ileus. Start Fleet enema once sepsis Patient has leukocytosis 15,700, tachypnea 20, low-grade fever at 99.9 Unclear source of infection, Possible early stage aspiration Urine remarkable Patient received vancomycin cefepime and Flagyl in the ED Pending blood culture, continue ceftriaxone and Flagyl Subjective Date/time seen: 04/09/24 09:06 Interval history: Patient has low-grade fever 99.9, blood pressure stable, pulse ox 98 on room air on 3 L oxygen. Patient feel tired, but feeling better. Patient denies abdomen pain nausea vomiting. Patient has cough with a scant phlegm. Review of Systems Review of Systems: GENERAL: Ill-appearing, in no acute distress. Well-nourished. - EYES: EOMI. Anicteric. - HENT: Moist mucous membranes. - LUNGS: Clear to auscultation bilaterally, no wheezing, rhonchi, or rales. - CARDIOVASCULAR: Regular rate and rhythm. No murmur. No JVD. - ABDOMEN: Soft, non-tender and non-distended. No palpable masses. - EXTREMITIES: No edema. Peripheral pulses 2+. Non-tender. - NEUROLOGIC: No focal neurological deficits. CN II-XII grossly intact. - PSYCHIATRIC: Awake, Alert and oriented x 3. Appropriate mood and affect. - SKIN: No rashes or lesions. Warm. - LYMPH: No cervical lymphadenopathy. Objective Data Vital Signs Vital Signs: Vital Signs - 24 hr 04/08/24 16:09 04/08/24 17:00 04/08/24 17:30 Temperature 96.0 F L 99.4 F 100.3 F H Pulse Rate 80 121 H 122 H Respiratory Rate 17 24 H 13 Blood Pressure 103/62 123/66 Pulse Oximetry 99 97 Oxygen Delivery Room Air Oxygen Flow Rate 04/08/24 18:00 04/08/24 18:31 04/08/24 20:12 Temperature 100.6 F H 100.7 F H Pulse Rate 92 130 H 82 Respiratory Rate 25 H 15 20 Blood Pressure 112/90 111/56 L 110/53 L Pulse Oximetry 98 100 99 Oxygen Delivery Oxygen Flow Rate 04/08/24 21:15 04/08/24 22:40 04/08/24 23:30 Temperature 99.0 F Pulse Rate 116 H 82 82 Respiratory Rate 18 20 20 Blood Pressure 95/38 L Pulse Oximetry 100 100 Oxygen Delivery Nasal Cannula Oxygen Flow Rate 3 04/08/24 23:30 04/09/24 00:35 04/09/24 02:00 Temperature 98.6 F Pulse Rate 82 84 52 L Respiratory Rate 20 Blood Pressure 110/40 L Pulse Oximetry 98 Oxygen Delivery Oxygen Flow Rate 04/09/24 03:40 04/09/24 03:40 04/09/24 04:38 Temperature 98.8 F Pulse Rate 48 L 48 L 48 L Respiratory Rate 20 20 Blood Pressure 125/45 L Pulse Oximetry 98 97 Oxygen Delivery Nasal Cannula Oxygen Flow Rate 3 04/09/24 06:00 04/09/24 07:45 Temperature 99.9 F H Pulse Rate 48 L 47 L Respiratory Rate 18 Blood Pressure 132/46 L Pulse Oximetry 98 Oxygen Delivery Oxygen Flow Rate Intake/Output Intake/Output: Intake & Output 04/06/24 04/07/24 04/08/24 04/09/24 23:59 23:59 23:59 23:59 Intake Total 2150 858 Output Total 1000 Balance 2150 -142 Meds/Results Medications: Active Medications Generic Name Dose Route Start Last Admin Trade Name Freq PRN Reason Stop Dose Admin Albuterol 2 puff 04/09/24 01:33 Albuterol Sulfate (*Sp) Aerosol 1 Puff INHALATION Q4HRT PRN shortness of breath or wheezin Clonazepam 2 mg 04/09/24 00:55 04/09/24 01:34 Clonazepam (*Crx) 0.5 Mg Tablet PO 2 mg QHS NATIVIDAD Administration Duloxetine HCl 60 mg 04/09/24 09:00 Duloxetine Hcl 60 Mg Capsule.Dr PO DAILY NATIVIDAD Lactated Ringer's 1,000 mls @ 75 mls/hr 04/08/24 21:10 04/09/24 03:16 Lr - Lactated Ringers Iv IV CONT 75 mls/hr .[id number] NATIVIDAD Administration Vancomycin HCl 1,250 mg in 250 mls @ 166.667 mls/hr 04/09/24 18:00 Vancomycin 1,250 Mg/Ns 250 Ml IVPB Q18H NATIVIDAD Insulin Glargine 45 units 04/09/24 09:00 Insulin Glargine (*Bkc) 100 Units/Ml SUB-Q DAILY NATIVIDAD Loratadine 10 mg 04/09/24 01:31 Loratadine 10 Mg Tablet PO QAM PRN ALLERGIES Mirtazapine 30 mg 04/09/24 00:55 04/09/24 01:34 Mirtazapine 15 Mg Tablet PO 30 mg QHS NATIVIDAD Administration Pseudoephedrine HCl 30 mg 04/09/24 01:40 Pseudoephedrine Hcl 30 Mg Tablet PO Q6H PRN allergies Umeclidinium/Vilanterol 1 puff 04/09/24 08:00 04/09/24 08:11 Umeclidinium/Vilanterol 62.5-25 Mcg Ellipta INHALATION 1 puff DAILYRT NATIVIDAD Administration Radiology Results: ITS Impressions Cervical Spine CT 04/08/24 19:33 IMPRESSION: 1. No acute fracture. 2. Moderate cervical spondylosis. Head CT 04/08/24 19:35 IMPRESSION: 1. Normal brain. Chest/Abdomen/Pelvis CT 04/08/24 19:37 IMPRESSION: 1. Large volume of stool in the colon with distention of the rectum, likely adynamic ileus. 2. Mild right hilar and mediastinal lymphadenopathy, likely reactive. Labs Labs: Laboratory Results - last 24 hr 04/08/24 04/08/24 04/08/24 17:29 17:36 21:31 WBC 15.7 H RBC 5.39 Hgb 16.6 H Hct 50.4 H MCV 93.5 MCH 30.8 MCHC 32.9 RDW 13.3 Plt Count 321 D MPV 10.1 Immature Gran % (Auto) 0.3 Neut % (Auto) 84.9 H Lymph % (Auto) 5.9 L [place] % (Auto) 8.5 Eos % (Auto) 0.1 Baso % (Auto) 0.3 Lymph # (Auto) 0.93 [place] # (Auto) 1.3 H Eos # (Auto) 0.0 Baso # (Auto) 0.0 Abs Immat Gran (auto) 0.04 H Absolute Neuts (auto) 13.3 H Absolute Nucleated RBC 0.000 Nucleated RBC % 0.0 % Immature Plt Fraction 2.5 PT 13.3 INR 1.0 APTT < 20.0 L Puncture Site Right brachial ABG pH 7.408 ABG pCO2 36.4 ABG pO2 66.8 L ABG PO2/FiO2 Ratio 3.18 ABG HCO3 22.5 ABG O2 Saturation 93.5 L ABG O2 Content 21.7 ABG Base Excess -1.6 A-a Gradient 39.3 Oxyhemoglobin 91.3 Total Hemoglobin 16.9 O2 Delivery Device Room air O2 Liters/Min 0.0 FiO2 21 Sodium 138 Potassium 5.1 H Chloride 98 Carbon Dioxide 26 Anion Gap 14 H BUN 38 H D Creatinine 0.66 L Estim Creat Clear Calc 69 Estimated GFR > 60 Glucose 412 H Lactic Acid 1.2 Calcium 9.3 Phosphorus 5.7 H Magnesium 2.0 Total Bilirubin 0.8 AST 57 H ALT 82 H Alkaline Phosphatase 157 H Total Creatine Kinase 944 H Troponin I 0.182 H* 0.155 H* NT-Pro-B Natriuret Pep 58275 H Total Protein 7.0 Albumin 3.6 Lipase 16 L TSH (Reflex) 0.847 Urine Color Yellow Urine Appearance Clear Urine pH 5.0 Ur Specific [place] 1.033 Urine Protein Negative Urine Glucose (UA) 3+ H Urine Ketones 1+ H Ur Blood (Man) Negative Urine Nitrate Negative Urine Bilirubin Negative Urine Urobilinogen 0.2 Leukocyte Esterase Rfl Negative Salicylates < 1.0 L Urine Opiates Screen Negative Urine Methadone Screen Negative Acetaminophen < 10 L Ur Barbiturates Screen Negative Ur Phencyclidine Scrn Negative Ur Amphetamine Screen Negative U Benzodiazepines Scrn Negative Urine Cocaine Screen Negative U Cannabinoids Screen Negative Ethyl Alcohol < 10 Influenza A (RT-PCR) Negative Influenza B (RT-PCR) Negative RSV (RT-PCR) Negative SARS-CoV-2 RNA (RT-PCR) Negative Blood Type O Positive Antibody Screen Negative 04/09/24 04:48 WBC RBC Hgb Hct MCV MCH MCHC RDW Plt Count MPV Immature Gran % (Auto) Neut % (Auto) Lymph % (Auto) [place] % (Auto) Eos % (Auto) Baso % (Auto) Lymph # (Auto) [place] # (Auto) Eos # (Auto) Baso # (Auto) Abs Immat Gran (auto) Absolute Neuts (auto) Absolute Nucleated RBC Nucleated RBC % % Immature Plt Fraction PT INR APTT Puncture Site ABG pH ABG pCO2 ABG pO2 ABG PO2/FiO2 Ratio ABG HCO3 ABG O2 Saturation ABG O2 Content ABG Base Excess A-a Gradient Oxyhemoglobin Total Hemoglobin O2 Delivery Device O2 Liters/Min FiO2 Sodium Potassium Chloride Carbon Dioxide Anion Gap BUN Creatinine 0.77 Estim Creat Clear Calc 60 Estimated GFR > 60 Glucose Lactic Acid Calcium Phosphorus Magnesium Total Bilirubin AST ALT Alkaline Phosphatase Total Creatine Kinase Troponin I NT-Pro-B Natriuret Pep Total Protein Albumin Lipase TSH (Reflex) Urine Color Urine Appearance Urine pH Ur Specific [place] Urine Protein Urine Glucose (UA) Urine Ketones Ur Blood (Man) Urine Nitrate Urine Bilirubin Urine Urobilinogen Leukocyte Esterase Rfl Salicylates Urine Opiates Screen Urine Methadone Screen Acetaminophen Ur Barbiturates Screen Ur Phencyclidine Scrn Ur Amphetamine Screen U Benzodiazepines Scrn Urine Cocaine Screen U Cannabinoids Screen Ethyl Alcohol Influenza A (RT-PCR) Influenza B (RT-PCR) RSV (RT-PCR) SARS-CoV-2 RNA (RT-PCR) Blood Type Antibody Screen
[2024-04-09 09:33] LABS: Basophils Percent Auto 0.4 % (0.2-1.2); Eosinophils Absolute Auto 0.1 K/mm3 (0-0.3); Eosinophils Percent Auto 0.7 % (0-4.4); Hematocrit 42.3 % (37.0-47.0); Hemoglobin 13.7 g/dL (12.0-15.0); Immature Granulocyte Absolute 0.04 K/mm3 (0.00-0.031); Immature Granulocyte Percent A 0.4 % (0-0.5); Lymphocytes Absolute Auto 1.48 K/mm3 (0.9-3.2); Lymphocytes Percent Auto 14.5 % (18.3-44.2); Mean Corpuscular HGB Conc 32.4 g/dl (32-36); Mean Corpuscular Hemoglobin 30.6 pg (26-34); Mean Corpuscular Volume 94.4 fl (80-100); Mean Platelet Volume 10.5 fl (7.4-10.4); Monocytes Absolute Auto 1.5 K/mm3 (0.1-0.6); Monocytes Percent Auto 14.5 % (2.6-8.5); Neutrophils Absolute Auto 7.1 K/mm3 (1.3-6.7); Neutrophils Percent Auto 69.5 % (45.5-73.1); Platelet Count Result 286 k/mm3 (150-375); Red Blood Count 4.48 M/mm3 (4.2-5.4); Red Cell Distribution Width 13.6 % (11.5-14.5); White Blood Count 10.2 K/mm3 (4.5-10.0)
[2024-04-09 09:40] LABS: Anion Gap 9 mmol/L (4-12); Blood Urea Nitrogen 34 mg/dL (7-17); Calcium 8.6 mg/dL (8.4-10.2); Carbon Dioxide 21 mmol/L (22-30); Chloride 104 mmol/L (98-107); Estimated CRCL calculation 61 ml/min; Estimated Glomerular Filt Rate > 60; Glucose 365 mg/dL (65-110); Magnesium 1.8 mg/dL (1.6-2.3); Phosphorus 4.6 mg/dL (2.5-4.5); Potassium 4.5 mmol/L (3.4-5.0); Sodium 134 mmol/L (137-145)
[2024-04-09 11:45] LABS: Glucose Point of Care 446 mg/dl (65-105)
[2024-04-09] MEDS: metroNIDAZOLE 500 MG/ISO 100ML 500 MG/100 ML BAG 100 MG IVPB ×2 (12:00→17:28)
[2024-04-09] MEDS: cefTRIAXone 2 GM/NS 100 ML 2 GM/100 ML BAG IVPB (12:00)
[2024-04-09] MEDS: INSULIN ASPART (*BKC) 100 UNITS/ML SUB-Q ×6 (12:01→21:23)
[2024-04-09] MEDS: LACTATED RINGERS 1,000 ML 100 ML IV CONT (15:04)
[2024-04-09 15:58] LABS: Glucose Point of Care 439 mg/dl (65-105)
[2024-04-09 16:26] LABS: Glucose Point of Care 219 mg/dl (65-105)
[2024-04-09] MEDS: VANCOMYCIN 1,250 MG/NS 250 ML 1,250 MG/250 ML BAG 166.67 MG IVPB (17:29)
[2024-04-09 19:53] LABS: Glucose Point of Care 221 mg/dl (65-105)
[2024-04-10] VITALS (15 sets, daily range): BP systolic 104–135; BP diastolic 62–71; PULSE 70–91; RESP 16–20; TEMP 36.4–36.8; O2SAT 92–98
--- NOTE | 2024-04-10 | ECHO_ITS ---
Patient Info Name: Janel Marin Age: 68 years : 1955 Gender: Female Ht: 67 in Wt: 145 lbs BSA: 1.77 m2 HR: 89 bpm BP: 127 / 62 mmHg Technical Quality: Good Exam Date: 04/10/2024 11:12 AM Exam Location: Echo Lab Exam Room: [facility] Patient Status: Inpatient Admit Date: 04/08/2024 Staff Ordering Physician: Jayda Dodge MD Mobile Device Engineer: Kristi Adams RDCS Attending Provider: Odalys Ojeda MD Exam Type: CA echo doppler color flow Study Info Indications - Elevaterd troponin Complete two-dimensional, color flow and Doppler transthoracic echocardiogram is performed. Summary 1. Complete two-dimensional, color flow and Doppler transthoracic echocardiogram is performed. 2. The left ventricle is normal in size and systolic function. The left ventricular ejection fraction is visually estimated to be 50-55%. 3. The right ventricle is normal in size and systolic function. Left Ventricle The left ventricle is normal in size and systolic function. The left ventricular ejection fraction is visually estimated to be 50-55%. There is a left ventricular false tendon noted. Right Ventricle The right ventricle is normal in size and systolic function. Moderator band is calcified. Left Atria The left atrium is moderately enlarged. Right Atria The right atrium is dilated. Atrial Septum The atrial septum visually appears intact. Aortic Valve The aortic valve is probably trileaflet and opens well. There is no aortic regurgitation. Pulmonic Valve The pulmonic valve is normal. There is mild pulmonic valve regurgitation. Mitral Valve The mitral valve leaflets are thickened and there is annular calcification. There is mild mitral regurgitation. Tricuspid Valve The tricuspid valve is normal. There is trace tricuspid regurgitation. Pericardium/Pleural Pericardium is normal in appearance with no evidence for significant pericardial effusion. Inferior Vena Cava Dilated inferior vena cava with >50% collapse upon inspiration consistent with elevated right atrial pressure, 8 mmHg. Aorta The aortic root at the level of the sinus of Valsalva measures 3.2 cm in diameter. Left Ventricular Outflow Tract Name Value Normal LVOT 2D LVOT Diameter 1.9 cm LVOT Doppler LVOT Peak Gradient 3 mmHg LVOT Mean Gradient 2 mmHg LVOT VTI 17 cm LVOT VTI/AV VTI Ratio 0.6 LVOT Stroke Volume 50 ml LVOT CO 4.3 l/min LVOT CI 2.4 l/min/m2 Pulmonic Valve Name Value Normal RVOT Doppler RVOT Peak Gradient 10 mmHg PV Doppler PV Peak Gradient 8 mmHg PV Regurgitation Doppler [place] Peak End Diastolic Velocity 152 cm/s Mitral Valve Name Value Normal MV Doppler MV Peak Gradient 9 mmHg MV Mean Gradient 5 mmHg MV Decel [place] 506 cm/s2 MV PHT 76 ms MV Area (PHT) 2.9 cm2 4.0-5.0 MV Area (Cont Eq VTI) 1.1 cm2 MV Regurgitation Doppler MR Peak Gradient 90 mmHg MV Diastolic Function MV E Peak Velocity 133 cm/s MV A Peak Velocity 138 cm/s MV E/A 1.0 MV Decel Time 263 ms MV Annular TDI MV E/e' (Septal) 46.2 <=8.0 MV E/e' (Lateral) 23.4 <=8.0 MV E/e' (Average) 34.8 Tricuspid Valve Name Value Normal TV Regurgitation Doppler TR Peak Velocity 302 cm/s TR Peak Gradient 36 mmHg Estimated PAP/RSVP RA Pressure 8 mmHg <=5 PA Systolic Pressure 44 mmHg <36 RV Systolic Pressure 44 mmHg <36 Aortic Valve Name Value Normal AV Doppler AV Peak Velocity 138 cm/s AV Peak Gradient 8 mmHg AV Mean Gradient 4 mmHg AV VTI 26 cm AV Area (Cont Eq VTI) 1.9 cm2 >=3.0 AV Area (Cont Eq Sharath) 2.2 cm2 AV Regurgitation 2D LVOT Area 3.0 cm2 Ventricles Name Value Normal LV Dimensions 2D/MM IVS Diastolic Thickness (2D) 0.9 cm 0.6-1.0 LVID Diastole (2D) 4.9 cm 3.8-5.2 LVIW Diastolic Thickness (2D) 1.0 cm 0.6-0.9 LVID Systole (2D) 3.5 cm 2.2-3.5 LVOT Diameter 1.9 cm LV Mass (2D Cubed) 164.37 g 67.00-162.00 LV Mass Index (2D Cubed) 93 g/m2 43-95 Relative Wall Thickness (2D) 0.41 LV Fractional Shortening/Ejection Fraction 2D/MM LV Fractional Shortening (2D) 29 % 27-45 LV EF (2D Teicholz) 55 % 54-74 LV Diastolic Volume (4C MOD) 91 ml LV EF (4C MOD) 55 % LV Diastolic Volume (2C MOD) 146 ml LV EF (2C MOD) 39 % LV Diastolic Volume (BP MOD) 126 ml 46-106 LV Diastolic Volume Index (BP MOD) 72 ml/m2 29-61 LV Systolic Volume (BP MOD) 68 ml 14-42 LV Systolic Volume Index (BP MOD) 38 ml/m2 8-24 LV EF (BP MOD) 46 % 54-74 LV Diastolic Length (4C) 6.7 cm LV Systolic Length (4C) 6.1 cm LV Stroke Volume (4C MOD) 50 ml LV CO (BP MOD) 5.2 l/min LV CI (BP MOD) 3.0 l/min/m2 Atria Name Value Normal LA Dimensions LA Volume (4C A-L) 73 ml LA Volume (BP A-L) 73 ml RA Dimensions RA Area (4C) 19.1 cm2 <=18.0 Report Signatures
[2024-04-10] MEDS: metroNIDAZOLE 500 MG/ISO 100ML 500 MG/100 ML BAG 100 MG IVPB ×2 (02:30→09:10)
[2024-04-10 05:07] LABS: Basophils Percent Auto 0.3 % (0.2-1.2); Eosinophils Absolute Auto 0.2 K/mm3 (0-0.3); Eosinophils Percent Auto 2.7 % (0-4.4); Hematocrit 41.5 % (37.0-47.0); Hemoglobin 13.3 g/dL (12.0-15.0); Immature Granulocyte Absolute 0.03 K/mm3 (0.00-0.031); Immature Granulocyte Percent A 0.3 % (0-0.5); Lymphocytes Percent Auto 23.1 % (18.3-44.2); Mean Corpuscular Hemoglobin 30.9 pg (26-34); Mean Corpuscular Volume 96.5 fl (80-100); Mean Platelet Volume 9.6 fl (7.4-10.4); Monocytes Absolute Auto 0.9 K/mm3 (0.1-0.6); Monocytes Percent Auto 10.1 % (2.6-8.5); Neutrophils Absolute Auto 5.5 K/mm3 (1.3-6.7); Neutrophils Percent Auto 63.5 % (45.5-73.1); Platelet Count Result 231 k/mm3 (150-375); Red Cell Distribution Width 13.6 % (11.5-14.5); White Blood Count 8.6 K/mm3 (4.5-10.0)
[2024-04-10 05:22] LABS: Sodium 137 mmol/L (137-145)
[2024-04-10 05:31] LABS: Anion Gap 2 mmol/L (4-12); Blood Urea Nitrogen 18 mg/dL (7-17); Calcium 8.2 mg/dL (8.4-10.2); Carbon Dioxide 32 mmol/L (22-30); Chloride 103 mmol/L (98-107); Estimated CRCL calculation 92 ml/min; Estimated Glomerular Filt Rate > 60; Glucose 94 mg/dL (65-110); Magnesium 1.7 mg/dL (1.6-2.3); Phosphorus 2.7 mg/dL (2.5-4.5)
[2024-04-10] MEDS: LACTATED RINGERS 1,000 ML 100 ML IV CONT ×3 (07:27→17:23)
[2024-04-10 07:52] LABS: Glucose Point of Care 101 mg/dl (65-105)
[2024-04-10] MEDS: UMECLIDINIUM/VILANTEROL 62.5-25 MCG ELLIPTA 1 PUFF INHALATION (08:48)
[2024-04-10] MEDS: cefTRIAXone 2 GM/NS 100 ML 2 GM/100 ML BAG IVPB (09:09)
[2024-04-10] MEDS: DULoxetine HCL 60 MG CAPSULE.DR PO (09:10)
[2024-04-10] MEDS: LORATADINE 10 MG TABLET PO (09:10)
[2024-04-10 10:12] LABS: Creatine Kinase 292 U/L (30-135)
[2024-04-10 11:36] LABS: Glucose Point of Care 214 mg/dl (65-105)
--- NOTE | 2024-04-10 11:55 | P.PNIM_ITS ---
Progress Note: A&P Assessment and Plan (1) Hypertension associated with type 2 diabetes mellitus: Code(s): E11.59 - Type 2 diabetes mellitus with other circulatory complications; I15.2 - Hypertension secondary to endocrine disorders Status: Acute (2) Type 2 diabetes mellitus with hyperglycemia, with long-term current use of insulin: Code(s): E11.65 - Type 2 diabetes mellitus with hyperglycemia; Z79.4 - senior care (curre nt) use of insulin Status: Acute (3) Fall: Code(s): W19.XXXA - Unspecified fall, initial encounter Status: Acute (4) Rhabdomyolysis: Code(s): M62.82 - Rhabdomyolysis Status: Acute Plan 68-year-old female with past medical history significant for COPD/emphysema, tobacco dependence, type diabetes mellitus, hypertension, recurrent falls, depression, obesity, pacemaker placement, presented after being found down in her home. has recurrent falls at home.Patient unable to care for herself. Preliminary workup was significant for CK of over 900, elevated troponin, brain atretic peptide above 14,000, patient tested negative for influenza type A influenza type B COVID and RSV.CT reveals there is an old healed fracture of proximal left humerus. There is a fracture deformity of right third rib, likely old. There is a chronic burst fracture of T12. There are chronic compression fractures of T1, T6, T7, and T10. 1. Recurrent falls+ rhabdomyolysis Likely from full physical deconditioning Unlikely sepsis going on Will discontinue all the antibiotics CPK has improved and is within 200 range Will stop IV fluids in next few hours PT/OT Supplement magnesium Elevated BNP, we will obtain echocardiogram Troponin elevation likely in setting of rhabdomyolysis, denies any chest pain 2. Diabetes mellitus: Blood glucose check t.i.d. a.c. and HS Continue with mealtime 5 units of insulin along with sliding scale Decreased the dose of Lantus to 30 units instead of 45 minutes Adjust dose as needed 3. Constipation: Received stool softeners Several bowel movements since yesterday 4. History of COPD: Stable currently on room air 5. DVT prophylaxis: Heparin subQ 6. Code Status: Full 7. Disposition: Pending improvement, might need placement as she is unable to take care of herself Time Spent With Patient Time: Time spent: 39 minutes Moderate complexity Subjective Date/time seen: 04/10/24 11:55 Interval history: No acute events overnight Review of Systems Review of Systems: All systems reviewed & are unremarkable except as noted in HPI and below Exam Const: General: comfortable and no acute distress HENMT: Mouth: Yes moist mucous membranes Eyes: Sclera: sclerae normal Neck: Neck: supple Resp: Effort & Inspection: normal respiratory effort Auscultation: clear to auscultation bilaterally Cardio: Rate: regular rate Rhythm: regular rhythm GI: GI Palp: Yes Soft to palpation Auscultation: normal bowel sounds Skin: General skin exam: normal color Neuro: Speech: normal speech Extrem: General: normal to inspection Psych: Mental Status: mental status grossly normal Objective Data Vital Signs Vital Signs: Vital Signs - 24 hr 04/09/24 12:00 04/09/24 12:00 04/09/24 14:00 Temperature Pulse Rate 62 66 Respiratory Rate Blood Pressure Pulse Oximetry Oxygen Delivery Room Air Oxygen Flow Rate Fraction of Inspired Oxygen 04/09/24 16:00 04/09/24 16:00 04/09/24 16:00 Temperature 98.6 F Pulse Rate 65 67 Respiratory Rate 18 Blood Pressure 125/49 L Pulse Oximetry 95 Oxygen Delivery Room Air Oxygen Flow Rate Fraction of Inspired Oxygen 04/09/24 18:00 04/09/24 19:36 04/09/24 19:57 Temperature 97.8 F Pulse Rate 62 85 89 Respiratory Rate 18 18 Blood Pressure 109/54 L Pulse Oximetry 98 98 Oxygen Delivery Room Air Oxygen Flow Rate Fraction of Inspired Oxygen 04/09/24 20:00 04/09/24 20:29 04/10/24 00:00 Temperature 98.1 F Pulse Rate 89 86 Respiratory Rate 18 Blood Pressure 125/65 Pulse Oximetry 96 98 Oxygen Delivery Nasal Cannula Oxygen Flow Rate 3 Fraction of Inspired Oxygen 32 04/10/24 00:00 04/10/24 00:00 04/10/24 02:47 Temperature Pulse Rate 85 80 85 Respiratory Rate 18 Blood Pressure Pulse Oximetry 98 Oxygen Delivery Nasal Cannula Oxygen Flow Rate 2 Fraction of Inspired Oxygen 04/10/24 04:00 04/10/24 04:00 04/10/24 04:00 Temperature 97.9 F Pulse Rate 86 86 86 Respiratory Rate 19 19 Blood Pressure 128/63 Pulse Oximetry 92 92 Oxygen Delivery Nasal Cannula Oxygen Flow Rate 3 Fraction of Inspired Oxygen 04/10/24 06:00 04/10/24 07:54 04/10/24 08:48 Temperature 98.3 F Pulse Rate 83 89 83 Respiratory Rate 20 20 Blood Pressure 127/62 Pulse Oximetry 94 94 Oxygen Delivery Room Air Oxygen Flow Rate Fraction of Inspired Oxygen 04/10/24 08:48 Temperature Pulse Rate 83 Respiratory Rate 20 Blood Pressure Pulse Oximetry Oxygen Delivery Oxygen Flow Rate Fraction of Inspired Oxygen Intake/Output Intake/Output: Intake & Output 04/07/24 04/08/24 04/09/24 04/10/24 23:59 23:59 23:59 23:59 Intake Total 2150 3300.1 1345 Output Total 2150 1550 Balance 2150 1150.1 -205 Meds/Results Medications: Active Medications Generic Name Dose Route Start Last Admin Trade Name Freq PRN Reason Stop Dose Admin Albuterol 2 puff 04/09/24 01:33 Albuterol Sulfate (*Sp) Aerosol 1 Puff INHALATION Q4HRT PRN shortness of breath or wheezin Clonazepam 2 mg 04/09/24 00:55 04/09/24 21:23 Clonazepam (*Crx) 0.5 Mg Tablet PO 2 mg QHS NATIVIDAD Administration Dextrose 12.5 gm 04/09/24 09:25 Dextrose 50% 25 Gm/50 Ml Syringe IV PUSH PRN PRN Hypoglycemia Protocol Duloxetine HCl 60 mg 04/09/24 09:00 04/10/24 09:10 Duloxetine Hcl 60 Mg Capsule.Dr PO 60 mg DAILY [facility]IVIDAD Administration Glucagon 1 mg 04/09/24 09:25 Glucagon For Inj 1 Mg Vial IM PRN PRN Hypoglycemia Protocol Glucose 15 gm 04/09/24 09:25 Glucose Oral Gel 15 Gm Of Glucse In 37.5 Gm Tube PO PRN PRN Hypoglycemia Protocol Lactated Ringer's 1,000 mls @ 100 mls/hr 04/08/24 21:10 04/10/24 07:30 Lr - Lactated Ringers Iv IV CONT 04/10/24 21:09 100 mls/hr .Q10H [facility]IVIDAD Administration Dextrose 1,000 mls @ 100 mls/hr 04/09/24 09:25 Dextrose 5% 1,000 Ml IVPB PRN PRN Hypoglycemia Protocol Insulin Aspart 5 units 04/09/24 12:00 04/09/24 17:30 Insulin Aspart (*Bkc) 100 Units/Ml 0.083 units/kg (5 units) 5 units SUB-Q Administration [facility] Insulin Aspart 2 - 5 units 04/09/24 12:00 04/10/24 08:02 Insulin Aspart (*Bkc) 100 Units/Ml SUB-Q Not Given [facility] Protocol Insulin Aspart 1 - 2 units 04/09/24 21:00 04/09/24 21:23 Insulin Aspart (*Bkc) 100 Units/Ml SUB-Q 1 units HS [facility]ID[facility] Administration Protocol Insulin Glargine 30 units 04/11/24 09:00 Insulin Glargine (*Bkc) 100 Units/Ml SUB-Q DAILY [facility] Loratadine 10 mg 04/09/24 01:31 04/10/24 09:10 Loratadine 10 Mg Tablet PO 10 mg QAM PRN Administration ALLERGIES Mirtazapine 30 mg 04/09/24 00:55 04/09/24 21:23 Mirtazapine 15 Mg Tablet PO 30 mg QHS [facility]IVIDAD Administration Nicotine 1 patch 04/10/24 10:30 Nicotine (*Pbkc) 21 Mg Patch TRANSDERM DAILY [facility]IDAD Perflutren Lipid Microsphere 0 ml 04/10/24 09:17 Perflutren Lipid Microspheres 1.5 Ml Vial Diluted To 10 Ml Total Volume IV PUSH 04/13/24 09:18 ONCE PRN adequate visualization Protocol Pseudoephedrine HCl 30 mg 04/09/24 01:40 Pseudoephedrine Hcl 30 Mg Tablet PO Q6H PRN allergies Umeclidinium/Vilanterol 1 puff 04/09/24 08:00 04/10/24 08:48 Umeclidinium/Vilanterol 62.5-25 Mcg Ellipta INHALATION 1 puff DAILYRT [facility] Administration Radiology Results: ITS Impressions Cervical Spine CT 04/08/24 19:33 IMPRESSION: 1. No acute fracture. 2. Moderate cervical spondylosis. Head CT 04/08/24 19:35 IMPRESSION: 1. Normal brain. Chest/Abdomen/Pelvis CT 04/08/24 19:37 IMPRESSION: 1. Large volume of stool in the colon with distention of the rectum, likely ad ynamic ileus. 2. Mild right hilar and mediastinal lymphadenopathy, likely reactive. Labs Labs: Laboratory Results - last 24 hr 04/09/24 04/09/24 04/09/24 11:26 16:23 19:50 WBC RBC Hgb Hct MCV MCH MCHC RDW Plt Count MPV Immature Gran % (Auto) Neut % (Auto) Lymph % (Auto) [place] % (Auto) Eos % (Auto) Baso % (Auto) Lymph # (Auto) [place] # (Auto) Eos # (Auto) Baso # (Auto) Abs Immat Gran (auto) Absolute Neuts (auto) Absolute Nucleated RBC Nucleated RBC % Sodium Potassium Chloride Carbon Dioxide Anion Gap BUN Creatinine Estim Creat Clear Calc Estimated GFR Glucose POC Capillary Glucose 439 H 219 H 221 H Calcium Phosphorus Magnesium Total Creatine Kinase 04/10/24 04/10/24 04/10/24 04:48 07:38 11:33 WBC 8.6 RBC 4.30 Hgb 13.3 Hct 41.5 MCV 96.5 MCH 30.9 MCHC 32.0 RDW 13.6 Plt Count 231 MPV 9.6 Immature Gran % (Auto) 0.3 Neut % (Auto) 63.5 Lymph % (Auto) 23.1 [place] % (Auto) 10.1 H Eos % (Auto) 2.7 Baso % (Auto) 0.3 Lymph # (Auto) 2.00 [place] # (Auto) 0.9 H Eos # (Auto) 0.2 Baso # (Auto) 0.0 Abs Immat Gran (auto) 0.03 Absolute Neuts (auto) 5.5 Absolute Nucleated RBC 0.000 Nucleated RBC % 0.0 Sodium 137 Potassium 4.0 Chloride 103 Carbon Dioxide 32 H Anion Gap 2 L BUN 18 H D Creatinine 0.48 L Estim Creat Clear Calc 92 Estimated GFR > 60 Glucose 94 POC Capillary Glucose 101 214 H Calcium 8.2 L Phosphorus 2.7 Magnesium 1.7 Total Creatine Kinase 292 H Quality VTE Prophylaxis VTE prophylaxis: pharmacologic ordered
[2024-04-10] MEDS: MAGNESIUM SULF 2 GM/WATER 50ML 2 GM/50 ML BAG IVPB (12:46)
[2024-04-10] MEDS: NICOTINE (*PBKC) 21 MG PATCH 1 PATCH TRANSDERM (12:48)
[2024-04-10] MEDS: INSULIN ASPART (*BKC) 100 UNITS/ML SUB-Q ×4 (12:49→20:48)
[2024-04-10] MEDS: INSULIN GLARGINE (*BKC) 100 UNITS/ML 30 UNITS SUB-Q (12:49)
[2024-04-10 16:25] LABS: Glucose Point of Care 140 mg/dl (65-105)
[2024-04-10] MEDS: HEPARIN SODIUM 5,000 UNITS/ML VIAL 5000 UNITS SUB-Q ×2 (17:23→20:48)
[2024-04-10 20:06] LABS: Glucose Point of Care 223 mg/dl (65-105)
[2024-04-10] MEDS: MIRTAZAPINE 15 MG TABLET 30 MG PO (20:48)
[2024-04-10] MEDS: clonazePAM (*CRX) 0.5 MG TABLET 2 MG PO (20:49)
[2024-04-11] VITALS (10 sets, daily range): BP systolic 104–126; BP diastolic 60–78; PULSE 76–87; RESP 16–18; TEMP 36–36.7; O2SAT 92–98
[2024-04-11 05:15] LABS: Basophils Percent Auto 0.3 % (0.2-1.2); Eosinophils Absolute Auto 0.1 K/mm3 (0-0.3); Eosinophils Percent Auto 1.6 % (0-4.4); Hematocrit 45.7 % (37.0-47.0); Hemoglobin 14.4 g/dL (12.0-15.0); Immature Granulocyte Absolute 0.06 K/mm3 (0.00-0.031); Immature Granulocyte Percent A 0.7 % (0-0.5); Lymphocytes Absolute Auto 1.59 K/mm3 (0.9-3.2); Lymphocytes Percent Auto 17.8 % (18.3-44.2); Mean Corpuscular HGB Conc 31.5 g/dl (32-36); Mean Corpuscular Hemoglobin 30.6 pg (26-34); Mean Platelet Volume 9.8 fl (7.4-10.4); Monocytes Absolute Auto 0.6 K/mm3 (0.1-0.6); Monocytes Percent Auto 7.2 % (2.6-8.5); Neutrophils Absolute Auto 6.5 K/mm3 (1.3-6.7); Neutrophils Percent Auto 72.4 % (45.5-73.1); Platelet Count Result 208 k/mm3 (150-375); Red Blood Count 4.71 M/mm3 (4.2-5.4); Red Cell Distribution Width 13.3 % (11.5-14.5); White Blood Count 8.9 K/mm3 (4.5-10.0)
[2024-04-11 05:31] LABS: Anion Gap 3 mmol/L (4-12); Blood Urea Nitrogen 18 mg/dL (7-17); Carbon Dioxide 33 mmol/L (22-30); Chloride 102 mmol/L (98-107); Creatine Kinase 149 U/L (30-135); Estimated CRCL calculation 103 ml/min; Estimated Glomerular Filt Rate > 60; Glucose 80 mg/dL (65-110); Phosphorus 3.5 mg/dL (2.5-4.5); Potassium 3.9 mmol/L (3.4-5.0); Sodium 138 mmol/L (137-145)
--- NOTE | 2024-04-11 07:33 | P.CDI_ITS ---
CDI Query Clarification Request BMI: 22.7 Nutritional Diagnostic Statement: Please refer to the comprehensive nutrition assessment for further information. If you agree with diagnosis of Severe protein calorie malnutrition related to chronic loss of appetite, poor dentition as evidenced by weight loss -26%/6 months; inadequate oral intake <75% needs >1 month; severe muscle wasting and fat loss. Please specify severity if known: * Mild * Moderate * Severe * Other/Unknown <Sabi Nicholson RN - Last Filed: 04/11/24 07:36> Provider Comments Severe protein calorie malnutrition <Michel Li MD - Last Filed: 04/11/24 12:02>
[2024-04-11] MEDS: HEPARIN SODIUM 5,000 UNITS/ML VIAL 5000 UNITS SUB-Q ×3 (07:34→20:57)
[2024-04-11 07:55] LABS: Glucose Point of Care 129 mg/dl (65-105)
[2024-04-11] MEDS: INSULIN ASPART (*BKC) 100 UNITS/ML SUB-Q ×5 (09:34→20:55)
[2024-04-11] MEDS: NICOTINE (*PBKC) 21 MG PATCH 1 PATCH TRANSDERM (09:35)
[2024-04-11] MEDS: DULoxetine HCL 60 MG CAPSULE.DR PO (09:35)
[2024-04-11] MEDS: UMECLIDINIUM/VILANTEROL 62.5-25 MCG ELLIPTA 1 PUFF INHALATION (09:39)
--- NOTE | 2024-04-11 11:53 | P.PNIM_ITS ---
Progress Note: A&P Assessment and Plan (1) Hypertension associated with type 2 diabetes mellitus: Code(s): E11.59 - Type 2 diabetes mellitus with other circulatory complications; I15.2 - Hypertension secondary to endocrine disorders Status: Acute (2) Type 2 diabetes mellitus with hyperglycemia, with long-term current use of insulin: Code(s): E11.65 - Type 2 diabetes mellitus with hyperglycemia; Z79.4 - detention (curre nt) use of insulin Status: Acute (3) Fall: Code(s): W19.XXXA - Unspecified fall, initial encounter Status: Acute (4) Rhabdomyolysis: Code(s): M62.82 - Rhabdomyolysis Status: Acute Plan 68-year-old female with past medical history significant for COPD/emphysema, tobacco dependence, type diabetes mellitus, hypertension, recurrent falls, depression, obesity, pacemaker placement, presented after being found down in her home. Patient was not seen for a 12 hours an appointment checked on however and was found laying on the floor covered in feces is confused. Has recurrent falls at home. Patient unable to care for herself. Preliminary workup was significant for CK of over 900, elevated troponin, brain atretic peptide above 14,000, patient tested negative for influenza type A influenza type B COVID and RSV.CT reveals there is an old healed fracture of proximal left humerus. There is a fracture deformity of right third rib, likely old. There is a chronic burst fracture of T12. There are chronic compression fractures of T1, T6, T7, and T10. # Recurrent falls+ rhabdomyolysis Likely from full physical deconditioning Unlikely sepsis going on. Initial presentation with leukocytosis of 15,000 and low-grade fever 99.9. Was started on broad-spectrum antibiotics. Blood cultures negative. Antibiotics discontinued CPK has improved and is within 200 range. IV fluids discontinued PT/OT pending Supplement magnesium Elevated BNP, echocardiogram with EF 50-55% no significant valvular abnormality. # Troponin elevation likely in setting of rhabdomyolysis, denies any chest pain. Repeat remained flat. Echo with EF 50-55% with no significant valvular abnormality. # status post pacemaker placement # compression vertebral fracture at multiple levels chronic # congestive heart failure diastolic. Euvolemic on evaluation #. Diabetes mellitus: Blood glucose check t.i.d. a.c. and HS Continue with mealtime 5 units of insulin along with sliding scale Decreased the dose of Lantus to 30 units instead of 45 minutes Adjust dose as needed # Constipation: On stool softener. CT evidence of large volume of stool in colon with distentio n of the rectum # History of COPD: Stable currently on room air # DVT prophylaxis: Heparin subQ # Code Status: Full # Disposition: PT OT to see likely needs placement Subjective Date/time seen: 04/11/24 11:53 Interval history: Complains of pain in her leg after the fall. No chest pain or shortness of breath. Review of Systems Review of Systems: All systems reviewed & are unremarkable except as noted in HPI and below Exam Narrative: GENERAL: Ill-appearing, in no acute distress. Well-nourished. - EYES: EOMI. Anicteric. - HENT: Moist mucous membranes. - LUNGS: Clear to auscultation bilateral ly, no wheezing, rhonchi, or rales. - CARDIOVASCULAR: Regular rate and rhyth m. No murmur. No JVD. - ABDOMEN: Soft, non-tender and non-dist ended. No palpable masses. - EXTREMITIES: No edema. Peripheral puls es 2+. Non-tender. - NEUROLOGIC: No focal neurological defi cits. CN II-XII grossly intact. - PSYCHIATRIC: Awake, Alert and oriented x 3. Appropriate mood and affect. - SKIN: No rashes or lesions. Warm. Bru ises noted in her right lower leg - LYMPH: No cervical lymphadenopathy. Objective Data Vital Signs Vital Signs: Vital Signs - 24 hr 04/10/24 12:00 04/10/24 14:00 04/10/24 16:00 Temperature 97.6 F Pulse Rate 86 89 85 Respiratory Rate 16 Blood Pressure 135/71 Pulse Oximetry 97 Oxygen Delivery Oxygen Flow Rate 04/10/24 16:00 04/10/24 18:00 04/10/24 20:00 Temperature Pulse Rate 88 91 83 Respiratory Rate Blood Pressure Pulse Oximetry Oxygen Delivery Oxygen Flow Rate 04/10/24 20:00 04/10/24 20:16 04/10/24 23:48 Temperature 97.8 F 97.8 F Pulse Rate 83 83 70 Respiratory Rate 16 16 18 Blood Pressure 104/67 110/62 Pulse Oximetry 97 97 97 Oxygen Delivery Room Air Oxygen Flow Rate 04/11/24 02:58 04/11/24 04:00 04/11/24 08:00 Temperature 98.1 F 97.6 F Pulse Rate 77 83 76 Respiratory Rate 18 16 Blood Pressure 114/68 118/60 Pulse Oximetry 97 94 Oxygen Delivery Oxygen Flow Rate 04/11/24 09:40 04/11/24 09:55 Temperature Pulse Rate Respiratory Rate Blood Pressure Pulse Oximetry 98 94 Oxygen Delivery Nasal Cannula Room Air Oxygen Flow Rate 3 Intake/Output Intake/Output: Intake & Output 04/08/24 04/09/24 04/10/24 04/11/24 23:59 23:59 23:59 23:59 Intake Total 2150 3300.1 2573.3 840 Output Total 2150 3050 2000 Balance 2150 1150.1 -476.7 -1160 Meds/Results Medications: Active Medications Generic Name Dose Route Start Last Admin Trade Name Freq PRN Reason Stop Dose Admin Albuterol 2 puff 04/09/24 01:33 Albuterol Sulfate (*Sp) Aerosol 1 Puff INHALATION Q4HRT PRN shortness of breath or wheezin Clonazepam 2 mg 04/09/24 00:55 04/10/24 20:49 Clonazepam (*Crx) 0.5 Mg Tablet PO 2 mg QHS [facility]IVIDAD Administration Dextrose 12.5 gm 04/09/24 09:25 Dextrose 50% 25 Gm/50 Ml Syringe IV PUSH PRN PRN Hypoglycemia Protocol Duloxetine HCl 60 mg 04/09/24 09:00 04/11/24 09:35 Duloxetine Hcl 60 Mg Capsule.Dr PO 60 mg DAILY [facility] Administration Glucagon 1 mg 04/09/24 09:25 Glucagon For Inj 1 Mg Vial IM PRN PRN Hypoglycemia Protocol Glucose 15 gm 04/09/24 09:25 Glucose Oral Gel 15 Gm Of Glucse In 37.5 Gm Tube PO PRN PRN Hypoglycemia Protocol Heparin Sodium (Porcine) 5,000 units 04/10/24 14:00 04/11/24 07:34 Heparin Sodium 5,000 Units/Ml Vial SUB-Q 5,000 units Q8HR [facility] Administration Dextrose 1,000 mls @ 100 mls/hr 04/09/24 09:25 Dextrose 5% 1,000 Ml IVPB PRN PRN Hypoglycemia Protocol Insulin Aspart 5 units 04/09/24 12:00 04/11/24 09:34 Insulin Aspart (*Bkc) 100 Units/Ml 0.083 units/kg (5 units) 5 units SUB-Q Administration [facility] Insulin Aspart 2 - 5 units 04/09/24 12:00 04/11/24 09:38 Insulin Aspart (*Bkc) 100 Units/Ml SUB-Q Not Given [facility] Protocol Insulin Aspart 1 - 2 units 04/09/24 21:00 04/10/24 20:48 Insulin Aspart (*Bkc) 100 Units/Ml SUB-Q 1 units HS [facility]IDAD Administration Protocol Insulin Glargine 30 units 04/11/24 09:00 04/10/24 12:49 Insulin Glargine (*Bkc) 100 Units/Ml SUB-Q 30 units DAILY [facility]IDAD Administration Loratadine 10 mg 04/09/24 01:31 04/10/24 09:10 Loratadine 10 Mg Tablet PO 10 mg QAM PRN Administration ALLERGIES Mirtazapine 30 mg 04/09/24 00:55 04/10/24 20:48 Mirtazapine 15 Mg Tablet PO 30 mg QHS [facility]IVIDAD Administration Nicotine 1 patch 04/10/24 10:30 04/11/24 09:35 Nicotine (*Pbkc) 21 Mg Patch TRANSDERM 1 patch DAILY [facility] Administration Perflutren Lipid Microsphere 0 ml 04/10/24 09:17 Perflutren Lipid Microspheres 1.5 Ml Vial Diluted To 10 Ml Total Volume IV PUSH 04/13/24 09:18 ONCE PRN adequate visualization Protocol Pseudoephedrine HCl 30 mg 04/09/24 01:40 Pseudoephedrine Hcl 30 Mg Tablet PO Q6H PRN allergies Umeclidinium/Vilanterol 1 puff 04/09/24 08:00 04/11/24 09:39 Umeclidinium/Vilanterol 62.5-25 Mcg Ellipta INHALATION 1 puff DAILYRT [facility]ID[facility] Administration Radiology Results: ITS Impressions Cervical Spine CT 04/08/24 19:33 IMPRESSION: 1. No acute fracture. 2. Moderate cervical spondylosis. Head CT 04/08/24 19:35 IMPRESSION: 1. Normal brain. Chest/Abdomen/Pelvis CT 04/08/24 19:37 IMPRESSION: 1. Large volume of stool in the colon with distention of the rectum, likely adynamic ileus. 2. Mild right hilar and mediastinal lymphadenopathy, likely reactive. Labs Labs: Laboratory Results - last 24 hr 04/10/24 04/10/24 04/11/24 16:12 19:34 04:47 WBC 8.9 RBC 4.71 Hgb 14.4 Hct 45.7 MCV 97.0 MCH 30.6 MCHC 31.5 L RDW 13.3 Plt Count 208 MPV 9.8 Immature Gran % (Auto) 0.7 H Neut % (Auto) 72.4 Lymph % (Auto) 17.8 L [place] % (Auto) 7.2 Eos % (Auto) 1.6 Baso % (Auto) 0.3 Lymph # (Auto) 1.59 [place] # (Auto) 0.6 Eos # (Auto) 0.1 Baso # (Auto) 0.0 Abs Immat Gran (auto) 0.06 H Absolute Neuts (auto) 6.5 Absolute Nucleated RBC 0.000 Nucleated RBC % 0.0 Sodium 138 Potassium 3.9 Chloride 102 Carbon Dioxide 33 H Anion Gap 3 L BUN 18 H Creatinine 0.42 L Estim Creat Clear Calc 103 Estimated GFR > 60 Glucose 80 POC Capillary Glucose 140 H 223 H Calcium 8.0 L Phosphorus 3.5 Magnesium 2.0 Total Creatine Kinase 149 H 04/11/24 07:47 WBC RBC Hgb Hct MCV MCH MCHC RDW Plt Count MPV Immature Gran % (Auto) Neut % (Auto) Lymph % (Auto) [place] % (Auto) Eos % (Auto) Baso % (Auto) Lymph # (Auto) [place] # (Auto) Eos # (Auto) Baso # (Auto) Abs Immat Gran (auto) Absolute Neuts (auto) Absolute Nucleated RBC Nucleated RBC % Sodium Potassium Chloride Carbon Dioxide Anion Gap BUN Creatinine Estim Creat Clear Calc Estimated GFR Glucose POC Capillary Glucose 129 H Calcium Phosphorus Magnesium Total Creatine Kinase
[2024-04-11 12:02] LABS: Glucose Point of Care 211 mg/dl (65-105)
[2024-04-11] MEDS: ACETAMINOPHEN 325 MG TABLET 650 MG PO ×2 (15:29→21:13)
[2024-04-11 17:19] LABS: Glucose Point of Care 244 mg/dl (65-105)
[2024-04-11 19:49] LABS: Glucose Point of Care 227 mg/dl (65-105)
[2024-04-11] MEDS: MIRTAZAPINE 15 MG TABLET 30 MG PO (20:55)
[2024-04-11] MEDS: clonazePAM (*CRX) 0.5 MG TABLET 2 MG PO (20:55)
--- NOTE | 2024-04-11 22:05 | PC.NURSE ---
pt transfered to 320-1 report given
[2024-04-12] MEDS: HEPARIN SODIUM 5,000 UNITS/ML VIAL 5000 UNITS SUB-Q ×3 (05:21→20:17)
[2024-04-12 05:38] VITALS: BP 97/53; PULSE 78; RESP 14; TEMP 36.2; O2SAT 92
[2024-04-12 07:55] LABS: Glucose Point of Care 181 mg/dl (65-105)
[2024-04-12] MEDS: INSULIN ASPART (*BKC) 100 UNITS/ML SUB-Q ×4 (08:30→17:12)
[2024-04-12] MEDS: DULoxetine HCL 60 MG CAPSULE.DR PO (08:31)
[2024-04-12] MEDS: NICOTINE (*PBKC) 21 MG PATCH 1 PATCH TRANSDERM (08:31)
[2024-04-12] MEDS: CHOLECALCIFEROL 1,000 UNITS TABLET 1000 UNITS PO (08:31)
[2024-04-12] MEDS: INSULIN GLARGINE (*BKC) 100 UNITS/ML 30 UNITS SUB-Q (08:31)
[2024-04-12] MEDS: ATORVASTATIN 40 MG TABLET PO (08:31)
[2024-04-12] MEDS: CYANOCOBALAMIN 500 MCG TABLET PO (08:31)
[2024-04-12 08:53] VITALS: O2SAT 94
[2024-04-12] MEDS: UMECLIDINIUM/VILANTEROL 62.5-25 MCG ELLIPTA 1 PUFF INHALATION (08:53)
[2024-04-12] MEDS: ACETAMINOPHEN 325 MG TABLET 650 MG PO ×2 (10:29→21:16)
--- NOTE | 2024-04-12 10:59 | P.PNIM_ITS ---
Progress Note: A&P Assessment and Plan (1) Hypertension associated with type 2 diabetes mellitus: Code(s): E11.59 - Type 2 diabetes mellitus with other circulatory complications; I15.2 - Hypertension secondary to endocrine disorders Status: Acute (2) Type 2 diabetes mellitus with hyperglycemia, with long-term current use of insulin: Code(s): E11.65 - Type 2 diabetes mellitus with hyperglycemia; Z79.4 - detention (curre nt) use of insulin Status: Acute (3) Fall: Code(s): W19.XXXA - Unspecified fall, initial encounter Status: Acute (4) Rhabdomyolysis: Code(s): M62.82 - Rhabdomyolysis Status: Acute Plan 68-year-old female with past medical history significant for COPD/emphysema, tobacco dependence, type diabetes mellitus, hypertension, recurrent falls, depression, obesity, pacemaker placement, presented after being found down in her home. Patient was not seen for a 12 hours an appointment checked on however and was found laying on the floor covered in feces is confused. Has recurrent falls at home. Patient unable to care for herself. Preliminary workup was significant for CK of over 900, elevated troponin, brain atretic peptide above 14,000, patient tested negative for influenza type A influenza type B COVID and RSV.CT reveals there is an old healed fracture of proximal left humerus. There is a fracture deformity of right third rib, likely old. There is a chronic burst fracture of T12. There are chronic compression fractures of T1, T6, T7, and T10. # Recurrent falls+ rhabdomyolysis Likely from full physical deconditioning Unlikely sepsis going on. Initial presentation with leukocytosis of 15,000 and low-grade fever 99.9. Was started on broad-spectrum antibiotics. Blood cultures negative. Antibiotics discontinued CPK has improved and is within 200 range. IV fluids discontinued PT/OT recommends SNF Supplement magnesium Elevated BNP, echocardiogram with EF 50-55% no significant valvular abnormality. # Troponin elevation likely in setting of rhabdomyolysis, denies any chest pain. Repeat remained flat. Echo with EF 50-55% with no significant valvular abnormality. 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 Euvolemic on evaluation #. Diabetes mellitus: Blood glucose check t.i.d. a.c. and HS Continue with mealtime 5 units of insulin along with sliding scale Decreased the dose of Lantus to 30 units instead of 45 minutes Adjust dose as needed # Constipation: On stool softener. CT evidence of large volume of stool in colon with d istention of the rectum # History of COPD: Stable currently on room air # DVT prophylaxis: Heparin subQ # Code Status: Full # Disposition: PT OT recommends SNF Subjective Date/time seen: 04/12/24 10:59 Interval history: patient was comfortable on bed PT/Ot recommending SNF Review of Systems Review of Systems: All systems reviewed & are unremarkable except as noted in HPI and below Exam Narrative: GENERAL: Ill-appearing, in no acute distress. Well-nourished. - EYES: EOMI. Anicteric. - HENT: Moist mucous membranes. - LUNGS: Clear to auscultation bilateral ly, no wheezing, rhonchi, or rales. - CARDIOVASCULAR: Regular rate and rhyth m. No murmur. No JVD. - ABDOMEN: Soft, non-tender and non-dist ended. No palpable masses. - EXTREMITIES: No edema. Peripheral puls es 2+. Non-tender. - NEUROLOGIC: No focal neurological defi cits. CN II-XII grossly intact. - PSYCHIATRIC: Awake, Alert and oriented x 3. Appropriate mood and affect. - SKIN: No rashes or lesions. Warm. Bru ises noted in her right lower leg - LYMPH: No cervical lymphadenopathy. Const: General: comfortable, no acute distress, well developed, alert, awake, ill appearing chronically and average body habitus Nutritional Appearance: average body habitus Orientation/consciousness: patient oriented x3 Other: Unkempt HENMT: Head: normal to inspection, normocephalic and atraumatic Ears: hearing grossly normal bilaterally Face/Nose/Sinus: normal facial exam Face and sinus: normal facial exam Mouth: Yes moist mucous membranes Eyes: General: appearance normal, both eyes and all related structures Sclera: sclerae normal Pupils: Equal, round and reactive pupils present EOM: EOMs intact bilaterally Neck: Neck: full ROM, no lymphadenopathy, supple and no JVD Thyroid: thyro id normal Lymphatic: no lymphadenopathy noted Resp: Effort & Inspection: normal respiratory effort and able to speak in complete sentences Auscultation: clear to auscultation bilaterally Cardio: Jugular venous distension: no JVD Rate: regular rate Rhythm: regular rhythm Heart sounds: S1 normal heart sound present and S2 normal heart sound present GI: Auscultation: normal bowel sounds : General: Yes deferred Skin: General skin exam: normal color Rashes: no rashes Wounds: no wounds Neuro: General: patient oriented x3, CN's II-XI intact bilaterally and Unable to assess gait Cranial nerves: Yes CN's II-XII intact bilaterally and Yes Equal, round and reactive pupils present Cognition (Neuro): normal cognition Speech: normal speech Gait exam (Neuro): Unable to assess gait Motor exam (neuro): 5/5 motor strength present throughout Extrem: General: normal to inspection, full ROM, no joint enlargement, no pedal edema and edema bilateral (1+) Other: Multiple excoriation localized to upper extremities and lower extremities Psych: Mental Status: mental status grossly normal Objective Data Vital Signs Vital Signs: Vital Signs - 24 hr 04/11/24 11:10 04/11/24 12:00 04/11/24 13:15 Temperature Pulse Rate 85 Respiratory Rate Blood Pressure Pulse Oximetry Oxygen Delivery Room Air Room Air 04/11/24 16:00 04/11/24 20:00 04/11/24 20:00 Temperature 98.0 F Pulse Rate 81 83 81 Respiratory Rate 18 18 Blood Pressure 126/65 Pulse Oximetry 97 95 Oxygen Delivery Room Air 04/11/24 20:20 04/11/24 22:34 04/12/24 05:38 Temperature 98 F 96.8 F L 97.1 F L Pulse Rate 81 81 78 Respiratory Rate 18 16 14 Blood Pressure 104/67 118/78 97/53 L Pulse Oximetry 95 92 92 Oxygen Delivery 04/12/24 08:53 Temperature Pulse Rate Respiratory Rate Blood Pressure Pulse Oximetry 94 Oxygen Delivery Room Air Intake/Output Intake/Output: Intake & Output 04/09/24 04/10/24 04/11/24 04/12/24 23:59 23:59 23:59 23:59 Intake Total 3300.1 2573.3 4600 240 Output Total 2150 3050 5200 800 Balance 1150.1 -476.7 -600 -560 Meds/Results Medications: Active Medications Generic Name Dose Route Start Last Admin Trade Name Freq PRN Reason Stop Dose Admin Acetaminophen 650 mg 04/11/24 11:58 04/12/24 10:29 Acetaminophen 325 Mg Tablet PO 650 mg Q6H PRN Administration Mild Pain (1-3) or Fever Albuterol 2 puff 04/09/24 01:33 Albuterol Sulfate (*Sp) Aerosol 1 Puff INHALATION Q4HRT PRN shortness of breath or wheezin Atorvastatin Calcium 40 mg 04/12/24 09:00 04/12/24 08:31 Atorvastatin 40 Mg Tablet PO 40 mg DAILY NATIVIDAD Administration Clonazepam 2 mg 04/09/24 00:55 04/11/24 20:55 Clonazepam (*Crx) 0.5 Mg Tablet PO 2 mg QHS NATIVIDAD Administration Cyanocobalamin 500 mcg 04/12/24 09:00 04/12/24 08:31 Cyanocobalamin 500 Mcg Tablet PO 500 mcg QAM NATIVIDAD Administration Dextrose 12.5 gm 04/09/24 09:25 Dextrose 50% 25 Gm/50 Ml Syringe IV PUSH PRN PRN Hypoglycemia Protocol Duloxetine HCl 60 mg 04/09/24 09:00 04/12/24 08:31 Duloxetine Hcl 60 Mg Capsule.Dr PO 60 mg DAILY NATIVIDAD Administration Enalapril Maleate 2.5 mg 04/12/24 09:00 04/12/24 09:07 Enalapril Maleate 2.5 Mg Tablet PO Not Given DAILY [facility]IVIDAD Glucagon 1 mg 04/09/24 09:25 Glucagon For Inj 1 Mg Vial IM PRN PRN Hypoglycemia Protocol Glucose 15 gm 04/09/24 09:25 Glucose Oral Gel 15 Gm Of Glucse In 37.5 Gm Tube PO PRN PRN Hypoglycemia Protocol Heparin Sodium (Porcine) 5,000 units 04/10/24 14:00 04/12/24 05:21 Heparin Sodium 5,000 Units/Ml Vial SUB-Q 5,000 units Q8HR [facility]IDAD Administration Dextrose 1,000 mls @ 100 mls/hr 04/09/24 09:25 Dextrose 5% 1,000 Ml IVPB PRN PRN Hypoglycemia Protocol Insulin Aspart 5 units 04/09/24 12:00 04/12/24 08:30 Insulin Aspart (*Bkc) 100 Units/Ml 0.083 units/kg (5 units) 5 units SUB-Q Administration TIDWM [facility] Insulin Aspart 2 - 5 units 04/09/24 12:00 04/12/24 08:30 Insulin Aspart (*Bkc) 100 Units/Ml SUB-Q Not Given TIDWM [facility] Protocol Insulin Aspart 1 - 2 units 04/09/24 21:00 04/11/24 20:55 Insulin Aspart (*Bkc) 100 Units/Ml SUB-Q 1 units HS [facility] Administration Protocol Insulin Glargine 30 units 04/11/24 09:00 04/12/24 08:31 Insulin Glargine (*Bkc) 100 Units/Ml SUB-Q 30 units DAILY [facility] Administration Loratadine 10 mg 04/09/24 01:31 04/10/24 09:10 Loratadine 10 Mg Tablet PO 10 mg QAM PRN Administration ALLERGIES Mirtazapine 30 mg 04/09/24 00:55 04/11/24 20:55 Mirtazapine 15 Mg Tablet PO 30 mg QHS [facility]IVIDAD Administration Nicotine 1 patch 04/10/24 10:30 04/12/24 08:31 Nicotine (*Pbkc) 21 Mg Patch TRANSDERM 1 patch DAILY [facility]IVIDAD Administration Perflutren Lipid Microsphere 0 ml 04/10/24 09:17 Perflutren Lipid Microspheres 1.5 Ml Vial Diluted To 10 Ml Total Volume IV PUSH 04/13/24 09:18 ONCE PRN adequate visualization Protocol Pseudoephedrine HCl 30 mg 04/09/24 01:40 Pseudoephedrine Hcl 30 Mg Tablet PO Q6H PRN allergies Umeclidinium/Vilanterol 1 puff 04/09/24 08:00 04/12/24 08:53 Umeclidinium/Vilanterol 62.5-25 Mcg Ellipta INHALATION 1 puff DAILYRT [facility]IVIDAD Administration Vitamin D 1,000 units 04/12/24 09:00 04/12/24 08:31 Cholecalciferol 1,000 Units Tablet PO 1,000 units DAILY [facility]IVID[facility] Administration Radiology Results: ITS Impressions Cervical Spine CT 04/08/24 19:33 IMPRESSION: 1. No acute fracture. 2. Moderate cervical spondylosis. Head CT 04/08/24 19:35 IMPRESSION: 1. Normal brain. Chest/Abdomen/Pelvis CT 04/08/24 19:37 IMPRESSION: 1. Large volume of stool in the colon with distention of the rectum, likely adynamic ileus. 2. Mild right hilar and mediastinal lymphadenopathy, likely reactive. Labs Labs: Laboratory Results - last 24 hr 04/11/24 04/11/24 04/11/24 11:59 16:18 19:37 POC Capillary Glucose 211 H 244 H 227 H 04/12/24 07:45 POC Capillary Glucose 181 H Quality VTE Prophylaxis VTE prophylaxis: pharmacologic ordered
[2024-04-12 11:58] LABS: Glucose Point of Care 312 mg/dl (65-105)
[2024-04-12 15:31] VITALS: BP 115/59; PULSE 83; RESP 16; TEMP 36.4; O2SAT 94
[2024-04-12 16:55] LABS: Glucose Point of Care 178 mg/dl (65-105)
[2024-04-12 20:07] VITALS: BP 129/72; PULSE 75; RESP 16; TEMP 36.4; O2SAT 93
[2024-04-12] MEDS: clonazePAM (*CRX) 0.5 MG TABLET 2 MG PO (20:18)
[2024-04-12] MEDS: MIRTAZAPINE 15 MG TABLET 30 MG PO (20:18)
[2024-04-12 21:35] LABS: Glucose Point of Care 170 mg/dl (65-105)
[2024-04-13 04:58] VITALS: BP 115/74; PULSE 77; RESP 16; TEMP 36.6; O2SAT 100
[2024-04-13] MEDS: HEPARIN SODIUM 5,000 UNITS/ML VIAL 5000 UNITS SUB-Q ×3 (05:26→20:10)
[2024-04-13 08:14] LABS: Glucose Point of Care 157 mg/dl (65-105)
[2024-04-13 09:34] VITALS: PULSE 85; RESP 20; O2SAT 93
[2024-04-13] MEDS: UMECLIDINIUM/VILANTEROL 62.5-25 MCG ELLIPTA 1 PUFF INHALATION (09:34)
[2024-04-13] MEDS: ATORVASTATIN 40 MG TABLET PO (09:37)
[2024-04-13] MEDS: NICOTINE (*PBKC) 21 MG PATCH 1 PATCH TRANSDERM (09:37)
[2024-04-13] MEDS: DULoxetine HCL 60 MG CAPSULE.DR PO (09:37)
[2024-04-13] MEDS: CYANOCOBALAMIN 500 MCG TABLET PO (09:37)
[2024-04-13] MEDS: ENALAPRIL MALEATE 2.5 MG TABLET PO (09:37)
[2024-04-13] MEDS: CHOLECALCIFEROL 1,000 UNITS TABLET 1000 UNITS PO (09:37)
[2024-04-13] MEDS: INSULIN GLARGINE (*BKC) 100 UNITS/ML 30 UNITS SUB-Q (09:38)
[2024-04-13] MEDS: INSULIN ASPART (*BKC) 100 UNITS/ML SUB-Q ×4 (09:38→20:10)
--- NOTE | 2024-04-13 10:50 | P.PNIM_ITS ---
Progress Note: A&P Assessment and Plan (1) Hypertension associated with type 2 diabetes mellitus: Code(s): E11.59 - Type 2 diabetes mellitus with other circulatory complications; I15.2 - Hypertension secondary to endocrine disorders Status: Acute (2) Type 2 diabetes mellitus with hyperglycemia, with long-term current use of insulin: Code(s): E11.65 - Type 2 diabetes mellitus with hyperglycemia; Z79.4 - residential (curre nt) use of insulin Status: Acute (3) Fall: Code(s): W19.XXXA - Unspecified fall, initial encounter Status: Acute (4) Rhabdomyolysis: Code(s): M62.82 - Rhabdomyolysis Status: Acute Plan 68-year-old female with past medical history significant for COPD/emphysema, tobacco dependence, type diabetes mellitus, hypertension, recurrent falls, depression, obesity, pacemaker placement, presented after being found down in her home. Patient was not seen for a 12 hours an appointment checked on however and was found laying on the floor covered in feces is confused. Has recurrent falls at home. Patient unable to care for herself. Preliminary workup was significant for CK of over 900, elevated troponin, brain atretic peptide above 14,000, patient tested negative for influenza type A influenza type B COVID and RSV.CT reveals there is an old healed fracture of proximal left humerus. There is a fracture deformity of right third rib, likely old. There is a chronic burst fracture of T12. There are chronic compression fractures of T1, T6, T7, and T10. # Recurrent falls+ rhabdomyolysis Likely from full physical deconditioning Unlikely sepsis going on. Initial presentation with leukocytosis of 15,000 and low-grade fever 99.9. Was started on broad-spectrum antibiotics. Blood cultures negative. Antibiotics discontinued CPK has improved and is within 200 range. IV fluids discontinued PT/OT recommends SNF Supplement magnesium Elevated BNP, echocardiogram with EF 50-55% no significant valvular abnormality. # Troponin elevation likely in setting of rhabdomyolysis, denies any chest pain. Repeat remained flat. Echo with EF 50-55% with no significant valvular abnormality. 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 Euvolemic on evaluation #. Diabetes mellitus: Blood glucose check t.i.d. a.c. and HS Continue with mealtime 5 units of insulin along with sliding scale Decreased the dose of Lantus to 30 units instead of 45 minutes Adjust dose as needed # Constipation: On stool softener. CT evidence of large volume of stool in colon with d istention of the rectum # History of COPD: Stable currently on room air # DVT prophylaxis: Heparin subQ # Code Status: Full # Disposition: SNF asset coordinator working on SNF discharge today Subjective Date/time seen: 04/13/24 10:50 Interval history: patient was comfortable on bed PT/Ot recommending SNF Review of Systems Review of Systems: GENERAL: Ill-appearing, in no acute distress. Well-nourished. - EYES: EOMI. Anicteric. - HENT: Moist mucous membranes. - LUNGS: Clear to auscultation bilateral ly, no wheezing, rhonchi, or rales. - CARDIOVASCULAR: Regular rate and rhyth m. No murmur. No JVD. - ABDOMEN: Soft, non-tender and non-dist ended. No palpable masses. - EXTREMITIES: No edema. Peripheral puls es 2+. Non-tender. - NEUROLOGIC: No focal neurological defi cits. CN II-XII grossly intact. - PSYCHIATRIC: Awake, Alert and oriented x 3. Appropriate mood and affect. - SKIN: No rashes or lesions. Warm. - LYMPH: No cervical lymphadenopathy. All systems reviewed & are unremarkable except as noted in HPI and below Exam Narrative: GENERAL: Ill-appearing, in no acute distress. Well-nourished. - EYES: EOMI. Anicteric. - HENT: Moist mucous membranes. - LUNGS: Clear to auscultation bilateral ly, no wheezing, rhonchi, or rales. - CARDIOVASCULAR: Regular rate and rhyth m. No murmur. No JVD. - ABDOMEN: Soft, non-tender and non-dist ended. No palpable masses. - EXTREMITIES: No edema. Peripheral puls es 2+. Non-tender. - NEUROLOGIC: No focal neurological defi cits. CN II-XII grossly intact. - PSYCHIATRIC: Awake, Alert and oriented x 3. Appropriate mood and affect. - SKIN: No rashes or lesions. Warm. Bru ises noted in her right lower leg - LYMPH: No cervical lymphadenopathy. Const: General: comfortable, no acute distress, well developed, alert, awake, ill appearing chronically and average body habitus Nutritional Appearance: average body habitus Orientation/consciousness: patient oriented x3 Other: Unkempt HENMT: Head: normal to inspection, normocephalic and atraumatic Ears: hea ring grossly normal bilaterally Face/Nose/Sinus: normal facial exam Face and sinus: normal facial exam Mouth: Yes moist mucous membranes Eyes: General: appearance normal, both eyes and all related structures Sclera: sclerae normal Pupils: Equal, round and reactive pupils present EOM: EOMs intact bilaterally Neck: Neck: full ROM, no lymphadenopathy, supple and no JVD Thyroid: thyroid normal Lymphatic: no lymphadenopathy noted Resp: Effort & Inspection: normal respiratory effort and able to speak in complete sentences Auscultation: clear to auscultation bilaterally Cardio: Jugular venous distension: no JVD Rate: regular rate Rhythm: regular rhythm Heart sounds: S1 normal heart sound present and S2 normal heart sound present GI: Auscultation: normal bowel sounds : General: Yes deferred Skin: General skin exam: normal color Rashes: no rashes Wounds: no wounds Neuro: General: patient oriented x3, CN's II-XI intact bilaterally and Unable to assess gait Cranial nerves: Yes CN's II-XII intact bilaterally and Yes Equal, round and reactive pupils present Cognition (Neuro): normal cognition Speech: normal speech Gait exam (Neuro): Unable to assess gait Motor exam (neuro): 5/5 motor strength present throughout Extrem: General: normal to inspection, full ROM, no joint enlargement, no pedal edema and edema bilateral (1+) Other: Multiple excoriation localized to upper extremities and lower extremities Psych: Mental Status: mental status grossly normal Objective Data Vital Signs Vital Signs: Vital Signs - 24 hr 04/12/24 15:31 04/12/24 20:00 04/12/24 20:07 Temperature 97.5 F L 97.6 F Pulse Rate 83 75 Respiratory Rate 16 16 Blood Pressure 115/59 L 129/72 Pulse Oximetry 94 93 Oxygen Delivery Room Air Fraction of Inspired Oxygen 04/13/24 04:58 04/13/24 09:34 04/13/24 09:34 Temperature 98 F Pulse Rate 77 85 Respiratory Rate 16 20 Blood Pressure 115/74 Pulse Oximetry 100 93 Oxygen Delivery Room Air Fraction of Inspired Oxygen 21 Intake/Output Intake/Output: Intake & Output 04/10/24 04/11/24 04/12/24 04/13/24 23:59 23:59 23:59 23:59 Intake Total 2573.3 4600 1780 2600 Output Total 9540 5660 1204 [address] [facility] [phone] Meds/Results Medications: Active Medications Generic Name Dose Route Start Last Admin Trade Name Freq PRN Reason Stop Dose Admin Acetaminophen 650 mg 04/11/24 11:58 04/12/24 21:16 Acetaminophen 325 Mg Tablet PO 650 mg Q6H PRN Administration Mild Pain (1-3) or Fever Albuterol 2 puff 04/09/24 01:33 Albuterol Sulfate (*Sp) Aerosol 1 Puff INHALATION Q4HRT PRN shortness of breath or wheezin Atorvastatin Calcium 40 mg 04/12/24 09:00 04/13/24 09:37 Atorvastatin 40 Mg Tablet PO 40 mg DAILY [facility] Administration Clonazepam 2 mg 04/09/24 00:55 04/12/24 20:18 Clonazepam (*Crx) 0.5 Mg Tablet PO 2 mg QHS [facility] Administration Cyanocobalamin 500 mcg 04/12/24 09:00 04/13/24 09:37 Cyanocobalamin 500 Mcg Tablet PO 500 mcg QAM [facility] Administration Dextrose 12.5 gm 04/09/24 09:25 Dextrose 50% 25 Gm/50 Ml Syringe IV PUSH PRN PRN Hypoglycemia Protocol Duloxetine HCl 60 mg 04/09/24 09:00 04/13/24 09:37 Duloxetine Hcl 60 Mg Capsule.Dr PO 60 mg DAILY [facility]ID[facility] Administration Enalapril Maleate 2.5 mg 04/12/24 09:00 04/13/24 09:37 Enalapril Maleate 2.5 Mg Tablet PO 2.5 mg DAILY [facility] Administration Glucagon 1 mg 04/09/24 09:25 Glucagon For Inj 1 Mg Vial IM PRN PRN Hypoglycemia Protocol Glucose 15 gm 04/09/24 09:25 Glucose Oral Gel 15 Gm Of Glucse In 37.5 Gm Tube PO PRN PRN Hypoglycemia Protocol Heparin Sodium (Porcine) 5,000 units 04/10/24 14:00 04/13/24 05:26 Heparin Sodium 5,000 Units/Ml Vial SUB-Q 5,000 units Q8HR [facility] Administration Dextrose 1,000 mls @ 100 mls/hr 04/09/24 09:25 Dextrose 5% 1,000 Ml IVPB PRN PRN Hypoglycemia Protocol Insulin Aspart 5 units 04/09/24 12:00 04/13/24 09:38 Insulin Aspart (*Bkc) 100 Units/Ml 0.083 units/kg (5 units) 5 units SUB-Q Administration TIDWM [facility] Insulin Aspart 2 - 5 units 04/09/24 12:00 04/13/24 09:39 Insulin Aspart (*Bkc) 100 Units/Ml SUB-Q Not Given TIDWM [facility] Protocol Insulin Aspart 1 - 2 units 04/09/24 21:00 04/12/24 20:18 Insulin Aspart (*Bkc) 100 Units/Ml SUB-Q Not Given HS [facility] Protocol Insulin Glargine 30 units 04/11/24 09:00 04/13/24 09:38 Insulin Glargine (*Bkc) 100 Units/Ml SUB-Q 30 units DAILY [facility] Administration Loratadine 10 mg 04/09/24 01:31 04/10/24 09:10 Loratadine 10 Mg Tablet PO 10 mg QAM PRN Administration ALLERGIES Mirtazapine 30 mg 04/09/24 00:55 04/12/24 20:18 Mirtazapine 15 Mg Tablet PO 30 mg QHS [facility]IVDIAD Administration Nicotine 1 patch 04/10/24 10:30 04/13/24 09:37 Nicotine (*Pbkc) 21 Mg Patch TRANSDERM 1 patch DAILY [facility]IDAD Administration Pseudoephedrine HCl 30 mg 04/09/24 01:40 Pseudoephedrine Hcl 30 Mg Tablet PO Q6H PRN allergies Umeclidinium/Vilanterol 1 puff 04/09/24 08:00 04/13/24 09:34 Umeclidinium/Vilanterol 62.5-25 Mcg Ellipta INHALATION 1 puff DAILYRT [facility]IDAD Administration Vitamin D 1,000 units 04/12/24 09:00 04/13/24 09:37 Cholecalciferol 1,000 Units Tablet PO 1,000 units DAILY [facility] Administration Radiology Results: ITS Impressions Cervical Spine CT 04/08/24 19:33 IMPRESSION: 1. No acute fracture. 2. Moderate cervical spondylosis. Head CT 04/08/24 19:35 IMPRESSION: 1. Normal brain. Chest/Abdomen/Pelvis CT 04/08/24 19:37 IMPRESSION: 1. Large volume of stool in the colon with distention of the rectum, likely adynamic ileus. 2. Mild right hilar and mediastinal lymphadenopathy, likely reactive. Labs Labs: Laboratory Results - last 24 hr 04/12/24 04/12/24 04/12/24 11:37 16:49 20:10 POC Capillary Glucose 312 H 178 H 170 H 04/13/24 07:44 POC Capillary Glucose 157 H Quality VTE Prophylaxis VTE prophylaxis: pharmacologic ordered
--- NOTE | 2024-04-13 10:58 | PC.NURSE ---
Patient resting in bed. She was able to eat breakfast without difficulty. Dentures do not fit.
[2024-04-13 12:22] LABS: Glucose Point of Care 174 mg/dl (65-105)
[2024-04-13 14:00] VITALS: BP 112/61; PULSE 60; RESP 16; TEMP 36.6; O2SAT 100
[2024-04-13 17:16] LABS: Glucose Point of Care 185 mg/dl (65-105)
[2024-04-13] MEDS: MIRTAZAPINE 15 MG TABLET 30 MG PO (20:10)
[2024-04-13] MEDS: clonazePAM (*CRX) 0.5 MG TABLET 2 MG PO (20:10)
[2024-04-13 21:10] LABS: Glucose Point of Care 221 mg/dl (65-105)
[2024-04-13 21:28] VITALS: BP 112/58; PULSE 60; RESP 16; TEMP 36.4; O2SAT 99
[2024-04-14 05:59] VITALS: BP 129/63; PULSE 82; RESP 18; TEMP 36.3; O2SAT 100
[2024-04-14] MEDS: HEPARIN SODIUM 5,000 UNITS/ML VIAL 5000 UNITS SUB-Q (07:30)
[2024-04-14 08:23] LABS: Glucose Point of Care 123 mg/dl (65-105)
[2024-04-14] MEDS: ATORVASTATIN 40 MG TABLET PO (08:34)
[2024-04-14] MEDS: CHOLECALCIFEROL 1,000 UNITS TABLET 1000 UNITS PO (08:35)
[2024-04-14] MEDS: CYANOCOBALAMIN 500 MCG TABLET PO (08:35)
[2024-04-14] MEDS: ENALAPRIL MALEATE 2.5 MG TABLET PO (08:35)
[2024-04-14] MEDS: DULoxetine HCL 60 MG CAPSULE.DR PO (08:35)
[2024-04-14] MEDS: INSULIN ASPART (*BKC) 100 UNITS/ML SUB-Q ×2 (08:36→12:22)
[2024-04-14] MEDS: NICOTINE (*PBKC) 21 MG PATCH 1 PATCH TRANSDERM (08:37)
[2024-04-14] MEDS: INSULIN GLARGINE (*BKC) 100 UNITS/ML 30 UNITS SUB-Q (08:39)
[2024-04-14] MEDS: UMECLIDINIUM/VILANTEROL 62.5-25 MCG ELLIPTA 1 PUFF INHALATION (08:39)
[2024-04-14 08:40] VITALS: PULSE 81; RESP 20; O2SAT 97
--- NOTE | 2024-04-14 10:08 | PCNFU ---
Nutrition Follow-Up Complete: Severe protein calorie malnutrition related to chronic loss of appetite, poor dentition as evidenced by weight loss -26%/6 months; inadequate oral intake <75% needs >1 month; severe muscle wasting and fat loss Adequate PO intake at least 75% meals and supplements - Progressing with intakes 50-100%. Continue with same goal Goal: Pt current nutrition is Diabetic consistent carb diet. glucerna TID (220 kcal, 10 g protein each). Nutrition recommendation: No new nutrition recommendations. Continue with current nutrition care plan and orders. Agree with orders. Last recorded weight is 64.4 kg. Bowel Motility: +1 BM 04/13/24 Labs Reviewed: No labs since 04/11/24. POC BG 123 Meds Noted: Remeron, novolog, lantus Skin: Deep tissue injuries BL buttocks, sacrum. Addressed with Glucerna TID, pt did not want Mauirzio Additional Notes: Progressing with intakes. Discharge to SNF in progress. Agree with current orders Monitoring intakes, weights, labs, meds, output, skin, supplement tolerance, plan of care Follow up in 5 days
[2024-04-14 12:02] LABS: Glucose Point of Care 186 mg/dl (65-105)
[2024-04-14 12:11] LABS: SARS-CoV-2 RNA PCR Negative (Negative)
--- NOTE | 2024-04-14 12:26 | P.DS_ITS ---
DS: Admitting Diagnosis Discharge Date 04/14/2024 Admitting Diagnosis fall DS: Discharge Diagnosis Discharge Diagnosis (1) Hypertension associated with type 2 diabetes mellitus: Code(s): E11.59 - Type 2 diabetes mellitus with other circulatory complications; I15.2 - Hypertension secondary to endocrine disorders Status: Acute Assessment and Plan: see below (2) Type 2 diabetes mellitus with hyperglycemia, with long-term current use of insulin: Code(s): E11.65 - Type 2 diabetes mellitus with hyperglycemia; Z79.4 - keno terminal operator (current) use of insulin Status: Acute (3) Fall: Code(s): W19.XXXA - Unspecified fall, initial encounter Status: Acute (4) Rhabdomyolysis: Code(s): M62.82 - Rhabdomyolysis Status: Acute Plan # Recurrent falls+ rhabdomyolysis Likely from full physical deconditioning Unlikely sepsis going on. Initial presentation with leukocytosis of 15,000 and low-grade fever 99.9. Was started on broad-spectrum antibiotics. Blood cultures negative. Antibiotics discontinued CPK has improved and is within 200 range. IV fluids discontinued PT/OT recommends SNF Supplement magnesium Elevated BNP, echocardiogram with EF 50-55% no significant valvular abnormality. # Troponin elevation likely in setting of rhabdomyolysis, denies any chest pain. Repeat remained flat. Echo with EF 50-55% with no significant valvular abnormality. 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 Euvolemic on evaluation #. Diabetes mellitus: Blood glucose check t.i.d. a.c. and HS Continue with mealtime 5 units of insulin along with sliding scale Decreased the dose of Lantus to 40 units instead of 45 minutes # Constipation: On stool softener. CT evidence of large volume of stool in colon with distention of the rectum # History of COPD: Stable currently on room air # DVT prophylaxis: Heparin subQ # Code Status: Full # Disposition: SNF Dc today to snf DS: Summary Hospital Course Hospital Course: 68-year-old female with past medical history significant for COPD/emphysema, tobacco dependence, type diabetes mellitus, hypertension, recurrent falls, depression, obesity, pacemaker placement, presented after being found down in her home. Patient was not seen for a 12 hours an appointment checked on however and was found laying on the floor covered in feces is confused. Has recurrent falls at home. Patient unable to care for herself. Preliminary workup was significant for CK of over 900, elevated troponin, brain atretic peptide above 14,000, patient tested negative for influenza type A influenza type B COVID and RSV.CT reveals there is an old healed fracture of proximal left humerus. There is a fracture deformity of right third rib, likely old. There is a chronic burst fracture of T12. There are chronic compression fractures of T1, T6, T7, and T10. Pt electrolytes corrected ok to DC to sNF for further rehab. Time Spent with Patient Time attestation: Total time spent providing and/or coordinating discharge services:55 minutes on day of dc Exam Narrative: GENERAL: Ill-appearing, in no acute distress. Well-nourished. - EYES: EOMI. Anicteric. - HENT: Moist mucous membranes. - LUNGS: Clear to auscultation bilateral ly, no wheezing, rhonchi, or rales. - CARDIOVASCULAR: Regular rate and rhyth m. No murmur. No JVD. - ABDOMEN: Soft, non-tender and non-dist ended. No palpable masses. - EXTREMITIES: No edema. Peripheral puls es 2+. Non-tender. - NEUROLOGIC: No focal neurological defi cits. CN II-XII grossly intact. - PSYCHIATRIC: Awake, Alert and oriented x 3. Appropriate mood and affect. - SKIN: No rashes or lesions. Warm. Bru ises noted in her right lower leg - LYMPH: No cervical lymphadenopathy. DS: Data Data Completed and Pending Labs on day of discharge: Labs from last 24 hours 04/14/24 04/14/24 04/14/24 11:55 11:12 08:07 POC Capillary Glucose 186 H 123 H SARS-CoV-2 RNA (RT-PCR) Negative 04/13/24 04/13/24 19:48 17:08 POC Capillary Glucose 221 H 185 H SARS-CoV-2 RNA (RT-PCR) Preliminary micro results at discharge 04/08/24 21:31 Blood Culture - Preliminary Blood 04/08/24 21:31 Blood Culture - Preliminary Blood Discharge Plan Discharge Attending physician on discharge: Chiki Medina Discharging Clinician: Chiki Medina Anticipated Discharge Date/Time: 04/13/24 10:47 Patient Disposition: SNF Activity: as tolerated Diet: as tolerated Patient Instructions: Heart Failure (GEN) Patient Language: Citizen Of [place] Stand Alone Forms: General Discharge Information Follow-up/Referrals: Tremaine Snyder MD [Primary Care Provider] - (F/u with PCP in 3-5 days) Discharge Medications: Continued ibuprofen 200 mg capsule 200 mg PO Q6H PRN (Reason: Pain) Claritin-D 12 Hour 5-120 mg tablet extended release 12 hr 1 tablet PO Q12H PRN (Reason: allergies) duloxetine 60 mg capsule,delayed release(DR/EC) 60 mg PO DAILY cholecalciferol (vitamin D3) 25 mcg (1,000 unit) capsule 25 mcg PO DAILY mecobalamin (vitamin B12) 500 mcg tablet,chewable 500 mcg PO DAILY Fiasp FlexTouch U-100 Insulin 100 unit/mL (3 mL) insulin pen See Rx Instructions subcut TIDWMEAL MDD 4 Qty: 36 2RF Rx Instructions: 9 units before breakfast, 7 units before lunch and 5 units before dinner add for high sugar before meals 150-200: 1 unit 201-250: 2 units 251-300: 3 units 301-350: 4 units 351-400: 5 units >401: 6 units glycopyrrolate-formoterol 9-4.8 mcg HFA aerosol inhaler 2 puff inhalation BID Qty: 10.7 3RF mirtazapine 15 mg tablet 15 mg PO QHS Rx Instructions: 30 mg qhs clonazepam 2 mg tablet 2 mg PO QHS (DME) pen needle, diabetic [BD Ultra-Fine Lucretia Pen Needle] 32 gauge x 5/32 needle See Rx Instructions .Route Qty: 400 1RF Rx Instructions: 4 times daily with insulin albuterol sulfate 90 mcg/actuation aerosol powdr breath activated 2 inh inhalation Q4H PRN (Reason: shortness of breath or wheezing) Qty: 1 6RF enalapril maleate 2.5 mg tablet 2.5 mg PO DAILY Qty: 90 2RF atorvastatin 40 mg tablet 40 mg PO DAILY Qty: 90 2RF metformin 1,000 mg tablet See Rx Instructions .ROUTE .COMPLEX Qty: 180 1RF Dose Instruction: TAKE 1 TABLET BY MOUTH TWICE DAILY Rx Instructions: TAKE 1 TABLET BY MOUTH TWICE DAILY Changed insulin degludec [Tresiba FlexTouch U-200] 200 unit/mL (3 mL) insulin pen 40 unit subcut DAILY 90 Days Qty: 21 2RF Date of admission: 01/28/25 21:08 Primary Care Provider: Tremaine Snyder Admitting Provider: Odalys Ojeda V. Attending physician on admission: Odalys Ojeda V. Condition: Stable
== END 2024-04-14 14:45 | DRG 557 ==
LOC: ANHED 21:19 → ANHIMU 04-09 02:30 → ANH3MEDSUR 04-13 10:48 → ANHIMU 04-15 13:27
PROVIDERS: Hospitalist; Internal Medicine; Admitting Provider Internal Medicine; Emergency Provider Emergency Medicine; PCP Family Medicine; Visit Provider Family Medicine
DX: M62.82 Rhabdomyolysis (principal); E43 Unspecified severe protein-calorie malnutrition; E78.5 Hyperlipidemia, unspecified; E66.9 Obesity, unspecified; E11.9 Type 2 diabetes mellitus without complications; E53.8 Deficiency of other specified B group vitamins; E55.9 Vitamin D deficiency, unspecified; F41.9 Anxiety disorder, unspecified; F17.210 Nicotine dependence, cigarettes, uncomplicated; F32.A Depression, unspecified; I11.0 Hypertensive heart disease with heart failure; I50.9 Heart failure, unspecified; J43.9 Emphysema, unspecified; K59.00 Constipation, unspecified; K21.9 Gastro-esophageal reflux disease without esophagitis; R29.6 Repeated falls; R62.7 Adult failure to thrive; W19.XXXA Unspecified fall, initial encounter; Z66 Do not resuscitate; Z20.822 Contact with and (suspected) exposure to COVID-19; Z11.52 Encounter for screening for COVID-19; Z68.22 Body mass index [BMI] 22.0-22.9, adult; Z95.0 Presence of cardiac pacemaker; Z98.41 Cataract extraction status, right eye; Z98.42 Cataract extraction status, left eye; Z96.1 Presence of intraocular lens; Z79.84 Long term (current) use of oral hypoglycemic drugs; Z79.4 Long term (current) use of insulin
CPT/HCPCS: 36415; 36600; 70450; 71260; 72125; 74177; 80048; 80053; 80143; 80179; 80307; 81003; 82077; 82550; 82565; 82805; 82948; 83605; 83690; 83735; 83880; 84100; 84443; 84484; 85018; 85025; 85055; 85610; 85730; 86850; 86900; 86901; 87040; 87635; 87637; 93005; 93306; 94640; 96361; 96365; 96366; 96367; 97162; 97166; 97530; 97535; 99285; A9270; J0692; J0696; J1644; J1815; J1836; J3370; J3475; J7030; J7120; Q9967

== ENCOUNTER 2024-10-17 14:06 | Inpatient (IN) | payer MEDICARE, OTHER, SELFPAY ==
--- NOTE | ~2024-10-17 | XR_ITS ---
EXAMINATION: XR chest 1V 10/17/2024 15:07 INDICATION: Altered mental status PROCEDURE: AP view of the chest COMPARISON: Comparison to multiple prior studies sequentially, with oldest reviewed study dated 02/09. FINDINGS: The lungs are clear. The cardiomediastinal silhouette is within normal limits. There are no pleural effusions. There is no pneumothorax suspected. There is atherosclerosis of the aorta. Th ere are old healed humeral neck fractures. IMPRESSION: 1: NO ACUTE CARDIOPULMONARY DISEASE. Reviewed, dictated and finalized at location A.
--- NOTE | ~2024-10-17 | CT_ITS ---
EXAMINATION: CT brain wo con DATE: 10/17/2024 15:03 INDICATION: Fall TECHNIQUE: Computed tomography (CT) of the head was performed without intravenous contrast. Sagittal and coronal reconstructions were performed. The mA was adjusted according to patient size. Iterative reconstruction technique was employed. The dose-length product was 908.00 mGy-cm. COMPARISON: head CT dated 04/08/2023 FINDINGS: No calvarial fracture. No acute intracranial hemorrhage, acute infarction or abnormal extra axial flu id collection. Ventricles are normal and symmetric. No mass/mass effect. Changes of bilateral intraoc ular lens replacement. The orbits and mastoid air cells are normal. Small amount of gas within depend ently layering mucus in the left sphenoid sinus consistent with acute sinusitis. IMPRESSION: 1. No fracture or acute intracranial process. 2. Dependently layering mucus in the left sphenoid sinus consistent with acute sinusitis. Reviewed, dictated and finalized at location A.
[2024-10-17 13:59] VITALS: PULSE 105; RESP 20; TEMP 36.4; O2SAT 95
--- NOTE | 2024-10-17 14:10 | ECG_ITS ---
Test Date: 2024-10-17 14:10:51 Measurements Intervals [place] Rate: 81 P: 0 KS: 0 QRS: -64 QRSD: 160 T: 109 QT: 483 QTc: 561 Interpretive Statements ELECTRONIC VENTRICULAR PACEMAKER NO FURTHER INTERPRETATION IS POSSIBLE ATYPICAL ECG Compared to ECG 04/08/2024 17:36:53 No significant changes Electronically Signed On 10-18-2024 07:33:24 CDT by Howie Carter D.O.
--- OUTSIDE RECORDS SUMMARY | 2024-10-17 14:57 | XMS_ITS | Patient Health Record ---
Author Organization [facility] [employer] Address [address] [place] [address] Care Team Providers Care Building Cleaner Name Role Phone Tremaine Snyder MD Primary Care Provider Salvatore Josue Unavailable [phone] Praveena Zhong Unavailable [phone] Reason For Referral No Information Medications Medication SIG (Take, Route, Frequency, Duration) Notes Start Date End Date Status metFORMIN HCl 1000 MG Oral 07/24/2023 Active Vitamin D3 Super Strength 50 MCG (1999 UT) Oral 07/24/2023 Active Atorvastatin Calcium 20 MG Oral 07/24/2023 Active Enalapril Maleate 2.5 MG Oral 07/24/2023 Active Fiasp FlexTouch 100 unit/mL (3 mL) Subcutaneous *Pick strength-form from [employer] for eRX* 07/24/2023 Active BD MELVA 2ND GEN PEN NEEDLE 32 GAUGE X 5/32 *Reorder from [employer] for eRx and Interaction Alerts* 07/24/2023 Active Vitamin B12 *Pick strength-form from [employer]span for eRX* 07/24/2023 Active clonazePAM 2 MG Oral 07/24/2023 Act stu DULoxetine HCl 60 MG 1 capsule Oral Once a day; Duration: 90 days 07/24/2023 Active Tresiba FlexTouch 200 UNIT/ML Subcutaneous 07/24/2023 Active Glimepiride 2 MG Oral 07/24/2023 Ac tive FREESTYLE ELIDA 2 SENSOR KIT *Reorder from [employer] for eRx and Interaction Alerts* 07/24/2023 Active Nystatin 523701 UNIT/GM External 07/24/2023 Active Ozempic (2 MG/DOSE) 8 MG/3ML Subcutaneous *Reorder from [employer] for eRx and Interaction Alerts* 07/24/2023 Active Calcium Citrate 200 mg (950 mg) Oral *Pick strength-form from [employer] for eRX* 07/24/2023 Active Immunizations Vaccine Route [...] Risk Notes Problem Mild recurrent major depression (78818426) Major depressive disorder, recurrent, mild (F33.0) Active confirmed Problem Generalized anxiety disorder (80731282) Generalized anxiety disorder (F41.1) Active confirmed Vital Signs Height-cm 170.18 cm 11/20/2023 Height 67.00 in 11/20/2023 Encounters Encounter Location Date Provider Diagnosis [facility] [place] [address] [facility] [address] [place] [address] 01/17/2024 Praveena Hemann Major depressive disorder, recurrent, mild F33.0 and Generalized anxiety disorder F41.1 [facility] [place] [address] [facility] [address] [address] 11/20/2023 Salvatore Johnson Generalized anxiety disorder F41.1 ; Major depressive disorder, recurrent, mild F33.0 and Insomnia due to other mental disorder F51.05 [facility] [place] [address] [facility] [address] [facility] [address] [place] [address] 11/20/2023 Praveena Hemann Major depressive disorder, recurrent, mild F33.0 and Generalized anxiety disorder F41.1 [facility] [place] [address] [facility] [address] [place] [address] 12/05/2023 Praveena Hemann Major depressive disorder, recurrent, mild F33.0 and Generalized anxiety disorder F41.1 [facility] [place] [address] [facility] [address] [facility] [address] [place] [address] 01/03/2024 Praveena Hemann Major depressive disorder, recurrent, mild F33.0 and Generalized anxiety disorder F41.1 [facility] [address] [place] [address] 01/31/2024 Praveena Hemann Major depressive disorder, recurrent, mild F33.0 and Generalized anxiety disorder F41.1 [facility], [facility] [address] [place] [address] 02/14/2024 Praveena Hemann Major depressive disorder, recurrent, mild F33.0 and Generalized anxiety disorder F41.1 [facility], [facility] [address] [place] [address] 03/26/2024 Praveena Hemann Major depressive disorder, recurrent, mild F33.0 and Generalized anxiety disorder F41.1 [facility], [facility] [address] [facility] [address] [place] [address] 03/07/2024 Salvatore Johnson [facility], [facility] [address] [facility] [address] [place] [address] 03/27/2024 Salvatore Johnson [facility], [facility] [address] [facility] [address] [place] [address] 04/08/2024 Salvatore Johnson [facility], [facility] [address] [facility] [address] [place] [address] 04/09/2024 Praveena Zhong [facility], [facility] [address] [facility] [address] [place] [address] 04/09/2024 Salvatore Johnson [facility], [facility] [address] [address] 04/23/2024 Salvatore Johnson [facility], [facility] [address] [address] 06/20/2024 Salvatore Johnson Assessments Encounter Date Diagnosis (ICD Code) Assessment Notes Treatment Notes Treatment Clinical Notes Section Notes 01/03/2024 Major depressive disorder, recurrent, mild (ICD-10 [...] or changes in the patient's condition. 11/20/2023 Major depressive disorder, recurrent, mild (ICD-10 - F33.0) 12/05/2023 Major depressive disorder, recurrent, mild (ICD-10 - F33.0) 12/05/2023 Generalized anxiety disorder (ICD-10 - F41.1) 11/20/2023 Generalized anxiety disorder (ICD-10 - F41.1) 11/20/2023 [...] concerns or changes in the patient's condition. Plan Of Treatment No Information Insurance Providers Payer Name Payer Address Payer Phone Subscriber Number Group Number Insured Name Patient Relationship to Insured Coverage Start Date Coverage End Date Medicare-I l Medicare [address] [place] [address] [id number] ARANZA CHAHAL Self - patient is the insured [place] [employer] [address] [place] [address] [id number] ARANZA CHAHAL Self - patient is the insured Medical (General) History Surgical History Surgery Date(Month/Year) Cataract surgery (84733) 03/12/2012 Cardiac pacemaker procedure ([id number]) 03/19/2023 Any surgical history 10/11/2019
--- OUTSIDE RECORDS SUMMARY | 2024-10-17 14:57 | XMS_ITS | Encounter Summary ---
Author Organization [facility] Healthcare Address [address] [place] [address] Care Team Providers Care Manager Tax Name Role Phone Tremaine Snyder MD Primary Care Provider Philip Mena CAR RECORD CLERK Unavailable [phone] Encounter Details Date Type Department Care Team (Late st Contact Info) Description 11/14/2019 Telephone [facility] [address] [place] [address] David Wagner, RT Social History Tobacco Use Types Packs/Day Years Used Date Smoking Tobacco: Every Day Cigarettes Smokeless Tobacco: Current Alcohol Use Standard Drinks/Week Comments Yes 0 (1 standard drink = 0.6 oz pur e alcohol) occasional Comments Unknown Sex and Gender Information Value Date Recorded Sex Assigned at Not on file Legal Sex Female 3:36 AM ENTRY REP Gender Identity Not on file Sexual Orientation Straight 06/15/2023 11 :06 AM CDT documented as of this encounter Plan of Treatment Not on file documented as of this encounter Visit Diagnoses Not on filedocumented in this encounter Care Teams Manager Tax Relationship Specialty Start Date End Date Tremaine Snyder MD [address] [facility] [address] [place] [address] PCP - General Family Medicine 11/11/19 Philip Mena NP [address] [place] [address] [address] [place] [address] Nurse Practitioner Nurse Practitioner 11/27/19 documented as of this encounter
--- OUTSIDE RECORDS SUMMARY | 2024-10-17 14:58 | XMS_ITS ---
Author Organization [facility] [employer] [facility] Address [facility] [address] [address] Care Team Providers Care Manager Administrative Services Name Role Phone Claudio MATHEWS, Tremaine Primary Care Provider Salvatore Josue Unavailable [phone] Praveena Parnell Unavailable [phone] REASON FOR VISIT See tele encounters Social History Sex Assigned At : Social History Observation Description Sex Assigned At Female Encounters Encounter Location Date Provider Diagnosis [facility] [address] [address] 06/20/2024 Praveena Parnell Plan Of Treatment No Information Progress Notes * ARANZA CHAHALDOB:1955 (68 yo F)Acc No.[id number]:06/20/2024 Patient: ARANZA DURAN Provider: Minerva PARNELL LCSW :1955 A ge:68 Y S ex:Female Date:06/20/2024 Address:[address] [place], [place] [id number] Pcp:Tremaine Snyder MD Data: * Chief Complaints: * 1 . See tele encounters. Assessment: Plan: * Treatment: * Billing Information: * Visit Code: * Procedure Codes: * Electronic signature of Praveena Parnell LCSW on 10/17/2024 at 02:58 PM CDT Sign off status: Pending Signatures: No Ad Hoc Signature Added * Provider: Minerva PARNELL LCSW Date: 0 06/20/2024 Generated for Printi ng/Faeverg/eTransmitting on: 0 10/17/2024 02:58 PM CDT
--- OUTSIDE RECORDS SUMMARY | 2024-10-17 14:58 | XMS_ITS ---
Author Organization [facility] [employer] [facility] Address [facility] [address] [address] Care Team Providers Care Sculpture Instructor Name Role Phone Claudio MATHEWS, Tremaine Primary Care Provider Salvatore Josue Unavailable [phone] Praveena Parnell Unavailable [phone] Social History Sex Assigned At : Social History Observation Description Sex Assigned At Female Encounters Encounter Location Date Provider Diagnosis [facility] [email or web address] [address] [address] 04/09/2024 Praveena Parnell Plan Of Treatment No Information Progress Notes * ARANZA DIAZDOB:1955 (68 yo F)Acc No.[id number]:04/09/2024 Patient: ARANZA DURAN Provider: Minerva PARNELL LCSW :1955 A ge:68 Y S ex:Female Date:04/09/2024 Address:[address] [place], [place] [id number] Pcp:Tremaine Snyder MD Data: * Chief Complaints: * Assessment: Plan: * Treatment: * Billing Information: * Visit Code: * Procedure Codes: * Electronic signature of Praveena Parnell LCSW on 10/17/2024 at 02:57 PM CDT Sign off status: Pending Signatures: No Ad Hoc Signature Added * Provider: Minerva PARNELL LCSW Date: 04/09/2024 Generated for Beatrice maldonado/Quinton/eTdevorahsmdeysi on: 10/17/2024 02:57 PM CDT
--- OUTSIDE RECORDS SUMMARY | 2024-10-17 14:58 | XMS_ITS | Clinical Summary ---
Author Organization [facility] Address [address] [place] [address] Phone Care Team Providers Care Corporate Quality Assurance Manager Name Role Phone Tremaine Snyder MD Primary Care Provider [phone] Allergies No known active allergies Medications glyBURIDE-metFOR [...] 84 11/07/2019 10:54 PM CDT Temperature 36.9 C (98.4 F) 11/07/2019 10:54 PM CDT Respiratory Rate 17 11/07/2019 10:54 PM CDT Oxygen Saturation 96% 11/07/2019 10:54 PM CDT Inhaled Oxygen Concentration - - Weight 113.4 kg (250 lb) 11/07/2019 5:48 PM CDT Height 167.6 cm (5' 6) 11/07/2019 5:48 PM CDT Body Mass Index 40.35 11/07/2019 5:48 PM CDT Plan of Treatment Health Maintenance Due Date Last Done Comments PNEUMOCOCCAL VACCINE 50+ YEARS (1 of 2 - PCV) 11/05/18 76 BREAST CANCER SCREENING 1996 COLORECTAL SCREENING 2001 Colorectal Cancer Screening 2001 FIT-DNA Q 3 years 2001 FIT/FOBT Q 1 year 2001 Flex Sig/CT Colonography Q 5 years 2001 ZOSTER VACCINE (1 of 2) 2006 OSTEOPOROSIS SCREENING 2021 INFLUENZA VACCINE (#1) 2024 DTAP/TDAP/TD VACCINES (2 - Td or Tdap) 11/06/2029 RSV VACCINE (60+ or ) (1 - 1-dose 75+ series) 11/06/2031 Insurance Care Teams Corporate Quality Assurance Manager Relationship Specialty Start Date End Date Tremaine Snyder MD [address] [phone] PCP - General Family Practice 11/07/19
--- OUTSIDE RECORDS SUMMARY | 2024-10-17 14:58 | XMS_ITS ---
Author Organization [facility] [facility] Address [facility] [address] [address] Care Team Providers Care Parking Lot Chauffeur Name Role Phone Claduio MATHEWS, Tremaine Primary Care Provider Salvatore Josue Unavailable [phone] Praveena Parnell Unavailable [phone] REASON FOR VISIT No calls, no messages, no voicemail Social History Sex Assigned At : Social History Observation Description Sex Assigned At Female Encounters Encounter Location Date Provider Diagnosis [facility] [place] [address] [address] 04/23/2024 Praveena Parnell Plan Of Treatment No Information Progress Notes * ARANZA CHAHALDOB:1955 (68 yo F)Acc No.[id number]:04/23/2024 Patient: ARANZA DURAN Provider: Minerva PARNELL LCSW :1955 A ge:68 Y S ex:Female Date:04/23/2024 Address:[address] [place], [place] [id number] Pcp:Tremaine Snyder MD Data: * Chief Complaints: * 1 . No calls, no messages, no voicemail. Assessment: Plan: * Treatment: * Procedure Codes: N STHR NO SHOW THERAPY * Billing Information: * Visit Code: * Procedure Codes: NSTHR NO SHOW THERAPY. * Electronic signature of Praveena Parnell LCSW on 10/17/2024 at 02:57 PM CDT Sign off status: Pending Signatures: No Ad Hoc Signature Added * Provider: Minerva PARNELL LCSW Date: 0 04/23/2024 Generated for Beatrice maldonado/Quinton/Yomaira on: 0 10/17/2024 02:57 PM CDT
--- OUTSIDE RECORDS SUMMARY | 2024-10-17 14:58 | XMS_ITS | Clinical Summary ---
Author Organization [facility] Medical [facility] 2 Address [address] 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 01/12/2016 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 Encounters Date Type Department Care Team Description 09/18/2024 Telephone [facility] Medical Group Cardiology [address] [place] [address] [place] [id number] Marie Araujo MD 09/17/2024 8:00 AM CDT Ancillary Procedure [facility] Medical [facility] Cardiology [address] [place] [address] [place] [id number] AV block from Last 3 Months Surgical History Surgery Date Site/Laterality Comments EYE SURGERY Eye Surgery - Laser Surgery-drains in left & right eye (2001) and Laser Surgery -tickle right eye for fluid drainage 02/2010 (Added by TW Conv) Medical History Medical History Date Comments History of recurrent pneumonia P neumonia - (Added by TW Conv) Tobacco abuse counseling Encount er for smoking cessation counseling - (Added by TW Conv) Hypertension High cholesterol Diabetes (HCC) Depression Scleritis GERD (gastroesophageal reflux disease) 03/19/2023 COPD (chronic obstructive pu lmonary disease) Type 2 diabetes mellitus 03/19/2023 Family History Medical History Relation Name Comments Cancer Father Cancer - (Added by TW Conv) Diabetes Father's Brother Diabetes Me llitus - Dx: @ age of 70+ : great aunts (Added by TW Conv) Colon cancer Father's Sister Malignant Ne oplasm, Colon - 1966, also first cousin (Added by TW Conv) Diabetes Other 1 Diabetes Mellit us - (Added by [employer] Conv) Osteoporosis Other 2 Family history of [...] = 0.6 oz pur e alcohol) occasional [employer] Utilities Answer Date Recorded In the past 12 months has [employer], gas, oil, or water [employer] threatened to shut off services in your [...] often do you attend chur ch or yazidism services? Never 03/20/2023 Do you belong to any clubs o r organizations such as baptist groups, unions, fraternal or athletic groups, or [...] place to sleep or slept in a detention (including now)? No 03/20/2023 Personal Safety Answer Date Recorded Have you ever been in or are you currently in a harmful physical or emotional relationship or is someone making you feel afraid or unsafe? Denies 03/18/2023 Comments Unknown Sex and Gender Information Value Date Recorded Sex Assigned at Not on file Legal Sex Female 3:36 AM BATHING SUIT MAKER Gender Identity Not on file Sexual Orientation Straight 06/15/2023 11 :06 AM CDT Obstetrics History Last Filed Vital Signs Vital Sign Reading Time Taken Comments Blood Pressure 118/62 06/26/2023 9:58 AM CDT Pulse 75 06/26/2023 9:58 AM CDT Temperature 36.7 C (98.1 F) 03/20/2023 8:08 AM BATHING SUIT MAKER Respiratory Rate 16 06/26/2023 9:58 AM CDT Oxygen Saturation 91% 06/26/2023 9:58 AM CDT Inhaled Oxygen Concentration - - Weight 91.6 kg (202 lb) 06/26/2023 9:58 AM CDT Height 170.2 cm (5' 7) 06/26/2023 9:58 AM CDT Body Mass Index 31.64 06/26/2023 9:58 AM CDT Plan of Treatment Health Maintenance Due Date Last Done Comments Albumin Creatinine Ratio, Urine 1956 Colon Cancer Screening-Colonoscopy 1956 Depression Screening 1956 Hepatitis C Screening 1956 Osteoporosis Screening-Bone Density Scan 1956 Dilated Eye Exam 1956 Foot Exam 1956 Lipid Panel 1956 Hepatitis B Screening 1974 Pneumococcal vaccine 65+ (1 of 2 - PCV) 11/06/1975 Zoster Vaccine (1 of 2) 2006 Breast Cancer Screening-Mammogram 09/25/2014 014, 04/24/2012 Well Visit 65+ 2021 Hemoglobin A1C 09/17/2023 03/19/2023, 11/24/2019 eGFR 03/19/2024 03/19/2023, 11/18/2019 Fall Risk Assessment 03/20/2024 03/20/2023 Influenza Vaccine (#1) 2024 DTaP/Tdap/Td Vaccine (2 - Td or Tdap) 11/06/2029 Medical Devices Implanted Type Area Sound Printer Device Identifier Shelf Expiration Date Model / Serial / Lot Synthes 02.107.102 Lcp Combi 73mm 2 Hole Variable Angle Taper Tip Round Profile - [id number] Implanted:Qty: 1 on 11/27/2019 by Hollis Warren MD at [facility] [place] Left: Olecranon Synthes I 02.107.10 2 / / Synthes .016 2.7mm 16mm Self Tap Lock Variable Angle Stardrive T8 Screw Bone - [id number] Implanted:Qty: 1 on 11/27/2019 by Hollis Warren MD at [facility] [place] Left: Olecranon Synthes I 6 / / Synthes .018 2.7mm 18mm Self Tap Lock Variable Angle Stardrive T8 Screw Bone - [id number] Implanted:Qty: 2 on 11/27/2019 by Hollis Warren MD at [facility] [place] Left: Olecranon Synthes I 8 / / Depuy Synthes Locking Screw Implanted:Qty: 1 on 11/27/2019 by Hollis Warren MD at [facility] [place] Left: Olecranon Synthes I [id number] / / Description:[facility] ITEM# [id number] ; FLAGGED ON 11/28/19 CHARGE CODE ASSIGNED [id number] Synthes 204.826 3.5mm 6mm 26mm 2.5mm Self Tap Small Hexagonal Socket Low Profile - [id number] Implanted:Qty: 1 on 11/27/2019 by Hollis Warren MD at [facility] [place] Left: Olecranon Synthes I 204.826 / / Synthes 212.107 3.5mm 2.9mm 22mm Self Tap Lock Stardrive Conical Head T15 Full - [id number] Implanted:Qty: 1 on 11/27/2019 by Hollis Warren MD at [facility] [place] Left: Olecranon Synthes I 212.107 / / [employer] Device Clsr Perclose Prostyle Sut-Mediatd Closure-Repair Sys 96177-21 - [id number] Implanted:Qty: 1 on 03/19/2023 by Dev Vasquez MD at [facility] [employer] 12/09/2024 17559-56 / / [id number] [employer] Device Clsr Perclose Prostyle Sut-Mediatd Closure-Repair Sys 58997-86 - [id number] Implanted:Qty: 1 on 03/19/2023 by Dev Vasquez MD at [facility] [employer] 12/09/2024 93872-85 / / [id number] [employer] Katie Av_Vr Leaderless Pacer - [id number] Implanted:Qty: 1 on 03/19/2023 by Dev Vasquez MD at [facility] [employer] [id number] / / Procedures Procedure Name Priority Date/Time Associated Diagnosis Comments EGFR Routine 03/19/2023 5:16 AM BATHING SUIT MAKER HEMOGLOBIN A1C Routine 03/19/2023 5:16 AM BATHING SUIT MAKER DIAGNOSTIC MAMMOGRAM BILATERAL W DEV Routine 09/25/2013 11:58 AM CDT from Last 3 Months or Most Recently Relevant to Health Maintenance Results * eGFR (03/19/2023 5:16 AM BATHING SUIT MAKER) eGFR 104 mL/min/1. 73 m2 YEIMI CALIX Comment: Interpretive Data Reference Interval Normal >/= 90 mL/min/1.73m2 Mildly decreased* 60 - 89 mL/min/1.73m2 Mildly to moderately decreased 45 - 59 mL/min/1.73m2 Moderately to severely decreased 30 - 44 mL/min/1.73m2 Severely decreased 15 - 29 mL/min/1.73m2 Kidney Failure < 15 mL/min/1.73m2 *Relative to young adult level Estimated glomerular [...] last reviewed 2021. Blood 03/19/2023 5:16 AM BATHING SUIT MAKER 03/19/2023 5:22 AM BATHING SUIT MAKER us Lisa Oates NP LAB BLOOD ORDERABLES Chacha bhanadri Result YEIMI CALIX [address] [facility] [place] [address] * (ABNORMAL) Hemoglobin A1c (03/19/2023 5:16 AM BATHING SUIT MAKER) Hgb A1C 8.9(H) 4.0 - 5.6 % YEIMI CALIX Estimated Average Glucose 209 mg/dL YEIMI CALIX Comment: The ADA recommends reporting an estimated Average Glucose (eAG) with all Hemoglobin A1c results using the equation derived from a study of 507 normal and diabetic adults. Minority populations were underrepresented and children were not included. (Diabetes Care 31:3395-0478, 2008). The eAG is not equivalent to a fasting glucose. Blood 03/19/2023 5:16 AM BATHING SUIT MAKER 03/19/2023 5:22 AM BATHING SUIT MAKER us Lisa Oates NP LAB BLOOD ORDERABLES Chacha l Result YEIMI CALIX [address] [facility] [place] [address] * DIAGNOSTIC MAMMOGRAM BILATERAL W DEV (09/25/2013 11:58 AM CDT) Anatomical Region Laterality Modality Breast Bilateral Mammography 09/25/2013 11:5 8 AM CDT Narrative 09/25/2013 4:54 PM CDT Acc#: [id number] [facility] 0034 - Screening [...] TECHNOLOGIST: BHAVIN SCHMITT, TECHNOLOGIST MEDICAL IMAGING PRN REHAB LIAISON: NAUN TRANSCRIBE DATE/TIME: Sep 25 2013 4:02P RADIOLOGIST: KIM HART M.D. READ ON: Sep 25 2013 3:50P ORDERING DR: AMIE FELIZ M.D. THIS DOCUMENT HAS BEEN ELECTRONICALLY SIGNED BY: KIM HART M.D. ON: Sep 25 2013 4:54P REHAB LIAISON: NAUN TRANSCRIBE DATE/TIME: Sep 25 2013 4:02P RADIOLOGIST: KIM HART M.D. READ ON: Sep 25 2013 3:50P ORDERING DR: AMIE FELIZ M.D. THIS DOCUMENT HAS BEEN ELECTRONICALLY SIGNED BY: KIM HART M.D. ON: Sep 25 2013 4:54P Requesting Procedure Note Provider, MD Patricia - 07/03/2016 Acc#: [id number] [facility] 0034 - Screening [...] TECHNOLOGIST: BHAVIN SCHMITT, TECHNOLOGIST MEDICAL IMAGING PRN REHAB LIAISON: NAUN TRANSCRIBE DATE/TIME: Sep 25 2013 4:02P RADIOLOGIST: KIM HART M.D. READ ON: Sep 25 2013 3:50P ORDERING DR: AMIE FELIZ M.D. THIS DOCUMENT HAS BEEN ELECTRONICALLY SIGNED BY: KIM HART M.D. ON: Sep 25 2013 4:54P REHAB LIAISON: NAUN TRANSCRIBE DATE/TIME: Sep 25 2013 4:02P RADIOLOGIST: KIM HART M.D. READ ON: Sep 25 2013 3:50P ORDERING DR: AMIE FELIZ M.D. THIS DOCUMENT HAS BEEN ELECTRONICALLY SIGNED BY: KIM HART M.D. ON: Sep 25 2013 4:54P Requesting us Historical Provider MD HOOPER MAMMO PROCEDURES Chacha l Result from Last 3 Months or Most Recently Relevant to Health Maintenance Insurance [place]ICE [place] YESSICA MOOREAHA MEDICARE [place] YESSICA SANCHES Advance Directives For more information, please contact: [phone] * Full Code (Latest Code Status on File) Date Activated Date Inactivated Comments 03/19/2023 1:43 AM 03/20/2023 7:08 PM Care Teams Camp Recreation Specialist Relationship Specialty Start Date End Date Tremaine Snyder MD [address] [place] [id number] PCP - General Family Medicine 11/11/19 Philip Mena NP [address] [place] [address] DR THOMSON [address] [place] [address] Nurse Practitioner Nurse Practitioner 11/27/19
--- OUTSIDE RECORDS SUMMARY | 2024-10-17 14:58 | XMS_ITS | Continuity of Care Document ---
Author Organization [facility] Address [address] [facility] leandra Hern[address] [address] Phone Care Team Providers Care Freight Flagman Name Role Phone John Almeida Unavailable Unavailable [...] Copied on Encounter Office[facility]outpat ient Visit, [facility], [address] [place] [address] [address], [place], [place], [id number], [place] tel:[phone] [facility] No Information Jan-2 9-201 0 Elle Lopez. [address] [place] [address] , [address], [place], [place], [facility], . tel:[phone] Office/outpat ient Visit, [facility], [address] [place] [address] [address], [place], [place], [id number], [place] tel:[phone] [facility] No Information 1 5-201 0 Elle Ednataliya. [address] [place] [address] Center , [address], [place], [place], [facility], . tel:[phone] Office/outpat ient Visit, [facility], [address] [place] [address] [address], [place], [place], [id number], [place] tel:[phone] [facility] No Information Dec-2 5-201 0 Elle Ednataliya. [address] [place] [address] Center , [address], [place], [facility], . tel:[phone] [facility], [address] [place] [address] [address], [place], [place], [id number], [place] tel:[phone] [facility] No Information Dec-0 7-201 0 Elle Lopez. [address] [place] [address] Center , [address], [place], [facility], [place]. tel:[phone] Referring Provider: John Palma, [address] [place], [place] [address]ate Center [address], [place], [place], [facility]. tel:[phone] Office/outpat ient Visit, [facility], [address] [place] [address] [address], [place], [place], [address], [place] tel:[phone] [facility] No Information Santhosh-0 4-201 0 Elle Lopez. [address] [place] [address] , [address], [place], [facility], [place]. tel:[phone] Office/outpat ient Visit, [facility], [address] [place] [address] [address], [place], [place], [address], [place] tel:[phone] SEC [facility] No Information 0 8-201 0 Elle oLpez. [address] [place] [address] , [address], [place], [facility], [place]. tel:[phone] [facility], [address] [place] [address] [address], [place], [place], [address], [place] tel:[phone] [facility] No Information 0 6-200 9 Elle Lopez. [address] [place] [address] , [address], [place], [facility], [place]. tel:[phone] Referring Provider: John Palma, [address] [place] [address] Dr [address], [place], [facility]. tel:[phone] Office/outpat ient Visit, [facility], [address] [place] [address] [address], [place], [place], [address], [place] tel:[phone] [facility] No Information -200 9 Krishnasamy Carlos. [address] [place] [address] [address], [place], [facility], [place]. tel:[phone] [facility], [address] [place] [address] [address], [place], [place], [address], [place] tel:[phone] [facility] No Information 0 1-200 9 Krishnasamy Carlos. [facility] [address], [place], [facility], [place]. tel:[phone] Office/outpat ient Visit, [facility], [address] [place] [address] [address], [place], [place], [address], [place] tel:[phone] [facility] No Information Santhosh-1 0-200 9 Elle Lopez. [facility] , [address], [place], [facility], [place]. tel:[phone] Office/outpat ient Visit, [facility], [address], [place], [place], [address], [place] tel:[phone] [facility] No Information Santhosh-0 2-200 9 Violet Carlos. [facility] [address], [place], [facility], [place]. tel:[phone] Office/outpat ient Visit, [facility], [address], [place], [place], [address], [place] tel:[phone] [facility] No Information 2 9-200 9 Elle Lopez. [address] [place] [address] Center , [address], [place], [facility], [place]. tel:[phone] Office/outpat ient Visit, [facility], [address], [place], [place], [address], [place] tel:[phone] [facility] No Information May-1 1-200 9 Elle Lopez. [address] [place] [address] , [address], [place], [facility], [place]. tel:[phone] Referring Provider: John Palma, [address] [place], [place] [address]ate Center [address], [place], [facility]. tel:[phone] [facility], [address], [place], [place], [address], [place] tel:[phone] [facility] No Information Oct-0 9-200 8 [employer]. [address] [facility], [address], [place], [place], [address], [place]. tel:[phone] Referring Provider: John Palma, [address] [place], [place] [address]ate Center [address], [place], [facility]. tel:[phone] sulting Provider: Freddy Rouse, [facility], [place], [address]. tel:[phone] [facility], [address] [place] [address] [address], [place], [place], [address], [place] tel:[phone] [facility] No Information Dec-0 8-200 8 Elle Lopez. [address] [place], [place] [address]ate [place] , [address], [place], [facility], [place]. tel:[phone] [facility], [address] [place] [address] [address], [place], [place], [id number], [place] tel:[phone] [facility] No Information 9200 8 Elle Lopez. [address] [place], [place] [address], [place], [facility], [place]. tel:[phone] Referring Provider: John Palma, [address] [place], [place] [address]ate Center [address], [place], [facility]. tel:[phone] Office/outpat ient Visit, [facility], [address] [place] [address] [address], [place], [place], [address], [place] tel:[phone] [facility] No Information 8-200 8 Elle Lopez. [address] [place], [place] [address]ate Center , [address], [place], [facility], [place]. tel:[phone] [facility], [address] [place] [address] [address], [place], [place], [address], [place] tel:[phone] [facility] No Information Dec-1 5-200 7 Elle Lopez. [address] [place], [place] [address]ate Center , [address], [place], [facility], [place]. tel:[phone] Office/outpat ient Visit, [facility], [address], [place], [place], [address], [place] tel:[phone] [facility] No Information 200 7 Elle Lopez. [address] [place] [address] , [address], [place], [facility], . tel:[phone] [facility], [address], [place], [place], [address], [place] tel:[phone] [facility] No Information 7 Elle Lopez. [address] [place] [address] , [address], [place], [facility], . tel:[phone] Referring Provider: John Palma [address] [place], [place] [address]ate [place] [address], [place], [facility]. tel:[phone] Family History Family Member Type Diagnosis Age At Onset No Information Payers Payer name Insurance type Covered alliance party ID Authoriza nanisneha(s) [facility] Out Of State 09 [id number] Social History Type Description Quantity Date Captured [...]
[2024-10-17] MEDS: SODIUM CHLORIDE 0.9% IV 1,000 ML 999 ML IV CONT ×5 (15:40→21:36)
[2024-10-17 15:43] LABS: Add Urine Microscopic? NO; Appearance Urine Clear (Clear); Glucose Urine UA 3+ mg/dL (Negative); Hematocrit 50.7 % (37.0-47.0); Hemoglobin 16.2 g/dL (12.0-15.0); Immature Granulocyte Percent A 0.8 % (0-0.5); Leukocyte Esterase Ur Negative LEU/UL (Negative); Lymphocytes Absolute Auto 1.16 K/mm3 (0.9-3.2); Mean Corpuscular HGB Conc 32.0 g/dl (32-36); Mean Corpuscular Hemoglobin 28.9 pg (26-34); Mean Corpuscular Volume 90.4 fl (80-100); Nitrate Urine Negative (Negative); Nucleated Red Blood Cells Absolute Auto 0.000 K/mm3 (0.0-0.012); Nucleated Red Blood Cells Perc 0.0 % (0.0-0.2); Platelet Count Result 373 k/mm3 (150-375); Red Blood Count 5.61 M/mm3 (4.2-5.4); Specific Grav Ur 1.035 (1.001-1.035); White Blood Count 19.2 K/mm3 (4.5-10.0)
[2024-10-17 15:45] VITALS: BP 136/51; PULSE 66; RESP 24; O2SAT 99
[2024-10-17 16:00] LABS: Creatine Kinase 80 U/L (30-135)
[2024-10-17 16:10] LABS: Beta-Hydroxybutyrate/Acetoace. 4.24 mmol/L (0.02-0.27)
[2024-10-17 16:21] LABS: Alanine Aminotransferase 72 U/L (6-35); Albumin Level 4.4 g/dL (3.5-5.1); Alkaline Phosphatase 188 U/L (38-126); Anion Gap 21 mmol/L (4-12); Aspartate Amino Transferase 25 U/L (14-36); Bilirubin,Total 0.8 mg/dL (0.2-1.3); Blood Urea Nitrogen 57 mg/dL (7-17); Calcium 10.3 mg/dL (8.4-10.2); Carbon Dioxide 19 mmol/L (22-30); Chloride 110 mmol/L (98-107); Estimated CRCL calculation 43 ml/min; Estimated Glomerular Filt Rate 50; Glucose 998 mg/dL (65-110); Magnesium 3.2 mg/dL (1.6-2.3); Potassium 4.3 mmol/L (3.4-5.0); Sodium 150 mmol/L (137-145); Total Protein 7.9 g/dL (6.3-8.2)
--- NOTE | 2024-10-17 16:27 | ED.GENADULT ---
HPI - General Adult General Chief complaint: Fall Stated complaint: ams post fall Time Seen by Provider: 10/17/24 14:11 History of Present Illness HPI narrative: Patient is a 68-year-old female who presents ER with altered mental status. She was found on the ground after falling offered follow-up. She had been down for at least 12 hours according to a friend to help find her with a caregiver. She had been texting the patient last night. Patient appears very dry. She is oriented x1. She has history of diabetes. Blood sugar is greater than 500. Related Data Home Medications ?Medication ?Instructions ?Recorded ?Confirmed ?Last Taken ?Type ibuprofen 200 mg capsule 200 mg PO Q6H PRN Pain 11/17/20 05/21/24 02/20/23 History loratadine 5 mg-pseudoephedrine ER 1 tablet PO Q12H PRN allergies 10/19/21 05/21/24 02/27/23 History 120 mg tablet,extended release,12hr (Claritin-D 12 Hour) cholecalciferol (vitamin D3) 25 25 mcg PO DAILY 08/14/22 05/21/24 03/15/23 09:00 History mcg (1,000 unit) capsule mecobalamin (vitamin B12) 500 mcg 500 mcg PO DAILY 08/14/22 05/21/24 03/15/23 09:00 History chewable tablet duloxetine 60 mg capsule,delayed 60 mg PO DAILY 07/05/23 05/21/24 Unknown History release Allergies Allergy/AdvReac Type Severity Reaction Status Date / Time No Known Allergies Allergy Verified 10/17/24 15:46 Review of Systems Review of Systems: ROS unobtainable: Yes unobtainable due to medical condition PMFSH Past Medical History Medical History Pacemaker Hyperlipidemia Chronic obstructive pulmonary disease Burst fracture of thoracic vertebra Obesity (BMI 30-39.9) Depression Osteopenia after menopause Type 2 diabetes mellitus Allergic rhinitis Post-menopausal Vitamin B12 deficiency Vitamin D deficiency Headache, migraine Chronic GERD Essential (primary) hypertension Keratosis Glomerulonephritis Anxiety Surgical History Surgical History S/P placement of cardiac pacemaker Status cardiac pacemaker Status post cataract extraction of both eyes with insertion of intraocular lens (~2018) History of elbow surgery (~2019) ORIF Family History Family History Mother Family history of multiple sclerosis Depression Multiple sclerosis Sibling Family history of ulcerative colitis Hypertension Ulcerative (chronic) ileocolitis Father Family history of cardiovascular disease Carcinoma of colon Grandparent Emphysema lung Grandparent Cerebrovascular accident Social History Social History Social History: The patient is single and has never been . She does not have any children. 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 She has smoked 1.5 packs per day since her mid 20s. She denies any significant alcohol or drug use. She does not have any pets but takes care of a feral cat colony. Code status: DNR/DNI Healthcare power of litigation attorney: Asher (friend) Smoking packs per day: 2 Smoking cigarettes per day: 40.0 Years smoked: 40 Smoking pack-years: 80.00 Smoking status: Current every day smoker Tobacco type: cigarettes Second hand tobacco smoke exposure: No Alcohol intake: never Alcohol use details: rarely Substance use: never Substance use type: does not use Do You Feel Safe in your Home?: Yes Lack of Transportation: No Lack of Food: Never True Current Housing: I Have Housing Concerned About Future Housing: No Difficulty Paying Gas/Electric Bills: No Difficulty Paying for Meds: No Currently Unemployed: No Education: High School Diploma/GED Difficulty w/ Childcare or Family Care: No Living arrangements: alone Occupation/Education: retired Gender identity (if verbalized by the patient): Female Sexual Orientation (if Verbalized by the Patient): Straight or Heterosexual Spiritual care concerns: No Exam Narrative: GENERAL: Toxic-appearing, frail. HEAD: Normocephalic, atraumatic. EYES: PERRL and EOMI. ENT: Dry mucous membranes. CHEST: Clear to auscultation. No respiratory distress. HEART: Tachycardic and regular. Normal peripheral pulses. ABDOMEN: Soft, nontender, nondistended. EXTREMITIES: Normal range of motion. No edema. SKIN: Warm, dry, scattered abrasions. NEURO: Alert and oriented x1. Course Course Emergency Course: Patient has been accepted the hospitalist service as well as the ICU by the cellar worker. She has received 2 L IV fluid and will get 1/3 L of IV fluid. She has received insulin 9 units IV bolus and is being started on an insulin drip. She is profoundly dry and persistently hyperglycemic. Her friend who is listed as a adjuster electrical contacts the chart would like to be notified about updates. Vital Signs Vital signs: Vital Signs Temperature 97.5 F L 10/17/24 13:59 Pulse Rate 105 H 10/17/24 13:59 Respiratory Rate 20 10/17/24 13:59 Pulse Oximetry 95 10/17/24 13:59 Oxygen Delivery Room Air 10/17/24 13:59 Temperature 97.5 F L 10/17/24 13:59 Pulse Rate 76 10/17/24 17:01 Respiratory Rate 20 10/17/24 17:01 Blood Pressure 136/51 L 10/17/24 15:45 Pulse Oximetry 98 10/17/24 17:01 Oxygen Delivery Room Air 10/17/24 13:59 Medical Decision Making Vital Signs Vital Signs: Vital Signs Temperature 97.5 F L 10/17/24 13:59 Pulse Rate 105 H 10/17/24 13:59 Respiratory Rate 20 10/17/24 13:59 Pulse Oximetry 95 10/17/24 13:59 Oxygen Delivery Room Air 10/17/24 13:59 Temperature 97.5 F L 10/17/24 13:59 Pulse Rate 76 10/17/24 17:01 Respiratory Rate 20 10/17/24 17:01 Blood Pressure 136/51 L 10/17/24 15:45 Pulse Oximetry 98 10/17/24 17:01 Oxygen Delivery Room Air 10/17/24 13:59 Lab Data 10/17/24 15:33 10/17/24 15:33 Labs: Lab Results 10/17/24 10/17/24 10/17/24 Range/Units 14:12 15:33 16:49 WBC 19.2 H (4.5-10.0) K/mm3 RBC 5.61 H (4.2-5.4) M/mm3 Hgb 16.2 H (12.0-15.0) g/dL Hct 50.7 H (37.0-47.0) % MCV 90.4 (80-100) fl MCH 28.9 (26-34) pg MCHC 32.0 (32-36) g/dl RDW 14.1 (11.5-14.5) % Plt Count 373 D (150-375) k/mm3 MPV 10.1 (7.4-10.4) fl Immature Gran % (Auto) 0.8 H (0-0.5) % Neut % (Auto) 84.5 H (45.5-73.1) % Lymph % (Auto) 6.0 L (18.3-44.2) % [place] % (Auto) 8.4 (2.6-8.5) % Eos % (Auto) 0.0 (0-4.4) % Baso % (Auto) 0.3 (0.2-1.2) % Lymph # (Auto) 1.16 (0.9-3.2) K/mm3 [place] # (Auto) 1.6 H (0.1-0.6) K/mm3 Eos # (Auto) 0.0 (0-0.3) K/mm3 Baso # (Auto) 0.1 (0.0-0.1) K/mm3 Abs Immat Gran (auto) 0.15 H (0.00-0.031) K/mm3 Absolute Neuts (auto) 16.2 H (1.3-6.7) K/mm3 Absolute Nucleated RBC 0.000 (0.0-0.012) K/mm3 Nucleated RBC % 0.0 (0.0-0.2) % Methemoglobin (0-1.5) %THb Sodium 150 H (137-145) mmol/L Potassium 4.3 (3.4-5.0) mmol/L Chloride 110 H (98-107) mmol/L Carbon Dioxide 19 L (22-30) mmol/L Anion Gap 21 H (4-12) mmol/L BUN 57 H D (7-17) mg/dL Creatinine 1.10 H (0.7-1.0) mg/dL Estim Creat Clear Calc 43 ml/min Estimated GFR 50 L (59 - ) Glucose 998 H* (65-110) mg/dL POC Capillary Glucose > 500 H* > 500 H* (65-105) mg/dl Calcium 10.3 H (8.4-10.2) mg/dL Phosphorus 6.5 H (2.5-4.5) mg/dL Magnesium 3.2 H (1.6-2.3) mg/dL Total Bilirubin 0.8 (0.2-1.3) mg/dL AST 25 (14-36) U/L ALT 72 H (6-35) U/L Alkaline Phosphatase 188 H (38-126) U/L Total Creatine Kinase 80 (30-135) U/L Total Protein 7.9 (6.3-8.2) g/dL Albumin 4.4 (3.5-5.1) g/dL Beta-Hydroxybutyrate/Acetoacetate 4.24 H (0.02-0.27) mmol/L Urine Color Yellow (Yellow) Urine Appearance Clear (Clear) Urine pH 5.0 (5.0-9.0) Ur Specific [place] 1.035 (1.001-1.035) Urine Protein Negative (Negative) mg/dL Urine Glucose (UA) 3+ H (Negative) mg/dL Urine Ketones Trace H (Negative) mg/dL Ur Blood (Man) Negative (Negative) Urine Nitrate Negative (Negative) Urine Bilirubin Negative (Negative) Urine Urobilinogen 0.2 (<2.0) mg/dL Leukocyte Esterase Rfl Negative (Negative) MIGUEL/UL /11/03 Range/Units 17:23 WBC (4.5-10.0) K/mm3 RBC (4.2-5.4) M/mm3 Hgb (12.0-15.0) g/dL Hct (37.0-47.0) % MCV (80-100) fl MCH (26-34) pg MCHC (32-36) g/dl RDW (11.5-14.5) % Plt Count (150-375) k/mm3 MPV (7.4-10.4) fl Immature Gran % (Auto) (0-0.5) % Neut % (Auto) (45.5-73.1) % Lymph % (Auto) (18.3-44.2) % [place] % (Auto) (2.6-8.5) % Eos % (Auto) (0-4.4) % Baso % (Auto) (0.2-1.2) % Lymph # (Auto) (0.9-3.2) K/mm3 [place] # (Auto) (0.1-0.6) K/mm3 Eos # (Auto) (0-0.3) K/mm3 Baso # (Auto) (0.0-0.1) K/mm3 Abs Immat Gran (auto) (0.00-0.031) K/mm3 Absolute Neuts (auto) (1.3-6.7) K/mm3 Absolute Nucleated RBC (0.0-0.012) K/mm3 Nucleated RBC % (0.0-0.2) % Methemoglobin 0.2 (0-1.5) %THb Sodium (137-145) mmol/L Potassium (3.4-5.0) mmol/L Chloride (98-107) mmol/L Carbon Dioxide (22-30) mmol/L Anion Gap (4-12) mmol/L BUN (7-17) mg/dL Creatinine (0.7-1.0) mg/dL Estim Creat Clear Calc ml/min Estimated GFR (59 - ) Glucose (65-110) mg/dL POC Capillary Glucose (65-105) mg/dl Calcium (8.4-10.2) mg/dL Phosphorus (2.5-4.5) mg/dL Magnesium (1.6-2.3) mg/dL Total Bilirubin (0.2-1.3) mg/dL AST (14-36) U/L ALT (6-35) U/L Alkaline Phosphatase (38-126) U/L Total Creatine Kinase (30-135) U/L Total Protein (6.3-8.2) g/dL Albumin (3.5-5.1) g/dL Beta-Hydroxybutyrate/Acetoacetate (0.02-0.27) mmol/L Urine Color (Yellow) Urine Appearance (Clear) Urine pH (5.0-9.0) Ur Specific [place] (1.001-1.035) Urine Protein (Negative) mg/dL Urine Glucose (UA) (Negative) mg/dL Urine Ketones (Negative) mg/dL Ur Blood (Man) (Negative) Urine Nitrate (Negative) Urine Bilirubin (Negative) Urine Urobilinogen (<2.0) mg/dL Leukocyte Esterase Rfl (Negative) MIGUEL/UL ABG Data ABG results: 10/17/24 17:23 Puncture Site Left radial ABG pH 7.379 ABG pCO2 32.1 L ABG pO2 77.3 L ABG PO2/FiO2 Ratio 3.68 ABG HCO3 18.5 L ABG O2 Saturation 95.4 ABG O2 Content 20.1 ABG Base Excess -5.4 A-a Gradient 34.0 Oxyhemoglobin 92.1 Carboxyhemoglobin 1.6 Reduced Hemoglobin 6.1 H Total Hemoglobin 15.5 O2 Delivery Device Room air O2 Liters/Min Not Reportable FiO2 21 Imaging Data Radiologist's impression: ITS Impressions Head CT 10/17/24 15:10 IMPRESSION: 1. No fracture or acute intracranial process. 2. Dependently layering mucus in the left sphenoid sinus consistent with acute sinusitis. Chest X-Ray 10/17/24 15:17 IMPRESSION: 1: NO ACUTE CARDIOPULMONARY DISEASE. ECG Data EKG #1: ECG completion date: 10/17/24 ECG completion time: 14:10 EKG Interpretation: normal rate (81), non-specific ST changes, widened QRS and other (paced) Critical Care Time Critical Care Time Critical Care Time: Yes Total Critical Care Time: 35 Discharge Plan Discharge Clinical Impression: Acute hyperglycemia, Acute hypernatremia Patient Disposition: Still a Patient Condition: Stable Patient Language: German Prescriptions: No Action ibuprofen 200 mg capsule 200 mg PO Q6H PRN (Reason: Pain) Claritin-D 12 Hour 5-120 mg tablet extended release 12 hr 1 tablet PO Q12H PRN (Reason: allergies) duloxetine 60 mg capsule,delayed release(DR/EC) 60 mg PO DAILY cholecalciferol (vitamin D3) 25 mcg (1,000 unit) capsule 25 mcg PO DAILY mecobalamin (vitamin B12) 500 mcg tablet,chewable 500 mcg PO DAILY Fiasp FlexTouch U-100 Insulin 100 unit/mL (3 mL) insulin pen See Rx Instructions subcut TIDWMEAL MDD 4 Qty: 36 2RF Rx Instructions: 9 units before breakfast, 7 units before lunch and 5 units before dinner add for high sugar before meals 150-200: 1 unit 201-250: 2 units 251-300: 3 units 301-350: 4 units 351-400: 5 units >401: 6 units glycopyrrolate-formoterol 9-4.8 mcg HFA aerosol inhaler 2 puff inhalation BID Qty: 10.7 3RF duloxetine 30 mg capsule,delayed release(DR/EC) 30 mg PO DAILY Qty: 30 1RF insulin degludec [Tresiba FlexTouch U-200] 200 unit/mL (3 mL) insulin pen 40 unit subcut DAILY 90 Days Qty: 21 2RF (DME) pen needle, diabetic [BD Ultra-Fine Lucretia Pen Needle] 32 gauge x 5/32 needle See Rx Instructions .Route Qty: 400 1RF Rx Instructions: 4 times daily with insulin albuterol sulfate 90 mcg/actuation aerosol powdr breath activated 2 inh inhalation Q4H PRN (Reason: shortness of breath or wheezing) Qty: 1 6RF enalapril maleate 2.5 mg tablet 2.5 mg PO DAILY Qty: 90 2RF atorvastatin 40 mg tablet 40 mg PO DAILY Qty: 90 2RF metformin 1,000 mg tablet See Rx Instructions .ROUTE .COMPLEX Qty: 180 1RF Dose Instruction: TAKE 1 TABLET BY MOUTH TWICE DAILY Rx Instructions: TAKE 1 TABLET BY MOUTH TWICE DAILY mirtazapine 15 mg tablet 15 mg PO QHS Qty: 60 2RF Rx Instructions: 30 mg qhs clonazepam 2 mg tablet 2 mg PO QHS Qty: 30 0RF Follow-up/Referrals: Tremaine Snyder MD [Primary Care Provider] -
[2024-10-17] MEDS: INSULIN HUMAN REGULAR (*BKC) 100 UNITS/ML 9.4 UNITS IV PUSH (16:45)
[2024-10-17 17:01] VITALS: PULSE 76; RESP 20; O2SAT 98
[2024-10-17] MEDS: INSULIN HUMAN REGULAR (*BKC) 100 UNITS in SODIUM CHLORIDE 0.9% IV 99 ML 6 UNITS IV CONT (17:10)
[2024-10-17 17:24] LABS: Alveolar/Arterial O2 Gradient 34.0 mmHg; Carboxyhemoglobin 1.6 % THb (0-2.0); Fractional Inspired Oxygen 21 %; HCO3 ABG 18.5 mEq/l (22.0-26.0); Methemoglobin ABG 0.2 %THb (0-1.5); Oxygen Content ABG 20.1 %vol (16.0-22.0); Oxygen Saturation ABG 95.4 % (95.0-100.0); PCO2 ABG 32.1 mmHg (35.0-45.0); PO2 ABG 77.3 mmHg (80.0-100.0); PO2 FiO2 Ratio Arterial Blood 3.68 %; Reduced Hemoglobin 6.1 %THb (0-5.0)
[2024-10-17 17:26] LABS: Modified Allen's Test Pass; Site Drawn LEFT RADIAL
--- NOTE | 2024-10-17 17:30 | PCRCNOTE ---
ABG was delayed due to patient being moved to another room, and RT vocera did not communicate order that was due
[2024-10-17 18:28] VITALS: BMI 20.7
--- NOTE | 2024-10-17 18:29 | ADMGEN ---
This patient, Janel Marin, was admitted to Intensive Care Unit-5. Patient/family oriented to hospital policies and general routines including ID bracelet, bed and alarms, visiting hours, pain management, procedures, bathroom and other care routines, personal items, smoking policy, room service/diet, and visiting hours. Information on how to activate the Rapid Response Team has been discussed. Patient/Family are encouraged to report perceived risks to care and to ask questions if they do not understand what they are told or what they should do.
--- NOTE | 2024-10-17 18:32 | WNDPHOTO ---
PHOTO ONLY - See Nursing Notes and/ or assessments for documentation.
[2024-10-17] MEDS: SODIUM CHLORIDE 0.9% IV 1,000 ML 150 ML IV CONT (18:49)
[2024-10-17 18:55] LABS: MRSA (PCR) NOT DETECTED (NOT DETECTE)
[2024-10-17 19:59] LABS: MRSA (PCR) NOT DETECTED (NOT DETECTE)
[2024-10-17 20:00] VITALS: BP 112/54; PULSE 80; PULSE 82; RESP 22; TEMP 36.7; O2SAT 97
[2024-10-17 20:22] VITALS: O2SAT 95
--- NOTE | 2024-10-17 21:23 | P.HP_ITS ---
H&P: HPI History of Present Illness Date/Time: 10/17/24 21:23 Chief Complaint: Hyperglycemia Narrative: 68-year-old female past medical history of diabetes, pacemaker, hypertension, COPD anxiety presents the hospital altered mental status and hyperglycemia. Patient is from was unable to get hold emergency room she went over to her house and found her on the floor. Her last known well was 12 hours ago. Patient is very lethargic. Her blood sugar reading was over 500 for EMS. Lab work in the ED shows leukocytosis at 19.2, hemoglobin of 16.2, ABG pH 7.379, pCO2 32, PO2 77, bicarb 18.5, sodium of 150, potassium of 4.3, chloride of 110, carbon dioxide 19 anion gap 21 BUN is 57, creatinine of 1.1 blood glucose 998, calcium of 10.3, phosphorus of 6.5, magnesium of 3.2, hydroxybutyrate 4.24,. UA negative for infection, MRSA negative, chest x-ray negative for acute process. Head CT shows acute sinusitis. Review of Systems Review of Systems: ROS unobtainable: Yes unobtainable due to mental status [facility] Past Medical History Medical History Pacemaker Hyperlipidemia Chronic obstructive pulmonary disease Burst fracture of thoracic vertebra Obesity (BMI 30-39.9) Depression Osteopenia after menopause Type 2 diabetes mellitus Allergic rhinitis Post-menopausal Vitamin B12 deficiency Vitamin D deficiency Headache, migraine Chronic GERD Essential (primary) hypertension Keratosis Glomerulonephritis Anxiety Surgical History Surgical History S/P placement of cardiac pacemaker Status cardiac pacemaker Status post cataract extraction of both eyes with insertion of intraocular lens (~2018) History of elbow surgery (~2019) ORIF Family History Family History Mother Family history of multiple sclerosis Depression Multiple sclerosis Sibling Family history of ulcerative colitis Hypertension Ulcerative (chronic) ileocolitis Father Family history of cardiovascular disease Carcinoma of colon Grandparent Emphysema lung Grandparent Cerebrovascular accident Social History Social History Social History: The patient is single and has never been . She does not have any children. 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 She has smoked 1.5 packs per day since her mid 20s. She denies any significant alcohol or drug use. She does not have any pets but takes care of a feral cat colony. Code status: DNR/DNI Healthcare power of dean for student affairs: Asher (friend) Smoking packs per day: 2 Smoking cigarettes per day: 40.0 Years smoked: 40 Smoking pack-years: 80.00 Smoking status: Current every day smoker Tobacco type: cigarettes Second hand tobacco smoke exposure: No Alcohol intake: never Alcohol use details: rarely Substance use: never Substance use type: does not use Do You Feel Safe in your Home?: Yes Lack of Transportation: No Lack of Food: Never True Current Housing: I Have Housing Concerned About Future Housing: No Difficulty Paying Gas/Electric Bills: No Difficulty Paying for Meds: No Currently Unemployed: No Education: High School Diploma/GED Difficulty w/ Childcare or Family Care: No Living arrangements: alone Occupation/Education: retired Gender identity (if verbalized by the patient): Female Sexual Orientation (if Verbalized by the Patient): Straight or Heterosexual Spiritual care concerns: No Meds Home Medications and Allergies Home Medications ?Medication ?Instructions ?Recorded ?Confirmed ?Type ibuprofen 200 mg capsule 200 mg PO Q6H PRN Pain 11/17/20 10/17/24 History loratadine 5 mg-pseudoephedrine ER 1 tablet PO Q12H PRN allergies 10/19/21 10/17/24 History 120 mg tablet,extended release,12hr (Claritin-D 12 Hour) cholecalciferol (vitamin D3) 25 25 mcg PO DAILY 08/14/22 10/17/24 History mcg (1,000 unit) capsule mecobalamin (vitamin B12) 500 mcg 500 mcg PO DAILY 08/14/22 10/17/24 History chewable tablet duloxetine 60 mg capsule,delayed 60 mg PO DAILY 07/05/23 10/17/24 History release pen needle, diabetic 32 gauge x #400 ea 11/22/23 10/17/24 Rx (BD Ultra-Fine Lucretia Pen Needle) glycopyrrolate 9 mcg-formoterol 2 puff inhalation BID #10.7 grams 01/01/24 10/17/24 Rx 4.8 mcg HFA aerosol inhaler insulin aspart See Rx Instructions subcut 02/12/24 10/17/24 Rx (niacinamide)(U-100) 100 unit/mL(3 TIDWMEAL #36 mL mL) subcutaneous pen (Fiasp FlexTouch U-100 Insulin) albuterol sulfate 90 mcg/actuation 2 inh inhalation Q4H PRN shortness 03/21/24 10/17/24 Rx breath activated powder inhaler of breath or wheezing #1 ea enalapril maleate 2.5 mg tablet 2.5 mg PO DAILY #90 tabs 04/01/24 10/17/24 Rx atorvastatin 40 mg tablet 40 mg PO DAILY #90 tabs 04/03/24 10/17/24 Rx metformin 1,000 mg tablet See Rx Instructions .Route 04/10/24 10/17/24 Rx .COMPLEX #180 tabs duloxetine 30 mg capsule,delayed 30 mg PO DAILY #30 caps 05/22/24 10/17/24 Rx release mirtazapine 15 mg tablet 15 mg PO QHS #60 tabs 06/23/24 10/17/24 Rx clonazepam 2 mg tablet 2 mg PO QHS #30 tabs 10/01/24 10/17/24 Rx arginine-vitamin C-vitamin E oral 4.5 g PO TIDWM 10/17/24 10/17/24 History 4.5 gram-156 mg/9.2 gram powder pkt (Arginaid) Allergies Allergy/AdvReac Type Severity Reaction Status Date / Time No Known Allergies Allergy Verified 10/17/24 15:46 Vital Signs Vital Signs - 24 hr 10/17/24 13:59 10/17/24 15:45 10/17/24 17:01 Temperature 97.5 F L Pulse Rate 105 H 66 76 Respiratory Rate 20 24 H 20 Blood Pressure 136/51 L Pulse Oximetry 95 99 98 Oxygen Delivery Room Air 10/17/24 20:00 10/17/24 20:00 Temperature 98.1 F Pulse Rate 82 80 Respiratory Rate 22 H Blood Pressure 112/54 L Pulse Oximetry 97 Oxygen Delivery Exam Narrative: General: Chronically-ill appearing, appears older stated age. HEENT: normocephalic, atraumatic. Mucous membranes extremely dry. EOMI, PERRLA, bilateral sclera anicteric, no conjunctival injection. Neck supple without JVD, lymphadenopathy, or bruit. Respiratory: clear to ascultation bilaterally. No rales/rhonic/wheezes. Cardiovascular: Regular rate and rhythm, normal S1-S2 upon ascultation. No murmurs, rubs, or clicks. PMI is nondisplaced, capillary refill less than 3 second. Abdomen: Soft, round, no pulsatile masses, nondistended and nontender. No rebound, no guarding. No CVA tenderness, no hepatosplenomegaly. Bowel sounds present to all four quadrants. No high pitch or tinkling sounds, resonant to percussion. Extremities: No cyanosis, clubbing, or edema present. Pulses are palpable 2/2. Active ROM to all four extremities. Neuro: Alert and orientated x 2. PERRLA. Cranial nerves 2-12 intact without focal deficit. Skin: Warm, dry, and intact, without rash, erythema, or lesion. Psych: pleasant, cooperative, normal speech, normal affect, no hallucinations, no dysarthia H&P: Results Labs Labs: Short CBC 10/17/24 Range/Units 15:33 WBC 19.2 H (4.5-10.0) K/mm3 Hgb 16.2 H (12.0-15.0) g/dL Hct 50.7 H (37.0-47.0) % Plt Count 373 D (150-375) k/mm3 BMP 10/17/24 15:33 Sodium 150 H Potassium 4.3 Chloride 110 H Carbon Dioxide 19 L BUN 57 H D Creatinine 1.10 H Glucose 998 H* Calcium 10.3 H Cardiac Enzymes 10/17/24 Range/Units 15:33 Total Creatine Kinase 80 (30-135) U/L Liver Function 10/17/24 Range/Units 15:33 Total Bilirubin 0.8 (0.2-1.3) mg/dL AST 25 (14-36) U/L ALT 72 H (6-35) U/L Alkaline Phosphatase 188 H (38-126) U/L Albumin 4.4 (3.5-5.1) g/dL Urine 10/17/24 Range/Units 15:33 Urine Color Yellow (Yellow) Urine Appearance Clear (Clear) Urine pH 5.0 (5.0-9.0) Ur Specific [place] 1.035 (1.001-1.035) Urine Protein Negative (Negative) mg/dL Urine Glucose (UA) 3+ H (Negative) mg/dL Assessment and Plan Assessment and plan (1) DKA (diabetic ketoacidosis): Code(s): E11.10 - Type 2 diabetes mellitus with ketoacidosis without coma Status: Acute Assessment and Plan: DKA protocol BMP q.4 Aggressive hydration (2) Type 2 diabetes mellitus: Qualifiers: Diabetes mellitus chcf insulin use: with terminal manager use Diabetes mellitus complication status: with neurologic complications Diabetes mellitus complication detail: with polyneuropathy Qualified Code(s): E11.42 - Type 2 diabetes mellitus with diabetic polyneuropathy; Z79.4 - terminal manager (current) use of insulin Code(s): E11.9 - Type 2 diabetes mellitus without complications Status: Chronic Assessment and Plan: Hold home oral anti glycemic medications and insulin while on insulin drip Currently NPO (3) Acute hypernatremia: Code(s): E87.0 - Hyperosmolality and hypernatremia Status: Acute Assessment and Plan: Likely due to acute dehydration Acute for a BMP IVF per DKA protocol (4) Anxiety: Code(s): F41.9 - Anxiety disorder, unspecified Status: Acute Assessment and Plan: Hold clonazepam will altered Okay for duloxetine (5) Fall: Code(s): W19.XXXA - Unspecified fall, initial encounter Status: Acute Assessment and Plan: Head CT shows no acute process PT OT eval and treat (6) Chronic obstructive pulmonary disease: Qualifiers: COPD type: unspecified COPD Qualified Code(s): J44.9 - Chronic obstructive pulmonary disease, unspecified Code(s): J44.9 - Chronic obstructive pulmonary disease, unspecified Status: Acute Assessment and Plan: Continue home inhaler Quality VTE Prophylaxis VTE prophylaxis: mechanical ordered Hospitalist MIPS Advance Care Plan I have confirmed that the patient's Advanced Care Plan is present, code status is documented, or surrogate decision maker is listed in patient medical record.: Yes Medication Reconciliation I have utilized all available resources to obtain, update and review the patients current medications (includes all prescriptions, OTC, herbals, cannabis, and nutritional supplements).: Yes
[2024-10-17 21:25] LABS: Anion Gap 12 mmol/L (4-12); Blood Urea Nitrogen 46 mg/dL (7-17); Calcium 9.2 mg/dL (8.4-10.2); Carbon Dioxide 20 mmol/L (22-30); Chloride 123 mmol/L (98-107); Estimated CRCL calculation 57 ml/min; Estimated Glomerular Filt Rate > 60; Glucose 379 mg/dL (65-110); Potassium 3.2 mmol/L (3.4-5.0); Sodium 155 mmol/L (137-145)
[2024-10-17 22:00] VITALS: BP 122/60; PULSE 85; RESP 24; TEMP 37.1; O2SAT 95
[2024-10-17] MEDS: KCL 20 MEQ/D5/0.45% SOD CHL 1,000 ML 150 ML IV CONT (22:10)
[2024-10-17] MEDS: POTASSIUM CHLORIDE INJ 40 MEQ in SODIUM CHLORIDE 0.9% IV 500 ML 130 MEQ IVPB (22:15)
[2024-10-18] VITALS (14 sets, daily range): BP systolic 100–150; BP diastolic 56–81; PULSE 61–94; RESP 13–27; TEMP 36.1–37.1; O2SAT 90–100
[2024-10-18 02:04] LABS: Anion Gap 7 mmol/L (4-12); Blood Urea Nitrogen 37 mg/dL (7-17); Calcium 8.5 mg/dL (8.4-10.2); Carbon Dioxide 25 mmol/L (22-30); Chloride 125 mmol/L (98-107); Estimated CRCL calculation 67 ml/min; Estimated Glomerular Filt Rate > 60; Glucose 111 mg/dL (65-110); Potassium 3.5 mmol/L (3.4-5.0); Sodium 157 mmol/L (137-145)
[2024-10-18 05:07] LABS: Anion Gap 8 mmol/L (4-12); Blood Urea Nitrogen 35 mg/dL (7-17); Calcium 8.3 mg/dL (8.4-10.2); Carbon Dioxide 21 mmol/L (22-30); Chloride 129 mmol/L (98-107); Estimated CRCL calculation 74 ml/min; Estimated Glomerular Filt Rate > 60; Glucose 181 mg/dL (65-110); Potassium 4.1 mmol/L (3.4-5.0); Sodium 158 mmol/L (137-145)
[2024-10-18] MEDS: KCL 20 MEQ/D5/0.45% SOD CHL 1,000 ML 150 ML IV CONT (05:07)
[2024-10-18 07:19] LABS: Hematocrit 46.0 % (37.0-47.0); Hemoglobin 14.2 g/dL (12.0-15.0); Immature Granulocyte Percent A 0.4 % (0-0.5); Lymphocytes Absolute Auto 2.49 K/mm3 (0.9-3.2); Mean Corpuscular HGB Conc 30.9 g/dl (32-36); Mean Corpuscular Hemoglobin 28.8 pg (26-34); Mean Corpuscular Volume 93.3 fl (80-100); Nucleated Red Blood Cells Absolute Auto 0.000 K/mm3 (0.0-0.012); Nucleated Red Blood Cells Perc 0.0 % (0.0-0.2); Platelet Count Result 275 k/mm3 (150-375); Red Blood Count 4.93 M/mm3 (4.2-5.4); White Blood Count 15.8 K/mm3 (4.5-10.0)
[2024-10-18 07:37] LABS: Creatine Kinase 118 U/L (30-135)
[2024-10-18] MEDS: UMECLIDINIUM/VILANTEROL 62.5-25 MCG ELLIPTA 1 PUFF INHALATION (07:42)
--- NOTE | 2024-10-18 08:06 | P.CONIN_ITS ---
Assessment and Plan Assessment and plan (1) Acute hyperglycemia: Code(s): R73.9 - Hyperglycemia, unspecified Status: Acute Assessment and Plan: 10/17: Patient presented to the ED with altered mental status, fall. Was found to have acute hyperglycemia with blood sugars of 998 in the ER. -will likely related to HHS/DKA -received a total of 5 L of IV fluids -was started on insulin infusion per DKA protocol -this morning her gap has closed, will transition to long-acting insulin and sliding scale insulin -diabetic diet -trimmer loader and dietitian to evaluate (2) Acute hypernatremia: Code(s): E87.0 - Hyperosmolality and hypernatremia Status: Acute Assessment and Plan: Acute hyponatremia could be related to dehydration versus excessive normal saline IV fluid -discontinued normal saline IV fluids -currently on half-normal saline with D5 and potassium per DKA protocol -will encourage drinking water as she feels thirsty -will monitor BMP for sodium levels (3) Type 2 diabetes mellitus: Qualifiers: Diabetes mellitus jail insulin use: with jail use Diabetes mellitus complication status: with neurologic complications Diabetes mellitus complication detail: with polyneuropathy Qualified Code(s): E11.42 - Type 2 diabetes mellitus with diabetic polyneuropathy; Z79.4 - FDC (current) use of insulin Code(s): E11.9 - Type 2 diabetes mellitus without complications Status: Chronic Assessment and Plan: History of type 2 diabetes, on metformin -patient does not check her blood sugars regularly, though she states she takes a medication -will check hemoglobin A1c (4) Tobacco dependence: Code(s): F17.200 - Nicotine dependence, unspecified, uncomplicated Status: Acute Assessment and Plan: Patient continues to smoke, has a history of COPD, follows with Dr. Trujillo -have counseled patient on smoking cessation -continue nicotine patch (5) Frequent falls: Code(s): R29.6 - Repeated falls Status: Acute Assessment and Plan: Patient states she has multiple bruising on upper extremities due to frequent falls, this admission also patient presented after being found down on the ground for approximately 12 hours according the records. -she has had multiple admissions to [facility] for frequent falls -will discuss with care coordination if she is safe to go back home or may require rehab versus a facility (6) Anxiety: Code(s): F41.9 - Anxiety disorder, unspecified Status: Acute Assessment and Plan: Patient started on duloxetine, mirtazapine (7) HLD (hyperlipidemia): Qualifiers: Hyperlipidemia type: mixed hyperlipidemia Qualified Code(s): E78.2 - Mixed hyperlipidemia Code(s): E78.5 - Hyperlipidemia, unspecified Status: Acute Assessment and Plan: Continue atorvastatin (8) Hypertension associated with type 2 diabetes mellitus: Code(s): E11.59 - Type 2 diabetes mellitus with other circulatory complications; I15.2 - Hypertension secondary to endocrine disorders Status: Acute Assessment and Plan: Continue enalapril Plan DVT prophylaxis: Will start Lovenox subQ Stress ulcer prophylaxis: Not indicated Nutrition: Diabetic diet Code Status: Full code Critical Care Time Spent: 49 minutes Due to a high probability of clinically significant, life threatening deterioration, the patient required my highest level of preparedness to intervene emergently and I personally spent this critical care time directly and personally managing the patient. This critical care time included obtaining a history; examining the patient; pulse oximetry; ordering and review of studies; arranging urgent treatment with development of a management plan; evaluation of patient's response to treatment; frequent reassessment; and discussions with other providers. It was exclusive of separately billable procedures and treating other patients and teaching time. Please see Assessment and Plan section and the rest of the note for further information on patient assessment and treatment This dictation may have been done utilizing a voice recognition system. Attempts have been made to correct errors. However, there may be uncorrected grammatical, spelling, and recognitions errors present. Director Of Search Engine Marketing Consult Note Consult date: 10/18/24 Reason for consult: Diabetic ketoacidosis/HHS, fall, altered mental status, hyponatremia, acute sinusitis HPI: Janel Marin is a 68 year old female with history of COPD, history of sinus pauses status post pacemaker, hyperlipidemia, diabetes type 2, vitamin-D deficiency, chronic GERD, essential hypertension, glomerulonephritis, anxiety,, failure to thrive presents to the ED on 10/17/2024 after being found down at her place for approximately 12 hours according to her friend was trying to get in touch with her. Upon EMS arrival she was oriented x1, appeared dry, blood sugars greater than 500, patient was brought to the ER which she was found to have a blood sugar of 998. WBC count 19.2, hemoglobin 16.2, sodium 150, potassium 4.3, chloride 110, CO2 19, BUN 57, creatinine 1.10, anion gap of 21, elevated beta hydroxybutyrate. UA showed 3+ glucose, trace ketones. AST was normal, ALT was 72, alk-phos 188. Total CK level was 80. ABGs showed pH of 7.37, pCO2 32, PO2 77, HC03 18.5, O2 sats 95% on room air. Head CT with no acute intracranial process or fractures. Dependent layering mucus in the left sphenoid sinus consistent with acute sinusitis Chest x-ray with no acute cardiopulmonary disease. EKG with on rate, nonspecific ST changes, widened QRS, paced rhythm Patient was given 3 L IV fluid bolus in the ER, started on insulin infusion per DKA protocol and transferred to the ICU for further. In the ICU patient received 2 more L IV fluids per hospitalist Patient seen and examined the ICU this morning, is awake, alert, answers questions appropriately and follows simple commands in all extremities denies any chest pain, shortness of breath, nausea, vomiting. She does state that she has been falling a lot at home and this which she has bruises on her arms. She does not check her blood sugars regularly but does take her diabetes medications. Patient is hemodynamically stable, adequate O2 sats on room air. Adequate urine out, afebrile Review of Systems 2 Review of Systems: All systems reviewed & are unremarkable except as noted in HPI and below PMFSH Past Medical History Medical History Pacemaker Hyperlipidemia Chronic obstructive pulmonary disease Burst fracture of thoracic vertebra Obesity (BMI 30-39.9) Depression Osteopenia after menopause Type 2 diabetes mellitus Allergic rhinitis Post-menopausal Vitamin B12 deficiency Vitamin D deficiency Headache, migraine Chronic GERD Essential (primary) hypertension Keratosis Glomerulonephritis Anxiety Surgical History Surgical History S/P placement of cardiac pacemaker Status cardiac pacemaker Status post cataract extraction of both eyes with insertion of intraocular lens (~2018) History of elbow surgery (~2019) ORIF Family History Family History Mother Family history of multiple sclerosis Depression Multiple sclerosis Sibling Family history of ulcerative colitis Hypertension Ulcerative (chronic) ileocolitis Father Family history of cardiovascular disease Carcinoma of colon Grandparent Emphysema lung Grandparent Cerebrovascular accident Social History Social History Social History: The patient is single and has never been . She does not have any children. 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 She has smoked 1.5 packs per day since her mid 20s. She denies any significant alcohol or drug use. She does not have any pets but takes care of a feral cat colony. Code status: DNR/DNI Healthcare power of research attorney: Asher (friend) Smoking packs per day: 2 Smoking cigarettes per day: 40.0 Years smoked: 40 Smoking pack-years: 80.00 Smoking status: Current every day smoker Tobacco type: cigarettes Second hand tobacco smoke exposure: No Alcohol intake: never Alcohol use details: rarely Substance use: never Substance use type: does not use Do You Feel Safe in your Home?: Yes Lack of Transportation: No Lack of Food: Never True Current Housing: I Have Housing Concerned About Future Housing: No Difficulty Paying Gas/Electric Bills: No Difficulty Paying for Meds: No Currently Unemployed: No Education: High School Diploma/GED Difficulty w/ Childcare or Family Care: No Living arrangements: alone Occupation/Education: retired Gender identity (if verbalized by the patient): Female Sexual Orientation (if Verbalized by the Patient): Straight or Heterosexual Spiritual care concerns: No Meds Home Medications and Allergies Home Medications ?Medication ?Instructions ?Recorded ?Confirmed ?Type ibuprofen 200 mg capsule 200 mg PO Q6H PRN Pain 11/17/20 10/17/24 History loratadine 5 mg-pseudoephedrine ER 1 tablet PO Q12H PRN allergies 10/19/21 10/17/24 History 120 mg tablet,extended release,12hr (Claritin-D 12 Hour) cholecalciferol (vitamin D3) 25 25 mcg PO DAILY 08/14/22 10/17/24 History mcg (1,000 unit) capsule mecobalamin (vitamin B12) 500 mcg 500 mcg PO DAILY 08/14/22 10/17/24 History chewable tablet duloxetine 60 mg capsule,delayed 60 mg PO DAILY 07/05/23 10/17/24 History release pen needle, diabetic 32 gauge x #400 ea 11/22/23 10/17/24 Rx 5/32 (BD Ultra-Fine Lucretia Pen Needle) glycopyrrolate 9 mcg-formoterol 2 puff inhalation BID #10.7 grams 01/01/24 10/17/24 Rx 4.8 mcg HFA aerosol inhaler insulin aspart See Rx Instructions subcut 02/12/24 10/17/24 Rx (niacinamide)(U-100) 100 unit/mL(3 TIDWMEAL #36 mL mL) subcutaneous pen (Fiasp FlexTouch U-100 Insulin) albuterol sulfate 90 mcg/actuation 2 inh inhalation Q4H PRN shortness 03/21/24 10/17/24 Rx breath activated powder inhaler of breath or wheezing #1 ea enalapril maleate 2.5 mg tablet 2.5 mg PO DAILY #90 tabs 04/01/24 10/17/24 Rx atorvastatin 40 mg tablet 40 mg PO DAILY #90 tabs 04/03/24 10/17/24 Rx metformin 1,000 mg tablet See Rx Instructions .Route 04/10/24 10/17/24 Rx .COMPLEX #180 tabs duloxetine 30 mg capsule,delayed 30 mg PO DAILY #30 caps 05/22/24 10/17/24 Rx release mirtazapine 15 mg tablet 15 mg PO QHS #60 tabs 06/23/24 10/17/24 Rx clonazepam 2 mg tablet 2 mg PO QHS #30 tabs 10/01/24 10/17/24 Rx arginine-vitamin C-vitamin E oral 4.5 g PO TIDWM 10/17/24 10/17/24 History 4.5 gram-156 mg/9.2 gram powder pkt (Arginaid) Allergies Allergy/AdvReac Type Severity Reaction Status Date / Time No Known Allergies Allergy Verified 10/17/24 15:46 Vital Signs Vital Signs - 24 hr 10/17/24 13:59 10/17/24 15:45 10/17/24 17:01 Temperature 97.5 F L Pulse Rate 105 H 66 76 Respiratory Rate 20 24 H 20 Blood Pressure 136/51 L Pulse Oximetry 95 99 98 Oxygen Delivery Room Air 10/17/24 20:00 10/17/24 20:00 10/17/24 20:22 Temperature 98.1 F Pulse Rate 82 80 Respiratory Rate 22 H Blood Pressure 112/54 L Pulse Oximetry 97 95 Oxygen Delivery Room Air 10/17/24 22:00 10/17/24 22:00 10/18/24 00:00 Temperature 98.7 F 98.7 F Pulse Rate 85 85 86 Respiratory Rate 24 H 25 H Blood Pressure 122/60 103/57 L Pulse Oximetry 95 94 Oxygen Delivery 10/18/24 00:00 10/18/24 02:00 10/18/24 02:00 Temperature Pulse Rate 84 83 83 Respiratory Rate 21 H Blood Pressure 104/64 Pulse Oximetry 97 Oxygen Delivery 10/18/24 04:00 10/18/24 04:00 10/18/24 06:00 Temperature 98.7 F 98.7 F Pulse Rate 85 87 81 Respiratory Rate 20 21 H Blood Pressure 102/56 L 107/56 L Pulse Oximetry 92 92 Oxygen Delivery 10/18/24 06:00 10/18/24 08:00 Temperature 97.9 F Pulse Rate 88 83 Respiratory Rate 20 Blood Pressure 130/64 Pulse Oximetry 90 Oxygen Delivery Exam 2 Narrative: General: Pleasant female in no acute distress HEENT:? Dry oral mucosa, pupils equal and reactive, sclera is clear Neck:? Supple Respiratory:? Clear to auscultation bilaterally, no wheezing, adequate air and Cardiac:? S1-S2 is normal, regular rate and rhythm Abdomen:? Soft, non distended, mild tenderness and periumbilical and suprapubic region. Normoactive bowel sound Extremities:? Palpable pedal pulses, no edema Neuro:? Patient is awake, alert, oriented to place and person, able to answer the questions appropriately and follows simple commands in all extremities Skin:? Feet are cold bilaterally otherwise skin is warm. Multiple bruises and skin tears noted on the upper upper extremity bilateral, a few scabs noted on the lower extremities bilateral Psych:? Normal mentation and affect Results Labs 10/18/24 04:40 10/18/24 04:40 Labs: Short CBC 10/17/24 10/18/24 Range/Units 15:33 04:40 WBC 19.2 H 15.8 H (4.5-10.0) K/mm3 Hgb 16.2 H 14.2 (12.0-15.0) g/dL Hct 50.7 H 46.0 (37.0-47.0) % Plt Count 373 D 275 (150-375) k/mm3 BMP 10/17/24 10/17/24 10/18/24 15:33 20:07 00:39 Sodium 150 H 155 H 157 H Potassium 4.3 3.2 L 3.5 Chloride 110 H 123 H 125 H Carbon Dioxide 19 L 20 L 25 BUN 57 H D 46 H D 37 H Creatinine 1.10 H 0.79 0.66 L Glucose 998 H* 379 H 111 H Calcium 10.3 H 9.2 8.5 10/18/24 04:40 Sodium 158 H Potassium 4.1 Chloride 129 H Carbon Dioxide 21 L BUN 35 H Creatinine 0.61 L Glucose 181 H Calcium 8.3 L Cardiac Enzymes 10/17/24 10/18/24 Range/Units 15:33 04:40 Total Creatine Kinase 80 118 (30-135) U/L Liver Function 10/17/24 Range/Units 15:33 Total Bilirubin 0.8 (0.2-1.3) mg/dL AST 25 (14-36) U/L ALT 72 H (6-35) U/L Alkaline Phosphatase 188 H (38-126) U/L Albumin 4.4 (3.5-5.1) g/dL Urine 10/17/24 Range/Units 15:33 Urine Color Yellow (Yellow) Urine Appearance Clear (Clear) Urine pH 5.0 (5.0-9.0) Ur Specific [place] 1.035 (1.001-1.035) Urine Protein Negative (Negative) mg/dL Urine Glucose (UA) 3+ H (Negative) mg/dL
[2024-10-18] MEDS: INSULIN GLARGINE (*BKC) 100 UNITS/ML 14 UNITS SUB-Q (08:40)
[2024-10-18] MEDS: ATORVASTATIN 40 MG TABLET PO (08:40)
[2024-10-18] MEDS: ENALAPRIL MALEATE 2.5 MG TABLET PO (08:40)
[2024-10-18] MEDS: DULoxetine HCL 60 MG CAPSULE.DR PO (08:40)
[2024-10-18 10:06] LABS: Hemoglobin A1C 11.4 % (<5.7)
[2024-10-18 10:42] LABS: Anion Gap 9 mmol/L (4-12); Blood Urea Nitrogen 30 mg/dL (7-17); Calcium 8.4 mg/dL (8.4-10.2); Carbon Dioxide 20 mmol/L (22-30); Chloride 125 mmol/L (98-107); Estimated CRCL calculation 76 ml/min; Estimated Glomerular Filt Rate > 60; Glucose 255 mg/dL (65-110); Potassium 4.6 mmol/L (3.4-5.0); Sodium 154 mmol/L (137-145)
--- NOTE | 2024-10-18 10:59 | P.PNIM_ITS ---
Progress Note: A&P Assessment and Plan (1) Acute hyperglycemia: Code(s): R73.9 - Hyperglycemia, unspecified Status: Acute Assessment and Plan: 10/17: Patient presented to the ED with altered mental status, fall. Was found to have acute hyperglycemia with blood sugars of 998 in the ER. -will likely related to HHS/DKA -received a total of 5 L of IV fluids -was started on insulin infusion per DKA protocol -diabetic diet -visual educator and dietitian to evaluate -10/18 basal and SSI, advance diet (2) Acute hypernatremia: Code(s): E87.0 - Hyperosmolality and hypernatremia Status: Acute Assessment and Plan: Acute hyponatremia could be related to dehydration versus excessive normal saline IV fluid -discontinued normal saline IV fluids -currently on half-normal saline with D5 and potassium per DKA protocol -will encourage drinking water as she feels thirsty -will monitor BMP for sodium levels (3) Type 2 diabetes mellitus: Qualifiers: Diabetes mellitus detention insulin use: with predatory animal exterminator use Diabetes mellitus complication status: with neurologic complications Diabetes mellitus complication detail: with polyneuropathy Qualified Code(s): E11.42 - Type 2 diabetes mellitus with diabetic polyneuropathy; Z79.4 - long term (current) use of insulin Code(s): E11.9 - Type 2 diabetes mellitus without complications Status: Chronic Assessment and Plan: History of type 2 diabetes, on metformin -patient does not check her blood sugars regularly, though she states she takes a medication -A1c over 11 (4) Tobacco dependence: Code(s): F17.200 - Nicotine dependence, unspecified, uncomplicated Status: Acute Assessment and Plan: Patient continues to smoke, has a history of COPD, follows with Dr. Trujillo -encouraged smoking cessation 10/18 -continue nicotine patch (5) Frequent falls: Code(s): R29.6 - Repeated falls Status: Acute Assessment and Plan: Patient states she has multiple bruising on upper extremities due to frequent falls, this admission also patient presented after being found down on the ground for approximately 12 hours according the records. -she has had multiple admissions to [facility] for frequent falls - consultation for possible SNF (6) Anxiety: Code(s): F41.9 - Anxiety disorder, unspecified Status: Acute Assessment and Plan: Continue duloxetine, mirtazapine (7) HLD (hyperlipidemia): Qualifiers: Hyperlipidemia type: mixed hyperlipidemia Qualified Code(s): E78.2 - Mixed hyperlipidemia Code(s): E78.5 - Hyperlipidemia, unspecified Status: Acute Assessment and Plan: Continue atorvastatin (8) Hypertension associated with type 2 diabetes mellitus: Code(s): E11.59 - Type 2 diabetes mellitus with other circulatory complications; I15.2 - Hypertension secondary to endocrine disorders Status: Acute Assessment and Plan: Continue enalapril Subjective Date/time seen: 10/18/24 10:59 Interval history: Admitted with DKA and confusion 10/17. 10/18 feeling much better. Mentation clearing. No further nausea or vomiting. No fevers or chills. No chest pain shortness of breath abdominal pain GI or issues. No abnormal bleeding. No weakness or numbness. She has been insulin-dependent diabetics since her 20s. Review of Systems Review of Systems: All systems reviewed & are unremarkable except as noted in HPI and below Exam Narrative: HEENT: PERRL, sclerae nonicteric, pharyngeal mucosa pink and intact NECK: No JVD, adenopathy, or thyromegaly CHEST: Clear to auscultation. Normal effort. HEART: NL S1/S2, regular, no murmur ABDOMEN: BS+, soft, nontender, no mass, no bruits EXTREMITIES: No cyanosis, edema, or clubbing NEUROLOGIC: CN intact and symmetric to inspection. MUSCULOSKELETAL: Tone and strength symmetric. PSYCH: Alert. Oriented to person, place, and time. Objective Data Vital Signs Vital Signs: Vital Signs - 24 hr 10/17/24 13:59 10/17/24 15:45 10/17/24 17:01 Temperature 97.5 F L Pulse Rate 105 H 66 76 Respiratory Rate 20 24 H 20 Blood Pressure 136/51 L Pulse Oximetry 95 99 98 Oxygen Delivery Room Air 10/17/24 20:00 10/17/24 20:00 10/17/24 20:22 Temperature 98.1 F Pulse Rate 82 80 Respiratory Rate 22 H Blood Pressure 112/54 L Pulse Oximetry 97 95 Oxygen Delivery Room Air 10/17/24 22:00 10/17/24 22:00 10/18/24 00:00 Temperature 98.7 F 98.7 F Pulse Rate 85 85 86 Respiratory Rate 24 H 25 H Blood Pressure 122/60 103/57 L Pulse Oximetry 95 94 Oxygen Delivery 10/18/24 00:00 10/18/24 02:00 10/18/24 02:00 Temperature Pulse Rate 84 83 83 Respiratory Rate 21 H Blood Pressure 104/64 Pulse Oximetry 97 Oxygen Delivery 10/18/24 04:00 10/18/24 04:00 10/18/24 06:00 Temperature 98.7 F 98.7 F Pulse Rate 85 87 81 Respiratory Rate 20 21 H Blood Pressure 102/56 L 107/56 L Pulse Oximetry 92 92 Oxygen Delivery 10/18/24 06:00 10/18/24 08:00 10/18/24 08:00 Temperature 97.9 F Pulse Rate 88 83 88 Respiratory Rate 20 Blood Pressure 130/64 Pulse Oximetry 90 Oxygen Delivery 10/18/24 08:00 10/18/24 10:00 Temperature 97.7 F Pulse Rate 84 88 Respiratory Rate 15 13 Blood Pressure 136/81 Pulse Oximetry 100 100 Oxygen Delivery Room Air Intake/Output Intake/Output: Intake & Output 10/15/24 10/16/24 10/17/24 10/18/24 23:59 23:59 23:59 23:59 Intake Total 5567.8 6212.0 Output Total 100 800 Balance 5467.8 5412.0 Meds/Results Medications: Active Medications Generic Name Dose Route Start Last Admin Trade Name Freq PRN Reason Stop Dose Admin Albuterol 2 puff 10/17/24 20:44 Albuterol Sulfate (*Sp) Aerosol 1 Puff INHALATION Q4HRT PRN shortness of breath or wheezin Amoxicillin/Clavulanate Potassium 1 tablet 10/18/24 09:00 10/18/24 08:41 Amoxicillin/Clavulanate K 875-125 Mg Tab PO 1 tablet Q12HR NATIVIDAD Administration Atorvastatin Calcium 40 mg 10/18/24 09:00 10/18/24 08:40 Atorvastatin 40 Mg Tablet PO 40 mg DAILY NATIVIDAD Administration Clonazepam 2 mg 10/18/24 21:00 Clonazepam (*Crx) 0.5 Mg Tablet PO QHS NATIVIDAD Dextrose 12.5 gm 10/17/24 18:14 Dextrose 50% 25 Gm/50 Ml Syringe IV PUSH PRN PRN Hypoglycemia Protocol Duloxetine HCl 60 mg 10/18/24 09:00 10/18/24 08:40 Duloxetine Hcl 60 Mg Capsule.Dr PO 60 mg DAILY NATIVIDAD Administration Enalapril Maleate 2.5 mg 10/18/24 09:00 10/18/24 08:40 Enalapril Maleate 2.5 Mg Tablet PO 2.5 mg DAILY NATIVIDAD Administration Enoxaparin Sodium 40 mg 10/18/24 09:00 Enoxaparin 40 Mg/0.4 Ml Syringe SUB-Q DAILY NATIVIDAD Glucagon 1 mg 10/17/24 18:14 Glucagon For Inj 1 Mg Vial IM PRN PRN Hypoglycemia Protocol Glucose 15 gm 10/17/24 18:14 Glucose Oral Gel 15 Gm Of Glucse In 37.5 Gm Tube PO PRN PRN Hypoglycemia Protocol Insulin Human Regular 100 100 mls @ 0 mls/hr 10/17/24 17:00 10/18/24 10:05 units/ Sodium Chloride IV CONT 0 units/hr .Q0M NATIVIDAD 0 mls/hr Titration Protocol Potassium Chloride/Dextrose/Sod Cl 1,000 mls @ 150 mls/hr 10/17/24 18:15 10/18/24 10:05 Kcl 20 Meq/D5/0.45% Sod Chl IV CONT 0 mls/hr .Q6H40M NATIVIDAD Infusion Dextrose/Sodium Chloride 1,000 mls @ 150 mls/hr 10/17/24 18:15 10/18/24 10:33 Dextrose 5% Sodium Chloride 0.45% IV CONT Not Given .Q6H40M NATIVIDAD Dextrose 1,000 mls @ 100 mls/hr 10/17/24 18:14 Dextrose 5% 1,000 Ml IVPB PRN PRN Hypoglycemia Protocol Insulin Aspart 1 - 3 units 10/18/24 21:00 Insulin Aspart (*Bkc) 100 Units/Ml SUB-Q HS [facility] Protocol Insulin Aspart 3 - 6 units 10/18/24 08:00 10/18/24 08:37 Insulin Aspart (*Bkc) 100 Units/Ml SUB-Q Not Given TIDWM [facility] Protocol Insulin Glargine 14 units 10/18/24 07:20 10/18/24 08:40 Insulin Glargine (*Bkc) 100 Units/Ml SUB-Q 14 units DAILY [facility] Administration Mirtazapine 30 mg 10/18/24 21:00 Mirtazapine 30 Mg Tablet PO QHS [facility] Nicotine 1 patch 10/18/24 09:00 10/18/24 08:38 Nicotine (*Pbkc) 14 Mg Patch TRANSDERM Not Given DAILY [facility] Ondansetron HCl 4 mg 10/17/24 17:27 Ondansetron Inj 4 Mg/2 Ml Vial IV PUSH Q4H PRN Nausea Umeclidinium/Vilanterol 1 puff 10/18/24 08:00 10/18/24 07:42 Umeclidinium/Vilanterol 62.5-25 Mcg Ellipta INHALATION 1 puff DAILYRT NATIVIDAD Administration Radiology Results: ITS Impressions Head CT 10/17/24 15:10 IMPRESSION: 1. No fracture or acute intracranial process. 2. Dependently layering mucus in the left sphenoid sinus consistent with acute sinusitis. Chest X-Ray 10/17/24 15:17 IMPRESSION: 1: NO ACUTE CARDIOPULMONARY DISEASE. Labs Labs: Laboratory Results - last 24 hr 10/17/24 10/17/24 10/17/24 14:12 15:33 16:49 WBC 19.2 H RBC 5.61 H Hgb 16.2 H Hct 50.7 H MCV 90.4 MCH 28.9 MCHC 32.0 RDW 14.1 Plt Count 373 D MPV 10.1 Immature Gran % (Auto) 0.8 H Neut % (Auto) 84.5 H Lymph % (Auto) 6.0 L [place] % (Auto) 8.4 Eos % (Auto) 0.0 Baso % (Auto) 0.3 Lymph # (Auto) 1.16 [place] # (Auto) 1.6 H Eos # (Auto) 0.0 Baso # (Auto) 0.1 Abs Immat Gran (auto) 0.15 H Absolute Neuts (auto) 16.2 H Absolute Nucleated RBC 0.000 Nucleated RBC % 0.0 Puncture Site ABG pH ABG pCO2 ABG pO2 ABG PO2/FiO2 Ratio ABG HCO3 ABG O2 Saturation ABG O2 Content ABG Base Excess A-a Gradient Oxyhemoglobin Carboxyhemoglobin Methemoglobin Reduced Hemoglobin Total Hemoglobin O2 Delivery Device O2 Liters/Min FiO2 Sodium 150 H Potassium 4.3 Chloride 110 H Carbon Dioxide 19 L Anion Gap 21 H BUN 57 H D Creatinine 1.10 H Estim Creat Clear Calc 43 Estimated GFR 50 L Glucose 998 H* POC Capillary Glucose > 500 H* > 500 H* Hemoglobin A1c Calcium 10.3 H Phosphorus 6.5 H Magnesium 3.2 H Total Bilirubin 0.8 AST 25 ALT 72 H Alkaline Phosphatase 188 H Total Creatine Kinase 80 Total Protein 7.9 Albumin 4.4 Beta-Hydroxybutyrate/Acetoacetate 4.24 H Urine Color Yellow Urine Appearance Clear Urine pH 5.0 Ur Specific [place] 1.035 Urine Protein Negative Urine Glucose (UA) 3+ H Urine Ketones Trace H Ur Blood (Man) Negative Urine Nitrate Negative Urine Bilirubin Negative Urine Urobilinogen 0.2 Leukocyte Esterase Rfl Negative Nasal MRSA (PCR) 10/17/24 10/17/24 10/17/24 17:23 17:40 18:04 WBC RBC Hgb Hct MCV MCH MCHC RDW Plt Count MPV Immature Gran % (Auto) Neut % (Auto) Lymph % (Auto) [place] % (Auto) Eos % (Auto) Baso % (Auto) Lymph # (Auto) [place] # (Auto) Eos # (Auto) Baso # (Auto) Abs Immat Gran (auto) Absolute Neuts (auto) Absolute Nucleated RBC Nucleated RBC % Puncture Site Left radial ABG pH 7.379 ABG pCO2 32.1 L ABG pO2 77.3 L ABG PO2/FiO2 Ratio 3.68 ABG HCO3 18.5 L ABG O2 Saturation 95.4 ABG O2 Content 20.1 ABG Base Excess -5.4 A-a Gradient 34.0 Oxyhemoglobin 92.1 Carboxyhemoglobin 1.6 Methemoglobin 0.2 Reduced Hemoglobin 6.1 H Total Hemoglobin 15.5 O2 Delivery Device Room air O2 Liters/Min Not Reportable FiO2 21 Sodium Potassium Chloride Carbon Dioxide Anion Gap BUN Creatinine Estim Creat Clear Calc Estimated GFR Glucose POC Capillary Glucose > 500 H* Hemoglobin A1c Calcium Phosphorus Magnesium Total Bilirubin AST ALT Alkaline Phosphatase Total Creatine Kinase Total Protein Albumin Beta-Hydroxybutyrate/Acetoacetate Urine Color Urine Appearance Urine pH Ur Specific [place] Urine Protein Urine Glucose (UA) Urine Ketones Ur Blood (Man) Urine Nitrate Urine Bilirubin Urine Urobilinogen Leukocyte Esterase Rfl Nasal MRSA (PCR) Not detected 10/17/24 10/17/24 10/17/24 18:40 18:41 20:07 WBC RBC Hgb Hct MCV MCH MCHC RDW Plt Count MPV Immature Gran % (Auto) Neut % (Auto) Lymph % (Auto) [place] % (Auto) Eos % (Auto) Baso % (Auto) Lymph # (Auto) [place] # (Auto) Eos # (Auto) Baso # (Auto) Abs Immat Gran (auto) Absolute Neuts (auto) Absolute Nucleated RBC Nucleated RBC % Puncture Site ABG pH ABG pCO2 ABG pO2 ABG PO2/FiO2 Ratio ABG HCO3 ABG O2 Saturation ABG O2 Content ABG Base Excess A-a Gradient Oxyhemoglobin Carboxyhemoglobin Methemoglobin Reduced Hemoglobin Total Hemoglobin O2 Delivery Device O2 Liters/Min FiO2 Sodium 155 H Potassium 3.2 L Chloride 123 H Carbon Dioxide 20 L Anion Gap 12 BUN 46 H D Creatinine 0.79 Estim Creat Clear Calc 57 Estimated GFR > 60 Glucose 379 H POC Capillary Glucose 436 H Hemoglobin A1c Calcium 9.2 Phosphorus Magnesium Total Bilirubin AST ALT Alkaline Phosphatase Total Creatine Kinase Total Protein Albumin Beta-Hydroxybutyrate/Acetoacetate Urine Color Urine Appearance Urine pH Ur Specific [place] Urine Protein Urine Glucose (UA) Urine Ketones Ur Blood (Man) Urine Nitrate Urine Bilirubin Urine Urobilinogen Leukocyte Esterase Rfl Nasal MRSA (PCR) Not detected 10/17/24 10/17/24 10/17/24 20:12 21:06 22:07 WBC RBC Hgb Hct MCV MCH MCHC RDW Plt Count MPV Immature Gran % (Auto) Neut % (Auto) Lymph % (Auto) [place] % (Auto) Eos % (Auto) Baso % (Auto) Lymph # (Auto) [place] # (Auto) Eos # (Auto) Baso # (Auto) Abs Immat Gran (auto) Absolute Neuts (auto) Absolute Nucleated RBC Nucleated RBC % Puncture Site ABG pH ABG pCO2 ABG pO2 ABG PO2/FiO2 Ratio ABG HCO3 ABG O2 Saturation ABG O2 Content ABG Base Excess A-a Gradient Oxyhemoglobin Carboxyhemoglobin Methemoglobin Reduced Hemoglobin Total Hemoglobin O2 Delivery Device O2 Liters/Min FiO2 Sodium Potassium Chloride Carbon Dioxide Anion Gap BUN Creatinine Estim Creat Clear Calc Estimated GFR Glucose POC Capillary Glucose > 500 H* 275 H 222 H Hemoglobin A1c Calcium Phosphorus Magnesium Total Bilirubin AST ALT Alkaline Phosphatase Total Creatine Kinase Total Protein Albumin Beta-Hydroxybutyrate/Acetoacetate Urine Color Urine Appearance Urine pH Ur Specific [place] Urine Protein Urine Glucose (UA) Urine Ketones Ur Blood (Man) Urine Nitrate Urine Bilirubin Urine Urobilinogen Leukocyte Esterase Rfl Nasal MRSA (PCR) 10/17/24 10/18/24 10/18/24 23:04 00:04 00:39 WBC RBC Hgb Hct MCV MCH MCHC RDW Plt Count MPV Immature Gran % (Auto) Neut % (Auto) Lymph % (Auto) [place] % (Auto) Eos % (Auto) Baso % (Auto) Lymph # (Auto) [place] # (Auto) Eos # (Auto) Baso # (Auto) Abs Immat Gran (auto) Absolute Neuts (auto) Absolute Nucleated RBC Nucleated RBC % Puncture Site ABG pH ABG pCO2 ABG pO2 ABG PO2/FiO2 Ratio ABG HCO3 ABG O2 Saturation ABG O2 Content ABG Base Excess A-a Gradient Oxyhemoglobin Carboxyhemoglobin Methemoglobin Reduced Hemoglobin Total Hemoglobin O2 Delivery Device O2 Liters/Min FiO2 Sodium 157 H Potassium 3.5 Chloride 125 H Carbon Dioxide 25 Anion Gap 7 BUN 37 H Creatinine 0.66 L Estim Creat Clear Calc 67 Estimated GFR > 60 Glucose 111 H POC Capillary Glucose 119 H 134 H Hemoglobin A1c Calcium 8.5 Phosphorus Magnesium Total Bilirubin AST ALT Alkaline Phosphatase Total Creatine Kinase Total Protein Albumin Beta-Hydroxybutyrate/Acetoacetate Urine Color Urine Appearance Urine pH Ur Specific [place] Urine Protein Urine Glucose (UA) Urine Ketones Ur Blood (Man) Urine Nitrate Urine Bilirubin Urine Urobilinogen Leukocyte Esterase Rfl Nasal MRSA (PCR) 10/18/24 10/18/24 10/18/24 01:04 02:06 03:18 WBC RBC Hgb Hct MCV MCH MCHC RDW Plt Count MPV Immature Gran % (Auto) Neut % (Auto) Lymph % (Auto) [place] % (Auto) Eos % (Auto) Baso % (Auto) Lymph # (Auto) [place] # (Auto) Eos # (Auto) Baso # (Auto) Abs Immat Gran (auto) Absolute Neuts (auto) Absolute Nucleated RBC Nucleated RBC % Puncture Site ABG pH ABG pCO2 ABG pO2 ABG PO2/FiO2 Ratio ABG HCO3 ABG O2 Saturation ABG O2 Content ABG Base Excess A-a Gradient Oxyhemoglobin Carboxyhemoglobin Methemoglobin Reduced Hemoglobin Total Hemoglobin O2 Delivery Device O2 Liters/Min FiO2 Sodium Potassium Chloride Carbon Dioxide Anion Gap BUN Creatinine Estim Creat Clear Calc Estimated GFR Glucose POC Capillary Glucose 109 H 173 H 149 H Hemoglobin A1c Calcium Phosphorus Magnesium Total Bilirubin AST ALT Alkaline Phosphatase Total Creatine Kinase Total Protein Albumin Beta-Hydroxybutyrate/Acetoacetate Urine Color Urine Appearance Urine pH Ur Specific [place] Urine Protein Urine Glucose (UA) Urine Ketones Ur Blood (Man) Urine Nitrate Urine Bilirubin Urine Urobilinogen Leukocyte Esterase Rfl Nasal MRSA (PCR) 10/18/24 10/18/24 10/18/24 04:23 04:31 04:40 WBC 15.8 H RBC 4.93 Hgb 14.2 Hct 46.0 MCV 93.3 MCH 28.8 MCHC 30.9 L RDW 14.4 Plt Count 275 MPV 10.1 Immature Gran % (Auto) 0.4 Neut % (Auto) 74.3 H Lymph % (Auto) 15.8 L [place] % (Auto) 8.2 Eos % (Auto) 1.0 Baso % (Auto) 0.3 Lymph # (Auto) 2.49 [place] # (Auto) 1.3 H Eos # (Auto) 0.2 Baso # (Auto) 0.1 Abs Immat Gran (auto) 0.07 H Absolute Neuts (auto) 11.7 H Absolute Nucleated RBC 0.000 Nucleated RBC % 0.0 Puncture Site ABG pH ABG pCO2 ABG pO2 ABG PO2/FiO2 Ratio ABG HCO3 ABG O2 Saturation ABG O2 Content ABG Base Excess A-a Gradient Oxyhemoglobin Carboxyhemoglobin Methemoglobin Reduced Hemoglobin Total Hemoglobin O2 Delivery Device O2 Liters/Min FiO2 Sodium 158 H Potassium 4.1 Chloride 129 H Carbon Dioxide 21 L Anion Gap 8 BUN 35 H Creatinine 0.61 L Estim Creat Clear Calc 74 Estimated GFR > 60 Glucose 181 H POC Capillary Glucose 170 H 177 H Hemoglobin A1c 11.4 H Calcium 8.3 L Phosphorus Magnesium Total Bilirubin AST ALT Alkaline Phosphatase Total Creatine Kinase 118 Total Protein Albumin Beta-Hydroxybutyrate/Acetoacetate Urine Color Urine Appearance Urine pH Ur Specific [place] Urine Protein Urine Glucose (UA) Urine Ketones Ur Blood (Man) Urine Nitrate Urine Bilirubin Urine Urobilinogen Leukocyte Esterase Rfl Nasal MRSA (PCR) 10/18/24 10/18/24 10/18/24 06:17 07:05 08:42 WBC RBC Hgb Hct MCV MCH MCHC RDW Plt Count MPV Immature Gran % (Auto) Neut % (Auto) Lymph % (Auto) [place] % (Auto) Eos % (Auto) Baso % (Auto) Lymph # (Auto) [place] # (Auto) Eos # (Auto) Baso # (Auto) Abs Immat Gran (auto) Absolute Neuts (auto) Absolute Nucleated RBC Nucleated RBC % Puncture Site ABG pH ABG pCO2 ABG pO2 ABG PO2/FiO2 Ratio ABG HCO3 ABG O2 Saturation ABG O2 Content ABG Base Excess A-a Gradient Oxyhemoglobin Carboxyhemoglobin Methemoglobin Reduced Hemoglobin Total Hemoglobin O2 Delivery Device O2 Liters/Min FiO2 Sodium Potassium Chloride Carbon Dioxide Anion Gap BUN Creatinine Estim Creat Clear Calc Estimated GFR Glucose POC Capillary Glucose 206 H 232 H 231 H Hemoglobin A1c Calcium Phosphorus Magnesium Total Bilirubin AST ALT Alkaline Phosphatase Total Creatine Kinase Total Protein Albumin Beta-Hydroxybutyrate/Acetoacetate Urine Color Urine Appearance Urine pH Ur Specific [place] Urine Protein Urine Glucose (UA) Urine Ketones Ur Blood (Man) Urine Nitrate Urine Bilirubin Urine Urobilinogen Leukocyte Esterase Rfl Nasal MRSA (PCR) 10/18/24 09:31 WBC RBC Hgb Hct MCV MCH MCHC RDW Plt Count MPV Immature Gran % (Auto) Neut % (Auto) Lymph % (Auto) [place] % (Auto) Eos % (Auto) Baso % (Auto) Lymph # (Auto) [place] # (Auto) Eos # (Auto) Baso # (Auto) Abs Immat Gran (auto) Absolute Neuts (auto) Absolute Nucleated RBC Nucleated RBC % Puncture Site ABG pH ABG pCO2 ABG pO2 ABG PO2/FiO2 Ratio ABG HCO3 ABG O2 Saturation ABG O2 Content ABG Base Excess A-a Gradient Oxyhemoglobin Carboxyhemoglobin Methemoglobin Reduced Hemoglobin Total Hemoglobin O2 Delivery Device O2 Liters/Min FiO2 Sodium 154 H Potassium 4.6 Chloride 125 H Carbon Dioxide 20 L Anion Gap 9 BUN 30 H Creatinine 0.59 L Estim Creat Clear Calc 76 Estimated GFR > 60 Glucose 255 H POC Capillary Glucose Hemoglobin A1c Calcium 8.4 Phosphorus Magnesium Total Bilirubin AST ALT Alkaline Phosphatase Total Creatine Kinase Total Protein Albumin Beta-Hydroxybutyrate/Acetoacetate Urine Color Urine Appearance Urine pH Ur Specific [place] Urine Protein Urine Glucose (UA) Urine Ketones Ur Blood (Man) Urine Nitrate Urine Bilirubin Urine Urobilinogen Leukocyte Esterase Rfl Nasal MRSA (PCR)
[2024-10-18] MEDS: ENOXAPARIN 40 MG/0.4 ML SYRINGE SUB-Q (11:00)
[2024-10-18] MEDS: INSULIN ASPART (*BKC) 100 UNITS/ML SUB-Q ×3 (11:35→20:18)
[2024-10-18 17:15] LABS: Anion Gap 5 mmol/L (4-12); Blood Urea Nitrogen 21 mg/dL (7-17); Calcium 7.8 mg/dL (8.4-10.2); Carbon Dioxide 22 mmol/L (22-30); Chloride 109 mmol/L (98-107); Estimated CRCL calculation 90 ml/min; Estimated Glomerular Filt Rate > 60; Glucose 235 mg/dL (65-110); Potassium 3.7 mmol/L (3.4-5.0); Sodium 136 mmol/L (137-145)
[2024-10-18] MEDS: clonazePAM (*CRX) 0.5 MG TABLET 2 MG PO (20:17)
[2024-10-18] MEDS: MIRTAZAPINE 30 MG TABLET PO (20:17)
--- NOTE | 2024-10-18 21:45 | PC.NURSE ---
Report received from Mamie LLANOS. Pt arrived to the floor (RM [id number]) from ICU. Pt oriented to room & plan of care. No distress noted.
--- NOTE | 2024-10-18 21:51 | PC.NURSE ---
This patient, Janel Marin, was transferred to [facility] on 10/18/24 at 2140. Personal belongings sent with patient. Report given to Avril LLANOS. Appropriate documentation sent with patient.
[2024-10-19] VITALS: PULSE 86; RESP 20; O2SAT 99
[2024-10-19 06:00] VITALS: BP 102/63; PULSE 79; RESP 16; TEMP 36.2; O2SAT 93
[2024-10-19 06:33] LABS: Hematocrit 42.9 % (37.0-47.0); Hemoglobin 13.4 g/dL (12.0-15.0); Mean Corpuscular HGB Conc 31.2 g/dl (32-36); Mean Corpuscular Hemoglobin 29.1 pg (26-34); Mean Corpuscular Volume 93.1 fl (80-100); Platelet Count Result 222 k/mm3 (150-375); Red Blood Count 4.61 M/mm3 (4.2-5.4); White Blood Count 9.9 K/mm3 (4.5-10.0)
[2024-10-19 06:49] LABS: Anion Gap 4 mmol/L (4-12); Blood Urea Nitrogen 16 mg/dL (7-17); Calcium 8.3 mg/dL (8.4-10.2); Carbon Dioxide 24 mmol/L (22-30); Chloride 111 mmol/L (98-107); Estimated CRCL calculation 87 ml/min; Estimated Glomerular Filt Rate > 60; Glucose 206 mg/dL (65-110); Potassium 4.5 mmol/L (3.4-5.0); Sodium 139 mmol/L (137-145)
[2024-10-19] MEDS: NICOTINE (*PBKC) 14 MG PATCH 1 PATCH TRANSDERM (08:27)
[2024-10-19] MEDS: ATORVASTATIN 40 MG TABLET PO (08:27)
[2024-10-19] MEDS: DULoxetine HCL 60 MG CAPSULE.DR PO (08:27)
[2024-10-19] MEDS: INSULIN GLARGINE (*BKC) 100 UNITS/ML 14 UNITS SUB-Q (08:35)
[2024-10-19] MEDS: ENOXAPARIN 40 MG/0.4 ML SYRINGE SUB-Q (08:36)
[2024-10-19] MEDS: INSULIN ASPART (*BKC) 100 UNITS/ML SUB-Q ×3 (08:36→20:53)
[2024-10-19] MEDS: ENALAPRIL MALEATE 2.5 MG TABLET PO (12:10)
[2024-10-19 12:13] VITALS: PULSE 85; RESP 17
[2024-10-19] MEDS: UMECLIDINIUM/VILANTEROL 62.5-25 MCG ELLIPTA 1 PUFF INHALATION (12:13)
[2024-10-19 12:14] VITALS: PULSE 83; RESP 20; O2SAT 98
--- NOTE | 2024-10-19 12:31 | P.DS_ITS ---
DS: Admitting Diagnosis Discharge Date 10/19/2024 Admitting Diagnosis DKA DS: Discharge Diagnosis Discharge Diagnosis (1) Acute hyperglycemia: Code(s): R73.9 - Hyperglycemia, unspecified Status: Acute Assessment and Plan: 10/17: Patient presented to the ED with altered mental status, fall. Was found to have acute hyperglycemia with blood sugars of 998 in the ER. -will likely related to HHS/DKA -received a total of 5 L of IV fluids -was started on insulin infusion per DKA protocol -diabetic diet -adult educator and dietitian to evaluate -10/18 basal and SSI, advance diet (2) Acute hypernatremia: Code(s): E87.0 - Hyperosmolality and hypernatremia Status: Acute Assessment and Plan: Acute hyponatremia could be related to dehydration versus excessive normal saline IV fluid -discontinued normal saline IV fluids -currently on half-normal saline with D5 and potassium per DKA protocol -will encourage drinking water as she feels thirsty -will monitor BMP for sodium levels (3) Type 2 diabetes mellitus: Qualifiers: Diabetes mellitus complication detail: with polyneuropathy Diabetes mellitus complication status: with neurologic complications Diabetes mellitus [facility] insulin use: with [facility] use Qualified Code(s): E11.42 - Type 2 diabetes mellitus with diabetic polyneuropathy; Z79.4 - [facility] (current) use of insulin Code(s): E11.9 - Type 2 diabetes mellitus without complications Status: Chronic Assessment and Plan: History of type 2 diabetes, on metformin -patient does not check her blood sugars regularly, though she states she takes a medication -A1c over 11 (4) Tobacco dependence: Code(s): F17.200 - Nicotine dependence, unspecified, uncomplicated Status: Acute Assessment and Plan: Patient continues to smoke, has a history of COPD, follows with Dr. Trujillo -encouraged smoking cessation 10/18 -continue nicotine patch (5) Frequent falls: Code(s): R29.6 - Repeated falls Status: Acute Assessment and Plan: Patient states she has multiple bruising on upper extremities due to frequent falls, this admission also patient presented after being found down on the ground for approximately 12 hours according the records. -she has had multiple admissions to [facility] for frequent falls -CC consultation for possible SNF -- [facility] declined SNF but accepted HH for PT/OT (6) Anxiety: Code(s): F41.9 - Anxiety disorder, unspecified Status: Acute Assessment and Plan: Continue duloxetine, mirtazapine (7) HLD (hyperlipidemia): Qualifiers: Hyperlipidemia type: mixed hyperlipidemia Qualified Code(s): E78.2 - Mixed hyperlipidemia Code(s): E78.5 - Hyperlipidemia, unspecified Status: Acute Assessment and Plan: Continue atorvastatin (8) Hypertension associated with type 2 diabetes mellitus: Code(s): E11.59 - Type 2 diabetes mellitus with other circulatory complications; I15.2 - Hypertension secondary to endocrine disorders Status: Acute Assessment and Plan: Continue enalapril DS: Summary Hospital Course Hospital Course: Admitted October 17 with blood sugar 998. Admits to missing several doses of insulin over the few days prior to admission. Unclear why. Has been diabetic since her mid 20s and use insulin since then. She was admitted via the emergency department to intensive care treated with insulin infusion and IV fluids. She had diabetic ketoacidosis by lab. Her anion gap closed. She had no sign of infection. She was transferred out of ICU on October 18. She was evaluated by Physical therapy. detention and assisted living were offered as options for discharge. However she wished to discharge back to home where she lives alone. She did wish home health physical therapy to visit her. On da y of discharge she ambulated with standby assistance 50 ft with a walker with no problems. She negotiated sitting standing and turning without difficulty. She indicated that she understood that she is to take her basal insulin every day and her short-acting insulin before each meal. She is to continue liberal water intake and to avoid concentrated carbohydrates such as candy. Admission her hemoglobin A1c was 11.4%. Time Spent with Patient Time attestation: Total time spent providing and/or coordinating discharge services: Exam Narrative: HEENT: PERRL, sclerae nonicteric, pharyngeal mucosa pink and intact NECK: No JVD, adenopathy, or thyromegaly CHEST: Clear to auscultation. Normal effort. HEART: NL S1/S2, regular, no murmur ABDOMEN: BS+, soft, nontender, no mass, no bruits EXTREMITIES: No cyanosis, edema, or clubbing NEUROLOGIC: CN intact and symmetric to inspection. MUSCULOSKELETAL: Tone and strength symmetric. PSYCH: Alert. Oriented to person, place, and time. DS: Data Data Completed and Pending Labs on day of discharge: Labs from last 24 hours 10/19/24 10/19/24 10/19/24 11:40 07:45 06:21 WBC 9.9 RBC 4.61 Hgb 13.4 Hct 42.9 MCV 93.1 MCH 29.1 MCHC 31.2 L RDW 14.3 Plt Count 222 MPV 9.5 Sodium 139 Potassium 4.5 Chloride 111 H Carbon Dioxide 24 Anion Gap 4 BUN 16 Creatinine 0.51 L Estim Creat Clear Calc 87 Estimated GFR > 60 Glucose 206 H POC Capillary Glucose 199 H 215 H Calcium 8.3 L 10/18/24 10/18/24 10/18/24 22:43 20:18 16:43 WBC RBC Hgb Hct MCV MCH MCHC RDW Plt Count MPV Sodium 136 L Potassium 3.7 Chloride 109 H Carbon Dioxide 22 Anion Gap 5 BUN 21 H Creatinine 0.49 L Estim Creat Clear Calc 90 Estimated GFR > 60 Glucose 235 H POC Capillary Glucose 191 H 203 H Calcium 7.8 L 10/18/24 16:32 WBC RBC Hgb Hct MCV MCH MCHC RDW Plt Count MPV Sodium Potassium Chloride Carbon Dioxide Anion Gap BUN Creatinine Estim Creat Clear Calc Estimated GFR Glucose POC Capillary Glucose 252 H Calcium Discharge Plan Discharge Consulting providers: Poppy Zhu Patient Disposition: Home with Home Health Service Activity: no driving and as tolerated Diet: diabetic Discharge Instructions: Use walker for ambulation Patient Instructions: Diabetes and Nutrition (DC) Patient Language: Estonian Stand Alone Forms: General Discharge Information Follow-up/Referrals: Tremaine Snyder MD [Primary Care Provider] - Discharge Medications: New nicotine 14 mg/24 hr Patch 24 Hour 1 patch transdermal DAILY Qty: 14 0RF insulin glargine [Lantus Solostar U-100 Insulin] 100 unit/mL (3 mL) insulin pen 20 unit subcut QAM Qty: 15 0RF Continued ibuprofen 200 mg capsule 200 mg PO Q6H PRN (Reason: Pain) Claritin-D 12 Hour 5-120 mg tablet extended release 12 hr 1 tablet PO Q12H PRN (Reason: allergies) duloxetine 60 mg capsule,delayed release(DR/EC) 60 mg PO DAILY cholecalciferol (vitamin D3) 25 mcg (1,000 unit) capsule 25 mcg PO DAILY mecobalamin (vitamin B12) 500 mcg tablet,chewable 500 mcg PO DAILY Fiasp FlexTouch U-100 Insulin 100 unit/mL (3 mL) insulin pen See Rx Instructions subcut TIDWMEAL MDD 4 Qty: 36 2RF Rx Instructions: 9 units before breakfast, 7 units before lunch and 5 units before dinner add for high sugar before meals 150-200: 1 unit 201-250: 2 units 251-300: 3 units 301-350: 4 units 351-400: 5 units >401: 6 units glycopyrrolate-formoterol 9-4.8 mcg HFA aerosol inhaler 2 puff inhalation BID Qty: 10.7 3RF Arginaid 4.5 gram-156 mg/9.2 gram powder in packet 4.5 g PO TIDWM mirtazapine 15 mg tablet 30 mg PO QHS Rx Instructions: 30 mg qhs (DME) pen needle, diabetic [BD Ultra-Fine Lucretia Pen Needle] 32 gauge x 5/32 needle See Rx Instructions .Route Qty: 400 1RF Rx Instructions: 4 times daily with insulin albuterol sulfate 90 mcg/actuation aerosol powdr breath activated 2 inh inhalation Q4H PRN (Reason: shortness of breath or wheezing) Qty: 1 6RF enalapril maleate 2.5 mg tablet 2.5 mg PO DAILY Qty: 90 2RF atorvastatin 40 mg tablet 40 mg PO DAILY Qty: 90 2RF metformin 1,000 mg tablet See Rx Instructions .ROUTE .COMPLEX Qty: 180 1RF Dose Instruction: TAKE 1 TABLET BY MOUTH TWICE DAILY Rx Instructions: TAKE 1 TABLET BY MOUTH TWICE DAILY clonazepam 2 mg tablet 2 mg PO QHS Qty: 30 0RF Discontinued duloxetine 30 mg capsule,delayed release(DR/EC) 30 mg PO DAILY Qty: 30 1RF Date of admission: 10/17/24 17:27 Primary Care Provider: Tremaine Snyder Admitting Provider: Chiki Medina Attending physician on admission: Chiki Medina Condition: Stable
[2024-10-19 14:00] VITALS: BP 121/85; PULSE 73; RESP 18; TEMP 35.9; O2SAT 97
--- OUTSIDE RECORDS SUMMARY | 2024-10-19 18:28 | XMS_ITS | Patient Health Record ---
Author Organization [facility] [employer] Address [address] [place] [address] Care Team Providers Care Projector Operator Name Role Phone Tremaine Snyder MD Primary Care Provider Salvatore Josue Unavailable [phone] Praveena Zhong Unavailable [phone] Reason For Referral No Information Medications Medication SIG (Take, Route, Frequency, Duration) Notes Start Date End Date Status metFORMIN HCl 1000 MG Oral 07/24/2023 Active Vitamin D3 Super Strength 50 MCG (1999 UT) Oral 07/24/2023 Active Atorvastatin Calcium 20 MG Oral 07/24/2023 Active Enalapril Maleate 2.5 MG Oral 07/24/2023 Active Fiasp FlexTouch 100 unit/mL (3 mL) Subcutaneous *Pick strength-form from [employer] for eRX* 07/24/2023 Active BD MELVA 2ND GEN PEN NEEDLE 32 GAUGE X 5/32 *Reorder from [employer] for eRx and Interaction Alerts* 07/24/2023 Active Vitamin B12 *Pick strength-form from [employer] for eRX* 07/24/2023 Active clonazePAM 2 MG Oral 07/24/2023 Act stu DULoxetine HCl 60 MG 1 capsule Oral Once a day; Duration: 90 days 07/24/2023 Active Tresiba FlexTouch 200 UNIT/ML Subcutaneous 07/24/2023 Active Glimepiride 2 MG Oral 07/24/2023 Ac tive FREESTYLE ELIDA 2 SENSOR KIT *Reorder from [employer] for eRx and Interaction Alerts* 07/24/2023 Active Nystatin 752134 UNIT/GM External 07/24/2023 Active Ozempic (2 MG/DOSE) 8 MG/3ML Subcutaneous *Reorder from [employer] for eRx and Interaction Alerts* 07/24/2023 Active Calcium Citrate 200 mg (950 mg) Oral *Pick strength-form from [employer] for eRX* 07/24/2023 Active Immunizations Vaccine Route [...] Risk Notes Problem Mild recurrent major depression (11608083) Major depressive disorder, recurrent, mild (F33.0) Active confirmed Problem Generalized anxiety disorder (48602728) Generalized anxiety disorder (F41.1) Active confirmed Vital Signs Height-cm 170.18 cm 11/20/2023 Height 67.00 in 11/20/2023 Encounters Encounter Location Date Provider Diagnosis [facility] [employer] [place] [address] [facility] [address] [place] [address] 01/17/2024 Praveena Hemann Major depressive disorder, recurrent, mild F33.0 and Generalized anxiety disorder F41.1 [facility] [email or web address] [place] [address] [facility] [address] [address] 11/20/2023 Salvatore Johnson Generalized anxiety disorder F41.1 ; Major depressive disorder, recurrent, mild F33.0 and Insomnia due to other mental disorder F51.05 [facility] [employer] [place] [address] [facility] [address] [facility] [address] [place] [address] 11/20/2023 Praveena Hemann Major depressive disorder, recurrent, mild F33.0 and Generalized anxiety disorder F41.1 [facility] [employer] [place] [address] [facility] [address] [place] [address] 12/05/2023 Praveena Hemann Major depressive disorder, recurrent, mild F33.0 and Generalized anxiety disorder F41.1 [facility] [place] [address] [facility] [address] [facility] [address] [place] [address] 01/03/2024 Praveena Hemann Major depressive disorder, recurrent, mild F33.0 and Generalized anxiety disorder F41.1 [facility] [employer] [address] [place] [address] 01/31/2024 Praveena Hemann Major depressive disorder, recurrent, mild F33.0 and Generalized anxiety disorder F41.1 [facility], [facility] [address] [place] [address] 02/14/2024 Praveena Hemann Major depressive disorder, recurrent, mild F33.0 and Generalized anxiety disorder F41.1 [facility], [facility] [address] [place] [address] 03/26/2024 Praveena Hemann Major depressive disorder, recurrent, mild F33.0 and Generalized anxiety disorder F41.1 [facility], [facility] [address] [facility] [address] [place] [address] 03/07/2024 Salvatore Johnson [facility], [facility] [address] [facility] [address] [place] [address] 03/27/2024 Salvatore Johnson [facility], [facility] [address] [facility] [address] [place] [address] 04/08/2024 Salvatore Johnson [facility], [facility] [address] [facility] [address] [place] [address] 04/09/2024 Praveena Zhong [facility], [facility] [address] [facility] [address] [place] [address] 04/09/2024 Salvatore Johnson [facility], [facility] [address] [address] 04/23/2024 Salvatore Johnson [facility], [facility] [address] [address] 06/20/2024 Salvatore Johnson Assessments Encounter Date Diagnosis [...] 11/20/2023 Generalized anxiety disorder (ICD-10 - F41.1) Plan Of Treatment No Information Insurance Providers Payer Name Payer Address Payer Phone Subscriber Number Group Number Insured Name Patient Relationship to Insured Coverage Start Date Coverage End Date Medicare-I l Medicare [address] [place] [address] [id number] ARANZA CHAHAL Self - patient is the insured [employer] [address] [place] [phone] [id number] ARANZA CHAHAL Self - patient is the insured Medical (General) History Surgical History Surgery Date(Month/Year) Cataract surgery (87741) 03/12/2012 Cardiac pacemaker procedure ([id number]) 03/19/2023 Any surgical history 10/11/2019
--- OUTSIDE RECORDS SUMMARY | 2024-10-19 18:28 | XMS_ITS ---
Author Organization [facility] [employer] [facility] Address [facility] [address] Care Team Providers Care Traffic Law Attorney Name Role Phone Claudio MATHEWS, Tremaine Primary Care Provider Salvatore Josue Unavailable [phone] Praveena Parnell Unavailable [phone] REASON FOR VISIT No calls, no messages, no voicemail Social History Sex Assigned At : Social History Observation Description Sex Assigned At Female Encounters Encounter Location Date Provider Diagnosis [facility] [employer] [address] [address] 04/23/2024 Praveena Parnell Plan Of Treatment No Information Progress Notes * ARANZA CHAHALDOB:1955 (68 yo F)Acc No.[id number]:04/23/2024 Patient: ARANZA DURAN Provider: Minerva PARNELL LCSW :1955 A ge:68 Y S ex:Female Date:04/23/2024 Address:[address] [place], [place] [id number] Pcp:Tremaine Snyder MD Data: * Chief Complaints: * 1 . No calls, no messages, no voicemail. Assessment: Plan: * Treatment: * Procedure Codes: N STHR NO SHOW THERAPY * Billing Information: * Visit Code: * Procedure Codes: NSTHR NO SHOW THERAPY. * Electronic signature of Praveena Parnell LCSW on 10/19/2024 at 06:28 PM CDT Sign off status: Pending Signatures: No Ad Hoc Signature Added * Provider: Minerva PARNELL LCSW Date: 0 04/23/2024 Generated for Beatrice maldonado/Quinton/Yomaira on: 0 10/19/2024 06:28 PM CDT
--- OUTSIDE RECORDS SUMMARY | 2024-10-19 18:28 | XMS_ITS | Encounter Summary ---
Author Organization [facility] Healthcare Address [address] [place] [address] Care Team Providers Care Insulation Sprayer Name Role Phone Tremaine Snyder MD Primary Care Provider Philip Mena OFFICE TECHNICIAN Unavailable [phone] Encounter Details Date Type Department Care Team (Late st Contact Info) Description 11/14/2019 Telephone [facility] [address] [place] [address] David Wagner, RT Social History Tobacco Use Types Packs/Day Years Used Date Smoking Tobacco: Every Day Cigarettes Smokeless Tobacco: Current Alcohol Use Standard Drinks/Week Comments Yes 0 (1 standard drink = 0.6 oz pur e alcohol) occasional Comments Unknown Sex and Gender Information Value Date Recorded Sex Assigned at Not on file 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
--- OUTSIDE RECORDS SUMMARY | 2024-10-19 18:29 | XMS_ITS ---
Author Organization [facility] [employer] [facility] Address [facility] [address] [address] Care Team Providers Care Dough Scaler And Mixer Name Role Phone Claudio MATHEWS, Tremaine Primary Care Provider Salvatore Josue Unavailable [phone] Praveena Parnell Unavailable [phone] REASON FOR VISIT See tele encounters Social History Sex Assigned At : Social History Observation Description Sex Assigned At Female Encounters Encounter Location Date Provider Diagnosis [facility] [employer] [place] [address] [address] [facility] [address] [address] 06/20/2024 Praveena Parnell Plan Of Treatment No Information Progress Notes * ARANZA CHAHALDOB:1955 (68 yo F)Acc No.[id number]:06/20/2024 Patient: ARANZA DURAN Provider: Minerva PARNELL LCSW :1955 A ge:68 Y S ex:Female Date:06/20/2024 Address:[address] [place], [place] [id number] Pcp:Tremaine Snyder MD Data: * Chief Complaints: * 1 . See tele encounters. Assessment: Plan: * Treatment: * Billing Information: * Visit Code: * Procedure Codes: * Electronic signature of Praveena Parnell LCSW on 10/19/2024 at 06:29 PM CDT Sign off status: Pending Signatures: No Ad Hoc Signature Added * Provider: Minerva PARNELL LCSW Date: 0 06/20/2024 Generated for Printi ng/Faeverg/eTransmitting on: 0 10/19/2024 06:29 PM CDT
--- OUTSIDE RECORDS SUMMARY | 2024-10-19 18:29 | XMS_ITS | Clinical Summary ---
Author Organization [facility] Medical [facility] 2 Address [address] [facility] [place] [address] Care Team Providers Care Ball Thread Machine Tender Name Role Phone Tremaine Snyder MD Primary Care Provider Philip Mena NP Unavailable [phone] Allergies Active Allergy Reactions Criticality Noted Date [...] Type Department Care Team Description 09/18/2024 Telephone [facility] Medical Group Cardiology [address] [place] [address] [place] [address] Marie Araujo MD 09/17/2024 8:00 AM CDT Ancillary Procedure [facility] Medical [facility] Cardiology [address] [place] [address] [place] [address] AV block from Last [...] 1 Diabetes Mellit us - (Added by [employer]) Osteoporosis Other 2 Family history of osteoporosis - (Added by [employer]) Relation Name Status Comments Father Father's Brother Father's Sister Other 1 Other 2 Social History Tobacco Use Types Packs/Day Years Used Date Smoking Tobacco: Every Day Cigarettes Smokeless Tobacco: Current Tobacco Cessation:Ready to Q uit: Not Asked; Counseling Given: Not Answered Alcohol Use Standard Drinks/Week Comments Yes 0 (1 standard drink = 0.6 oz pur e alcohol) occasional [employer] Utilities Answer Date Recorded In the past 12 months has [place], gas, oil, or water [employer] threatened to shut off services in your home? No 03/20/2023 Social Connection and Isolation Panel Answer Date Recorded In a typical week, how many times do you talk on the phone with family, friends, or neighbors? More than three times a week 03/20/2023 How often do you get togethe r with friends or relatives? More than three times a week 03/20/2023 How often do you attend [employer] or mu-ism services? Never 03/20/2023 Do you belong to any clubs o r organizations such as oriental orthodox groups, unions, fraternal or athletic groups, or [...] place to sleep or slept in a group home (including now)? No 03/20/2023 Personal Safety Answer Date Recorded Have you ever been in or are you currently in a harmful physical or emotional relationship or is someone making you feel afraid or unsafe? Denies 03/18/2023 Comments Unknown Sex and Gender Information Value Date Recorded Sex Assigned at Not on file Legal Sex Female 3:36 AM MELON PACKER Gender Identity Not on file Sexual Orientation Straight 06/15/2023 11 :06 AM CDT Obstetrics History Last Filed Vital Signs Vital Sign Reading Time Taken Comments Blood Pressure 118/62 06/26/2023 9:58 AM CDT Pulse 75 06/26/2023 9:58 AM CDT Temperature 36.7 C (98.1 F) 03/20/2023 8:08 AM MELON PACKER Respiratory Rate 16 06/26/2023 9:58 AM CDT [...] Tdap) 11/06/2029 Medical Devices Implanted Type Area Electrical Linesworker Device Identifier Shelf Expiration Date Model / Serial / Lot Synthes 107.102 Lcp Combi 73mm 2 Hole Variable Angle Taper Tip Round Profile - [id number] Implanted:Qty: 1 on 11/27/2019 by Hollis Warren MD at [facility] Left: Olecranon Synthes I .10 2 / / Synthes .016 2.7mm 16mm Self Tap Lock Variable Angle Stardrive T8 Screw Bone - [id number] Implanted:Qty: 1 on 11/27/2019 by Hollis Warren MD at [facility] Left: Olecranon Synthes I 6 / / Synthes .018 2.7mm 18mm Self Tap Lock Variable Angle Stardrive T8 Screw Bone - [id number] Implanted:Qty: 2 on 11/27/2019 by Hollis Warren MD at [facility] Left: Olecranon Synthes I 8 / / Depuy Synthes Locking Screw Implanted:Qty: 1 on 11/27/2019 by Hollis Warren MD at [facility] Left: Olecranon Synthes I [id number] 6 / / Description:[facility] ITEM# [id number] ; FLAGGED ON 11/28/19 CHARGE CODE ASSIGNED [id number] Synthes 204.826 3.5mm 6mm 26mm 2.5mm Self Tap Small Hexagonal Socket Low Profile - [id number] Implanted:Qty: 1 on 11/27/2019 by Hollis Warren MD at [facility] Left: Olecranon Synthes I 204.826 / / Synthes 212.107 3.5mm 2.9mm 22mm Self Tap Lock Stardrive Conical Head T15 Full - [id number] Implanted:Qty: 1 on 11/27/2019 by Hollis Warren MD at [facility] Left: Olecranon Synthes I 212.107 / / [employer] Device Clsr Perclose Prostyle Sut-Mediatd Closure-Repair Sys 80578-00 - [id number] Implanted:Qty: 1 on 03/19/2023 by Dev Vasquez MD at [facility] [employer] 12/09/2024 60372-86 / / [id number] [employer] Device Clsr Perclose Prostyle Sut-Mediatd Closure-Repair Sys 35104-75 - [id number] Implanted:Qty: 1 on 03/19/2023 by Dev Vasquez MD at [facility] [employer] 12/09/2024 44698-73 / / [id number] [employer] Katie Av_Vr Leaderless Pacer - [id number] Implanted:Qty: 1 on 03/19/2023 by Dev Vasquez MD at [facility] [employer] [id number] / / Procedures Procedure Name Priority Date/Time Associated Diagnosis Comments EGFR Routine 03/19/2023 5:16 AM MELON PACKER HEMOGLOBIN A1C Routine 03/19/2023 5:16 AM MELON PACKER DIAGNOSTIC MAMMOGRAM BILATERAL W DEV Routine 09/25/2013 11:58 AM CDT from Last 3 Months or Most Recently Relevant to Health Maintenance Results * eGFR (03/19/2023 5:16 AM MELON PACKER) eGFR 104 mL/min/1. 73 m2 YEIMI CALIX [...] last reviewed 2021. Blood 03/19/2023 5:16 AM MELON PACKER 03/19/2023 5:22 AM MELON PACKER us Lisa Oates NP LAB BLOOD ORDERABLES Chacha bhandari Result YEIMI CALIX [address] Department [place] [address] * (ABNORMAL) Hemoglobin A1c (03/19/2023 5:16 AM MELON PACKER) Hgb A1C 8.9(H) 4.0 - 5.6 % YEIMI CALIX Estimated Average Glucose 209 mg/dL YEIMI CALIX Comment: The ADA recommends reporting an estimated Average Glucose (eAG) with all Hemoglobin A1c results using the equation derived from a study of 507 normal and diabetic adults. Minority populations were underrepresented and children were not included. (Diabetes Care 31:6256-7309, 2008). The eAG is not equivalent to a fasting glucose. Blood 03/19/2023 5:16 AM MELON PACKER 03/19/2023 5:22 AM MELON PACKER us Lisa Oates NP LAB BLOOD ORDERABLES Chacha l Result YEIMI CALIX [address] Department [place] [address] * DIAGNOSTIC MAMMOGRAM BILATERAL W DEV (09/25/2013 11:58 AM CDT) Anatomical Region Laterality Modality Breast Bilateral Mammography 09/25/2013 11:5 8 AM CDT Narrative 09/25/2013 4:54 PM CDT Acc#: [id number] [facility] 0034 - Screening Mamm W Dev [...] TECHNOLOGIST: BHAVIN SCHMITT, TECHNOLOGIST MEDICAL IMAGING PRN SUPERVISOR TRAIN OPERATIONS: NAUN TRANSCRIBE DATE/TIME: Sep 25 2013 4:02P RADIOLOGIST: KIM HART M.D. READ ON: Sep 25 2013 3:50P ORDERING DR: AMIE FELIZ M.D. THIS DOCUMENT HAS BEEN ELECTRONICALLY SIGNED BY: KIM HART M.D. ON: Sep 25 2013 4:54P SUPERVISOR TRAIN OPERATIONS: NAUN TRANSCRIBE DATE/TIME: Sep 25 2013 4:02P RADIOLOGIST: KIM HART M.D. READ ON: Sep 25 2013 3:50P ORDERING DR: AMIE FELIZ M.D. THIS DOCUMENT HAS BEEN ELECTRONICALLY SIGNED BY: KIM HART M.D. ON: Sep 25 2013 4:54P Requesting Procedure Note Provider, MD Patricia - 07/03/2016 Acc#: [id number] [facility] 0034 - Screening Mamm W Dev [...] TECHNOLOGIST: BHAVIN SCHMITT, TECHNOLOGIST MEDICAL IMAGING PRN SUPERVISOR TRAIN OPERATIONS: DMJoelle TRANSCRIBE DATE/TIME: Sep 25 2013 4:02P RADIOLOGIST: KIM HART M.D. READ ON: Sep 25 2013 3:50P ORDERING DR: AMIE FELIZ M.D. THIS DOCUMENT HAS BEEN ELECTRONICALLY SIGNED BY: KIM HART M.D. ON: Sep 25 2013 4:54P SUPERVISOR TRAIN OPERATIONS: NAUN TRANSCRIBE DATE/TIME: Sep 25 2013 4:02P RADIOLOGIST: KIM HART M.D. READ ON: Sep 25 2013 3:50P ORDERING DR: AMIE FELIZ M.D. THIS DOCUMENT HAS BEEN ELECTRONICALLY SIGNED BY: KIM HART M.D. ON: Sep 25 2013 4:54P Requesting us Historical Provider MD HOOPER MAMMO PROCEDURES Chacha l Result from Last 3 Months or Most Recently Relevant to Health Maintenance Insurance CHOICE PRF PPO DE MEDICARE [facility] [place] [id number] Advance Directives For more information, please contact: [phone] * Full Code (Latest Code Status on File) Date Activated Date Inactivated Comments 03/19/2023 1:43 AM 03/20/2023 7:08 PM Care Teams Ball Thread Machine Tender Relationship Specialty Start Date End Date Tremaine Snyder MD [address] [place] [address] PCP - General Family Medicine 11/11/19 Philip Mena NP [address] [place] [address] DR THOMSON [address] [place] [address] Nurse Practitioner Nurse Practitioner 11/27/19
--- OUTSIDE RECORDS SUMMARY | 2024-10-19 18:29 | XMS_ITS ---
Author Organization [facility] Address [facility] [address] [address] Care Team Providers Care Supervisor Special Services Name Role Phone Claudio MATHEWS, Tremaine Primary Care Provider Salvatore Josue Unavailable [phone] Praveena Parnell Unavailable [phone] Social History Sex Assigned At : Social History Observation Description Sex Assigned At Female Encounters Encounter Location Date Provider Diagnosis [facility] [address] [address] 04/09/2024 Praveena Parnell Plan Of Treatment No Information Progress Notes * ARANZA DIAZDOB:1955 (68 yo F)Acc No.[id number]:04/09/2024 Patient: ARANZA DURAN Provider: Minerva PARNELL LCSW :1955 A ge:68 Y S ex:Female Date:04/09/2024 Address:[address] [place], [place] [id number] Pcp:Tremaine Snyder MD Data: * Chief Complaints: * Assessment: Plan: * Treatment: * Billing Information: * Visit Code: * Procedure Codes: * Electronic signature of Praveena Parnell LCSW on 10/19/2024 at 06:28 PM CDT Sign off status: Pending Signatures: No Ad Hoc Signature Added * Provider: Minerva PARNELL LCSW Date: 0 04/09/2024 Generated for Beatrice maldondao/Quinton/eTdevorahsmdeysi on: 0 10/19/2024 06:28 PM CDT
--- OUTSIDE RECORDS SUMMARY | 2024-10-19 18:29 | XMS_ITS | Continuity of Care Document ---
Author Organization [facility] Address [address] [place] [address] Phone Care Team Providers Care Podiatry Assistant Name Role Phone John Almeida Unavailable Unavailable [...] Copied on Encounter [facility]pat ient [facility], [facility], [address] [place] [address] [address], [place], [place], [id number], [place] tel:[phone] [facility] [place] No Information Jan-2 9-201 0 Elle Lopez. [address] [place] [address] , [address], [place], [place], Formerly named [facility], . tel:[phone] Office/outpat ient Visit, [facility], [address] [place] [address] [address], [place], [place], [id number], [place] tel:[phone] [facility] [place] No Information 1 5-201 0 Elle Ednataliya. [address] [place] [address] Center , [address], [place], [place], Formerly named [facility], . tel:[phone] Office/outpat ient Visit, [facility], [address] [place] [address] [address], [place], [place], [id number], [place] tel:[phone] [facility] [place] No Information Dec-2 5-201 0 Elle Ednataliya. [address] [place] [address] Center , [address], [place], Formerly named [facility], . tel:[phone] [facility], [address] [place] [address] [address], [place], [place], [address], [place] tel:[phone] [facility] [place] No Information Dec-0 7-201 0 Elle Lopez. [address] [place] [address] Center , [address], [place], Formerly named [facility], [place]. tel:[phone] Referring Provider: John Palma, [address] [place], [place] [address]ate Center [address], [place], [place], [facility]. tel:[phone] Office/outpat ient Visit, [facility], [address] [place] [address] [address], [place], [place], [id number], [place] tel:[phone] [facility] [place] No Information Santhsoh-0 4-201 0 Elle Lopez. [address] [place] [address] , [address], [place], Formerly named [facility], [place]. tel:[phone] [facility]outpat ient Visit, [facility], [address] [place] [address] [address], [place], [place], [address], [place] tel:[phone] SEC [facility] No Information 0 8-201 0 Elle Lopez. [address] [place] [address] , [address], [place], Formerly named [facility], [place]. tel:[phone] [facility], [address] [place] [address] [address], [place], [place], [address], [place] tel:[phone] SEC [facility] No Information 0 6-200 9 Elle Lopez. [address] [place] [address] , [address], [place], Formerly named [facility], [place]. tel:[phone] Referring Provider: John Palma, [address] [place] [address] Dr [address], [place], Formerly named [facility]. tel:[phone] Office/outpat ient Visit, [facility], [address] [place] [address] [address], [place], [place], [address], [place] tel:[phone] SEC [facility] No Information -200 9 Krishnasamy Carlos. [address] [place] [address] [address], [place], Formerly named [facility], [place]. tel:[phone] [facility], [address] [place] [address] [address], [place], [place], [address], [place] tel:[phone] SEC [facility] No Information 0 1-200 9 Krishnasamy Carlos. [facility] [address], [place], Formerly named [facility], [place]. tel:[phone] Office/outpat ient Visit, [facility], [address] [place] [address] [address], [place], [place], [address], [place] tel:[phone] [facility] No Information Santhosh-1 0-200 9 Elle Lopez. [facility] , [address], [place], Formerly named [facility], [place]. tel:[phone] Office/outpat ient Visit, [facility], [address], [place], [place], [address], [place] tel:[phone] SEC [facility] No Information Santhosh-0 2-200 9 Violet Carlos. [facility] [address], [place], Formerly named [facility], [place]. tel:[phone] Office/outpat ient Visit, [facility], [address], [place], [place], [address], [place] tel:[phone] SEC [facility] [place] No Information 2 9-200 9 Elle Lopez. [address] [place] [address] Center , [address], [place], Formerly named [facility], [place]. tel:[phone] Office/outpat ient Visit, [facility], [address], [place], [place], [address], [place] tel:[phone] SEC [facility] [place] No Information May-1 1-200 9 Elle Lopez. [address] [place] [address] , [address], [place], Formerly named [facility], [place]. tel:[phone] Referring Provider: John Palma, [address] [place], [place] [address]ate Center [address], [place], Former[facility] named [facility]. tel:[phone] [facility], [address], [place], [place], [address], [place] tel:[phone] SEC [facility] [place] No Information Oct-0 9-200 8 [employer]. [address] [facility], [address], [place], [place], [address], [place]. tel:[phone] Referring Provider: John Palma, [address] [place], [place] [address]ate Center [address], [place], Former[facility] named [facility]. tel:[phone] sulting Provider: Freddy Rouse, [facility], [place], [address]. tel:[phone] [facility], [address] [place] [address] [address], [place], [place], [id number], [place] tel:[phone] SEC [facility] [place] No Information Dec-0 8-200 8 Elle Lopez. [address] [place], [place] [address]ate [place] , [address], [place], Formerly named [facility], [place]. tel:[phone] [facility], [address] [place] [address] [address], [place], [place], [address], [place] tel:[phone] SEC [facility] [place] No Information 9200 8 Elle Lopez. [address] [place], [place] [address], [place], Former[facility] named [facility], [place]. tel:[phone] Referring Provider: John Palma, [address] [place], [place] [address]ate Center [address], [place], [facility]. tel:[phone] Office/outpat ient Visit, [facility], [address] [place] [address] [address], [place], [place], [id number], [place] tel:[phone] SEC [facility] [place] No Information 8-200 8 Elle Lopez. [address] [place], [place] [address]ate Center , [address], [place], Former[facility] named [facility], [place]. tel:[phone] [facility], [address] [place] [address] [address], [place], [place], [address], [place] tel:[phone] SEC [facility] No Information Dec-1 5-200 7 Elle Lopez. [address] [place], [place] [address]ate Center , [address], [place], [facility], [place]. tel:[phone] Office/outpat ient Visit, Est [facility], [address], [place], [place], [address], [place] tel:[phone] SEC [facility] Center No Information 200 7 Elle Lopez. [address] [place] [address] , [address], [place], Formerly named [facility], . tel:[phone] [facility], [address], [place], [place], [address], [place] tel:[phone] SEC [facility] No Information 7 Elle Lopez. [address] [place] [address] , [address], [place], Formerly named [facility], . tel:[phone] Referring Provider: John Palma [address] [place], [place] [address]ate [place] [address], [place], [facility]. tel:[phone] Family History Family Member Type Diagnosis Age At Onset No Information Payers Payer name Insurance type Covered republican ID Authoriza nanisneha(s) [facility] Out Of State 09 [id number] Social History Type Description Quantity Date Captured [...]
--- OUTSIDE RECORDS SUMMARY | 2024-10-19 18:29 | XMS_ITS | Clinical Summary ---
Author Organization [facility] Address [address] [place] [address] Phone Care Team Providers Care Occupational Therapy Assistant Name Role Phone Tremaine Snyder MD Primary Care Provider [phone] Allergies No known active allergies Medications glyBURIDE-metFOR [...] 1-dose 75+ series) 11/06/2031 Insurance Care Teams Occupational Therapy Assistant Relationship Specialty Start Date End Date Tremaine Snyder MD [address] [address] PCP - General Family Practice 11/07/19
[2024-10-19] MEDS: clonazePAM (*CRX) 0.5 MG TABLET 2 MG PO (20:03)
[2024-10-19] MEDS: MIRTAZAPINE 30 MG TABLET PO (20:03)
[2024-10-19 22:00] VITALS: BP 145/60; PULSE 85; RESP 18; TEMP 36.6; O2SAT 95
[2024-10-20 06:00] VITALS: BP 149/64; PULSE 81; RESP 18; TEMP 36.4; O2SAT 98
[2024-10-20 06:19] LABS: Hematocrit 41.8 % (37.0-47.0); Hemoglobin 13.4 g/dL (12.0-15.0); Mean Corpuscular HGB Conc 32.1 g/dl (32-36); Mean Corpuscular Hemoglobin 29.4 pg (26-34); Mean Corpuscular Volume 91.7 fl (80-100); Platelet Count Result 193 k/mm3 (150-375); Red Blood Count 4.56 M/mm3 (4.2-5.4); White Blood Count 6.9 K/mm3 (4.5-10.0)
[2024-10-20 06:40] LABS: Anion Gap 1 mmol/L (4-12); Blood Urea Nitrogen 13 mg/dL (7-17); Calcium 8.5 mg/dL (8.4-10.2); Carbon Dioxide 26 mmol/L (22-30); Chloride 110 mmol/L (98-107); Estimated CRCL calculation 81 ml/min; Estimated Glomerular Filt Rate > 60; Glucose 213 mg/dL (65-110); Potassium 4.1 mmol/L (3.4-5.0); Sodium 137 mmol/L (137-145)
[2024-10-20 08:00] VITALS: O2SAT 96
[2024-10-20] MEDS: UMECLIDINIUM/VILANTEROL 62.5-25 MCG ELLIPTA 1 PUFF INHALATION (08:00)
[2024-10-20 08:01] VITALS: PULSE 84; RESP 17
[2024-10-20 08:06] VITALS: PULSE 84; O2SAT 96
[2024-10-20] MEDS: INSULIN ASPART (*BKC) 100 UNITS/ML SUB-Q (08:23)
[2024-10-20] MEDS: INSULIN GLARGINE (*BKC) 100 UNITS/ML 14 UNITS SUB-Q (08:23)
[2024-10-20] MEDS: NICOTINE (*PBKC) 14 MG PATCH 1 PATCH TRANSDERM (08:23)
[2024-10-20] MEDS: ATORVASTATIN 40 MG TABLET PO (08:27)
[2024-10-20] MEDS: DULoxetine HCL 60 MG CAPSULE.DR PO (08:27)
[2024-10-20] MEDS: ENOXAPARIN 40 MG/0.4 ML SYRINGE SUB-Q (08:27)
--- NOTE | 2024-10-20 08:34 | PCPTNOTE ---
Pt is safe with mobility and has no PT/OT needs in Acute setting per Nurse Valerie. Discharging orders due to pt having no needs at this time.
[2024-10-20 09:45] VITALS: BMI 22.4
[2024-10-20] MEDS: ENALAPRIL MALEATE 2.5 MG TABLET PO (10:24)
--- NOTE | 2024-11-03 15:59 | PCCDE ---
DM educator attempted courtesy follow up call. Outgoing message stating mailbox is full and cannot accept any messages
== END 2024-10-20 12:00 | disposition home health service (06) | DRG 638 ==
LOC: ANHED 17:34 → ANH3MEDSUR 10-19 12:36 → ANHICU 10-19 18:26 → ANH3MEDSUR 10-20 11:09 → ANHICU 10-21 15:43
PROVIDERS: Internal Medicine; Nurse Practitioner Gerontology; Admitting Provider Internal Medicine; Emergency Provider Emergency Medicine; PCP Family Medicine; Visit Provider Internal Medicine
DX: E11.10 Type 2 diabetes mellitus with ketoacidosis without coma (principal); E87.0 Hyperosmolality and hypernatremia; I10 Essential (primary) hypertension; J44.9 Chronic obstructive pulmonary disease, unspecified; E78.5 Hyperlipidemia, unspecified; E53.8 Deficiency of other specified B group vitamins; E55.9 Vitamin D deficiency, unspecified; K21.9 Gastro-esophageal reflux disease without esophagitis; M85.80 Other specified disorders of bone density and structure, unspecified site; R29.6 Repeated falls; F41.9 Anxiety disorder, unspecified; F32.A Depression, unspecified; F17.210 Nicotine dependence, cigarettes, uncomplicated; Z95.0 Presence of cardiac pacemaker; Z79.4 Long term (current) use of insulin
CPT/HCPCS: 36415; 36600; 70450; 71045; 80048; 80053; 81003; 82010; 82375; 82550; 82805; 82948; 83036; 83050; 83735; 84100; 85018; 85025; 85027; 87641; 93005; 94640; 96361; 96365; 96375; 99285; A9270; J1650; J1815; J3480; J7030; J7040